=== PATIENT | male | born 1950 | race Caucasian/White ===

== ENCOUNTER 2019-11-18 12:00 | Inpatient (IN) | payer OTHER, SELFPAY ==
[2019-11-18] VITALS (7 sets, daily range): BP systolic 136–163; BP diastolic 62–83; PULSE 101–109; RESP 16–21; TEMP 36.4–36.6; O2SAT 92–95; BMI 25.7
--- NOTE | ~2019-11-18 | XR_ITS ---
XR chest 1V portable DATE: 11/18/2019 14:02 INDICATION: Chest pain radiating to left arm. Cough. TECHNIQUE: Portable upright AP chest on 11/18/2019 at 1401 hours COMPARISON: 09/11/2021 view chest FINDINGS: Normal heart size. No hilar or mediastinal enlargement. Azygos lobe, normal variant. No pulmonary infiltrate or consolidation, pleural effusion or pulmonary vascular congestion or pneumo thorax is evident. Diffuse osteopenia. There is degenerative spurring of the thoracic spine. IMPRESSION: No active cardiopulmonary disease or significant change since 09/11/2019 Reviewed, dictated and finalized at location B. IMPRESSION: No active cardiopulmonary disease or significant change since 2019
--- NOTE | 2019-11-18 12:22 | ED.CHESTPAIN ---
HPI - Chest Pain General Chief Complaint: Chest Pain Stated Complaint: CHEST PAIN Time Seen by Provider: 11/18/19 12:19 Source: patient and RN notes reviewed Mode of arrival: ambulatory Limitations: no limitations History of Present Illness HPI narrative: Pt is a 69 y/o male with a Hx of COPD, DM, HTN, and HLD, who presents to the ED with c/o lt upper chest pain starting this morning. He notes that he recently quit smoking on 10/13/19. Pt states that he has had an intermittent cough for roughly the past month. He notes that he developed a sharp pain in his lt upper chest while at rest around 11:15 AM this morning. Pt states that his pain has been intermittent ever since, noting that his pain is only aggravated with coughing and deep breathing. He states that his pain radiates into his lt arm. Pt currently denies any fever or chills. He notes that he isn't currently taking any blood thinners. Patient was tested for coronavirus 3 days ago, awaiting for the results MD complaint: chest pain Pertinent past history: other (COPD) Onset (ago): hour(s) (1) Timing of current episode: episodic Onset: during rest Pain location: left chest (lt upper chest) Pain radiation: left arm Quality: sharp Exacerbating factors: other (cough; deep breathing) Associated symptoms: cough Risk Factors Coronary artery disease risk factors: diabetes, hyperlipidemia and hypertension Related Data Home Medications Medication Instructions Recorded Confirmed atorvastatin 20 mg PO DAILY 11/18/19 azithromycin See Rx Instructions .ROUTE .COMPLEX 11/18/19 fluticasone propion-salmeterol INHALATION 11/18/19 losartan 25 mg PO DAILY 11/18/19 metformin 500 mg PO BID 11/18/19 [id number] cap PO 11/18/19 [[facility]] pantoprazole 40 mg PO BID 11/18/19 prednisone See Rx Instructions .ROUTE .COMPLEX 11/18/19 Allergies Allergy/AdvReac Type Severity Reaction Status Date / Time No Known Allergies Allergy Unverified 04/19/19 07:59 Review of Systems Review of Systems: All systems reviewed & are unremarkable except as noted in HPI and below Constitutional: Constitutional: Denies chills and Denies fever(s) Cardiovascular: Cardiovascular: Reports chest pain (lt upper chest pain radiating into lt arm) Respiratory: Respiratory: Reports cough PMFSH Past Medical History Medical History Arthritis Back pain Bilateral inguinal hernia COPD (chronic obstructive pulmonary disease) Diabetes Gastric ulcer GERD (gastroesophageal reflux disease) HLD (hyperlipidemia) HTN (hypertension) Surgical History Surgical History Hx of appendectomy Hx of bilateral inguinal hernia repair Hx of tonsillectomy Family History Family History (Updated 03/18/16 @ 23:19 by DOCTOR UNKNOWN) Mother Family history of diabetes mellitus in first degree relative Sibling Family history of diabetes mellitus in first degree relative Family history of lung cancer Family history of heart disease in male family member before age 55 Other Diabetes mellitus Family history of malignant neoplasm Social History Social History Smoking status: Former smoker Smoking end date: 10/13/19 Alcohol intake: never Exam Narrative: Exam Narrative: General appearance: Well-developed, well-nourished Skin: Normal color Head: Normocephalic, nontraumatic Eyes: Clear conjunctiva ENT: Oropharynx normal, ears normal, nose normal Neck: Supple, nontender Chest and respiratory: Airway patent, no respiratory distress, no accessory muscle use Heart: Regular rate/rhythm Abdomen: Soft, nontender, no organomegaly, quiet bowel sounds Vascular: Normal peripheral pulses, normal capillary refill. 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
--- NOTE | 2019-11-18 13:04 | PCRCNOTE ---
pt refused ABG RN is aware
[2019-11-18] MEDS: IPRATROPIUM BR 0.02% INH SOLN 0.5 MG/2.5 ML VIAL INHALATION (13:05)
[2019-11-18] MEDS: ALBUTEROL SULFATE NEB 2.5 MG/0.5 ML INH 5 MG INHALATION (13:06)
[2019-11-18 13:15] LABS: Basophils Absolute Auto 0.1 K/mm3 (0.0-0.1); Basophils Percent Auto 0.6 % (0.2-1.2); Eosinophils Percent Auto 0.4 % (0-4.4); Hematocrit 38.8 % (42.0-52.0); Hemoglobin 12.7 g/dL (14.0-18.0); Immature Granulocyte Absolute 0.04 K/mm3 (0.00-0.031); Immature Granulocyte Percent A 0.4 % (0-0.5); Lymphocytes Percent Auto 7.3 % (18.3-44.2); Mean Corpuscular HGB Conc 32.7 g/dl (32-36); Mean Corpuscular Hemoglobin 31.5 pg (26-34); Mean Corpuscular Volume 96.3 fl (80-100); Mean Platelet Volume 10.8 fl (7.4-10.4); Monocytes Absolute Auto 0.3 K/mm3 (0.1-0.6); Monocytes Percent Auto 2.6 % (2.6-8.5); Neutrophils Absolute Auto 9.8 K/mm3 (1.3-6.7); Neutrophils Percent Auto 88.7 % (45.5-73.1); Platelet Count Result 228 k/mm3 (150-375); Red Blood Count 4.03 M/mm3 (4.6-6.20); Red Cell Distribution Width 12.6 % (11.5-14.5)
[2019-11-18] MEDS: methylPREDNISolone SOD SUCC 125 MG VIAL IV PUSH (13:16)
[2019-11-18 13:24] LABS: INR 0.8; Prothrombin Time 11.1 Seconds (11.1-14.7)
--- NOTE | 2019-11-18 13:24 | ECG_ITS ---
Measurements Intervals [place] Rate: 107 P: 69 [place]: 131 QRS: 11 QRSD: 88 T: 68 QT: 301 QTc: 402 Interpretive Statements SINUS TACHYCARDIA ABNORMAL ECG Electronically Signed On 11-18-2019 13:57:41 CDT by Ganesh Diaz D.O.
[2019-11-18 13:26] LABS: Partial Thromboplastin Time 23.3 SECONDS (22.3-36.8)
[2019-11-18 13:33] LABS: D Dimer 0.27 ug/mL (<0.48)
[2019-11-18 13:35] LABS: Albumin Level 4.3 g/dL (3.5-5.1); Alkaline Phosphatase 142 U/L (38-126); Aspartate Amino Transferase 28 U/L (17-59); Bilirubin,Total < 0.1 mg/dL (0.2-1.3); Blood Urea Nitrogen 29 mg/dL (9-20); Calcium 9.4 mg/dL (8.4-10.2); Carbon Dioxide 20 mmol/L (22-30); Chloride 94 mmol/L (98-107); Estimated CRCL calculation 53 ml/min; Estimated Glomerular Filt Rate > 60; Glucose 619 mg/dL (75-110); Potassium 5.3 mmol/L (3.4-5.0); Sodium 131 mmol/L (137-145)
[2019-11-18 13:38] LABS: Alanine Aminotransferase 44 U/L (4-50)
[2019-11-18 13:43] LABS: NT Pro B Type Natriuretic Pept 56 PG/ML (5-100); Troponin I < 0.012 ng/mL (0.000-0.034)
[2019-11-18] MEDS: SODIUM CHLORIDE 0.9% IV 1,000 ML 999 ML IV CONT (15:49)
[2019-11-18] MEDS: INSULIN HUMAN REGULAR (*BKC) 100 UNITS/ML 8 UNITS IV PUSH (15:50)
[2019-11-18 16:20] LABS: Troponin I < 0.012 ng/mL (0.000-0.034)
[2019-11-18 16:31] LABS: Magnesium 1.4 mg/dL (1.6-2.3); Phosphorus 2.7 mg/dL (2.5-4.5)
[2019-11-18 16:34] LABS: Beta-Hydroxybutyrate/Acetoacetate 0.24 mmol/L (0.02-0.27)
[2019-11-18 16:56] LABS: Glucose Point of Care 457 (65-105)
[2019-11-18 17:56] LABS: Glucose Point of Care 442 (65-105)
[2019-11-18 18:46] LABS: Glucose Point of Care 384 (65-105)
[2019-11-18 19:10] LABS: Blood Urea Nitrogen 31 mg/dL (9-20); Calcium 9.6 mg/dL (8.4-10.2); Carbon Dioxide 22 mmol/L (22-30); Chloride 95 mmol/L (98-107); Estimated CRCL calculation 64 ml/min; Estimated Glomerular Filt Rate > 60; Glucose 416 mg/dL (75-110); Potassium 4.8 mmol/L (3.4-5.0); Sodium 134 mmol/L (137-145)
--- NOTE | 2019-11-18 19:27 | ADMGEN ---
This patient, Dno Brice, was admitted to Intensive Care Unit-5. Patient/family oriented to hospital policies and general routines including ID bracelet, bed and alarms, visiting hours, pain management, procedures, bathroom and other care routines, personal items, smoking policy, room service/diet, and visiting hours. Valuables list has been completed. Information on how to activate the Rapid Response Team has been discussed. Patient/Family are encouraged to report perceived risks to care and to ask questions if they do not understand what they are told or what they should do.
[2019-11-18 19:30] LABS: Phosphorus 3.3 mg/dL (2.5-4.5)
[2019-11-18 20:09] LABS: Hemoglobin A1C 9.4 % (<5.7)
[2019-11-18] MEDS: predniSONE 20 MG TABLET 60 MG PO (20:32)
[2019-11-18] MEDS: AZITHROMYCIN 250 MG TABLET PO (20:33)
[2019-11-18] MEDS: PANTOPRAZOLE 40 MG TABLET PO (20:35)
[2019-11-18] MEDS: OPTI-GEN TAB 1 TABLET PO (20:35)
[2019-11-18] MEDS: INSULIN HUMAN REGULAR (*BKC) 100 UNITS in SODIUM CHLORIDE 0.9% IV 99 ML 6 UNITS IV CONT (20:36)
[2019-11-18] MEDS: SODIUM CHLORIDE 0.9% IV 1,000 ML 150 ML IV CONT (20:37)
[2019-11-18] MEDS: MAGNESIUM SULF 2 GM/WATER 50ML 2 GM/50 ML BAG IVPB (20:55)
--- NOTE | 2019-11-18 21:05 | PM.IMHP ---
H&P: HPI History of Present Illness Chief complaint: Diabetic hyperglycemia/COPD exacerbation/chest fred Narrative: Don Brice is a 69 year old male who has a history of type 2 diabetes. The patient quit smoking on 10/13/2019. He has had an intermittent cough for the last month. He stated that his called their primary care doctor and then called a testing site for covid 19 which was approximately this past Monday and he still has not had the results yet. The patient has a history of COPD, diabetes, hypertension and hyperlipidemia. The patient was complaining of some left upper chest pain that started this morning. Was sharp and is aggravated with coughing and deep breathing. He does not have any sputum production. He has no fever chills. No body aches. No active cardiopulmonary disease or significant change since 09/11/2019. Patient's anion gap was noted to be 17. Was 619. He was given a dose of IV insulin and his blood sugar came down to 416. Patient is being admitted to the intensive care unit with DKA. And pending results for covid 19. Patient was placed in isolation in the intensive care unit. He was started on DKA protocol. Patient is upset at this time because he is not able to eat. EKG was read as sinus tachycardia. Was noted to be 0.012. Magnesium 1.4. Troponins are to be trended. He was given a nebulizer treatment in the emergency room. Date of service 11/18/2019 Review of Systems Review of Systems: All systems reviewed & are unremarkable except as noted in HPI and below Constitutional: Constitutional: Reports as per HPI and Reports no additional constitutional complaints Eyes: Eyes: Reports as per HPI and Reports no additional eye complaints ENT: Reports system reviewed and no additional complaints, except as documented and Reports Normal hearing present Cardiovascular: Cardiovascular: Reports no additional cardiovascular complaints Respiratory: Respiratory: Reports no additional respiratory complaints and Reports no additional respiratory complaints Gastrointestinal: Gastrointestinal: Reports as per HPI and Reports no additional gastrointestinal complaints Musculoskeletal: Musculoskeletal: Reports no additional musculoskeletal complaints Integumentary/Breasts: Skin/Breast: Reports system reviewed and no additional complaints, except as docu and Reports as per HPI Neurologic: Reports system reviewed and no additional complaints, except as documented, Reports as per HPI and Reports Normal hearing present Psychiatric: Psychiatric: Reports no additional psychiatric complaints and Reports as per HPI Endocrine: Endocrine: Reports no additional endocrine complaints Hematologic/Lymphatic: Hematologic/Lymphatic: Reports no additional hematologic/lymphatic complaints Allergic/Immunologic: Allergic/Immunologic: Reports no additional allergic/immunologic complaints [facility] Past Medical History Medical History Arthritis Back pain Bilateral inguinal hernia COPD (chronic obstructive pulmonary disease) Diabetes Gastric ulcer GERD (gastroesophageal reflux disease) HLD (hyperlipidemia) HTN (hypertension) Surgical History Surgical History Hx of appendectomy Hx of bilateral inguinal hernia repair Hx of tonsillectomy Family History Family History Mother Family history of diabetes mellitus in first degree relative Sibling Family history of diabetes mellitus in first degree relative Family history of lung cancer Family history of heart disease in male family member before age 55 Other Diabetes mellitus Family history of malignant neoplasm Social History Social History (Updated 11/18/19 @ 21:13 by Marguerite Carter NP) Social History: The patient stated that he was Rai 4 years old when he started smoking. He said he used to drink heavily
[2019-11-18 22:13] LABS: Add Urine Microscopic? YES; Appearance Urine Clear (Clear); Bilirubin Urine Negative (Negative); Blood Urine Negative (Negative); Color Urine Colorless (Yellow); Glucose Urine UA 3+ mg/dL (Negative); Ketones Urine Negative (Negative); Leukocyte Esterase Ur Negative LEU/UL (NEGATIVE); Nitrate Urine Negative (Negative); Protein Urine 1+ mg/dL (Negative); Specific Grav Ur 1.016 (1.001-1.035); Squamous Epithelial Cell Urine Rare /hpf (Few); Urobilinogen Urine Negative mg/dL (<2.0)
[2019-11-18] MEDS: KCL 20 MEQ/D5/0.45% SOD CHL 1,000 ML 150 ML IV CONT (23:37)
[2019-11-18 23:58] LABS: Blood Urea Nitrogen 27 mg/dL (9-20); Calcium 9.6 mg/dL (8.4-10.2); Carbon Dioxide 26 mmol/L (22-30); Chloride 99 mmol/L (98-107); Estimated CRCL calculation 71 ml/min; Estimated Glomerular Filt Rate > 60; Glucose 243 mg/dL (75-110); Potassium 3.9 mmol/L (3.4-5.0); Sodium 134 mmol/L (137-145)
[2019-11-19] VITALS (7 sets, daily range): BP systolic 141–151; BP diastolic 61–74; PULSE 81–95; RESP 16–20; TEMP 36.6–36.9; O2SAT 93–96
[2019-11-19 00:10] LABS: Troponin I < 0.012 ng/mL (0.000-0.034)
[2019-11-19 01:31] LABS: Glucose Point of Care 362 (65-105)
[2019-11-19 01:31] LABS: Glucose Point of Care 292 (65-105)
[2019-11-19 01:31] LABS: Glucose Point of Care 225 (65-105)
[2019-11-19 01:31] LABS: Glucose Point of Care 201 (65-105)
[2019-11-19 01:31] LABS: Glucose Point of Care 323 (65-105)
[2019-11-19 04:38] LABS: Basophils Percent Auto 0.2 % (0.2-1.2); Eosinophils Percent Auto 0.1 % (0-4.4); Hematocrit 37.6 % (42.0-52.0); Hemoglobin 12.9 g/dL (14.0-18.0); Immature Granulocyte Absolute 0.15 K/mm3 (0.00-0.031); Immature Granulocyte Percent A 0.8 % (0-0.5); Lymphocytes Absolute Auto 1.59 K/mm3 (0.9-3.2); Mean Corpuscular HGB Conc 34.3 g/dl (32-36); Mean Corpuscular Hemoglobin 31.7 pg (26-34); Mean Corpuscular Volume 92.4 fl (80-100); Mean Platelet Volume 10.3 fl (7.4-10.4); Monocytes Absolute Auto 1.3 K/mm3 (0.1-0.6); Monocytes Percent Auto 6.7 % (2.6-8.5); Neutrophils Absolute Auto 16.8 K/mm3 (1.3-6.7); Neutrophils Percent Auto 84.2 % (45.5-73.1); Platelet Count Result 242 k/mm3 (150-375); Red Blood Count 4.07 M/mm3 (4.6-6.20); Red Cell Distribution Width 12.6 % (11.5-14.5); White Blood Count 19.9 K/mm3 (4.5-10.0)
[2019-11-19 04:56] LABS: Blood Urea Nitrogen 24 mg/dL (9-20); Calcium 9.5 mg/dL (8.4-10.2); Carbon Dioxide 26 mmol/L (22-30); Chloride 103 mmol/L (98-107); Estimated CRCL calculation 81 ml/min; Estimated Glomerular Filt Rate > 60; Glucose 148 mg/dL (75-110); Sodium 137 mmol/L (137-145)
[2019-11-19] MEDS: INSULIN GLARGINE (*BKC) 100 UNITS/ML 10 UNITS SUB-Q (05:47)
[2019-11-19 05:49] LABS: Thyroid Stimulating Hormone Reflex 0.445 uIU/mL (0.465-4.68)
[2019-11-19 06:54] LABS: Glucose Point of Care 161 (65-105)
[2019-11-19 06:55] LABS: Glucose Point of Care 114 (65-105)
[2019-11-19 06:55] LABS: Glucose Point of Care 183 (65-105)
[2019-11-19 06:55] LABS: Glucose Point of Care 114 (65-105)
[2019-11-19 06:55] LABS: Glucose Point of Care 149 (65-105)
[2019-11-19] MEDS: INSULIN GLARGINE (*BKC) 100 UNITS/ML SUB-Q (08:21)
[2019-11-19] MEDS: LOSARTAN POTASSIUM 25 MG TABLET PO (08:25)
[2019-11-19] MEDS: ATORVASTATIN 20 MG TABLET PO (08:25)
[2019-11-19] MEDS: AZITHROMYCIN 250 MG TABLET PO (08:25)
[2019-11-19] MEDS: OPTI-GEN TAB 1 TABLET PO (08:25)
[2019-11-19] MEDS: PANTOPRAZOLE 40 MG TABLET PO (08:25)
[2019-11-19] MEDS: predniSONE 20 MG TABLET 60 MG PO (08:26)
[2019-11-19 08:41] LABS: Glucose Point of Care 164 (65-105)
[2019-11-19 08:44] LABS: Blood Urea Nitrogen 24 mg/dL (9-20); Calcium 9.3 mg/dL (8.4-10.2); Carbon Dioxide 26 mmol/L (22-30); Chloride 100 mmol/L (98-107); Estimated CRCL calculation 81 ml/min; Estimated Glomerular Filt Rate > 60; Glucose 181 mg/dL (75-110); Potassium 4.4 mmol/L (3.4-5.0); Sodium 136 mmol/L (137-145)
--- NOTE | 2019-11-19 08:58 | WPDCNINT ---
Assessment and Plan Assessment and plan (1) DKA (diabetic ketoacidoses): Qualifiers: Diabetes mellitus type: type 2 Diabetes mellitus complication detail: without coma Qualified Code(s): E11.10 - Type 2 diabetes mellitus with ketoacidosis without coma Code(s): E11.10 - Type 2 diabetes mellitus with ketoacidosis without coma Status: Acute Assessment and Plan: patient initially presented atypical chest pain, was found to have elevated blood sugars with anion gap metabolic acidosis. Patient was diagnosed with DKA, given IV fluid bolus x2 L, started on insulin infusion and transferred to the ICU for further management. - Patient was transition to long-acting insulin and sliding scale insulin with Accu-Cheks - hemoglobin A1c this admission is 9.4. - Patient on diabetic diet (2) Chest pain: Qualifiers: Chest pain type: unspecified Qualified Code(s): R07.9 - Chest pain, unspecified Code(s): R07.9 - Chest pain, unspecified Status: Acute Assessment and Plan: patient presented with atypical chest pain likely secondary to coughing. Denies any fevers or shortness of breath. Patient had a outpatient covid-19 test and has at outpatient with [facility] in [facility] Approximately 10 days ago and still awaiting results - troponins x3 negative, currently asymptomatic - cardiology evaluated the patient for chest pain, recommended outpatient echocardiogram and possible stress test at some point given history of diabetes, COPD, hypertension, patient may be at risk for cardiac disease (3) COPD (chronic obstructive pulmonary disease): Qualifiers: COPD type: COPD with acute exacerbation Qualified Code(s): J44.1 - Chronic obstructive pulmonary disease with (acute) exacerbation Code(s): J44.9 - Chronic obstructive pulmonary disease, unspecified Status: Acute Assessment and Plan: continue MDIs - on prednisone (4) HTN (hypertension): Qualifiers: Hypertension type: essential hypertension Qualified Code(s): I10 - Essential (primary) hypertension Code(s): I10 - Essential (primary) hypertension Status: Chronic Assessment and Plan: continue Cozaar (5) HLD (hyperlipidemia): Qualifiers: Hyperlipidemia type: unspecified Qualified Code(s): E78.5 - Hyperlipidemia, unspecified Code(s): E78.5 - Hyperlipidemia, unspecified Status: Chronic Assessment and Plan: continue atorvastatin Additional Plan discussed with patient updated with his condition and plan of care. I answered all questions. Discussed with cardiology, recommended outpatient echocardiogram and possible stress test at some point down the line Code status: Full code. Critical care time spent: 38 minutes Due to a high probability of clinically significant, life threatening deterioration, the patient required my highest level of preparedness to intervene emergently and I personally spent this critical care time directly and personally managing the patient. This critical care time included obtaining a history; examining the patient; pulse oximetry; ordering and review of studies; arranging urgent treatment with development of a management plan; evaluation of patient's response to treatment; frequent reassessment; and discussions with other providers. It was exclusive of separately billable procedures and treating other patients and teaching time. 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
--- NOTE | 2019-11-19 09:09 | PM.CNCAR ---
Assessment and Plan Assessment and plan (1) Chest pain: Qualifiers: Chest pain type: unspecified Qualified Code(s): R07.9 - Chest pain, unspecified Code(s): R07.9 - Chest pain, unspecified Status: Acute Assessment and Plan: Atypical for angina and appears musculoskeletal likely from strenuous coughing His EKG shows no ischemic changes and has 3 negative trop so far He has multiple cardiovascular risk factors including heavy tobacco abuse and DM. He would benefit from stress testing for risk stratification. That could be arranged in outpatient settings once DM better controlled and once his resp status improved. Would start ASA 81 mg daily if not already on it for primary cardiac prevention Consider 2D echo. pt currently on isolation pending COVID testing. If not feasible that can also be done as outpatient (2) COPD (chronic obstructive pulmonary disease): Code(s): J44.9 - Chronic obstructive pulmonary disease, unspecified Status: Chronic Assessment and Plan: Management per primary team (3) HTN (hypertension): Code(s): I10 - Essential (primary) hypertension Status: Chronic Assessment and Plan: Somewhat elevated. Patient resume on home dose Losartan. Consider increase the dose for better BP control (4) DKA (diabetic ketoacidoses): Code(s): E11.10 - Type 2 diabetes mellitus with ketoacidosis without coma Status: Acute Assessment and Plan: Management per primary team. History of Present Illness History of Present Illness Consult date/time: 11/19/19 09:09 69 y/o male with h/o COPD, tobacco abuse (1-2 packs a day, quit last month), HTN, DM who presented with chest pain. He has been having cough for few days and did out patient testing for COVID on Monday. His cough got worse and with that he started to develop chest pain when he coughs so he decided to seek medical attention. In ER he was found have markedly elevated blood sugar with anion gap consistent with DKA. He was admitted to ICU for further management of DKA. His chest pain has resolved. His COVID testing still pending. Troponin has been negative X3. EKG showed sinus tachycardia at heart rate of 107. No ischemic changes. Reason For Visit: Diabetic hyperglycemia/COPD exacerbation/chest fred Review of Systems Review of Systems: All systems reviewed & are unremarkable except as noted in HPI and below Constitutional: Constitutional: Denies fatigue and Denies headache(s) Eyes: Eyes: Denies blurry vision ENT: Reports Normal hearing present and Denies headache(s) Cardiovascular: Cardiovascular: Reports chest pain, Denies diaphoresis, Denies pedal edema, Denies leg edema, Denies lightheadedness, Denies palpitations and Denies dyspnea Respiratory: Respiratory: Reports cough and Denies dyspnea Gastrointestinal: Gastrointestinal: Denies abdominal pain Musculoskeletal: Musculoskeletal: Denies back pain Neurologic: Reports Normal hearing present and Denies headache(s) Psychiatric: Psychiatric: Denies anxiety Endocrine: Endocrine: Denies fatigue and Denies palpitations PMFSH Past Medical History Medical History (Updated 11/18/19 @ 21:16 by Marguerite Carter NP) Arthritis Back pain Bilateral inguinal hernia COPD (chronic obstructive pulmonary disease) Diabetes Gastric ulcer GERD (gastroesophageal reflux disease) HLD (hyperlipidemia) HTN (hypertension) Surgical History Surgical History Hx of appendectomy Hx of bilateral inguinal hernia repair Hx of tonsillectomy Family History Family History (Updated 11/18/19 @ 21:36 by Helga Brice, RN) Mother Family history of diabetes mellitus in first degree relative Sibling Family history of heart disease in male family member before age 55 Family history of lung cancer Family history of diabetes mellitus in first degree relative Breast cancer Father Alcohol a
--- NOTE | 2019-11-19 10:15 | PM.DS ---
DS: Diagnosis Admitting Diagnosis Admitting Diagnosis: Chest pain, unspecified; cough with dyspnea; hyperglycemia Discharge Diagnosis (1) Chest pain: Qualifiers: Chest pain type: unspecified Qualified Code(s): R07.9 - Chest pain, unspecified Code(s): R07.9 - Chest pain, unspecified Status: Acute Assessment and Plan: Atypical. Likely musculoskeletal due to coughing. (2) DKA (diabetic ketoacidoses): Code(s): E11.10 - Type 2 diabetes mellitus with ketoacidosis without coma Status: Acute Assessment and Plan: resolved (3) COPD (chronic obstructive pulmonary disease): Code(s): J44.9 - Chronic obstructive pulmonary disease, unspecified Status: Chronic Assessment and Plan: Patient has a long history of tobacco abuse. Continue with his inhalers as he uses at home. Taper steroids (4) HLD (hyperlipidemia): Code(s): E78.5 - Hyperlipidemia, unspecified Status: Chronic Assessment and Plan: Continue with Lipitor (5) HTN (hypertension): Code(s): I10 - Essential (primary) hypertension Status: Chronic Assessment and Plan: Continue with Cozaar DS: Summary Hospital Course Reason for hospitalization: Chest pain. Cough and dyspnea. Hyperglycemia. Hospital Course: Patient was evaluated November 14 due to dry cough and mild dyspnea. He was started on prednisone 60 mg daily. He is a type 2 diabetic and was previously on Levemir FlexPen. He will was currently on oral hypoglycemics only. He did obtain a a cespedes virus swab on November 14 and was told it would take 7 days to obtain the results. He developed some chest pain with his coughing and came to the emergency department. In the emergency department he was found to be hyperglycemic with a blood sugar 619. A1c was 9.4%. He was treated with IV and subcutaneous insulin as well as IV fluids. His blood sugar rapidly improved with a fasting of 164 on the day of discharge. He was tolerating his diet. He was agreeable to resuming his Levemir and rapidly tapering his prednisone. He was to return to the emergency department she did develop increased shortness of breath or fever. He was evaluated by cardiology who felt that his chest pain was atypical and was associated with coughing and most likely musculoskeletal. Chest x-ray revealed infiltrates. Electrocardiogram and troponins were negative. He was to contact cardiology for outpatient stress test once his respiratory illness resolved. Status at Discharge Functional status at discharge: independent ambulation Overall status at discharge: patient is progressing back to baseline Time Spent with Patient Time attestation: Total time spent providing and/or coordinating discharge services: 37 min Exam Narrative: Exam Narrative: HEENT: EOMI, PERRL, pharyngeal mucosa pink and intact NECK: No JVD CHEST: Increased AP diameter. Normal effort. Mild rhonchi posteriorly. Mild expiratory wheeze anteriorly. Prolonged expiratory phase. No coughing during interview or exam. HEART: NL S1/S2, regular, no murmur ABDOMEN: BS+, soft, nontender, no mass, no bruits EXTREMITIES: No cyanosis, edema, or clubbing NEUROLOGIC: CN intact and symmetric to inspection. MUSCULOSKELETAL: Tone and strength symmetric. PSYCH: Alert. Oriented to person, place, and time. DS: Data Data Completed and Pending Labs on day of discharge: Labs from last 24 hours 11/19/19 11/19/19 11/19/19 08:21 08:17 06:50 WBC RBC Hgb Hct MCV MCH MCHC RDW Plt Count MPV Immature Gran % (Auto) Neut % (Auto) Lymph % (Auto) [place] % (Auto) Eos % (Auto) Baso % (Auto) Lymph # (Auto) [place] # (Auto) Eos # (Auto) Baso # (Auto) Abs Immat Gran (auto) Absolute Neuts (auto) Absolute Nucleated RBC Nucleated RBC % PT INR APTT D-Dimer Sodium 136 L Potassium 4.4 Chloride 100 Carbon Dioxide 26
[2019-11-20 09:34] LABS: Free T4 Free Thyroxine Reflex 0.86 ng/dL (0.78-2.19)
[2019-11-20 10:39] LABS: Total Triiodothyronine (T3) 1.09 NG/ML (0.97-1.69)
--- NOTE | 2019-11-20 14:05 | PCCDE ---
Consult received 11/17 however pt was discharged 11/18 before consult was completed. Called pt today and left message with educator contact info. Will be available per request.
== END 2019-11-19 11:38 | disposition home or self-care (01) | DRG 639 ==
LOC: ANHED 16:00 → ANHIMU 16:43 → ANHICU 17:18
PROVIDERS: Internal Medicine; Nurse Practitioner; Admitting Provider Family Medicine; Emergency Provider Emergency Medicine; PCP Physician Assistant; Visit Provider Internal Medicine
DX: E11.10 Type 2 diabetes mellitus with ketoacidosis without coma (principal); E78.5 Hyperlipidemia, unspecified; I10 Essential (primary) hypertension; R07.89 Other chest pain; J44.9 Chronic obstructive pulmonary disease, unspecified
CPT/HCPCS: 36415; 71045; 80048; 80053; 81001; 82010; 83036; 83735; 83880; 84100; 84439; 84443; 84480; 84484; 85025; 85380; 85610; 85730; 93005; 94640; 96361; 96374; 96375; 99285; A9270; J1815; J2930; J3475; J3480; J7030; J7512

== ENCOUNTER 2020-01-20 12:23 | Outpatient (CLI) | payer OTHER, SELFPAY ==
--- NOTE | ~2020-01-20 | XR_ITS ---
XR chest 2V DATE: 01/20/2020 12:39 INDICATION: Upper right chest pain and back pain for 3 days. Cough and shortness of breath. TECHNIQUE: PA and lateral views COMPARISON: 11/18/2019 portable AP chest 03/21/2017 two-view chest FINDINGS: Azygos lobe, normal variant. There is chronic bilateral upper lobe scarring. There is evide nce of emphysema. No pulmonary infiltrate or consolidation, pleural effusion or pulmonary vascular co ngestion or pneumothorax is detected. Normal heart size. No hilar or mediastinal enlargement. Degenerative spurring of the thoracic spine. IMPRESSION: Emphysema and chronic bilateral upper lobe scarring No active disease or significant change compared to 03/21/2017 Reviewed, dictated and finalized at location A.
== END 2020-01-20 12:24 | disposition home or self-care (01) ==
PROVIDERS: PCP Physician Assistant; Visit Provider Physician Assistant
DX: R07.9 Chest pain, unspecified (principal); R05 Cough; R06.02 Shortness of breath; J43.9 Emphysema, unspecified; R91.8 Other nonspecific abnormal finding of lung field
CPT/HCPCS: 71046

== ENCOUNTER 2020-01-24 07:36 | Outpatient (CLI) | payer OTHER, SELFPAY ==
[2020-01-24 08:36] LABS: Hemoglobin A1C 9.5 % (<5.7)
[2020-01-24 08:41] LABS: Alanine Aminotransferase 28 U/L (4-50); Albumin Level 4.4 g/dL (3.5-5.1); Alkaline Phosphatase 93 U/L (38-126); Aspartate Amino Transferase 25 U/L (17-59); Bilirubin,Total 0.2 mg/dL (0.2-1.3); Blood Urea Nitrogen 28 mg/dL (9-20); Carbon Dioxide 29 mmol/L (22-30); Chloride 98 mmol/L (98-107); Cholesterol 149 mg/dL (0-200); Estimated Glomerular Filt Rate > 60; Glucose 285 mg/dL (75-110); HDL Direct 32 mg/dL; Potassium 4.6 mmol/L (3.4-5.0); Sodium 135 mmol/L (137-145); Triglycerides 150 mg/dL (<150)
[2020-01-24 08:52] LABS: LDL Cholesterol Direct 85 mg/dL
[2020-01-24 09:11] LABS: Creatinine Urine 73.3 mg/dL
[2020-01-24 09:15] LABS: MALB Creatinine Ratio 140.1 mg/g (0-30); Microalbumin Urine Random 102.7 mg/L (0-16.7)
== END 2020-01-24 07:37 | disposition home or self-care (01) ==
LOC: ANHLAB 07:40
PROVIDERS: PCP Physician Assistant; Visit Provider Physician Assistant
DX: E11.9 Type 2 diabetes mellitus without complications (principal); I10 Essential (primary) hypertension; R53.83 Other fatigue; E11.69 Type 2 diabetes mellitus with other specified complication; E78.5 Hyperlipidemia, unspecified
CPT/HCPCS: 36415; 80053; 80061; 82043; 83036; 84443

== ENCOUNTER 2020-04-20 10:01 | Outpatient (CLI) | payer OTHER, SELFPAY ==
--- NOTE | ~2020-04-20 | XR_ITS ---
EXAMINATION: XR thoracic spine 2V DATE: 04/20/2020 10:39 INDICATION: Chronic bilateral mid back pain TECHNIQUE: AP and lateral views of the thoracic spine were obtained. COMPARISON: 10/02/2018 FINDINGS: There is no fracture, dislocation, or subluxation. The vertebral body heights and alignment are normal. Again seen is mild loss of intervertebral disc space height at multiple levels in the th oracic spine. Small degenerative osteophytes project from the anterior endplates of multiple vertebra l bodies. The visualized portions of the lungs are clear. IMPRESSION: 1. Mild thoracic spondylosis without acute findings or significant interval change. Reviewed, dictated and finalized at location A. IMPRESSION: 1. Mild thoracic spondylosis without acute findings or significant interval maribel amrileee.
[2020-04-20 10:44] LABS: Hemoglobin A1C 8.1 % (<5.7)
[2020-04-20 10:50] LABS: Alanine Aminotransferase 46 U/L (4-50); Albumin Level 4.5 g/dL (3.5-5.1); Alkaline Phosphatase 77 U/L (38-126); Anion Gap 8 mmol/L (8-16); Aspartate Amino Transferase 30 U/L (17-59); Bilirubin,Total 0.2 mg/dL (0.2-1.3); Blood Urea Nitrogen 18 mg/dL (9-20); Calcium 9.5 mg/dL (8.4-10.2); Carbon Dioxide 29 mmol/L (22-30); Chloride 96 mmol/L (98-107); Estimated Glomerular Filt Rate > 60; Glucose 281 mg/dL (75-110); Sodium 133 mmol/L (137-145)
== END 2020-04-20 10:02 | disposition home or self-care (01) ==
PROVIDERS: PCP Physician Assistant; Visit Provider Physician Assistant
DX: E11.9 Type 2 diabetes mellitus without complications (principal); I10 Essential (primary) hypertension; M47.894 Other spondylosis, thoracic region
CPT/HCPCS: 36415; 72070; 80053; 83036

== ENCOUNTER 2020-08-24 00:19 | Outpatient (CLI) | payer OTHER, SELFPAY ==
[2020-08-24 18:50] LABS: SARS-CoV-2 RNA PCR Negative
== END 2020-08-24 00:20 | disposition home or self-care (01) ==
LOC: ANHCOVIDDT 00:19
PROVIDERS: PCP Physician Assistant; Visit Provider Internal Medicine Gastroenterology
DX: Z01.812 Encounter for preprocedural laboratory examination (principal); Z20.822 Contact with and (suspected) exposure to COVID-19
CPT/HCPCS: C9803; U0003

== ENCOUNTER 2020-08-27 00:25 | Day surgery (SDC) | payer OTHER, SELFPAY ==
--- NOTE | 2020-06-22 13:28 | SUR.PREOP ---
CALLED PT FOR PAT PHONE INTERVIEW. PT STATED HE IS NOT FEELING WELL AND HE NEEDS TO CANCEL HIS PROCEDURE...HE IS TRAVELING OUT OF TOWN ON FOR A FAMILY REUNION. SCHEDULERS MADE AWARE.
--- NOTE | 2020-06-22 14:17 | SUR.PREOP ---
'S BAY CALLED BACK. I GAVE HER DR HERRERA'S OFFICE NUMBER FOR HER TO CALL AND CANCEL THE PROCEDURE SCHEDULED ON 06/26 AND TO RESCHEDULE IT. SHE VERBALIZED UNDERSTANDING.
[2020-08-11 11:03] VITALS: BMI 25.1
[2020-08-27 10:40] VITALS: BP 135/72; PULSE 100; RESP 16; TEMP 36.3; O2SAT 97; BMI 26.7
[2020-08-27 11:01] LABS: Glucose Point of Care 374 (65-105)
[2020-08-27] MEDS: LACTATED RINGERS 1,000 ML 150 ML IV CONT (11:03)
--- NOTE | 2020-08-27 11:07 | SUR.PREOP ---
Pt blood sugar 347. Dr. Cedeno made aware. No new orders. Pt drank coffee and prep at 0900. Dr. Cedeno aware.
--- NOTE | 2020-08-27 11:32 | WPDANESEPPF ---
Anes - Initial Pre Proc Eval Procedure: Operation Date: 08/27/20 14:15 Proposed Procedures p Screening Colonoscopy - Pavel Aaron MD Date/Time: 08/27/20 11:32 Surgeon: Pavel Aaron MD Pre Op Diagnosis: Neoplasm Screening Patient Data Age: 69 Gender: M Height: 5 ft 8 in Weight: 79.9 kg Last Vital Signs Temp 97.4 F L 08/27/20 10:40 Pulse 100 08/27/20 10:40 Resp 16 08/27/20 10:40 BP 135/72 08/27/20 10:40 Pulse Ox 97 08/27/20 10:40 Allergies Allergy/AdvReac Type Severity Reaction Status Date / Time No Known Allergies Allergy Verified 08/27/20 10:39 Home Medications Medication Instructions Recorded Confirmed Type [facility] 1 cap PO BID 11/18/19 08/11/20 History albuterol sulfate 1 inh INHALATION Q6H PRN 11/18/19 08/11/20 History atorvastatin 20 mg PO DAILY 11/18/19 08/11/20 History fluticasone propion-salmeterol 1 inh INHALATION BID 11/18/19 08/11/20 History [Advair Diskus] losartan 25 mg PO DAILY 11/18/19 08/11/20 History metformin 500 mg PO BID 11/18/19 08/11/20 History pantoprazole 40 mg PO BID 11/18/19 08/11/20 History insulin glargine [Basaglar KwikPen 20 unit SUB-Q DAILY #15 ml 11/19/19 08/11/20 Rx U-100 Insulin] pen needle, diabetic [AboutTime #90 each 11/19/19 Rx Pen Needle] peg 3350 240 gram-electrolytes 240 ml PO Q10M #4000 ml 04/21/20 Rx 22.72 gram-6.72 g-5.84 g powdr for soln Laboratory Tests 08/27/20 10:58 POC Capillary Glucose 374 mg/dl H mg/dl (65-105) Patient hx anesthesia problems: none Family hx anesthesia problems: none PMFSH Past Medical History Medical History (Updated 11/19/19 @ 10:32 by Devon Schwartz MD) Arthritis Back pain Bilateral inguinal hernia COPD (chronic obstructive pulmonary disease) Diabetes Gastric ulcer GERD (gastroesophageal reflux disease) HLD (hyperlipidemia) HTN (hypertension) Surgical History Surgical History Hx of appendectomy Hx of bilateral inguinal hernia repair Hx of tonsillectomy Family History Family History (Updated 11/18/19 @ 21:36 by Helga Brice RN) Mother Family history of diabetes mellitus in first degree relative Sibling Family history of heart disease in male family member before age 55 Family history of lung cancer Family history of diabetes mellitus in first degree relative Breast cancer Father Alcohol abuse Other Diabetes mellitus Family history of malignant neoplasm Social History Social History (Updated 11/18/19 @ 21:13 by Marguerite Carter NP) Social History: The patient stated that he was Rai 4 years old when he started smoking. He said he used to drink heavily but no longer drinks heavily. He lives with his any does not have any biological children. 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 Smoking packs per day: 1.5 Smoking cigarettes per day: 30.0 Years smoked: 65 Smoking pack-years: 97.50 Smoking status: Current some day smoker Tobacco type: cigarettes Second hand tobacco smoke exposure: Yes Smoking end date: 10/15/19 Additional smoking assessment comments: CURRENTLY QUITTING NOW SMOKING 2 CIG./DAY Alcohol intake: current Substance use: former Substance use type: marijuana Other substance usage details: WHEN IN [facility] Living arrangements: with family Gender identity (if verbalized by the patient): Male Spiritual care concerns: No Agree to blood products: Yes Anes - Eval Final PreProcedure Day of Procedure 08/27/20 11:32 Patient weight: normal Heart: regular rate and rhythm Lungs: clear to auscultation Airway: Mallampati scale class II Neurological: alert and oriented Last oral intake: >/= 8 hours ASA classification: III Emergent: no Anesthetic plan: proceed Anesthesia type and monitoring: general GIVS and standard monitoring Informed Consent: The patient's anesthetic plan and its attenda
--- NOTE | 2020-08-27 12:10 | PM.HPGS ---
History of Present Illness History of Present Illness Consent: Risks, benefits, and alternatives have been discussed and questions answered. Patient agrees to proceed with procedure. Chief complaint: Neoplasm Screening Narrative: Don Brice is a 69 year old male here for screening colonoscopy, last one about 5 years ago. Review of Systems Constitutional: Constitutional: Denies headache(s) and Denies weakness Eyes: Eyes: Denies blurry vision ENT: Reports Normal hearing present, Denies headache(s) and Denies neck pain Cardiovascular: Cardiovascular: Denies chest pain and Denies dyspnea Respiratory: Respiratory: Denies dyspnea Gastrointestinal: Gastrointestinal: Reports no additional gastrointestinal complaints Genitourinary: Genitourinary: Denies dysuria Musculoskeletal: Musculoskeletal: Denies neck pain Integumentary/Breasts: Skin/Breast: Denies dry skin Neurologic: Reports Normal hearing present, Denies headache(s) and Denies weakness Psychiatric: Psychiatric: Denies anxiety Endocrine: Endocrine: Denies change in body appearance Hematologic/Lymphatic: Hematologic/Lymphatic: Denies easy bleeding Allergic/Immunologic: Allergic/Immunologic: Denies urticaria PMFSH Past Medical History Medical History (Updated 08/27/20 @ 12:11 by Pavel Aaron MD) Arthritis Back pain Bilateral inguinal hernia Colon cancer screening COPD (chronic obstructive pulmonary disease) Diabetes Gastric ulcer GERD (gastroesophageal reflux disease) HLD (hyperlipidemia) HTN (hypertension) Surgical History Surgical History Hx of appendectomy Hx of bilateral inguinal hernia repair Hx of tonsillectomy Family History Family History (Updated 11/18/19 @ 21:36 by Helga Brice RN) Mother Family history of diabetes mellitus in first degree relative Sibling Family history of heart disease in male family member before age 55 Family history of lung cancer Family history of diabetes mellitus in first degree relative Breast cancer Father Alcohol abuse Other Diabetes mellitus Family history of malignant neoplasm Social History Social History (Updated 11/18/19 @ 21:13 by Marguerite Carter NP) Social History: The patient stated that he was Rai 4 years old when he started smoking. He said he used to drink heavily but no longer drinks heavily. He lives with his any does not have any biological children. 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 Smoking packs per day: 1.5 Smoking cigarettes per day: 30.0 Years smoked: 65 Smoking pack-years: 97.50 Smoking status: Current some day smoker Tobacco type: cigarettes Second hand tobacco smoke exposure: Yes Smoking end date: 10/15/19 Additional smoking assessment comments: CURRENTLY QUITTING NOW SMOKING 2 CIG./DAY Alcohol intake: current Substance use: former Substance use type: marijuana Other substance usage details: WHEN IN [place] Living arrangements: with family Gender identity (if verbalized by the patient): Male Spiritual care concerns: No Agree to blood products: Yes Meds Home Medications and Allergies Home Medications Medication Instructions Recorded Confirmed Type [facility] 1 cap PO BID 11/18/19 08/11/20 History albuterol sulfate 1 inh INHALATION Q6H PRN 11/18/19 08/11/20 History atorvastatin 20 mg PO DAILY 11/18/19 08/11/20 History fluticasone propion-salmeterol 1 inh INHALATION BID 11/18/19 08/11/20 History [Advair Diskus] losartan 25 mg PO DAILY 11/18/19 08/11/20 History metformin 500 mg PO BID 11/18/19 08/11/20 History pantoprazole 40 mg PO BID 11/18/19 08/11/20 History insulin glargine [Basaglar KwikPen 20 unit SUB-Q DAILY #15 ml 11/19/19 08/11/20 Rx U-100 Insulin] pen needle, diabetic [AboutTime #90 each 11/19/19 Rx Pen Needle] peg 3350 240 gram-electrolytes 240 ml PO Q10M #4000 ml 04/21/20 Rx 22.72 gram-6.72 g-5.84 g po
[2020-08-27 12:33] VITALS: BP 109/55; PULSE 77; RESP 17; O2SAT 95
[2020-08-27 12:43] VITALS: BP 118/66; PULSE 75; RESP 16; O2SAT 95
[2020-08-27 12:52] LABS: Glucose Point of Care 299 (65-105)
[2020-08-27 12:53] VITALS: BP 134/74; PULSE 75; RESP 18; O2SAT 99
== END 2020-08-27 13:16 | disposition home or self-care (01) ==
PROVIDERS: PCP Physician Assistant; Visit Provider Internal Medicine Gastroenterology
PROC: 0DJD8ZZ Inspection of Lower Intestinal Tract, Via Natural or Artificial Opening Endoscopic (ICD-10-PCS; CPT 45378; principal; 2020-08-27 14:15)
DX: Z12.11 Encounter for screening for malignant neoplasm of colon (principal); D12.2 Benign neoplasm of ascending colon; D12.0 Benign neoplasm of cecum; D12.5 Benign neoplasm of sigmoid colon; D12.3 Benign neoplasm of transverse colon; K57.30 Diverticulosis of large intestine without perforation or abscess without bleeding; K64.8 Other hemorrhoids; K63.5 Polyp of colon; Z79.84 Long term (current) use of oral hypoglycemic drugs; Z79.4 Long term (current) use of insulin; Z79.51 Long term (current) use of inhaled steroids; M19.91 Primary osteoarthritis, unspecified site; K40.20 Bilateral inguinal hernia, without obstruction or gangrene, not specified as recurrent; J44.9 Chronic obstructive pulmonary disease, unspecified; E11.9 Type 2 diabetes mellitus without complications; K25.9 Gastric ulcer, unspecified as acute or chronic, without hemorrhage or perforation; K21.9 Gastro-esophageal reflux disease without esophagitis; I10 Essential (primary) hypertension; E78.5 Hyperlipidemia, unspecified; F17.210 Nicotine dependence, cigarettes, uncomplicated
CPT/HCPCS: 45385; 88305; C9803; J2001; J2704; J7120; U0003

== ENCOUNTER 2020-11-02 10:45 | Outpatient (CLI) | payer OTHER, SELFPAY ==
--- NOTE | ~2020-11-02 | CT_ITS ---
EXAMINATION:CT lung screening DATE: 11/02/2020 11:18 INDICATION: Personal history of tobacco dependence. Smoker who quit 1 year ago with 45 pack year hist ory. TECHNIQUE: Computed tomography (CT) of the chest was performed without intravenous contrast. Automate d exposure control and iterative reconstruction technique were employed. The dose-length product (DLP ) was 102.31 mGy-cm. COMPARISON: Chest CT 08/01/2019 FINDINGS: There is moderate emphysema. There is mild scarring at the lung apices. Again seen is a 5 m m nodule in left upper lobe. Calcified left lung nodules and calcified left hilar lymph nodes are con sistent with old granulomatous disease. No pleural effusion or pneumothorax. The heart size is normal . There are coronary artery calcifications. No pericardial effusion. There is severe cervical spondyl osis and mild thoracic spondylosis. IMPRESSION: 1. Lung-RADS category 2: Benign appearance or behavior. Continue annual screening with noncontrast lo w-dose chest CT in 12 months. Reviewed, dictated and finalized at location A. IMPRESSION: 1. Lung-RADS category 2: Benign appearance or behavior. Continue annual screeni ng with noncontrast low-dose chest CT in 12 months.
== END 2020-11-02 10:46 | disposition home or self-care (01) ==
PROVIDERS: PCP Physician Assistant; Visit Provider Physician Assistant
DX: Z12.2 Encounter for screening for malignant neoplasm of respiratory organs (principal); Z87.891 Personal history of nicotine dependence
CPT/HCPCS: 71271

== ENCOUNTER 2021-02-03 07:15 | Outpatient (CLI) | payer OTHER, SELFPAY ==
[2021-02-03 07:43] LABS: Basophils Absolute Auto 0.1 K/mm3 (0.0-0.1); Basophils Percent Auto 1.4 % (0.2-1.2); Eosinophils Absolute Auto 0.7 K/mm3 (0-0.3); Eosinophils Percent Auto 7.9 % (0-4.4); Hematocrit 47.1 % (42.0-52.0); Hemoglobin 15.3 g/dL (14.0-18.0); Immature Granulocyte Absolute 0.03 K/mm3 (0.00-0.031); Immature Granulocyte Percent A 0.3 % (0-0.5); Lymphocytes Absolute Auto 2.13 K/mm3 (0.9-3.2); Lymphocytes Percent Auto 22.6 % (18.3-44.2); Mean Corpuscular HGB Conc 32.5 g/dl (32-36); Mean Corpuscular Volume 98.5 fl (80-100); Monocytes Absolute Auto 1.1 K/mm3 (0.1-0.6); Monocytes Percent Auto 11.2 % (2.6-8.5); Neutrophils Absolute Auto 5.3 K/mm3 (1.3-6.7); Neutrophils Percent Auto 56.6 % (45.5-73.1); Platelet Count Result 247 k/mm3 (150-375); Red Blood Count 4.78 M/mm3 (4.6-6.20); Red Cell Distribution Width 12.2 % (11.5-14.5); White Blood Count 9.4 K/mm3 (4.5-10.0)
[2021-02-03 07:57] LABS: Alanine Aminotransferase 23 U/L (4-50); Albumin Level 4.2 g/dL (3.5-5.1); Alkaline Phosphatase 78 U/L (38-126); Anion Gap 8 mmol/L (8-16); Aspartate Amino Transferase 30 U/L (17-59); Bilirubin,Total 0.2 mg/dL (0.2-1.3); Blood Urea Nitrogen 14 mg/dL (9-20); Calcium 9.7 mg/dL (8.4-10.2); Carbon Dioxide 27 mmol/L (22-30); Chloride 107 mmol/L (98-107); Cholesterol 141 mg/dL (0-200); Estimated Glomerular Filt Rate > 60; Glucose 157 mg/dL (75-110); HDL Direct 41 mg/dL; Potassium 4.5 mmol/L (3.4-5.0); Sodium 142 mmol/L (137-145); Triglycerides 149 mg/dL (<150)
[2021-02-03 08:08] LABS: LDL Cholesterol Direct 72 mg/dL
[2021-02-03 08:59] LABS: Creatinine Urine 33.9 mg/dL
[2021-02-03 09:03] LABS: MALB Creatinine Ratio 98.8 mg/g (0-30); Microalbumin Urine Random 33.5 mg/L (0-16.7)
== END 2021-02-03 07:16 | disposition home or self-care (01) ==
PROVIDERS: PCP Physician Assistant; Visit Provider Physician Assistant
DX: E11.69 Type 2 diabetes mellitus with other specified complication (principal); E78.5 Hyperlipidemia, unspecified
CPT/HCPCS: 36415; 80053; 80061; 82043; 84443; 85025

== ENCOUNTER 2021-09-29 12:12 | Outpatient (CLI) | payer OTHER, SELFPAY ==
--- NOTE | ~2021-09-29 | XR_ITS ---
XR cervical spine 4-5V DATE: 09/29/2021 12:44 INDICATION: Fall 4 days ago. Right neck pain. TECHNIQUE: AP, open-mouth, lateral and swimmer views COMPARISON: None FINDINGS: C1 and C2 are normally aligned and the odontoid process is intact. No fracture or dislocati on or locked facet or prevertebral soft tissue swelling. There is severe degenerative disc disease at C5-6 and moderately severe degenerative disc disease at C6-7. The remaining cervical interspaces are well preserved. IMPRESSION: Severe degenerative disease at C5-6 Moderately severe degenerative disc disease at C6-7 Reviewed, dictated and finalized at location A. SPACE PROJECT MANAGER
--- NOTE | ~2021-09-29 | XR_ITS ---
XR shoulder RT min 2V DATE: 09/29/2021 12:44 INDICATION: Right shoulder pain following fall TECHNIQUE: 4 views COMPARISON: None FINDINGS: A 5 mm irregular soft tissue opacity is noted overlying the lateral right mid lung; small p ulmonary mass lesion is not excluded. CT thorax examination should be considered. Azygos lobe is noted. There is osteopenia. There is degenerative change and mild calcification at the right acromion clavicular joint. No fracture, dislocation, periosteal reaction or bone destruction or abnormal soft tissue calcificati on of the right shoulder is noted otherwise. IMPRESSION: Suggestion of 5 mm right upper lobe nodule; consider CT thorax Degenerative change of the right acromioclavicular joint Osteopenia Dr. Dumont telephoned the report including 5 mm right upper lobe nodule and recommendation for CT thora x examination on 09/29/2021 at 1344 hours to ELISA Pool, who indicated she would notify Nurse Practitayden Boo as soon as she was available from a patient room. Reviewed, dictated and finalized at location A. ALLY RESPONSIBLE INVESTMENT ADVISER IMPRESSION: Suggestion of 5 mm right upper lobe nodule; consider CT thorax Degenerative change of the right acromioclavicular joint Osteopenia Dr. Dumont telephoned the report including 5 mm right upper lobe nodule and recom mendation for CT thorax examination on 09/29/2021 at 1344 hours to ELISA Pool, w ho indicated she would notify Nurse Practitioner Ema as soon as she was av ailable from a patient room.
== END 2021-09-29 12:13 | disposition home or self-care (01) ==
PROVIDERS: PCP Physician Assistant; Visit Provider Physician Assistant
DX: M54.2 Cervicalgia (principal); M25.511 Pain in right shoulder; W19.XXXA Unspecified fall, initial encounter; R91.8 Other nonspecific abnormal finding of lung field; M85.89 Other specified disorders of bone density and structure, multiple sites; M50.322 Other cervical disc degeneration at C5-C6 level
CPT/HCPCS: 72050; 73030

== ENCOUNTER 2021-09-30 09:29 | Outpatient (CLI) | payer OTHER, SELFPAY ==
[2021-09-30 11:01] LABS: Basophils Absolute Auto 0.1 K/mm3 (0.0-0.1); Basophils Percent Auto 1.8 % (0.2-1.2); Eosinophils Absolute Auto 0.5 K/mm3 (0-0.3); Eosinophils Percent Auto 5.8 % (0-4.4); Hematocrit 45.1 % (42.0-52.0); Hemoglobin 15.2 g/dL (14.0-18.0); Immature Granulocyte Absolute 0.02 K/mm3 (0.00-0.031); Immature Granulocyte Percent A 0.3 % (0-0.5); Lymphocytes Absolute Auto 2.27 K/mm3 (0.9-3.2); Lymphocytes Percent Auto 29.1 % (18.3-44.2); Mean Corpuscular HGB Conc 33.7 g/dl (32-36); Mean Corpuscular Hemoglobin 32.7 pg (26-34); Mean Platelet Volume 9.9 fl (7.4-10.4); Monocytes Absolute Auto 1.1 K/mm3 (0.1-0.6); Monocytes Percent Auto 13.5 % (2.6-8.5); Neutrophils Absolute Auto 3.9 K/mm3 (1.3-6.7); Neutrophils Percent Auto 49.5 % (45.5-73.1); Platelet Count Result 331 k/mm3 (150-375); Red Blood Count 4.65 M/mm3 (4.6-6.20); Red Cell Distribution Width 11.9 % (11.5-14.5); White Blood Count 7.8 K/mm3 (4.5-10.0)
[2021-09-30 11:14] LABS: Alanine Aminotransferase 17 U/L (4-50); Albumin Level 4.5 g/dL (3.5-5.1); Alkaline Phosphatase 66 U/L (38-126); Anion Gap 8 mmol/L (8-16); Aspartate Amino Transferase 24 U/L (17-59); Bilirubin,Total 0.3 mg/dL (0.2-1.3); Blood Urea Nitrogen 20 mg/dL (9-20); Calcium 9.7 mg/dL (8.4-10.2); Carbon Dioxide 25 mmol/L (22-30); Chloride 100 mmol/L (98-107); Cholesterol 205 mg/dL (0-200); Estimated Glomerular Filt Rate > 60; Glucose 154 mg/dL (65-110); HDL Direct 34 mg/dL; Potassium 4.6 mmol/L (3.4-5.0); Sodium 133 mmol/L (137-145); Triglycerides 132 mg/dL (<150)
[2021-09-30 11:15] LABS: Hemoglobin A1C 7.2 % (<5.7)
[2021-09-30 11:28] LABS: LDL Cholesterol Direct 130 mg/dL
[2021-09-30 11:29] LABS: Creatinine Urine 24.3 mg/dL
[2021-09-30 11:34] LABS: MALB Creatinine Ratio 176.1 mg/g (0-30); Microalbumin Urine Random 42.8 mg/L (0-16.7)
== END 2021-09-30 09:30 | disposition home or self-care (01) ==
LOC: ANHLAB 09:35
PROVIDERS: PCP Physician Assistant; Visit Provider Physician Assistant
DX: R53.83 Other fatigue (principal); E11.9 Type 2 diabetes mellitus without complications; I10 Essential (primary) hypertension; E11.69 Type 2 diabetes mellitus with other specified complication; E78.5 Hyperlipidemia, unspecified
CPT/HCPCS: 36415; 80053; 80061; 82043; 83036; 84443; 85025

== ENCOUNTER 2021-10-06 08:49 | Outpatient (CLI) | payer OTHER, SELFPAY ==
--- NOTE | ~2021-10-06 | CT_ITS ---
EXAMINATION: CT diagnostic chest w con DATE: 10/06/2021 09:20 INDICATION: Lung nodule seen on recent shoulder radiograph. Smoker. TECHNIQUE: Computed tomography (CT) of the chest was performed without intravenous contrast. Automate d exposure control and iterative reconstruction technique were employed. Exam dose: 243.67 mGy-cm to heidi exam DLP. COMPARISON: September 29, 2021 right shoulder 11/02/2020 CT lung screening FINDINGS: Azygos lobe, normal variant. There are moderate emphysematous changes of the lungs. There is focal patchy infiltrate in the posterolateral right upper lobe abutting the greater fissure and lateral chest wall, measuring up to approximately 2.7 cm anteroposterior 1.5 cm transverse dimens ion. This new infiltrate since 11/02/2020 is interspersed among some chronic focal cystic areas. This is likely inflammatory or infectious. Follow-up chest radiographs are recommended to ensure clearing. There is mild bilateral apical scarring. Heart size is normal. No thoracic aortic aneurysm or dissection. There is thoracic aortic and coronar y artery calcification. No pericardial or pleural effusion. No hilar or mediastinal mass lesion or lymphadenopathy. Normal morphology of the adrenal glands. Very small sliding hiatal hernia. Diffuse idiopathic skeletal hyperostosis of the thoracic spine. Prominent degenerative disc disease in the lower cervical spine. No suspicious osteolytic or osteoblastic lesions are noted. IMPRESSION: Focal infiltrate and a cystic area in the posterolateral right upper lobe in the lateral right midlung field, likely infectious or inflammatory, a new finding since 11/02/2020 Continued short-term chest radiographic follow-up is recommended to ensure clearing Emphysema Reviewed, dictated and finalized at Location A. Reviewed, dictated and finalized at location B. CONTROL SUPERVISOR IMPRESSION: Focal infiltrate and a cystic area in the posterolateral right upp er lobe in the lateral right midlung field, likely infectious or inflammatory, a new finding since 11/02/2020 Continued short-term chest radiographic follow-up is recommended to ensure jose ring Emphysema
[2021-10-06 09:08] LABS: Estimated Glomerular Filt Rate > 60
== END 2021-10-06 08:50 ==
LOC: MICIMG 08:49
PROVIDERS: PCP Physician Assistant; Visit Provider Physician Assistant
DX: R91.1 Solitary pulmonary nodule (principal); R91.8 Other nonspecific abnormal finding of lung field; J43.9 Emphysema, unspecified
CPT/HCPCS: 71260; Q9967

== ENCOUNTER 2022-02-11 09:19 | Outpatient (CLI) | payer OTHER, SELFPAY ==
[2022-02-11 09:46] LABS: Basophils Absolute Auto 0.1 K/mm3 (0.0-0.1); Basophils Percent Auto 1.2 % (0.2-1.2); Eosinophils Absolute Auto 0.8 K/mm3 (0-0.3); Eosinophils Percent Auto 6.5 % (0-4.4); Hematocrit 44.9 % (42.0-52.0); Hemoglobin 15.5 g/dL (14.0-18.0); Immature Granulocyte Absolute 0.04 K/mm3 (0.00-0.031); Immature Granulocyte Percent A 0.3 % (0-0.5); Lymphocytes Absolute Auto 2.64 K/mm3 (0.9-3.2); Lymphocytes Percent Auto 22.5 % (18.3-44.2); Mean Corpuscular HGB Conc 34.5 g/dl (32-36); Mean Corpuscular Volume 92.8 fl (80-100); Mean Platelet Volume 9.4 fl (7.4-10.4); Monocytes Absolute Auto 1.2 K/mm3 (0.1-0.6); Monocytes Percent Auto 9.8 % (2.6-8.5); Neutrophils Percent Auto 59.7 % (45.5-73.1); Platelet Count Result 259 k/mm3 (150-375); Red Blood Count 4.84 M/mm3 (4.6-6.20); Red Cell Distribution Width 12.4 % (11.5-14.5); White Blood Count 11.7 K/mm3 (4.5-10.0)
[2022-02-11 09:57] LABS: Alanine Aminotransferase 22 U/L (6-50); Albumin Level 4.7 g/dL (3.5-5.1); Alkaline Phosphatase 71 U/L (38-126); Anion Gap 2 mmol/L (8-16); Aspartate Amino Transferase 25 U/L (17-59); Bilirubin,Total 0.2 mg/dL (0.2-1.3); Blood Urea Nitrogen 17 mg/dL (9-20); Calcium 9.7 mg/dL (8.4-10.2); Carbon Dioxide 34 mmol/L (22-30); Chloride 97 mmol/L (98-107); Cholesterol 246 mg/dL (0-200); Estimated Glomerular Filt Rate > 60; Glucose 190 mg/dL (65-110); HDL Direct 38 mg/dL; Potassium 4.6 mmol/L (3.4-5.0); Sodium 133 mmol/L (137-145); Triglycerides 182 mg/dL (<150)
[2022-02-11 10:08] LABS: LDL Cholesterol Direct 157 mg/dL
[2022-02-11 10:18] LABS: Hemoglobin A1C 7.6 % (<5.7)
[2022-02-11 10:32] LABS: Creatinine Urine 54.9 mg/dL
[2022-02-11 10:37] LABS: MALB Creatinine Ratio 276.3 mg/g (0-30); Microalbumin Urine Random 151.7 mg/L (0-16.7)
== END 2022-02-11 09:20 | disposition home or self-care (01) ==
LOC: ANHLAB 09:22
PROVIDERS: PCP Physician Assistant; Visit Provider Physician Assistant
DX: R53.83 Other fatigue (principal); E11.69 Type 2 diabetes mellitus with other specified complication; E78.5 Hyperlipidemia, unspecified
CPT/HCPCS: 36415; 80053; 80061; 82043; 83036; 84443; 85025

== ENCOUNTER 2022-05-03 10:16 | Outpatient (CLI) | payer OTHER, SELFPAY ==
--- NOTE | ~2022-05-03 | XR_ITS ---
EXAMINATION: XR chest 2V Exam Date/Time: 05/03/2022 10:40 CDT HISTORY: COUGH, UNSPEC, PREOP TESTING, HX FORMER SMOKER Comparison: 01/20/2020. RESULT: Lines, tubes, and devices: None. Lungs and pleura: Senescent change. Azygos lobe. Bibasilar scar/atelectasis. Apical pleural thickeni ng. Increased AP diameter. Cardiomediastinal silhouette: Stable. Other: No acute osseous or upper abdominal finding. IMPRESSION: No acute cardiopulmonary process. Emphysematous and/or senescent changes. Reviewed, dictated and finalized at location K.
== END 2022-05-03 10:17 | disposition home or self-care (01) ==
LOC: ANHIMG 10:17
PROVIDERS: PCP Physician Assistant; Visit Provider Physician Assistant
DX: R05.9 Cough, unspecified (principal); R91.8 Other nonspecific abnormal finding of lung field
CPT/HCPCS: 71046

== ENCOUNTER 2022-06-25 09:57 | Outpatient (CLI) | payer OTHER, SELFPAY ==
[2022-06-25 10:27] LABS: Basophils Absolute Auto 0.1 K/mm3 (0.0-0.1); Eosinophils Absolute Auto 0.5 K/mm3 (0-0.3); Eosinophils Percent Auto 4.9 % (0-4.4); Hematocrit 45.9 % (42.0-52.0); Hemoglobin 15.4 g/dL (14.0-18.0); Immature Granulocyte Absolute 0.04 K/mm3 (0.00-0.031); Immature Granulocyte Percent A 0.4 % (0-0.5); Lymphocytes Absolute Auto 2.83 K/mm3 (0.9-3.2); Lymphocytes Percent Auto 29.4 % (18.3-44.2); Mean Corpuscular HGB Conc 33.6 g/dl (32-36); Mean Corpuscular Hemoglobin 31.5 pg (26-34); Mean Corpuscular Volume 93.9 fl (80-100); Mean Platelet Volume 9.1 fl (7.4-10.4); Monocytes Absolute Auto 0.8 K/mm3 (0.1-0.6); Monocytes Percent Auto 7.8 % (2.6-8.5); Neutrophils Absolute Auto 5.4 K/mm3 (1.3-6.7); Neutrophils Percent Auto 56.5 % (45.5-73.1); Platelet Count Result 316 k/mm3 (150-375); Red Blood Count 4.89 M/mm3 (4.6-6.20); Red Cell Distribution Width 12.1 % (11.5-14.5); White Blood Count 9.6 K/mm3 (4.5-10.0)
[2022-06-25 10:38] LABS: Alanine Aminotransferase 20 U/L (6-50); Albumin Level 4.4 g/dL (3.5-5.1); Alkaline Phosphatase 82 U/L (38-126); Anion Gap 13 mmol/L (8-16); Aspartate Amino Transferase 25 U/L (17-59); Bilirubin,Total 0.3 mg/dL (0.2-1.3); Blood Urea Nitrogen 25 mg/dL (9-20); Calcium 9.5 mg/dL (8.4-10.2); Carbon Dioxide 20 mmol/L (22-30); Chloride 98 mmol/L (98-107); Cholesterol 237 mg/dL (0-200); Estimated Glomerular Filt Rate > 60; Glucose 170 mg/dL (65-110); HDL Direct 39 mg/dL; Potassium 4.5 mmol/L (3.4-5.0); Sodium 131 mmol/L (137-145); Triglycerides 160 mg/dL (<150)
[2022-06-25 10:49] LABS: LDL Cholesterol Direct 151 mg/dL
[2022-06-25 12:43] LABS: Hemoglobin A1C 7.8 % (<5.7)
== END 2022-06-25 09:58 | disposition home or self-care (01) ==
PROVIDERS: PCP Physician Assistant; Visit Provider Physician Assistant
DX: R53.83 Other fatigue (principal); E11.69 Type 2 diabetes mellitus with other specified complication; E78.5 Hyperlipidemia, unspecified; E11.51 Type 2 diabetes mellitus with diabetic peripheral angiopathy without gangrene; I15.2 Hypertension secondary to endocrine disorders
CPT/HCPCS: 36415; 80053; 80061; 83036; 84443; 85025

== ENCOUNTER 2022-07-08 11:47 | Outpatient (CLI) | payer OTHER, SELFPAY ==
[2022-07-08 12:26] LABS: Alanine Aminotransferase 19 U/L (6-50); Albumin Level 4.2 g/dL (3.5-5.1); Alkaline Phosphatase 79 U/L (38-126); Anion Gap 8 mmol/L (8-16); Aspartate Amino Transferase 19 U/L (17-59); Bilirubin,Total 0.4 mg/dL (0.2-1.3); Blood Urea Nitrogen 20 mg/dL (9-20); Calcium 9.9 mg/dL (8.4-10.2); Carbon Dioxide 28 mmol/L (22-30); Chloride 97 mmol/L (98-107); Estimated Glomerular Filt Rate > 60; Glucose 189 mg/dL (65-110); Potassium 4.6 mmol/L (3.4-5.0); Sodium 133 mmol/L (137-145)
== END 2022-07-08 11:48 | disposition home or self-care (01) ==
LOC: ANHLAB 11:50
PROVIDERS: PCP Physician Assistant; Visit Provider Physician Assistant
DX: E11.59 Type 2 diabetes mellitus with other circulatory complications (principal); I15.2 Hypertension secondary to endocrine disorders
CPT/HCPCS: 36415; 80053

== ENCOUNTER 2022-12-31 07:44 | Outpatient (CLI) | payer OTHER, SELFPAY ==
[2022-12-31 09:11] LABS: Alanine Aminotransferase 22 U/L (6-50); Albumin Level 4.4 g/dL (3.5-5.1); Alkaline Phosphatase 75 U/L (38-126); Anion Gap 9 mmol/L (8-16); Aspartate Amino Transferase 27 U/L (17-59); Bilirubin,Total 0.3 mg/dL (0.2-1.3); Blood Urea Nitrogen 15 mg/dL (9-20); Calcium 9.4 mg/dL (8.4-10.2); Carbon Dioxide 25 mmol/L (22-30); Chloride 97 mmol/L (98-107); Cholesterol 217 mg/dL (0-200); Estimated Glomerular Filt Rate > 60; Glucose 154 mg/dL (65-110); HDL Direct 43 mg/dL; Potassium 4.4 mmol/L (3.4-5.0); Sodium 131 mmol/L (137-145); Triglycerides 90 mg/dL (<150)
[2022-12-31 09:14] LABS: Hemoglobin A1C 6.7 % (<5.7)
[2022-12-31 09:22] LABS: LDL Cholesterol Direct 147 mg/dL
[2022-12-31 13:14] LABS: MALB Creatinine Ratio 393.8 mg/g (0-30)
== END 2022-12-31 07:45 | disposition home or self-care (01) ==
PROVIDERS: PCP Physician Assistant; Visit Provider Physician Assistant
DX: E11.69 Type 2 diabetes mellitus with other specified complication (principal); E78.5 Hyperlipidemia, unspecified
CPT/HCPCS: 36415; 80053; 80061; 82043; 83036; 84443

== ENCOUNTER 2023-02-16 09:20 | Outpatient (CLI) | payer OTHER, SELFPAY ==
[2023-02-16 10:39] LABS: Alanine Aminotransferase 19 U/L (6-50); Albumin Level 4.5 g/dL (3.5-5.1); Alkaline Phosphatase 80 U/L (38-126); Anion Gap 6 mmol/L (8-16); Aspartate Amino Transferase 26 U/L (17-59); Bilirubin,Total 0.5 mg/dL (0.2-1.3); Blood Urea Nitrogen 17 mg/dL (9-20); Calcium 9.4 mg/dL (8.4-10.2); Carbon Dioxide 28 mmol/L (22-30); Chloride 96 mmol/L (98-107); Estimated Glomerular Filt Rate > 60; Glucose 136 mg/dL (65-110); Magnesium 1.9 mg/dL (1.6-2.3); Potassium 4.5 mmol/L (3.4-5.0); Sodium 130 mmol/L (137-145)
== END 2023-02-16 09:21 | disposition home or self-care (01) ==
PROVIDERS: PCP Physician Assistant; Visit Provider Physician Assistant
DX: E87.1 Hypo-osmolality and hyponatremia (principal)
CPT/HCPCS: 36415; 80053; 83735

== ENCOUNTER 2023-02-20 09:45 | Outpatient (RCR) | payer OTHER, SELFPAY ==
--- NOTE | 2023-02-02 10:17 | OPREHPOC ---
Outpatient Therapy Plan of Care This is a Multidisciplinary Plan of Care that may contain components documented by all disciplines (PT, OT, and ST.) PT Problem 1 PT Problem #1 Knowledge Deficit PT Goal 1 Goal 1. Patient will demonstrate independence with home exercise program 2. Patient will verbalize/demonstrate proper wear schedule using LLE prosthetic 3. Patient will demonstrate independence with phantom limb pain relief strategies PT Problem 2 PT Problem #2 Impaired Gait PT Goal 1 Goal 1. Patient will ambulate for 2 minutes in therapy gym with LLE prosthetic and least restrictive device with independence. 2. Patient will ascend/descend 3 stairs with 1 railing and supervision with use of LLE prosthetic . PT Problem 3 PT Problem #3 Impaired Strength PT Goal 1 Goal 1. Patient will perform 20 reps prone LLE hip extension PT Problem 4 PT Problem #4 Impaired Endurance PT Goal 1 Goal 1. Patient will report improved ability to perform daily tasks at home with use of prosthetic
--- NOTE | 2023-02-02 10:18 | PTOPEVAL1 ---
Assessment and note entered by Naya Bravo, PT Evaluation Information Assessment Status Evaluation Diagnosis L AKA Subjective Information Referred to physical therapy following L AKA for prosthetic training. Patient received his prosthetic in November of this year, has not received any prosthetic training since receiving his device. At this time patient using crutches independently to enter/exit wellness clinic. At home patient is currently using his walker. Patient reports he is not currently using his prosthetic at home due to stairs in home environment. Patient has had 5 falls since surgery in August due to losses of balance. Patient goal is to being walking with his prosthetic and find a job due to improvements in mobility. Reported Pain Level Pain Score 5: Self Report Additional Pain Score Comments educated regarding strategies to reduce phantom limb pain Assessment PT Clinical Summary Patient is 72 year old male referred to physical therapy following L AKA for prosthetic training. Patient reports 5 falls since initial amputation and states he has been using crutches and a walker for mobility at home. Patient reports difficulty with stairs to enter/exit home at this time. Patient also reports phantom limb pain rated 5/10. Patient currently demonstrates the following impairments; decreased L hip range of motion with L hip in flexion in standing/supine, L hip weakness, impaired endurance, and L phantom limb pain. Patient received prosthetic a few months ago but has not been able to use in home due to lack of training, patient goal is to begin using prosthetic for all mobility. Recommending skilled PT 2x/wk for 4 weeks to improve safety/ independence with mobility and properly use LLE prosthetic Plan of Care Interventions Gait Training,Hot Pack/Cold Pack,Manual Lymph Drainage,Manual Therapy,Neuro Re-education,Patient /Caregiver Education,Prosthetic Training,Therapeutic Activities,Therapeutic Exercise PT Services Indicated Yes Treatment Frequency and 2x/wk for 4 weeks Duration These treatments will address the objective and functional deficits as defined above. The patient will be advanced safely and appropriately in order for the patient to progress towards his/her prior level of function. Additional exercises will be introduced and as well as a comprehensive home exercise program upon disch
--- NOTE | 2023-02-14 08:27 | PCPTNOTE ---
Pt. canceled today's (02/14/23) appointment as he thought it was at a later time and was also having back issues.
--- NOTE | 2023-02-23 07:55 | PCPTNOTE ---
Pt. canceled today's (02/23/23) appointment noting that he was sick.
--- NOTE | 2023-02-27 08:53 | PCPTNOTE ---
Pt. canceled 02/27 and 03/02 as is not doing well and he needs to be with her and will be discharging.
--- NOTE | 2023-02-28 15:07 | PTOPDC ---
Assessment and note entered by Naya Bravo, PT Evaluation Information Assessment Status Discharge - Pt Not Presen Diagnosis L QUAN Subjective Information Referred to physical therapy following L QUAN for prosthetic training. Patient recieved his prosthetic in November of this year, has not recieved any prosthetic training since recieving his device. At this itme patient using crutches independently to enter/exit wellness clinic. At home patient is currently using his walker. Patient reports he is not currently using his prosthetic at home due to stairs in home environment. Patient has had 5 falls since surgery in August due to losses of balance. Patient goal is to being walking with his prosthetic and find a job due to improvements in mobility. Assessment PT Clinical Summary Patient has been participating in skilled PT services to improve safety with use of prosthetic. Patient has demonstrated progress with prosthetic , decreased responsivness to safety education reported by CATHEAD WORKER. Patient requesting no visit DC from outpatient PT services due to his not doing well. Will DC at this time. Plan of Care PT Services Indicated No
== END 2023-03-03 11:44 | disposition home or self-care (01) ==
LOC: ANHPT 09:45
PROVIDERS: PCP Physician Assistant
DX: Z47.81 Encounter for orthopedic aftercare following surgical amputation (principal); Z89.612 Acquired absence of left leg above knee
CPT/HCPCS: 97110; 97116; 97162; 97530; 99199

== ENCOUNTER 2023-11-14 14:39 | Outpatient (CLI) | payer OTHER, SELFPAY ==
--- NOTE | ~2023-11-14 | CT_ITS ---
EXAMINATION: CT brain wo con INDICATION: Head injury COMPARISON: None TECHNIQUE: Standard unenhanced head CT. The dose-length product (DLP) was 605.33 mGy-cm. The mA was a djusted according to patient size. Iterative reconstruction technique was employed. FINDINGS: No acute intraparenchymal hemorrhage. No evidence of mass lesion. No evidence of acute infa rction. There is mild periventricular and subcortical hypodensity probably related to small vessel is chemic disease. There is mild prominence of the sulci and ventricles related to cerebral atrophy. Int racranial calcified cerebral atherosclerosis is noted. No extra-axial collections. No mass effect or midline shift. The orbits and soft tissues are unremarkable. There is mild mucosal thickening of the paranasal sinuses. IMPRESSION: 1. No acute intracranial abnormality. 2. Age related findings. Reviewed, dictated and finalized at location F.
--- NOTE | ~2023-11-14 | XR_ITS ---
EXAMINATION: XR wrist LT min 3V DATE: 11/14/2023 15:02 INDICATION: Left wrist pain post fall TECHNIQUE: Posteroanterior, ulnar deviation, oblique, and lateral views of the left wrist were obtain ed. COMPARISON: none FINDINGS: Bone alignment is normal. No fracture. Chondrocalcinosis at the left wrist at the triangular fiber ca rtilage complex as well as the dorsal and volar aspects of the joint space. Mild polyarticular osteoa rthritis at the triscaphe, first carpometacarpal, distal radioulnar and a few of the visualized metac arpophalangeal and interphalangeal joints. There is suggestion of an erosion with thin sclerotic laureen ins at the distal pole of the scaphoid. Soft tissue swelling at the dorsal and ulnar side of the left wrist. IMPRESSION: 1. No acute osseous abnormalities. 2. 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 3. Suggestion of a chronic erosion with thin sclerotic margins at the distal pole of the scaphoid. Reviewed, dictated and finalized at location A. IMPRESSION: 1. No acute osseous abnormalities. 2. 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 3. Suggestion of a chronic erosion with thin sclerotic margins at the distal po le of the scaphoid.
== END 2023-11-14 14:40 | disposition home or self-care (01) ==
PROVIDERS: PCP Physician Assistant; Visit Provider Physician Assistant
DX: S09.90XA Unspecified injury of head, initial encounter (principal); M25.532 Pain in left wrist; M11.232 Other chondrocalcinosis, left wrist
CPT/HCPCS: 70450; 73110

== ENCOUNTER 2024-01-18 07:16 | Outpatient (CLI) | payer OTHER, SELFPAY ==
[2024-01-18 08:01] LABS: Basophils Absolute Auto 0.1 K/mm3 (0.0-0.1); Eosinophils Absolute Auto 0.5 K/mm3 (0-0.3); Eosinophils Percent Auto 4.1 % (0-4.4); Hematocrit 49.2 % (42.0-52.0); Hemoglobin 16.7 g/dL (14.0-18.0); Immature Granulocyte Absolute 0.04 K/mm3 (0.00-0.031); Immature Granulocyte Percent A 0.4 % (0-0.5); Lymphocytes Absolute Auto 2.56 K/mm3 (0.9-3.2); Lymphocytes Percent Auto 22.7 % (18.3-44.2); Mean Corpuscular HGB Conc 33.9 g/dl (32-36); Mean Corpuscular Hemoglobin 32.3 pg (26-34); Mean Corpuscular Volume 95.2 fl (80-100); Mean Platelet Volume 9.6 fl (7.4-10.4); Monocytes Percent Auto 8.9 % (2.6-8.5); Neutrophils Absolute Auto 7.1 K/mm3 (1.3-6.7); Neutrophils Percent Auto 62.9 % (45.5-73.1); Platelet Count Result 283 k/mm3 (150-375); Red Blood Count 5.17 M/mm3 (4.6-6.20); Red Cell Distribution Width 12.6 % (11.5-14.5); White Blood Count 11.3 K/mm3 (4.5-10.0)
[2024-01-18 08:37] LABS: Hemoglobin A1C 8.8 % (<5.7)
[2024-01-18 08:39] LABS: Alanine Aminotransferase 18 U/L (6-50); Albumin Level 4.6 g/dL (3.5-5.1); Alkaline Phosphatase 72 U/L (38-126); Anion Gap 6 mmol/L (4-12); Aspartate Amino Transferase 29 U/L (17-59); Bilirubin,Total 0.4 mg/dL (0.2-1.3); Blood Urea Nitrogen 18 mg/dL (9-20); Calcium 9.6 mg/dL (8.4-10.2); Carbon Dioxide 28 mmol/L (22-30); Chloride 99 mmol/L (98-107); Cholesterol 214 mg/dL (0-200); Estimated Glomerular Filt Rate > 60; Glucose 186 mg/dL (65-110); HDL Direct 34 mg/dL; Potassium 4.3 mmol/L (3.4-5.0); Sodium 133 mmol/L (137-145); Triglycerides 184 mg/dL (<150)
[2024-01-18 08:51] LABS: LDL Cholesterol Direct 143 mg/dL
[2024-01-18 12:23] LABS: MALB Creatinine Ratio 397.9 mg/g (0-30); Microalbumin Urine Random 95.5 mg/L (0-16.7)
== END 2024-01-18 07:17 | disposition home or self-care (01) ==
PROVIDERS: PCP Physician Assistant; Visit Provider Physician Assistant
DX: E78.5 Hyperlipidemia, unspecified (principal); E11.69 Type 2 diabetes mellitus with other specified complication
CPT/HCPCS: 36415; 80053; 80061; 82043; 82607; 83036; 84443; 85025

== ENCOUNTER 2024-05-13 09:39 | Outpatient (CLI) | payer OTHER, SELFPAY ==
--- NOTE | ~2024-05-13 | CT_ITS ---
CT Scan of the Chest without Contrast: Clinical Indication: Lung nodule Technique: Contiguous sections were acquired throughout the chest without intravenous contrast. Dose reduction technique was used on this scan by utilizing automated exposure control and iterative recon struction technique. The dose-length product (DLP) was 96.52 mGy-cm. COMPARISON: 10/06/2021 Findings: There is no evidence of any significant mediastinal, hilar or axillary lymphadenopathy. Coronary patti ry calcifications are present. There is no evidence of pleural or pericardial effusion. Moderate to severe emphysema present. Area of consolidation seen peripherally in the right upper lobe on prior exam is improved, with residual probable postinflammatory scarring versus nodule. Images through the upper abdomen reveal no abnormalities. Impression: Irregular consolidation seen peripherally in the right upper lobe on prior exam is improved, with pro bable residual postinflammatory scarring versus possibly small residual nodule. Additional follow-up exam advised in 6 months to assure stability. Moderate to severe emphysema. Reviewed, dictated and finalized at [facility]. Impression: Irregular consolidation seen peripherally in the right upper lobe on prior exam is improved, with probable residual postinflammatory scarring versus possibly small residual nodule. Additional follow-up exam advised in 6 months to assure stability. Moderate to severe emphysema.
== END 2024-05-13 09:40 | disposition home or self-care (01) ==
PROVIDERS: PCP Physician Assistant; Visit Provider Physician Assistant
DX: J43.9 Emphysema, unspecified (principal); R91.1 Solitary pulmonary nodule
CPT/HCPCS: 71250

== ENCOUNTER 2024-05-20 10:12 | Outpatient (CLI) | payer OTHER, SELFPAY ==
[2024-05-20 10:50] LABS: Basophils Absolute Auto 0.1 K/mm3 (0.0-0.1); Eosinophils Absolute Auto 0.3 K/mm3 (0-0.3); Hematocrit 48.1 % (42.0-52.0); Hemoglobin 16.2 g/dL (14.0-18.0); Immature Granulocyte Absolute 0.03 K/mm3 (0.00-0.031); Immature Granulocyte Percent A 0.3 % (0-0.5); Lymphocytes Absolute Auto 2.52 K/mm3 (0.9-3.2); Mean Corpuscular HGB Conc 33.7 g/dl (32-36); Mean Corpuscular Hemoglobin 31.8 pg (26-34); Mean Corpuscular Volume 94.5 fl (80-100); Mean Platelet Volume 9.5 fl (7.4-10.4); Monocytes Absolute Auto 0.8 K/mm3 (0.1-0.6); Neutrophils Absolute Auto 5.7 K/mm3 (1.3-6.7); Neutrophils Percent Auto 60.7 % (45.5-73.1); Platelet Count Result 293 k/mm3 (150-375); Red Blood Count 5.09 M/mm3 (4.6-6.20); Red Cell Distribution Width 13.1 % (11.5-14.5); White Blood Count 9.3 K/mm3 (4.5-10.0)
[2024-05-20 11:02] LABS: Cholesterol 178 mg/dL (0-200); HDL Direct 38 mg/dL; Triglycerides 129 mg/dL (<150)
[2024-05-20 11:15] LABS: LDL Cholesterol Direct 124 mg/dL
[2024-05-21 15:31] LABS: Alanine Aminotransferase 16 U/L (6-50); Albumin Level 4.5 g/dL (3.5-5.1); Alkaline Phosphatase 64 U/L (38-126); Anion Gap 10 mmol/L (4-12); Aspartate Amino Transferase 25 U/L (17-59); Bilirubin,Total 0.3 mg/dL (0.2-1.3); Blood Urea Nitrogen 18 mg/dL (9-20); Calcium 9.5 mg/dL (8.4-10.2); Carbon Dioxide 26 mmol/L (22-30); Chloride 99 mmol/L (98-107); Estimated Glomerular Filt Rate > 60; Glucose 180 mg/dL (65-110); Potassium 4.6 mmol/L (3.4-5.0); Sodium 135 mmol/L (137-145)
== END 2024-05-20 10:13 | disposition home or self-care (01) ==
PROVIDERS: PCP Physician Assistant; Visit Provider Physician Assistant
DX: E11.59 Type 2 diabetes mellitus with other circulatory complications (principal); I15.2 Hypertension secondary to endocrine disorders
CPT/HCPCS: 36415; 80053; 80061; 82607; 83036; 84443; 85025

== ENCOUNTER 2024-09-30 09:43 | Outpatient (CLI) | payer OTHER, SELFPAY ==
--- OUTSIDE RECORDS SUMMARY | 2024-09-30 10:26 | XMS_ITS | CONTINUITY OF CARE DOCUMENT ---
Author Name [email or web address] Address Unknown Organization [facility] Address [address] [place] [address] Phone [phone] Care Team Providers Care Dementia Program Director Name Role Phone Ye BRONSON, Lonnie Unavailable [phone] VIRA FLORES MD Unavailable [phone] VIRA FLORES MD Unavailable [phone] INSURANCE PROVIDERS Payer name Policy type / Coverage type [place] red democrat [employer] [id number] Other [id number]
--- OUTSIDE RECORDS SUMMARY | 2024-09-30 10:26 | XMS_ITS | Referral Summary ---
Author Organization [facility] [address] [facility] Address [address] [place] [id number] Care Team Providers Care Radar Engineering Teacher Name Role Phone Isis Boo Primary Care Provider + [phone] Isis Boo Unavailable [phone] Angel Hernandez MD Unavailable [phone] Gabino Paez MD Unavailable [phone] Boo Alaniz MD Unavailable Encounters Date Type Department Care Team Description 09/27/2024 9:30 AM RN BUILDING Office Visit [facility] Otolaryngology [address] [place] [phone] Maria Luz Soliman NP Hoarseness (Primary Dx); Sarita's edema of vocal folds; Laryngopharyngeal reflux (LPR); Lesion of vocal cord 09/17/2024 Orders Only [address] [place] [phone] Isis Boo PA Hoarseness (Primary Dx) 09/13/[address] [place] [phone] Isis Boo PA Medical Question/Miscellaneou s 08/07/2024 11:30 AM RN BUILDING Office Visit [address] [place] [phone] Isis Boo PA Sore throat (Primary Dx); Hoarse voice quality; Cigarette smoker; BMI 23.0-23.9, adult 08/06/2024 Telephone [facility] [address] [facility] [address] [place] [address] Isis Boo PA needs labs done prior to August Appointment 08/05/2024 Telephone [place] [address] [facility] [address] [place] [phone] Isis Boo PA Symptom Based Call 07/16/2024 Telephone [facility] [address] [facility] [address] [place] [phone] Isis Boo PA 07/16/2024 Telephone [place] [address] [facility] [address] [place] [phone] Isis Boo PA Medication Request from Last 3 Months Allergies No known active allergies Medications aspirin 81 mg enteric coated tabletIndicatio ns:prevention of thrombosis Take 1 tablet (81 mg total) by mouth daily 07/18/20 23 Active blood-glucose meter misc Use once daily to check blood sugar. [employer]. 1 each 02/27/20 24 Active lancets miscIndications :Diabetes mellitus type 2 with peripheral artery disease (HCC) Use lancets to check blood sugar once daily. [employer]. 100 each 02/28/20 24 Active blood glucose diagnostic (glucose blood) stripIndication s:Diabetes mellitus type 2 with peripheral artery disease (HCC) Use test strips to check blood sugar once daily. [employer]. 100 each 02/28/20 24 025 Active losartan (COZAAR) 25 mg tablet TAKE 1 TABLET (25 MG TOTAL) BY MOUTH DAILY. 90 tablet 1 04/08/20 24 Active albuterol HFA (PROVENTIL HFA,VENTOLIN HFA,PROAIR HFA) 90 mcg/actuation inhalerIndicati ons:Chronic obstructive pulmonary disease, unspecified COPD type (HCC) Inhale 2 puffs every 4 (four) hours as needed for shortness of breath 6.7 g 3 04/23/20 24 Active umeclidinium-vi lanteroL (ANORO ELLIPTA) 62.5-25 mcg/actuation blister with deviceIndicatio ns:Pulmonary emphysema, unspecified emphysema type (HCC) Inhale 1 puff daily 90 each 1 04/23/20 24 Active dapagliflozin propanediol (FARXIGA) 10 mg tablet Take 1 tablet (10 mg total) by mouth daily 90 tablet 1 06/25/20 24 Active buPROPion XL (WELLBUTRIN XL) 300 mg 24 hr tabletIndicatio ns:Cigarette smoker Take 1 tablet (300 mg total) by mouth every morning 90 tablet 1 07/16/[address] (PROTONIX) 40 mg EC tabletIndicatio ns:Gastroesopha geal reflux disease without esophagitis TAKE 1 TABLET BY MOUTH TWICE A DAY 180 tablet 1 09/11/19 25 Active atorvastatin (LIPITOR) 80 mg tablet TAKE 1 TABLET BY MOUTH EVERY DAY 90 tablet 1 09/30/19 25 Active clopidogreL (PLAVIX) 75 mg tablet TAKE 1 TABLET BY MOUTH EVERY DAY 100 tablet 1 09/29/19 25 Active metFORMIN (GLUCOPHAGE) 500 mg tablet TAKE 1 TABLET BY MOUTH TWICE A DAY WITH MEALS 180 tablet 1 09/30/[address] (PROTONIX) 40 mg EC tabletIndicatio ns:Gastroesopha geal reflux disease without esophagitis Take 1 tablet (40 mg total) by mouth 2 (two) times a day 180 tablet 1 03/13/20 24 025 Discontinued clopidogreL (PLAVIX) 75 mg tablet Take 1 tablet (75 mg total) by mouth daily 90 tablet 1 03/13/20 24 025 Discontinued atorvastatin (LIPITOR) 80 mg tablet TAKE 1 TABLET BY MOUTH EVERY DAY 90 tablet 1 04/08/20 24 025 Discontinued metFORMIN (GLUCOPHAGE) 500 mg tablet Take 1 tablet (500 mg total) by mouth 2 (two) times a day with meals 180 tablet 1 06/25/20 24 025 Discontinued Active Problems Problem Noted Date Diagnosed Date Sarita's edema of vocal folds 09/27/2024 Lesion of vocal cord 09/27/2024 Hoarseness 08/07/2024 Assessment & Plan (08/17/2024 1:42 AM RN BUILDING): Patient has noticed a hoarseness to his voice quality and a sore throat over the last couple of weeks. Will go ahead and treat with amoxicillin 875 b.i.d. times 10 days. He is to follow up in 2 weeks to reassess and if he continues to have change in his quality of his voice. Will consider referral to ENT due to his longstanding smoking history. Sore throat 08/07/2024 Assessment & Plan (08/17/2024 1:43 AM RN BUILDING): Patient has noticed a hoarseness to his voice quality and a sore throat over the last couple of weeks. Will go ahead and treat with amoxicillin 875 b.i.d. times 10 days. He is to follow up in 2 weeks to reassess and if he continues to have change in his quality of his voice. Will consider referral to ENT due to his longstanding smoking history. BMI 23.0-23.9, adult 06/25/2024 Assessment & Plan (08/17/2024 1:40 AM RN BUILDING): Weight/BMI is in healthy range. Continue healthy lifestyle to maintain. Assessment & Plan (06/25/2024 8:13 AM RN BUILDING): Weight/BMI is in healthy range. Continue healthy lifestyle to maintain. Fatigue 06/25/2024 Assessment & Plan (06/25/2024 6:41 PM RN BUILDING): Probably multifactorial. Check labs and followup to re-evaluate Medicare annual wellness visit, subsequent 07/29 Assessment & Plan (06/25/2024 6:38 PM RN BUILDING): Encouraged healthy lifestyle, good nutrition and exercise. Encouraged Calcium and Vitamin D and weight bearing exercise for bone health. Reviewed immunizations. Reviewed age appropirate screenings. Medicare Wellness Documentation is completed within the chart Assessment & Plan (03/24/2024 10:36 PM CDT): Encouraged healthy lifestyle, good nutrition and exercise. Encouraged Calcium and Vitamin D and weight bearing exercise for bone health. Reviewed immunizations. Reviewed age appropirate screenings. Medicare Wellness Documentation is completed within the chart Assessment & Plan (07/29/2023 9:21 PM RN BUILDING): Encouraged healthy lifestyle, good nutrition and exercise. Encouraged Calcium and Vitamin D and weight bearing exercise for bone health. Reviewed immunizations Reviewed age appropirate screenings. History of left above knee amputation ([facility] 10/17/2022 Overview (10/17/2022): 08/2022 Dr. Alaniz Assessment & Plan (06/25/2024 6:38 PM RN BUILDING): Status post [id number] amputation on the left by Dr. Alaniz. Continue Plavix and aspirin and statin. States he is not happy with prosthesis in his more happy utilizing his crutches to get around Assessment & Plan (03/24/2024 10:38 PM CDT): Status post [id number] amputation due to peripheral vascular disease. Continue with statin, Plavix and aspirin. Assessment & Plan (07/29/2023 9:21 PM RN BUILDING): Status post above-knee amputation. Continue per vascular, Advised he needs to remain on the Plavix and aspirin. Assessment & Plan (01/03/2023 9:23 PM CDT): Status post amputation in August 2022. Patient states healing well. Has not started therapy. States he was not sure how to get it started. Printed off Dr. Alaniz's PT order and provided a copy of it with his essence referral for him to contact [facility] PT to get started. If he has problems he is to contact Dr. Alaniz's office. Seems to verbalize understanding of the plan Assessment & Plan (10/17/2022 8:43 AM RN BUILDING): Status post left above-knee amputation by Dr. Alaniz in August of 2022. Per patient stop his healing well. He is starting the process of working towards a prosthetic device. Is in good mood and is able to ambulate with a walker and hopping at this point. Even drove his car to the office today. He states he is experiencing phantom pain. Has gabapentin onboard. Inquires about narcotics. Advised I would be glad to send him to pain management. Upon this he states the Tylenol seems to be doing pretty good with control. Will continue to monitor Phantom pain after amputation of lower extremity ([facility]) 10/17/2022 Assessment & Plan (06/25/2024 6:38 PM RN BUILDING): Phantom pain has subsided without any additional treatment. Will continue to monitor Assessment & Plan (03/24/2024 10:38 PM CDT): Patient continues to have lower extremity pain after his amputation. He states he is not interested in trying to get yeast to the prosthetic. He is happier just utilizing the crutches. Stump is well healed. Tried the gabapentin but did not have good results so wants to continue to monitor Assessment & Plan (10/17/2022 8:43 AM RN BUILDING): Status post left above-knee amputation by Dr. Alaniz in August of 2022. Per patient stop his healing well. He is starting the process of working towards a prosthetic device. Is in good mood and is able to ambulate with a walker and hopping at this point. Even drove his car to the office today. He states he is experiencing phantom pain. Has gabapentin onboard. Inquires about narcotics. Advised I would be glad to send him to pain management. Upon this he states the Tylenol seems to be doing pretty good with control. 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 Assessment & Plan (09/06/2022 8:48 AM RN BUILDING): Impression: Patient is status post left femoral artery exploration and left posterior tibial artery exploration due to life-limiting claudication and rest pain. Patient was found to have severely calcified and very small in caliber arteries and not suitable for open surgical revascularization. Patient continues to complain of pain to his left leg. Atul are intact to left groin and medial calf with no concern for infection. Plan: Patient has non-reconstructible vascular disease therefore a left dbphk-psk-ydeg amputation was recommended. Risks of the procedure communicate with the patient to include bleeding, infection, injury, further surgery, and . Patient understands these risks and wishes to proceed. Atul were removed from left groin and left medial calf. Assessment & Plan (07/18/2022 1:58 PM RN BUILDING): Impression: Acute onset worsening claudication following recent left fem-pop bypass. Baseline postprocedural surveillance imaging revealed a thrombosed left fem-pop bypass. Patient denies any rest pain or nonhealing ulcers currently. Plan: Will proceed with left lower extremity angiogram possible pharmacomechanical thrombectomy, possible lytic catheter placement. The procedure, risk, benefits and alternatives were discussed with the patient in detail including but not limited to bleeding, infection, nerve injury, need for emergent surgery and limb loss. The patient acknowledged the risks and agreed to proceed. PVD (peripheral vascular disease) 05/05/2022 Assessment & Plan (06/25/2024 6:37 PM RN BUILDING): Patient with PVD. Continue with the Plavix and aspirin. Continue with the Lipitor 80 Assessment & Plan (03/24/2024 10:36 PM CDT): Patient has peripheral vascular disease. Continue to follow with vascular. He has already had lower leg amputation due to the peripheral vascular disease Assessment & Plan (10/17/2022 8:42 AM RN BUILDING): Continue per vascular surgery. He is on Plavix. Still strongly encouraged smoking cessation Assessment & Plan (10/06/2022 11:43 AM RN BUILDING): Status post left above knee amputation. Healed. We will remove atul today. The patient has an adequate residual limb that would be appropriate for a level K3 prosthesis. They're currently undergoing prosthesis evaluation and fitting for a left above knee prosthetic. Patient has no complaints or concerns at this time. I have examined the patient and recommend a prosthesis. The patient was a level K3 ambulator prior to their amputation. 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 Patient is very motivated to return to normal function once prosthesis is obtained. The patient is capable walking on uneven surfaces and able to traverse multiple level barriers including stairs, curbs and hills. The patient currently has adequate upper extremity limb strength and ability to transfer from there chair to a bed, couch or toilet. The patient does not have any other comorbidities that would hinder their ability to return to full function within a reasonable amount of time. Assessment & Plan (08/16/2022 4:20 PM RN BUILDING): Impression: Known thrombosed left fem-pop bypass diagnosis on recent noninvasive imaging and confirmed with recent left lower extremity angiogram. Plan: Recommend further surgical intervention consisting of left lower extremity thrombectomy possible revision of his left fem-pop bypass which was discussed with the patient by Dr. Boo Alaniz and myself. The procedure and associated risks were discussed with the patient detail which he acknowledged and agreed to proceed. Hyperlipidemia associated with type 2 diabetes diomedes alcantara 04/29/2022 Assessment & Plan (06/25/2024 6:38 PM RN BUILDING): Encouraged patient to follow low fat/low chol diet like the Mediterranean diet. Increase good fats in the diet. Increase exercise. Monitor labs as needed. Continue Lipitor 80 Assessment & Plan (03/24/2024 10:36 PM CDT): Stressed importance of continued A1c control to minimize the intermediate effects of diabetes. Bring accuchecks to office when instructed to do so. Check A1c about every 3-6 months. Take medication as prescribed. Get annual eye exam. Encouraged DIANELYS/Statin if able to tolerate. Encouraged weight control and encouraged diabetic diet and exercise. Encouraged patient to follow low fat/low chol diet like the Mediterranean diet. Increase good fats in the diet. Increase exercise. Monitor labs as needed. Continue Lipitor 80 Patient is past due for labs to determine control. Currently taking metformin 500 b.i.d. and Jardiance 10 Assessment & Plan (07/29/2023 9:21 PM RN BUILDING): Encouraged patient to follow low fat/low chol diet like the Mediterranean diet. Increase good fats in the diet. Increase exercise. Monitor labs as needed. Restart Lipitor 80 Assessment & Plan (01/03/2023 9:21 PM CDT): Encouraged patient to follow low fat/low chol diet like the Mediterranean diet. Increase good fats in the diet. Increase exercise. Monitor labs as needed. Continue Lipitor 80 Assessment & Plan (10/17/2022 8:41 AM RN BUILDING): Encouraged patient to follow low fat/low chol diet like the Mediterranean diet. Increase good fats in the diet. Increase exercise. Monitor labs as needed. Continue atorvastatin Assessment & Plan (06/14/2022 5:07 PM CDT): Encouraged patient to follow low fat/low chol diet like the Mediterranean diet. Increase good fats in the diet. Increase exercise. Monitor labs as needed. Continue statin Hypertension associated with diabetes 04/29/2022 Assessment & Plan (06/25/2024 6:42 PM RN BUILDING): This is a significant, separately identifiable problem that was evaluated and managed on the same day as the wellness exam Bp is stable/in acceptable range for any co-morbidities. Encouraged to limit sodium intake and exercise for weight control. Continue losartan 25 Stressed importance of continued A1c control to minimize the intermediate effects of diabetes. Bring accuchecks to office when instructed to do so. Check A1c about every 3-6 months. Take medication as prescribed. Get annual eye exam. Encouraged DIANELYS/Statin if able to tolerate. Encouraged weight control and encouraged diabetic diet and exercise. Patient states he can not afford the Farxiga so has not been taking any diabetes medicine. His A1c is up to 9 so it is not controlled. Discussed starting the metformin 500 b.i.d.. Discuss ways that we can help him get his Farxiga including from the [facility] versus [place] and me assistance versus him pain for it as he states he did get a little bit of extra money. Advised I will go ahead and prescribe it and if he needs assistance we would be glad to help him with a.c. and knee he would just need to bring in the correct paperwork. Encouraged him to talk with his [facility] civil rights representative to see if he could get the medication through the [facility] also. Stressed the importance of getting on medication on a regular basis to help decrease long-term sequela from uncontrolled and undertreated diabetes Assessment & Plan (03/24/2024 10:36 PM CDT): Bp is stable/in acceptable range for any co-morbidities. Encouraged to limit sodium intake and exercise for weight control. Continue losartan 25 Assessment & Plan (07/29/2023 9:20 PM RN BUILDING): Bp is stable/in acceptable range for any co-morbidities. Encouraged to limit sodium intake and exercise for weight control. Stressed importance of continued A1c control to minimize the terminal clerk effects of diabetes. Bring accuchecks to office when instructed to do so. Check A1c about every 3-6 months. Take medication as prescribed. Get annual eye exam. Encouraged DIANELYS/Statin if able to tolerate. Encouraged weight control and encouraged diabetic diet and exercise. Patient stopped all of his meds. A1c in the office was 8.0. Instructed him he needs to restart the Jardiance 10 mg. Will hold off restarting the metformin until 3 months to see control and Jardiance alone Assessment & Plan (01/03/2023 9:22 PM CDT): Bp is stable/in acceptable range for any co-morbidities. Encouraged to limit sodium intake and exercise for weight control. Continue losartan 25 Assessment & Plan (10/17/2022 8:41 AM RN BUILDING): Bp is stable/in acceptable range for any co-morbidities. Encouraged to limit sodium intake and exercise for weight control. Continue losartan 25 Assessment & Plan (08/16/2022 4:22 PM RN BUILDING): Impression: Stable chronic hypertension. Plan: Medications reviewed and recommend continuing daily antihypertensive regimen as directed by patient's primary care physician. Assessment & Plan (06/14/2022 5:07 PM CDT): Bp is stable/in acceptable range for any co-morbidities. Encouraged to limit sodium intake and exercise for weight control. Continue losartan 25 Diabetes mellitus type 2 with peripheral artery disease 04/29/2022 Assessment & Plan (06/25/2024 6:41 PM RN BUILDING): Continue to improve diabetes control to help prevent further progression of the peripheral artery disease Assessment & Plan (03/24/2024 10:39 PM CDT): Stressed importance of continued A1c control to minimize the terminal clerk effects of diabetes. Bring accuchecks to office when instructed to do so. Check A1c about every 3-6 months. Take medication as prescribed. Get annual eye exam. Encouraged DIANELYS/Statin if able to tolerate. Encouraged weight control and encouraged diabetic diet and exercise. Patient has peripheral artery disease as well as peripheral arterial disease. Assessment & Plan (07/29/2023 9:21 PM RN BUILDING): Peripheral artery disease in the setting of diabetes that has resulted in [id number] amputation of the left leg. Strongly encouraged medical management as instructed. Assessment & Plan (01/03/2023 9:22 PM CDT): Stressed importance of continued A1c control to minimize the intermediate effects of diabetes. Bring accuchecks to office when instructed to do so. Check A1c about every 3-6 months. Take medication as prescribed. Get annual eye exam. Encouraged DIANELYS/Statin if able to tolerate. Encouraged weight control and encouraged diabetic diet and exercise. A1c is tightly controlled at 6.7. Continue metformin 500 b.i.d. and Jardiance 10 mg daily. Continue per vascular regarding peripheral artery disease as status post amputation. Assessment & Plan (10/17/2022 8:42 AM RN BUILDING): Stressed importance of continued A1c control to minimize the intermediate effects of diabetes. Bring accuchecks to office when instructed to do so. Check A1c about every 3-6 months. Take medication as prescribed. Get annual eye exam. Encouraged DIANELYS/Statin if able to tolerate. Encouraged weight control and encouraged diabetic diet and exercise. Continue tight control with metformin 500 daily and Jardiance 10 mg. A1c has been at goal at 7.6. Encouraged smoking cessation to also help with the PAD Assessment & Plan (06/14/2022 5:08 PM CDT): Stressed importance of continued A1c control to minimize the terminal clerk effects of diabetes. Bring accuchecks to office when instructed to do so. Check A1c about every 3-6 months. Take medication as prescribed. Get annual eye exam. Encouraged DIANELYS/Statin if able to tolerate. Encouraged weight control and encouraged diabetic diet and exercise. Has been well controlled. Continue metformin Jardiance. Patient with history of claudication status post fem-pop bypass for his peripheral artery disease. States he can feel an improvement. Continue per vascular. Claudication 02/27/2022 Assessment & Plan (04/20/2022 10:56 AM CDT): Life-limiting claudication of the left lower extremity. Continue risk factor modification with ASA and statin therapy. He has quit smoking which is great. Risks benefits and alternatives to left common femoral artery to popliteal versus tibial artery bypass were discussed, risks including bleeding, infection, nerve injury, and need for further surgery. He wished to proceed. We will get cardiac risk assessment with Dr. Hernandez as well as vein mapping prior to surgery. Assessment & Plan (04/05/2022 8:30 AM CDT): Life-limiting claudication the left lower extremity. Risks benefits alternatives to left lower extremity angiogram with possible intervention were discussed, risks including bleeding, infection, perforation I/dissection, thrombosis, distal embolization, contrast induced nephropathy, and need for further surgery. He wished to proceed. Continue risk factor modification with ASA and statin therapy. Assessment & Plan (03/15/2022 3:31 PM CDT): Reviewed results of arterial study with patient. His symptoms are definitely in the left leg and he is ready to have something done so he is more comfortable. Will refer him to vascular surgery for further evaluation and await their recommendations. Assessment & Plan (02/27/2022 9:34 PM CDT): Patient has symptoms consistent with claudication. Will check ABIs to determine if there is some type of blockage. Stressed importance of tight diabetes control in smoking cessation. 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 Bring accuchecks to office when instructed to do so. Check A1c about every 3-6 months. Take medication as prescribed. Get annual eye exam. Encouraged DIANELYS/Statin if able to tolerate. Encouraged weight control and encouraged diabetic diet and exercise. Stressed tight control to avoid residual problems. Continue with metformin q.d. and Jardiance 10 mg. Check A1c in a few more months as has been at goal at 7.6. Patient denies assistance at this point with theED Assessment & Plan (12/21/2020 9:42 AM CDT): Refer to urology for further evaluation Exudative age-related macula r degeneration of both eyes with active choroidal neovascularization 10/21/2020 Assessment & Plan (10/17/2022 8:40 AM RN BUILDING): Strongly encouraged follow-up with Ophthalmology. He has put this on the back burner due to his other chronic medical concerns. 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 He has been hesitant to think about treatment as they may include injections in the eye and he has been adamant about not doing that. Reviewed again the risk of not doing treatment progression to visual changes and possible blindness. He verbalizes understanding will consider Assessment & Plan (09/26/2021 2:27 PM RN BUILDING): Encouraged to continue per Ophthalmology. He voices understanding that by foregoing treatment this could lead to progressive loss of sight. Assessment & Plan (03/18/2021 1:00 PM CDT): Stressed the importance of continued follow-up with the car storer. Reviewed that macular degeneration will continue to progress to the point of blindness and that treatment/intervention is needed to change this course or at least try to slow it down. Patient voiced understanding and states at this point he is not interested in treatment Assessment & Plan (10/23/2020 6:47 PM RN BUILDING): Encouraged to Continue per [facility] Ophthamology as not treating can lead to loss/decrease in sight. Chronic bilateral low back pain 04/10/2020 Assessment & Plan (04/10/2020 11:49 AM CDT): Reviewed with patient that this sounds like more musculoskeletal pain. However since he has had chronic back pain for decades would recommend lumbar spine and thoracic spine x-rays to rule out any bony abnormalities. Advised narcotics are not indicated in this type of pain. Encouraged anti-inflammatories both topical and oral, topical pain preparations like lidocaine patches Biofreeze. Encouraged stretching. Offered physical therapy which he declines as stated never works. Acute pain of right shoulder 02/02/2020 Assessment & Plan (09/29/2021 12:34 PM RN BUILDING): Xray R shoulder today - he is taking to [facility]. Will notify him of results as available. Advised him to continue to use the sling for now. Will give short prescription of norco - advised to monitor for constipation as a potential side effect and not to drive for 6h after taking as it may make him drowsy. Assessment & Plan (02/02/2020 4:36 PM CDT): This is a significant, separately identifiable problem that was evaluated and managed on the same day as the wellness exam No known injury. Related to ROM. Will encourage topical medications and start PT. Order provided. Pain of toe of right foot 07/25/2019 Assessment & Plan (07/25/2019 3:08 PM RN BUILDING): Infection vs pain from thick large nail growing into the skin. Start keflex. Has followup scheduled with Dr. Fraga next week. Await her recommendations. Laryngopharyngeal reflux (LPR) 06/07/2019 Assessment & Plan (06/25/2024 6:31 PM RN BUILDING): Continue PPI p.r.n. Assessment & Plan (03/24/2024 10:38 PM CDT): Continue pantoprazole p.r.n. Assessment & Plan (07/29/2023 9:19 PM RN BUILDING): Reviewed with patient if his reflux symptoms are controlled he can just use the pantoprazole p.r.n.. Assessment & Plan (10/17/2022 8:39 AM RN BUILDING): Continue PPI p.r.n. Assessment & Plan (06/14/2022 5:06 PM CDT): Continue PPI p.r.n. Assessment & Plan (09/26/2021 2:26 PM RN BUILDING): Continue PPI Assessment & Plan (03/18/2021 1:01 PM CDT): Continue ppi Assessment & Plan (10/21/2020 9:20 PM RN BUILDING): Continue PPI Assessment & Plan (03/14/2020 7:27 PM CDT): Continue Protonix Assessment & Plan (02/02/2020 4:30 PM CDT): Continue PPI Assessment & Plan (06/07/2019 2:12 PM CDT): On Protonix bid. No active bleeding Stop smoking. Avoid alcohol. Avoid NSAIDs. Onychomycosis 06/07/2019 Assessment & Plan (02/02/2020 4:31 PM CDT): Continue per owner spa director Assessment & Plan (06/07/2019 2:16 PM CDT): This is a significant, separately identifiable problem that was evaluated and managed on the same day as the wellness exam Has been on Lamisil in the past without success. Refer to Digital Computer Operator for further treatment and assistance with cutting nails due to his DM. Cigarette smoker 06/07/2019 Assessment & Plan (08/17/2024 1:40 AM RN BUILDING): Encouraged smoking cessation. Discussed 3 minutes. Reviewed options for assistance with cessation. Reviewed terminal clerk sequela associated with smoking. Pt declines assistance at this time but may contact the office at anytime for further help as they desire. Assessment & Plan (06/25/2024 6:32 PM RN BUILDING): This is a significant, separately identifiable problem that was evaluated and managed on the same day as the wellness exam Pt desires assistance with cessation. Discussed options at length. Will start Wellbutrin. No seizure history. Reviewed risks, benefits, alternatives, side effects and proper use. Take first thing in the am to avoid sleep disturbances. Encouraged to decreased cigs as tolerated. Plan to stay on the Wellbutrin for 4-6 months, even if successful in cessation quickly. F.u if any increased emotional sxs or suicidal thoughts Assessment & Plan (01/03/2023 9:21 PM CDT): Encouraged smoking cessation. Discussed 3 minutes. Reviewed options for assistance with cessation. Reviewed terminal clerk sequela associated with smoking. Pt declines assistance at this time but may contact the office at anytime for further help as they desire. Assessment & Plan (10/17/2022 8:40 AM RN BUILDING): Encouraged smoking cessation. Discussed 3 minutes. Reviewed options for assistance with cessation. Reviewed intermediate sequela associated with smoking. Pt declines assistance at this time but may contact the office at anytime for further help as they desire. Assessment & Plan (06/14/2022 5:06 PM CDT): Patient states he stop smoking. Assessment & Plan (10/21/2020 9:23 PM RN BUILDING): Quit 09/2019 Due for LDCT after 08/01/2020 Assessment & Plan (02/02/2020 4:34 PM CDT): Quit 09/2019 Assessment & Plan (11/24/2019 10:44 PM CDT): Smoke free for a few weeks. Continue with effort Assessment & Plan (09/26/2019 8:46 AM RN BUILDING): Quit smoking 09/12 on his own. 2 week cig free Encouraged to continue Assessment & Plan (09/22/2019 9:13 PM RN BUILDING): .Encouraged smoking cessation. Discussed 3 minutes. Reviewed options for assistance with cessation. Reviewed terminal clerk sequela associated with smoking. Pt declines assistance at this time but may contact the office at anytime for further help as they desire. Assessment & Plan (09/15/2019 4:15 PM RN BUILDING): Encouraged smoking cessation. Discussed 3 minutes. Reviewed options for assistance with cessation. Reviewed terminal clerk sequela associated with smoking. Pt declines assistance at this time but may contact the office at anytime for further help as they desire. Assessment & Plan (07/25/2019 9:30 PM RN BUILDING): Encouraged smoking cessation. Discussed 3 minutes. Reviewed options for assistance with cessation. Reviewed intermediate sequela associated with smoking. Pt declines assistance at this time but may contact the office at anytime for further help as they desire. Assessment & Plan (06/07/2019 2:26 PM CDT): Encouraged smoking cessation. Discussed 3 minutes. Reviewed options for assistance with cessation. Reviewed terminal clerk sequela associated with smoking. Pt declines assistance at this time but may contact the office at anytime for further help as they desire. Discussed with patient Lung Cancer screening options with the patient. Encouraged LowDose CT Patient is between 68 yo. Is a current smoker. Has a 60+years smoking history at 1-2 ppd. Is currently without any signs or symptoms of lung cancer. Is willing to consider curative lung surgery if needed. [id number] Smokers' cough 06/07/2019 Assessment & Plan (10/17/2022 8:40 AM RN BUILDING): Persistent smoker's cough. Encouraged cessation has albuterol p.r.n. Assessment & Plan (10/23/2020 6:47 PM RN BUILDING): Treat COPD Continue with smoking cessation Assessment & Plan (03/14/2020 7:26 PM CDT): Quit smoking 08/2019 Assessment & Plan (02/02/2020 4:28 PM CDT): See COPD Assessment & Plan (11/24/2019 10:42 PM CDT): Pt has stopped smoking. Continue to monitor Assessment & Plan (09/26/2019 8:54 AM RN BUILDING): Improving. Continue tob cessation. Assessment & Plan (09/15/2019 4:14 PM RN BUILDING): Stop smoking Assessment & Plan (06/07/2019 2:10 PM CDT): Encouraged smoking cessation. Duodenal ulcer 06/05/2019 Assessment & Plan (06/05/2019 7:35 PM CDT): 04/2019 EGD - Dr. Hawley Acute gastric ulcer without hemorrhage or perfor ation 03/01/2019 Assessment & Plan (10/23/2020 6:47 PM RN BUILDING): Continue PPI. Avoid NSAIDs Assessment & Plan (06/07/2019 2:11 PM CDT): On Protonix bid. No active bleeding Stop smoking. Avoid alcohol. Avoid NSAIDs. Alcohol dependence in remission ([facility]) 2017 Assessment & Plan (06/25/2024 6:30 PM RN BUILDING): Patient states he has decreased alcohol immensely. Still encourage complete cessation Assessment & Plan (03/24/2024 10:38 PM CDT): Patient with history of alcohol dependence. He states he still drinks few times a week. Assessment & Plan (10/17/2022 8:37 AM RN BUILDING): Patient continues to remain alcohol free. Encouraged to continue Assessment & Plan (06/14/2022 5:06 PM CDT): Patient states he no longer drinks alcohol. Assessment & Plan (09/26/2021 2:25 PM RN BUILDING): Patient states he is still not drinking. Continue with cessation. Assessment & Plan (03/18/2021 1:01 PM CDT): Continue alcohol cessation Assessment & Plan (10/21/2020 9:19 PM RN BUILDING): Remains off alcohol Assessment & Plan (03/14/2020 7:21 PM CDT): Continues to remain off alcohol Assessment & Plan (02/02/2020 4:21 PM CDT): Still no alcohol use. Assessment & Plan (06/07/2019 2:09 PM CDT): Encouraged to continue to avoid all alcohol use. Chronic obstructive pulmonary disease 02/07/2018 Assessment & Plan (06/25/2024 6:31 PM RN BUILDING): Encouraged complete smoking cessation. Continue management with Dr. Choi continue Anoro and albuterol. Imaging with CT is managed by Dr. Choi Assessment & Plan (03/24/2024 10:38 PM CDT): Patient with long-term smoking history. Has known COPD. On Anoro and albuterol. 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 Choi Assessment & Plan (07/29/2023 9:21 PM RN BUILDING): Continue in RO. Continue to follow with Dr. Riggs. Encouraged follow-up appointment Assessment & Plan (10/17/2022 8:39 AM RN BUILDING): Encouraged smoking cessation. 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 Riggs ice guard tester. Using daily Anaro and albuterol p.r.n. Assessment & Plan (06/14/2022 5:06 PM CDT): Patient with known COPD. Continue per pulmonology. Continue Spiriva Symbicort and albuterol p.r.n. patient says he stop smoking. Assessment & Plan (05/03/2022 8:57 PM CDT): Patient with severe COPD planning a fem to pop bypass with Dr. Lennon on May 05. I was called by preop stating he had a productive yellow to green cough. Suspect this was COPD exacerbation Veress is respiratory infection. He was started on Zithromax. Has 1 pill left. He states clinically he sees improvement and his production has changed to a white to very light yellow. Still has a cough consistent with his severe COPD. He continues with his inhalers as prescribed by Dr. Riggs. Patient has been working with Dr. Riggs regarding lung mass/nodule. Had a recent PET that is suspicious for primary pulmonary malignancy. Patient has chosen to monitor and reimage in 3 months. I reached out to Dr. Riggs to inquire about his recommendations regarding this patient's fitness for this procedure. He responded with the following I think that is very good plan. He always has cough related to his underlying COPD so if clinically seems at baseline he probably is. He will always be slightly increased risk for perioperative complications related to COPD but nothing that would prohibit him from undergoing vascular intervention. I think as long as no pneumonia oncxr, he should be okay to proceed with surgery. His lung nodule evaluation should not interfere with ability to get surgery. Chest xray was done at [facility] and it was negative for pneumonia. From the perspective of his COPD/respiratory fitness, patient is able to proceed with the Fem to Pop bypass procedure with Dr. Alaniz. Assessment & Plan (09/26/2021 2:25 PM RN BUILDING): Continue with Advair and albuterol p.r.n. Assessment & Plan (03/18/2021 1:03 PM CDT): Continue the Advair and prn albuterol Assessment & Plan (12/21/2020 9:38 AM CDT): Continue Advair and albuterol prn Assessment & Plan (10/23/2020 6:47 PM RN BUILDING): Dr. Miranda Advair and prn Albuterol Continue smoking cessation Assessment & Plan (03/14/2020 7:25 PM CDT): Continue Advair and prn albuterol. Await recommendations from Dr. Simpson Assessment & Plan (02/02/2020 4:37 PM CDT): This is a significant, separately identifiable problem that was evaluated and managed on the same day as the wellness exam Continue Advair and albuterol. Refer to Pulmonary at [place] due to persistent COPD sxs/cough. Has never had official PFTs/etc Assessment & Plan (11/24/2019 10:43 PM CDT): Continue with current regimen. Await covid results. Continue quarantine until results are available. Assessment & Plan (09/26/2019 8:53 AM RN BUILDING): Stable with the Advair and abuterol prn. Call if required more rescue. May use Mucinex prn for increased mucous production but call if beocomes consistently yellow or green Assessment & Plan (09/22/2019 9:08 PM RN BUILDING): COPD vs bronchitis. See Bronchitis for plan Stop smoking Assessment & Plan (09/15/2019 4:14 PM RN BUILDING): COPD exacerbation vs pneumonia--- Recommend CXR. Check labs. Had recent negative LDCT. Complete Amoxil Has completed a round of steroid. Continue Advair and prn albuterol. Start Muicnex. If has increased sxs, difficulty breathing, fever, chills or sweats he is to go to the ER. Assessment & Plan (06/07/2019 2:16 PM CDT): This is a significant, separately identifiable problem that was evaluated and managed on the same day as the wellness exam Encouraged smoking cessation. He has been on inhalers in the past but stopped them due to cost. Discussed restarting. He prefers to monitor. Resolved Problems Problem Noted Date Diagnosed Date Resolved Date Annual physical exam 03/27/2024 024 Assessment & Plan (03/27/2024 10:45 AM CDT): Encouraged healthy lifestyle, good nutrition and exercise. Encouraged Calcium and Vitamin D and weight bearing exercise for bone health. Reviewed immunizations. Reviewed age appropirate screenings. Medicare Wellness Documentation is completed within the chart Left wrist pain 11/14/2023 03/24/2024 Assessment & Plan (11/14/2023 2:10 PM CDT): Patient fell yesterday. 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 The crutch got caught in 1 of the drainage areas on his carport and he went down. Happened so fast that he has not completely sure how he landed though but his head hit a trash can and it appears he may have had his risks open to catch his fall as he is now has tenderness on the over the left ulnar process with some swelling. He did not lose consciousness. He denies headaches or any visual changes. There is bruising and tenderness at the impact on his right forehead. The area was cleansed well and is not actively bleeding today. Patient is on Plavix and aspirin so he is a bleed risk Reviewed crutch safety and he was very aware and does not plan on doing this again. Will get a stat CT of the head to rule out bleed. Needs stat x-ray of the left wrist to rule out ulnar styloid fracture/Colles fracture. He has a splint on the wrist at this point for comfort. Recent head trauma 11/14/2023 Assessment & Plan (11/14/2023 2:11 PM CDT): Patient fell yesterday. 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 The crutch got caught in 1 of the drainage areas on his carport and he went down. Happened so fast that he has not completely sure how he landed though but his head hit a trash can and it appears he may have had his risks open to catch his fall as he is now has tenderness on the over the left ulnar process with some swelling. He did not lose consciousness. He denies headaches or any visual changes. There is bruising and tenderness at the impact on his right forehead. The area was cleansed well and is not actively bleeding today. Patient is on Plavix and aspirin so he is a bleed risk Reviewed crutch safety and he was very aware and does not plan on doing this again. Will get a stat CT of the head to rule out bleed. Needs stat x-ray of the left wrist to rule out ulnar styloid fracture/Colles fracture. He has a splint on the wrist at this point for comfort. Frequency of urination 07/29/202303/24 Assessment & Plan (07/29/2023 9:22 PM RN BUILDING): Check urine culture to rule out infection. If negative may consider adding tamsulosin as he also notes a little hesitancy Prostate cancer screening 07/29/2023 Assessment & Plan (07/29/2023 9:22 PM RN BUILDING): Check PSA BMI 20.0-20.9, adult 01/03/2023 024 Assessment & Plan (11/14/2023 2:08 PM CDT): Weight/BMI is in healthy range. Continue healthy lifestyle to maintain. Assessment & Plan (07/18/2023 9:54 AM RN BUILDING): Weight/BMI is in healthy range. Continue healthy lifestyle to maintain. Assessment & Plan (01/03/2023 11:29 AM CDT): Weight/BMI is in healthy range. Continue healthy lifestyle to maintain. Hyponatremia 01/03/2023 06/25/2024 Assessment & Plan (01/03/2023 9:24 PM CDT): Patient denies any symptoms. States he is drinking good amount of water. Recheck CMP in the week and see where this levels out. BMI 21.0-21.9, adult 10/17/2022 024 Assessment & Plan (03/24/2024 10:39 PM CDT): Weight/BMI is in healthy range. Continue healthy lifestyle to maintain. Assessment & Plan (10/17/2022 7:32 AM RN BUILDING): Weight/BMI is in healthy range. Continue healthy lifestyle to maintain. Annual physical exam 10/17/2022 024 Assessment & Plan (10/17/2022 8:42 AM RN BUILDING): Encouraged healthy lifestyle, good nutrition and exercise. Encouraged Calcium and Vitamin D and weight bearing exercise for bone health. Reviewed immunizations Reviewed age appropirate screenings. Rest pain of lower extremity due to atherosclerosis 09/05/2022 10/17/2022 Overview (09/05/2022): Added automatically from request for surgery [id number] Medicare annual wellness visit, subsequent 06/14/2022 10/17/2022 Assessment & Plan (06/14/2022 5:08 PM CDT): Insert Medicare wellness exam Need for vaccination 06/14/2022 023 Assessment & Plan (06/14/2022 5:08 PM CDT): Flu vaccine updated in the office today BMI 24.0-24.9, adult 05/03/2022 023 Assessment & Plan (06/14/2022 7:17 AM CDT): Weight/BMI is in healthy range. Continue healthy lifestyle to maintain. Assessment & Plan (05/03/2022 8:57 PM CDT): Weight/BMI is in healthy range. Continue healthy lifestyle to maintain. Pre-operative cardiovascular examination 04/29/2022 06/14/2022 Mixed hyperlipidemia 04/05/2022 022 Assessment & Plan (04/20/2022 10:56 AM CDT): Lipitor Assessment & Plan (04/05/2022 8:30 AM CDT): Lipitor Type 2 diabetes mellitus wit h chronic kidney disease 04/05/2022 06/14/2022 Fall 09/29/2021 03/24/2024 Neck pain 09/26/2021 06/14/2022 Assessment & Plan (09/26/2021 2:29 PM RN BUILDING): See torticollis Need for immunization against influenza 09/26/2021 06/14/2022 Assessment & Plan (09/26/2021 2:29 PM RN BUILDING): FLU updated in office today Foot callus 09/26/2021 03/24/2024 Assessment & Plan (09/26/2021 2:31 PM RN BUILDING): This is a significant, separately identifiable problem that was evaluated and managed on the same day as the wellness exam This callous doesn't appear infected today but stressed he must monitor very closely to avoid infection. Will have him apply triamcinolone and encouraged daily hydration of both feet with a thick cream. Offered referral to podiatry but pt declines. BMI 25.0-25.9,adult 09/02/2021 06/14/20 Assessment & Plan (09/02/2021 4:22 PM RN BUILDING): Weight/BMI is in healthy range. Continue healthy lifestyle to maintain. BMI 26.0-26.9,adult 09/02/2021 09/02/19 22 BMI 25.0-25.9,adult 04/12/2021 09/02/19 22 Assessment & Plan (04/12/2021 1:51 PM CDT): Weight/BMI is in healthy range. Continue healthy lifestyle to maintain. Torticollis 04/12/2021 06/14/2022 Assessment & Plan (09/26/2021 2:28 PM RN BUILDING): This is a significant, separately identifiable problem that was evaluated and managed on the same day as the wellness exam This appears to be and get a C-spine to rule out any bony abnormalities. toticollis but will go ahead. Recommend Tylenol or ibuprofen as needed. May apply heat to the area. Strongly encourage physical therapy. He is unsure if he will do that but will provide the order for him to decide. Assessment & Plan (04/12/2021 2:16 PM CDT): Encouraged NSAIDS (if able to safely tolerate) or Tylenol. Topical preparations like Lidocaine patches, Biofreeze, ICYHOT etc as needed. Heat, stretching Encouraged PT. Order was given, he will consider ([facility]). He is to followup if sxs worsen or don't resolve. Medicare annual wellness visit, subsequent 03/18/2021 09/26/2021 Assessment & Plan (03/18/2021 1:04 PM CDT): Encouraged healthy lifestyle, good nutrition and exercise. Encouraged Calcium and Vitamin D and weight bearing exercise for bone health. Reviewed immunizations. Reviewed age appropirate screenings. Medicare Wellness Documentation is completed within the chart BMI 23.0-23.9, adult 03/18/2021 021 Assessment & Plan (03/18/2021 12:08 PM CDT): Weight/BMI is in healthy range. Continue healthy lifestyle to maintain. Need for 23-polyvalent pneum ococcal polysaccharide vaccine 03/18/2021 09/26/2021 Assessment & Plan (03/18/2021 1:04 PM CDT): Updated in office today BMI 26.0-26.9,adult 12/21/2020 03/18/20 21 Assessment & Plan (12/21/2020 8:45 AM CDT): Weight/BMI is in healthy range. Continue healthy lifestyle to maintain. Controlled type 2 diabetes diomedes alcantara without complication, without long-term current use of insulin ([facility]) 10/23/2020 10/17/2022 Assessment & Plan (02/27/2022 9:34 PM CDT): Stressed importance of continued A1c control to minimize the intermediate effects of diabetes. Bring accuchecks to office when instructed to do so. Check A1c about every 3-6 months. Take medication as prescribed. Get annual eye exam. Encouraged DIANELYS/Statin if able to tolerate. Encouraged weight control and encouraged diabetic diet and exercise. Due for labs to check control. Follow-up pending those results to determine if change in plan is noted. Assessment & Plan (09/26/2021 2:27 PM RN BUILDING): Stressed importance of continued A1c control to minimize the terminal clerk effects of diabetes. Bring accuchecks to office when instructed to do so. Check A1c about every 3-6 months. Take medication as prescribed. Get annual eye exam. Encouraged DIANELYS/Statin if able to tolerate. Encouraged weight control and encouraged diabetic diet and exercise. Await labs to determine control Assessment & Plan (03/18/2021 1:00 PM CDT): Stressed importance of continued A1c control to minimize the terminal clerk effects of diabetes. Bring accuchecks to office when instructed to do so. Check A1c about every 3-6 months. Take medication as prescribed. Get annual eye exam. Encouraged DIANELYS/Statin if able to tolerate. Encouraged weight control and encouraged diabetic diet and exercise. Continue jardiance and metformin Fatigue 10/23/2020 03/24/2024 Assessment & Plan (07/29/2023 9:21 PM RN BUILDING): Probably multifactorial. Check labs and followup to re-evaluate Assessment & Plan (10/17/2022 8:40 AM RN BUILDING): Probably multifactorial. Check labs and followup to re-evaluate Assessment & Plan (06/14/2022 5:07 PM CDT): Probably multifactorial. Check labs and followup to re-evaluate Assessment & Plan (02/27/2022 9:34 PM CDT): Probably multifactorial. Check labs and followup to re-evaluate Assessment & Plan (09/26/2021 2:27 PM RN BUILDING): Probably multifactorial. Check labs and followup to re-evaluate Decreased hearing 10/23/2020 03/24/2024 Assessment & Plan (10/23/2020 6:52 PM RN BUILDING): This is a significant, separately identifiable problem that was evaluated and managed on the same day as the wellness exam Will send to ENT/Audiology for hearing tests to determine cause and treatment plan. 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 Thinks changes started then. BMI 27.0-27.9,adult 10/22/2020 12/22/19 Assessment & Plan (10/22/2020 8:20 AM RN BUILDING): Weight/BMI is in healthy range. Continue healthy lifestyle to maintain. Annual physical exam 10/21/2020 Assessment & Plan (09/26/2021 2:26 PM RN BUILDING): Encouraged healthy lifestyle, good nutrition and exercise. Encouraged Calcium and Vitamin D and weight bearing exercise for bone health. Reviewed immunizations Reviewed age appropirate screenings. Assessment & Plan (10/21/2020 9:20 PM RN BUILDING): Encouraged healthy lifestyle, good nutrition and exercise. Encouraged Calcium and Vitamin D and weight bearing exercise for bone health. Reviewed immunizations Reviewed age appropirate screenings. Colon cancer screening 04/10/202010/21 Assessment & Plan (04/10/2020 11:47 AM CDT): Refer for colonoscopy Medicare annual wellness visit, subsequent 03/14/2020 04/10/2020 Assessment & Plan (03/14/2020 7:57 PM CDT): Encouraged healthy lifestyle, good nutrition and exercise. Encouraged Calcium and Vitamin D and weight bearing exercise for bone health. Reviewed immunizations. Reviewed age appropirate screenings. Medicare Wellness Documentation is completed within the chart BMI 27.0-27.9,adult 01/21/2020 10/23/19 Assessment & Plan (03/14/2020 7:48 PM CDT): Obesity is unchanged. Discussed the patient's BMI. The BMI is above average. BMI management plan is completed. BMI Follow-up includes: nutrition counseling, exercise counseling and education provided. Assessment & Plan (02/02/2020 4:34 PM CDT): Weight/BMI is in healthy range. Continue healthy lifestyle to maintain. Other fatigue 01/21/2020 03/14/2020 Assessment & Plan (02/02/2020 4:34 PM CDT): Probably multifactorial. Check labs and followup to re-evaluate Annual physical exam 01/21/2020 020 Assessment & Plan (02/02/2020 4:34 PM CDT): Encouraged healthy lifestyle, good nutrition and exercise. Encouraged Calcium and Vitamin D and weight bearing exercise for bone health. Reviewed immunizations Reviewed age appropirate screenings. Other chest pain 11/21/2019 10/17/2022 Assessment & Plan (02/02/2020 4:22 PM CDT): Negative CXR. No pain with exertion. Known COPD and is coughing. May be muscular. Try topical NSAIDs. Monitor. If notes with exertion or persists, will refer to Cardio for workup as has multiple risk factor for CV disease Assessment & Plan (11/24/2019 10:42 PM CDT): Will need to followup with Cardio to have outpatient stress test. Will make referral. Will need to await results from COVID and recommend recovery from acute respiratory illness. Type 2 diabetes mellitus wit h ketoacidosis without coma 11/21/2019 01/21/2020 Advice given about COVID-19 virus infection 11/21/2019 01/21/2020 Assessment & Plan (11/24/2019 10:44 PM CDT): Await covid results. Bronchitis 09/22/2019 09/26/2019 Assessment & Plan (09/22/2019 9:08 PM RN BUILDING): Bronchitis vs COPD. Flu is negative. Amoxil and Prednisone 60mg x 5 days. Tessalon for cough Start Advair. Albuterol prn Flu-like symptoms 09/22/2019 09/26/2019 Assessment & Plan (09/22/2019 9:15 PM RN BUILDING): Negative flu. See bronchitis Other fatigue 09/15/2019 09/26/2019 Assessment & Plan (09/15/2019 4:15 PM RN BUILDING): Probably multifactorial. Check labs and followup to re-evaluate Cough 09/15/2019 10/17/2022 Assessment & Plan (05/03/2022 8:57 PM CDT): See COPD Assessment & Plan (09/26/2019 8:53 AM RN BUILDING): Improving. Assessment & Plan (09/22/2019 9:08 PM RN BUILDING): See bronchitis Assessment & Plan (09/15/2019 4:14 PM RN BUILDING): See copd BMI 26.0-26.9,adult 09/10/2019 01/21/20 20 Assessment & Plan (11/24/2019 10:44 PM CDT): Weight/BMI is in healthy range. Continue healthy lifestyle to maintain. Assessment & Plan (09/26/2019 8:52 AM RN BUILDING): Weight/BMI is in healthy range. Continue healthy lifestyle to maintain. Assessment & Plan (09/10/2019 2:15 PM RN BUILDING): Weight/BMI is in healthy range. Continue healthy lifestyle to maintain. Boil of buttock 06/07/2019 01/21/2020 Assessment & Plan (06/07/2019 2:16 PM CDT): This is a significant, separately identifiable problem that was evaluated and managed on the same day as the wellness exam Continue with PRID. Start Keflex. If increases in size or redness/cellulitis he is to followup immediately Other fatigue 06/07/2019 07/25/2019 Assessment & Plan (06/07/2019 2:19 PM CDT): Probably multifactorial. Check labs and followup to re-evaluate Controlled type 2 diabetes diomedes alcantara, without long-term current use of insulin 06/07/2019 022 Assessment & Plan (12/21/2020 9:37 AM CDT): Stressed importance of continued A1c control to minimize the terminal clerk effects of diabetes. Bring accuchecks to office when instructed to do so. Check A1c about every 3-6 months. Take medication as prescribed. Get annual eye exam. Encouraged DIANELYS/Statin if able to tolerate. Encouraged weight control and encouraged diabetic diet and exercise. Diabetes is now well controlled with an A1c of 7.3. Still encourage patient to get labs done to check for his other values. Continue the Jardiance and metformin and follow up in 3-4 months to reassess. Assessment & Plan (10/23/2020 6:50 PM RN BUILDING): This is a significant, separately identifiable problem that was evaluated and managed on the same day as the wellness exam Stressed importance of continued A1c control to minimize the intermediate effects of diabetes. Bring accuchecks to office when instructed to do so. Check A1c about every 3-6 months. Take medication as prescribed. Get annual eye exam. Encouraged DIANELYS/Statin if able to tolerate. Encouraged weight control and encouraged diabetic diet and exercise. A2c in the office shows poor control Continue the metformin. He is not taking the insulin so will not restart at this point. Start Jardiance 10mg Reviewed risks, benefit, alternatives, side effects and proper use. Recheck CMP in 4 weeks and then will titrate up to try to achieve improved control. Stressed importance of taking as directed. Assessment & Plan (03/14/2020 7:47 PM CDT): This is a significant, separately identifiable problem that was evaluated and managed on the same day as the wellness exam Stressed importance of continued A1c control to minimize the terminal clerk effects of diabetes. Bring accuchecks to office when instructed to do so. Check A1c about every 3-6 months. Take medication as prescribed. Get annual eye exam. Encouraged DIANELYS/Statin if able to tolerate. Encouraged weight control and encouraged diabetic diet and exercise. Pt needs to restart his insulin to regain control of his DM. He voices understanding. Will have him restart at 20 units hs. Monitor AM readings and if less than 120 he will need to decrease to 15units. Continue metformin. Recheck labs in 3 months. Assessment & Plan (02/02/2020 4:32 PM CDT): Stressed importance of continued A1c control to minimize the terminal clerk effects of diabetes. Bring accuchecks to office when instructed to do so. Check A1c about every 3-6 months. Take medication as prescribed. Get annual eye exam. Encouraged DIANELYS/Statin if able to tolerate. Encouraged weight control and encouraged diabetic diet and exercise. Assessment & Plan (09/26/2019 8:52 AM RN BUILDING): Stressed importance of continued A1c control to minimize the terminal clerk effects of diabetes. Bring accuchecks to office when instructed to do so. Check A1c about every 3-6 months. Take medication as prescribed. Get annual eye exam. Encouraged DIANELYS/Statin if able to tolerate. Encouraged weight control and encouraged diabetic diet and exercise. Continue Metformin Assessment & Plan (06/07/2019 2:17 PM CDT): Stressed importance of continued A1c control to minimize the intermediate effects of diabetes. Bring accuchecks to office when instructed to do so. Check A1c about every 3-6 months. Take medication as prescribed. Get annual eye exam. Encouraged DIANELYS/Statin if able to tolerate. Encouraged weight control and encouraged diabetic diet and exercise. Refer for eye exam. Start Lisinopril. Continue Metformin 500mg bid. Prostate cancer screening 06/07/2019 Assessment & Plan (06/07/2019 2:19 PM CDT): Check labs Annual physical exam 06/07/2019 019 Assessment & Plan (06/07/2019 2:17 PM CDT): Encouraged healthy lifestyle, good nutrition and exercise. Encouraged Calcium and Vitamin D and weight bearing exercise for bone health. Reviewed immunizations Reviewed age appropirate screenings. Need for vaccination with 13 -polyvalent pneumococcal conjugate vaccine 06/07/2019 9 Assessment & Plan (06/07/2019 2:19 PM CDT): Provided in the office today Need for immunization against influenza 06/07/2019 07/25/2019 Assessment & Plan (06/07/2019 2:19 PM CDT): Provided in office today Type 2 diabetes mellitus with hyperlipidemia 9 06/14/2022 Assessment & Plan (02/27/2022 9:33 PM CDT): Encouraged patient to follow low fat/low chol diet like the Mediterranean diet. Increase good fats in the diet. Increase exercise. Monitor labs as needed. Continue statin Assessment & Plan (09/26/2021 2:26 PM RN BUILDING): Stressed importance of continued A1c control to minimize the terminal clerk effects of diabetes. Bring accuchecks to office when instructed to do so. Check A1c about every 3-6 months. Take medication as prescribed. Get annual eye exam. Encouraged DIANELYS/Statin if able to tolerate. Encouraged weight control and encouraged diabetic diet and exercise. Past due for labs. Will get these to determine control. Continue metformin and Jardiance at this point. Continue with statin for lipid control and protection. Assessment & Plan (03/18/2021 12:59 PM CDT): Encouraged patient to follow fat/low chol diet like the Mediterranean diet. Increase good fats in the diet. Increase exercise. Monitor labs as needed. Continue atorvastatin Assessment & Plan (10/21/2020 9:20 PM RN BUILDING): Encouraged patient to follow fat/low chol diet like the Mediterranean diet. Increase good fats in the diet. Increase exercise. Monitor labs as needed. Continue atorvastatin Assessment & Plan (03/14/2020 7:48 PM CDT): Encouraged patient to continue low fat/low chol diet. Continue exercise. Increase good fats in the diet. Monitor labs as needed. Continue statin Assessment & Plan (02/02/2020 4:32 PM CDT): Encouraged patient to continue low fat/low chol diet. Continue exercise. Increase good fats in the diet. Monitor labs as needed. Continue statin Assessment & Plan (11/24/2019 10:44 PM CDT): Encouraged patient to continue low fat/low chol diet. Continue exercise. Increase good fats in the diet. Monitor labs as needed. Assessment & Plan (06/07/2019 2:17 PM CDT): Encouraged patient to continue low fat/low chol diet. Continue exercise. Increase good fats in the diet. Monitor labs as needed. Continue statin BMI 25.0-25.9,adult 06/06/2019 09/10/19 Assessment & Plan (07/25/2019 9:30 PM RN BUILDING): Weight/BMI is in healthy range. Continue healthy lifestyle to maintain. Assessment & Plan (06/07/2019 2:17 PM CDT): Weight/BMI is in healthy range. Continue healthy lifestyle to maintain. Chronic kidney disease, stage 1 02/07/2018 03/01/2019 Diabetes mellitus with coinc ident hypertension 02/07/2018 06/14/2022 Assessment & Plan (04/20/2022 10:56 AM CDT): Losartan Assessment & Plan (04/05/2022 8:30 AM CDT): Metformin and losartan Assessment & Plan (09/26/2021 2:26 PM RN BUILDING): Bp is stable/in acceptable range for any co-morbidities. Encouraged to limit sodium intake and exercise for weight control. Continue losartan 25 Assessment & Plan (03/18/2021 12:59 PM CDT): Bp is stable/in acceptable range for any co-morbidities. Encouraged to limit sodium intake and exercise for weight control. Continue losartan Assessment & Plan (10/23/2020 6:53 PM RN BUILDING): Systolic is elevated by diastolic is low. Will continue with current plan at this time as with large pulse pressure pushing systolic may create systemic s/e/hypoperfusion. Encouraged to limit sodium intake and exercise for weight control. Continue losartan Assessment & Plan (03/14/2020 7:27 PM CDT): Bp is stable/in acceptable range for any co-morbidities. Encouraged to limit sodium intake and exercise for weight control. Stressed importance of continued A1c control to minimize the intermediate effects of diabetes. Bring accuchecks to office when instructed to do so. Check A1c about every 3-6 months. Take medication as prescribed. Get annual eye exam. Encouraged DIANELYS/Statin if able to tolerate. Encouraged weight control and encouraged diabetic diet and exercise. Restart insulin to get better control. Assessment & Plan (02/02/2020 4:28 PM CDT): Stressed importance of continued A1c control to minimize the intermediate effects of diabetes. Bring accuchecks to office when instructed to do so. Check A1c about every 3-6 months. Take medication as prescribed. Get annual eye exam. Encouraged DIANELYS/Statin if able to tolerate. Encouraged weight control and encouraged diabetic diet and exercise. Needs labs to determine control/change in management Continue Metformin and insulin Assessment & Plan (11/24/2019 10:44 PM CDT): Bp is stable/in acceptable range for any co-morbidities. Encouraged to limit sodium intake and exercise for weight control. Stressed importance of continued A1c control to minimize the terminal clerk effects of diabetes. Bring accuchecks to office when instructed to do so. Check A1c about every 3-6 months. Take medication as prescribed. Get annual eye exam. Encouraged DIANELYS/Statin if able to tolerate. Encouraged weight control and encouraged diabetic diet and exercise. He restarted insulin. Will send for new glucometer. Continue to monitor closely as when steroid completes, may not need as much insulin as was controlled without insulin prior. Assessment & Plan (09/26/2019 8:52 AM RN BUILDING): Bp is stable/in acceptable range for any co-morbidities. Encouraged to limit sodium intake and exercise for weight control. Assessment & Plan (06/07/2019 2:16 PM CDT): This is a significant, separately identifiable problem that was evaluated and managed on the same day as the wellness exam Bp is slightly elevated and he is not on an DIANELYS of which he would benefit with DM. Start lisinopril. Reviewed risks, benefit, alternatives, side effects and proper use. Encouraged to limit sodium intake and exercise for weight control. Followup 3-4 weeks to recheck Immunizations Name Administration Dates Next Due Influenza, Quadrivalent, Hig h Dose, Preservative Free, Intrr 06/14/2022,09/02/2021 Influenza, Trivalent, High D ose, Split, Preservative Free, Intramuscular 06/06/2019 Influenza, Unspecified 06/25/2024(Deferr ed: Patient Refused),10/20/2023(Deferred: Patient Refused),08/21/2023(Deferred: Patient Refused),08/21/2020(Deferred: Patient Refused) Moderna SARS-CoV-2 Monovalen t Vaccination (12+ YRS) 01/19/2021,12/22/2020 PPD TEST 03/23/2021 Pneumococcal Conjugate PCV 13 06/06/2019 Pneumococcal Polysaccharide PPV23 03/18/2021 Social History Tobacco Use Types Packs/Day Years Used Date Smoking Tobacco: Every Day Cigarettes 0.5 50 Started: [birth year]/19/1972; Last attempted to quit: 04/19/2022 Passive Smoke Exposure: Past Smokeless Tobacco: Former Tobacco Cessation:Ready to Q uit: Not Asked; Counseling Given: Not Answered Alcohol Use Standard Drinks/Week Comments Yes 0 (1 standard drink = 0.6 oz pur e alcohol) OASIS D0700: Social Isolation Answer Da te Recorded Frequency of experiencing loneliness or isolatio n Never 10/18/2022 OASIS A1250: Transportation Answer Date Recorded Lack of Transportation (Medical) No 10/18/2022 Lack of Transportation (Non-Medical) No 10/18/2022 Patient Unable or Declines to Respond No 10/18/2022 OASIS B1300: Health Literacy Answer Niranjan e Recorded Frequency of needing help to read materials from doctor or pharmacy Never 10/18/2022 [facility] Utilities Answer Date Recorded In the past 12 months has e [employer], [employer], oil, or water [employer] threatened to shut off services in your home? No 07/27/2023 Social Connection and Isolat ion Panel [NHANES] Answer Date Recorded In a typical week, how many times do you talk on the phone with family, friends, or neighbors? More than three times a week 05/18/2023 How often do you get togethe r with friends or relatives? Three times a week 05/18/2023 How often do you attend chur ch or gnosticism services? Never 05/18/2023 Do you belong to any clubs o r organizations such as pentecostal groups, unions, fraternal or athletic groups, or school groups? No 05/18/2023 How often do you attend meet ings of the clubs or organizations you belong to? Never 05/18/2023 Are you , , di vorced, , never , or living with a partner? 05/18/2023 AUDIT-C Answer Date Recorded Q1: How often do you have a drink containing alc ohol? Monthly or less 11/14/2023 Q2: How many drinks containi ng alcohol do you have on a typical day when you are drinking? 1 or 2 11/14/2023 Q3: How often do you have si x or more drinks on one occasion? Never 11/14/2023 Overall Financial Resource Strain (CARDIA) Answe r Date Recorded How hard is it for you to pa y for the very basics like food, housing, medical care, and heating? Not very hard 05/18/2023 PHQ-2 Answer Date Recorded PHQ-2 Total Score (If total score is 3 or more points, staff should administer the PHQ-9) 0 08/07/2024 Hunger Vital Sign Answer Date Recorded Within the past 12 months, y ou worried that your food would run out before you got the money to buy more. Sometimes true Within the past 12 months, t he food you bought just didn't last and you didn't have money to get more. Sometimes true PRAPARE - Transportation Answer Date Re corded In the past 12 months, has l ack of transportation kept you from medical appointments or from getting medications? No 04/22 In the past 12 months, has l ack of transportation kept you from meetings, work, or from getting things needed for daily living? No 05/18/2023 Housing Stability Vital Sign Answer Niranjan e Recorded In the last 12 months, was t here a time when you were not able to pay the mortgage or rent on time? No 05/18/2023 In the last 12 months, how many places have you lived? 1 05/18/2023 In the last 12 months, was t here a time when you did not have a steady place to sleep or slept in a longterm (including now)? No 05/18/2023 Personal Safety Answer Date Recorded Getting School Help Needed Denies 08/01 Sex and Gender Information Value Date Recorded Sex Assigned at Not on file Legal Sex Male 5:57 PM RN BUILDING Gender Identity Not on file Sexual Orientation Not on file Last Filed Vital Signs Vital Sign Reading Time Taken Comments Blood Pressure 130/62 08/07/2024 11:32 AM RN BUILDING Pulse 81 08/07/2024 11:32 AM RN BUILDING Temperature 36.3 C (97.3 F) 08/07/2024 11:32 AM RN BUILDING Respiratory Rate 18 09/27/2024 9:46 AM RN BUILDING Oxygen Saturation 97% 08/07/2024 11:32 AM RN BUILDING Inhaled Oxygen Concentration - - Weight 66.7 kg (147 lb) 09/27/2024 9:46 AM RN BUILDING Height 165.1 cm (5' 5 ) 09/27/2024 9:46 AM RN BUILDING Body Mass Index 24.46 09/27/2024 9:46 AM RN BUILDING Plan of Treatment Not on file Medical Devices Implanted Type Area Tool Salvage Worker Device Identifier Shelf Expiration Date Model / Serial / Lot [employer] [place] 6mm 80cm 60cm Removable Ring Stretch Thin Wall Graft [id number] - [id number] - [id number] Implanted:Qty: 1 on 05/05/2022 by Boo Alaniz MD at [facility] Left: Femur [employer] 09/19/2025 [id number] / [id number] / [employer] Hemashield 6x2in 2 Velour Knitted Impregnated Nonsealed Tapered [id number] - [id number] Implanted:Qty: 1 on 05/05/2022 by Boo Alaniz MD at [facility] Left: Femur [employer] 06/20/2026 [id number] / [id number] Procedures Procedure Name Priority Date/Time Associated Diagnosis Comments POCT RAPID STREP Routine 08/07/2024 11:5 0 AM RN BUILDING Sore throat COMPREHENSIVE METABOLIC PANEL Routine 05/20/2024 Hypertension associated with diabetes (HCC) HEMOGLOBIN A1C Routine 05/20/2024 Hypertension associated with diabetes (HCC) LIPID PANEL Routine 05/20/2024 Hypertension associated with diabetes (HCC) HM DIABETES EYE EXAM Routine 02/15/2024 11:49 AM CDT ALBUMIN CREATININE RATIO, URINE Routine 01/18/2024 Hyperlipidemia associated with type 2 diabetes mellitus (HCC) CT LUNG CANCER SCREENING Schedule Routine, Read Routine (OP Routine) 11/02/2020 History of tobacco abuse COLONOSCOPY Routine 08/27/2020 from Last 3 Months or Most Recently Relevant to Health Maintenance Results * POCT rapid strep A (08/07/2024 11:50 AM RN BUILDING) Rapid Strep A, POC Negative Negative Swab 08/07/2024 11:5 0 AM RN BUILDING Isis HOFFMANN POINT OF CARE TEST ORDERAB LES Final Result * (ABNORMAL) Hemoglobin A1c (05/20/2024) SCRIBED Hemoglobin A1c 9.0(A) 0 - 5.7 % EXTERNAL LAB Blood 05/20/2024 us Isis HOFFMANN LAB BLOOD ORDERABLES Final Result EXTERNAL LAB * Lipid panel (05/20/2024) SCRIBED Cholesterol, Total 178 0 - 200 EXTERNAL LAB SCRIBED HDL 38 35 - 100 EXTERNAL LAB SCRIBED LDL 124 0 - 130 EXTERNAL LAB SCRIBED Triglycerides 129 0 - 150 EXTERNAL LAB Blood 05/20/2024 Isis HOFFMANN LAB BLOOD ORDERABLES Final Result EXTERNAL LAB * (ABNORMAL) Comprehensive metabolic panel (05/20/2024) SCRIBED Sodium 135(A) 137 - 145 mmol/L EXTERNAL LAB SCRIBED Potassium 4.6 3.4 - 5.0 mmol/L EXTERNAL LAB SCRIBED Chloride 99 98 - 107 mmol/L EXTERNAL LAB SCRIBED Carbon Dioxide 26 22 - 30 mmol/L EXTERNAL LAB SCRIBED Anion Gap 10 4 - 12 mmol/L EXTERNAL LAB SCRIBED Urea Nitrogen (BUN) 18 9 - 20 mg/dl EXTERNAL LAB SCRIBED Creatinine 0.80(A) 9 - 20 mg/dl EXTERNAL LAB SCRIBED Glucose 9.5 8.4 - 10.2 mg/dl EXTERNAL LAB SCRIBED Calcium 9.5 8.4 - 10.2 mg/dl EXTERNAL LAB SCRIBED Bilirubin 0.3 0.2 - 1.3 mg/dl EXTERNAL LAB SCRIBED Plasma Protein 8.0 6.3 - 8.2 g/dl EXTERNAL LAB SCRIBED Albumin 4.5 3.5 - 5.1 g/dl EXTERNAL LAB SCRIBED Alkaline Phosphatase 64 38 - 126 Units/L EXTERNAL LAB SCRIBED Alanine Transaminase (ALT) 16 6 - 50 Units/L EXTERNAL LAB SCRIBED Aspartate Transaminase (AST) 25 17 - 59 Units/L EXTERNAL LAB SCRIBED eGFR in 0 0 - 0 EXTERNAL LAB SCRIBED eGFR in NonAfrican Romanian 61 60 - 100 EXTERNAL LAB Blood 05/20/2024 Isis [facility]OFFMANN LAB BLOOD ORDERABLES Final Result EXTERNAL LAB * HM DIABETES EYE EXAM (02/15/2024 11:49 AM CDT) SCRIBED DIABETIC DILATED EYE EXAM Normal Historical Provider HEALTH MAINTENANCE Edited Result - Final * (ABNORMAL) Albumin Creatinine Ratio, Urine (01/18/2024) SCRIBED Creatinine, Urine 24.0(A) 0 - 0 EXTERNAL LAB SCRIBED Microalbumin 0 0 - 0 EXTERNAL LAB SCRIBED Micro ACR, Urine 95.5(A) 0 - 16.7 EXTERNAL LAB SCRIBED Microalb/Creat Ratio 397(A) 0 - 30 EXTERNAL LAB Urine 01/18/2024 Isis [facility]OFFMANN LAB URINE ORDERABLES Final Result EXTERNAL LAB * CT Lung Cancer Screening (11/02/2020) Anatomical Region Laterality Modality Chest N/A Computed Tomogra phy Isis HOFFMANN IMG CT PROCEDURES Final Re sult * Colonoscopy (08/27/2020) Anatomical Region Laterality Modality Other Pavel Barron MD ENDOSCOPY PROCEDUR ES Final Result from Last 3 Months or Most Recently Relevant to Health Maintenance Insurance [facility] Advance Directives For more information, please contact: [phone] * Full Code (Latest Code Status on File) Date Activated Date Inactivated Comments 09/12/2022 1:11 PM 09/16/2022 4:24 AM * Full Code Date Activated Date Inactivated Comments 07/29/2022 3:17 PM 07/31/2022 9:04 PM * Full Code Date Activated Date Inactivated Comments 07/20/2022 9:50 AM 07/20/2022 7:22 PM * Full Code Date Activated Date Inactivated Comments 05/05/2022 2:42 PM 05/09/2022 5:25 PM * Full Code Date Activated Date Inactivated Comments 04/13/2022 12:44 PM 04/13/2022 5:50 PM Care Teams Radar Engineering Teacher Relationship Specialty Start Date End Date Isis Boo PA [address] [place] [address] PCP - General Internal Medicine 06/06/19 Isis Boo PA [address] [place] [address] PCP - Essence Attributed PCP 10/19/17 Angel Hernandez MD [address] [place] [address] [id number] Consulting Physician Cardiology 04/29/22 Gabino Paez MD [address] [place] [address] Consulting Physician Pulmonary Disease 05/03/22 Boo Alaniz MD [address] [place] [address] Consulting Physician Vascular Surgery 09/15/22
--- OUTSIDE RECORDS SUMMARY | 2024-09-30 10:26 | XMS_ITS | Clinical Summary ---
Author Organization [facility] Address [address] [place] [address] Care Team Providers Care French Professor Name Role Phone Unavailable Primary Care Provider Unavailabl e Encounters Date Type Department Care Team Description 09/12/2024 External Device Data [facility] Provider, Abstract 09/11/2024 External Device Data [facility] Provider, Abstract 09/10/2024 External Device Data [facility] Provider, Abstract 09/03/2024 External Device Data [facility] Provider, Abstract from Last 3 Months Social History Tobacco Use Types Packs/Day Years Used Date Smoking Tobacco: Never Assessed Sex and Gender Information Value Date Recorded Sex Assigned at Not on file Legal Sex Male 10:17 AM CDT Gender Identity Not on file Sexual Orientation Not on file Plan of Treatment Health Maintenance Due Date Last Done Comments DIABETES MICROALBUMIN ANNUAL SCREEN 1966 LDL CHOLESTEROL ANNUAL 1966 DTAP/TDAP/TD VACCINES (1 - Tdap) 1967 FIT-DNA Q 3 years 1993 FIT/FOBT Q 1 year 1993 Flex Sig/CT Colonography Q 5 years 1993 ZOSTER VACCINE (1 of 2) 1998 DIABETES ANNUAL FOOT EXAM 06/06/2020 06/06/2019 RSV VACCINE (60+ or ) (1 - 1-dose 75+ series) 2023 INFLUENZA VACCINE (#1) 2024 , 09/02/2021, 06/06/2019 COVID-19 Vaccine ( - 2023- season) 04/21/202408/2020, 12/22/2020 DIABETES HBA1C Q 6 MONTHS 11/17/2024 05/20/2024 DIABETES ANNUAL RETINAL EXAM 02/25/2025 02/26/2024 COLORECTAL SCREENING 08/27/2030 08/27/2020 Colorectal Cancer Screening 08/27/2030 PNEUMOCOCCAL VACCINE 65+ YEARS Completed 03/18/2021 , 06/06/2019 Insurance [facility]
--- OUTSIDE RECORDS SUMMARY | 2024-09-30 10:26 | XMS_ITS | Clinical Summary ---
Author Organization [facility] [address] [facility] Address [address] [place] [address] Care Team Providers Care Aesthetician Name Role Phone Isis Boo Primary Care Provider Isis Boo Unavailable [phone] Angel Hernandez MD Unavailable Gabino Paez MD Unavailable [phone] Boo Alaniz MD Unavailable Allergies No known active allergies Medications aspirin [...] [employer]. 100 each 1 02/28/20 24 Active blood glucose diagnostic (glucose [...] 08/07/2024 Assessment & Plan (08/17/2024 1:42 AM PHYSICAL THERAPIST AIDE): Patient has noticed a hoarseness to his [...] 08/07/2024 Assessment & Plan (08/17/2024 1:43 AM PHYSICAL THERAPIST AIDE): Patient has noticed a hoarseness to his [...] 06/25/2024 Assessment & Plan (08/17/2024 1:40 AM PHYSICAL THERAPIST AIDE): Weight/BMI is in healthy range. Continue healthy lifestyle to maintain. Assessment & Plan (06/25/2024 8:13 AM PHYSICAL THERAPIST AIDE): Weight/BMI is in healthy range. Continue healthy lifestyle to maintain. Fatigue 06/25/2024 Assessment & Plan (06/25/2024 6:41 PM PHYSICAL THERAPIST AIDE): Probably multifactorial. Check labs and followup to re-evaluate Medicare annual wellness visit, subsequent 07/29 Assessment & Plan (06/25/2024 6:38 PM PHYSICAL THERAPIST AIDE): Encouraged healthy lifestyle, good nutrition and exercise. [...] chart Assessment & Plan (07/29/2023 9:21 PM PHYSICAL THERAPIST AIDE): Encouraged healthy lifestyle, good nutrition and exercise. Encouraged Calcium and Vitamin D and weight bearing exercise for bone health. Reviewed immunizations Reviewed age appropirate screenings. History of left above knee amputation (CMS/HCC) 10/17/2022 Overview (10/17/2022): 08/2022 Dr. Alaniz Assessment & Plan (06/25/2024 6:38 PM PHYSICAL THERAPIST AIDE): Status post xnigl-lbr-jpud amputation on the left by Dr. Alaniz. Continue Plavix and aspirin and statin. States he is not happy with prosthesis in his more happy utilizing his crutches to get around Assessment & Plan (03/24/2024 10:38 PM CDT): Status post jbncc-kqp-[id number] amputation due to peripheral vascular disease. Continue with statin, Plavix and aspirin. Assessment & Plan (07/29/2023 9:21 PM PHYSICAL THERAPIST AIDE): Status post above-knee amputation. Continue per vascular, [...] his essence referral for him to contact [facility] to get started. If he has problems he is to contact Dr. Alaniz's office. Seems to verbalize understanding of the plan Assessment & Plan (10/17/2022 8:43 AM PHYSICAL THERAPIST AIDE): Status post left above-knee amputation by Dr. [...] Phantom pain after amputation of lower extremity ([facility]) 10/17/2022 Assessment & Plan (06/25/2024 6:38 PM PHYSICAL THERAPIST AIDE): Phantom pain has subsided without any additional [...] monitor Assessment & Plan (10/17/2022 8:43 AM PHYSICAL THERAPIST AIDE): Status post left above-knee amputation by Dr. [...] control. Will continue to monitor Atherosclerosis of [place] of left lower extremity with rest pain 07/18/2022 Assessment & Plan (06/25/2024 6:37 PM PHYSICAL THERAPIST AIDE): Patient is on statin aspirin Plavix. Assessment & Plan (09/06/2022 8:48 AM PHYSICAL THERAPIST AIDE): Impression: Patient is status post left femoral artery exploration and left posterior tibial artery exploration due to life-limiting claudication and rest pain. Patient was found to have severely calcified and very small in caliber arteries and not suitable for open surgical revascularization. Patient continues to complain of pain to his left leg. [place] are intact to left groin and medial calf with no concern for infection. Plan: Patient has non-reconstructible vascular disease therefore a left rtbfy-idh-xsus amputation was recommended. Risks of the procedure communicate with the patient to include bleeding, infection, injury, further surgery, and . Patient understands these risks and wishes to proceed. Atul were removed from left groin and left medial calf. Assessment & Plan (07/18/2022 1:58 PM PHYSICAL THERAPIST AIDE): Impression: Acute onset worsening claudication following recent [...] 05/05/2022 Assessment & Plan (06/25/2024 6:37 PM PHYSICAL THERAPIST AIDE): Patient with PVD. Continue with the Plavix and aspirin. Continue with the Lipitor 80 Assessment & Plan (03/24/2024 10:36 PM CDT): Patient has peripheral vascular disease. Continue to follow with vascular. He has already had lower leg amputation due to the peripheral vascular disease Assessment & Plan (10/17/2022 8:42 AM PHYSICAL THERAPIST AIDE): Continue per vascular surgery. He is on Plavix. Still strongly encouraged smoking cessation Assessment & Plan (10/06/2022 11:43 AM PHYSICAL THERAPIST AIDE): Status post left above knee amputation. Healed. 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 Patient is [...] time. Assessment & Plan (08/16/2022 4:20 PM PHYSICAL THERAPIST AIDE): Impression: Known thrombosed left fem-pop bypass diagnosis [...] 04/29/2022 Assessment & Plan (06/25/2024 6:38 PM PHYSICAL THERAPIST AIDE): Encouraged patient to follow low fat/low chol diet like the Mediterranean diet. Increase good fats in the diet. Increase exercise. Monitor labs as needed. Continue Lipitor 80 Assessment & Plan (03/24/2024 10:36 PM CDT): Stressed importance of continued A1c control to minimize the joint terminal attack controller effects of diabetes. Bring accuchecks to office [...] 10 Assessment & Plan (07/29/2023 9:21 PM PHYSICAL THERAPIST AIDE): Encouraged patient to follow low fat/low chol [...] 80 Assessment & Plan (10/17/2022 8:41 AM PHYSICAL THERAPIST AIDE): Encouraged patient to follow low fat/low chol [...] 04/29/2022 Assessment & Plan (06/25/2024 6:42 PM PHYSICAL THERAPIST AIDE): This is a significant, separately identifiable problem that was evaluated and managed on the same day as the wellness exam Bp is stable/in acceptable range for any co-morbidities. Encouraged to limit sodium intake and exercise for weight control. Continue losartan 25 Stressed importance of continued A1c control to minimize the joint terminal attack controller effects of diabetes. Bring accuchecks to office [...] his [place] including [facility] the [facility] [place] and [place] assistance versus him pain for it as he states he did get a little bit of extra money. Advised I will go ahead and prescribe it and if he needs assistance we would be glad to help him with a.c. and knee he would just need to bring in the correct paperwork. Encouraged him to talk with his [facility] hostess party sales representative to see if he could get [...] 25 Assessment & Plan (07/29/2023 9:20 PM PHYSICAL THERAPIST AIDE): Bp is stable/in acceptable range for any co-morbidities. Encouraged to limit sodium intake and exercise for weight control. Stressed importance of continued A1c control to minimize the joint terminal attack controller effects of diabetes. Bring accuchecks to office [...] 25 Assessment & Plan (10/17/2022 8:41 AM PHYSICAL THERAPIST AIDE): Bp is stable/in acceptable range for any co-morbidities. Encouraged to limit sodium intake and exercise for weight control. Continue losartan 25 Assessment & Plan (08/16/2022 4:22 PM PHYSICAL THERAPIST AIDE): Impression: Stable chronic hypertension. Plan: Medications reviewed and recommend continuing daily antihypertensive regimen as directed by patient's primary care physician. Assessment & Plan (06/14/2022 5:07 PM CDT): Bp is stable/in acceptable range for any co-morbidities. Encouraged to limit sodium intake and exercise for weight control. 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 Bring accuchecks to office when instructed to do so. Check A1c about every 3-6 months. Take medication as prescribed. Get annual eye exam. Encouraged DIANELYS/Statin if able to tolerate. Encouraged weight control and encouraged diabetic diet and exercise. Patient has peripheral artery disease as well as peripheral arterial disease. Assessment & Plan (07/29/2023 9:21 PM PHYSICAL THERAPIST AIDE): Peripheral artery disease in the setting of diabetes that has resulted in [id number]-[id number] amputation of the left leg. Strongly encouraged medical management as instructed. Assessment & Plan (01/03/2023 9:22 PM CDT): Stressed importance of continued A1c control to minimize the joint terminal attack controller effects of diabetes. Bring accuchecks to office [...] amputation. Assessment & Plan (10/17/2022 8:42 AM PHYSICAL THERAPIST AIDE): Stressed importance of continued A1c control to minimize the joint terminal attack controller effects of diabetes. Bring accuchecks to office [...] of continued A1c control to minimize the joint terminal attack controller effects of diabetes. Bring accuchecks to office [...] 12/21/2020 Assessment & Plan (10/17/2022 8:41 AM PHYSICAL THERAPIST AIDE): Stressed importance of continued A1c control to minimize the joint terminal attack controller effects of diabetes. Bring accuchecks to office [...] 10/21/2020 Assessment & Plan (10/17/2022 8:40 AM PHYSICAL THERAPIST AIDE): Strongly encouraged follow-up with Ophthalmology. He has put this on the back burner due to his other chronic medical concerns. Assessment & Plan (06/14/2022 5:07 PM CDT): Encourage patient follow-up with his strategic planning specialist. He has been hesitant to think about treatment as they may include injections in the eye and he has been adamant about not doing that. Reviewed again the risk of not doing treatment progression to visual changes and possible blindness. He verbalizes understanding will consider Assessment & Plan (09/26/2021 2:27 PM PHYSICAL THERAPIST AIDE): Encouraged to continue per Ophthalmology. He voices understanding that by foregoing treatment this could lead to progressive loss of sight. Assessment & Plan (03/18/2021 1:00 PM CDT): Stressed the importance of continued follow-up with the strategic planning specialist. Reviewed that macular degeneration will continue to progress to the point of blindness and that treatment/intervention is needed to change this course or at least try to slow it down. Patient voiced understanding and states at this point he is not interested in treatment Assessment & Plan (10/23/2020 6:47 PM PHYSICAL THERAPIST AIDE): Encouraged to Continue per [facility] Ophthamology as not treating can lead to [...] 02/02/2020 Assessment & Plan (09/29/2021 12:34 PM PHYSICAL THERAPIST AIDE): Xray R shoulder today - he is taking to [facility]. Will notify him of results as available. [...] 07/25/2019 Assessment & Plan (07/25/2019 3:08 PM PHYSICAL THERAPIST AIDE): Infection vs pain from thick large nail growing into the skin. Start keflex. Has followup scheduled with Dr. Fraga next week. Await her recommendations. Laryngopharyngeal reflux (LPR) 06/07/2019 Assessment & Plan (06/25/2024 6:31 PM PHYSICAL THERAPIST AIDE): Continue PPI p.r.n. Assessment & Plan (03/24/2024 10:38 PM CDT): Continue pantoprazole p.r.n. Assessment & Plan (07/29/2023 9:19 PM PHYSICAL THERAPIST AIDE): Reviewed with patient if his reflux symptoms are controlled he can just use the pantoprazole p.r.n.. Assessment & Plan (10/17/2022 8:39 AM PHYSICAL THERAPIST AIDE): Continue PPI p.r.n. Assessment & Plan (06/14/2022 5:06 PM CDT): Continue PPI p.r.n. Assessment & Plan (09/26/2021 2:26 PM PHYSICAL THERAPIST AIDE): Continue PPI Assessment & Plan (03/18/2021 1:01 PM CDT): Continue ppi Assessment & Plan (10/21/2020 9:20 PM PHYSICAL THERAPIST AIDE): Continue PPI Assessment & Plan (03/14/2020 7:27 PM CDT): Continue Protonix Assessment & Plan (02/02/2020 4:30 PM CDT): Continue PPI Assessment & Plan (06/07/2019 2:12 PM CDT): On Protonix bid. No active bleeding Stop smoking. Avoid alcohol. Avoid NSAIDs. Onychomycosis 06/07/2019 Assessment & Plan (02/02/2020 4:31 PM CDT): Continue per berry grower Assessment & Plan (06/07/2019 2:16 PM CDT): This is a significant, separately identifiable problem that was evaluated and managed on the same day as the wellness exam Has been on Lamisil in the past without success. Refer to [employer] Duty Manager for further treatment and assistance with cutting nails due to his DM. Cigarette smoker 06/07/2019 Assessment & Plan (08/17/2024 1:40 AM PHYSICAL THERAPIST AIDE): Encouraged smoking cessation. Discussed 3 minutes. Reviewed options for assistance with cessation. Reviewed retirement sequela associated with smoking. Pt declines assistance at this time but may contact the office at anytime for further help as they desire. Assessment & Plan (06/25/2024 6:32 PM PHYSICAL THERAPIST AIDE): This is a significant, separately identifiable problem [...] Reviewed options for assistance with cessation. Reviewed retirement sequela associated with smoking. Pt declines assistance at this time but may contact the office at anytime for further help as they desire. Assessment & Plan (10/17/2022 8:40 AM PHYSICAL THERAPIST AIDE): Encouraged smoking cessation. Discussed 3 minutes. Reviewed options for assistance with cessation. Reviewed joint terminal attack controller sequela associated with smoking. Pt declines assistance at this time but may contact the office at anytime for further help as they desire. Assessment & Plan (06/14/2022 5:06 PM CDT): Patient states he stop smoking. Assessment & Plan (10/21/2020 9:23 PM PHYSICAL THERAPIST AIDE): Quit 09/2019 Due for LDCT after 08/01/2020 Assessment & Plan (02/02/2020 4:34 PM CDT): Quit 09/2019 Assessment & Plan (11/24/2019 10:44 PM CDT): Smoke free for a few weeks. Continue with effort Assessment & Plan (09/26/2019 8:46 AM PHYSICAL THERAPIST AIDE): Quit smoking 09/12 on his own. 2 week cig free Encouraged to continue Assessment & Plan (09/22/2019 9:13 PM PHYSICAL THERAPIST AIDE): .Encouraged smoking cessation. Discussed 3 minutes. Reviewed options for assistance with cessation. Reviewed joint terminal attack controller sequela associated with smoking. Pt declines assistance at this time but may contact the office at anytime for further help as they desire. Assessment & Plan (09/15/2019 4:15 PM PHYSICAL THERAPIST AIDE): Encouraged smoking cessation. Discussed 3 minutes. Reviewed options for assistance with cessation. Reviewed joint terminal attack controller sequela associated with smoking. Pt declines assistance at this time but may contact the office at anytime for further help as they desire. Assessment & Plan (07/25/2019 9:30 PM PHYSICAL THERAPIST AIDE): Encouraged smoking cessation. Discussed 3 minutes. Reviewed options for assistance with cessation. Reviewed retirement sequela associated with smoking. Pt declines assistance at this time but may contact the office at anytime for further help as they desire. Assessment & Plan (06/07/2019 2:26 PM CDT): Encouraged smoking cessation. Discussed 3 minutes. Reviewed options for assistance with cessation. Reviewed joint terminal attack controller sequela associated with smoking. Pt declines assistance [...] 06/07/2019 Assessment & Plan (10/17/2022 8:40 AM PHYSICAL THERAPIST AIDE): Persistent smoker's cough. Encouraged cessation has albuterol p.r.n. Assessment & Plan (10/23/2020 6:47 PM PHYSICAL THERAPIST AIDE): Treat COPD Continue with smoking cessation Assessment & Plan (03/14/2020 7:26 PM CDT): Quit smoking 08/2019 Assessment & Plan (02/02/2020 4:28 PM CDT): See COPD Assessment & Plan (11/24/2019 10:42 PM CDT): Pt has stopped smoking. Continue to monitor Assessment & Plan (09/26/2019 8:54 AM PHYSICAL THERAPIST AIDE): Improving. Continue tob cessation. Assessment & Plan (09/15/2019 4:14 PM PHYSICAL THERAPIST AIDE): Stop smoking Assessment & Plan (06/07/2019 2:10 PM CDT): Encouraged smoking cessation. Duodenal ulcer 06/05/2019 Assessment & Plan (06/05/2019 7:35 PM CDT): 04/2019 EGD - Dr. Hawley Acute gastric ulcer without hemorrhage or perfor ation 03/01/2019 Assessment & Plan (10/23/2020 6:47 PM PHYSICAL THERAPIST AIDE): Continue PPI. Avoid NSAIDs Assessment & Plan (06/07/2019 2:11 PM CDT): On Protonix bid. No active bleeding Stop smoking. Avoid alcohol. Avoid NSAIDs. Alcohol dependence in remission ([facility]/HCC) 2017 Assessment & Plan (06/25/2024 6:30 PM PHYSICAL THERAPIST AIDE): Patient states he has decreased alcohol immensely. Still encourage complete cessation Assessment & Plan (03/24/2024 10:38 PM CDT): Patient with history of alcohol dependence. He states he still drinks few times a week. Assessment & Plan (10/17/2022 8:37 AM PHYSICAL THERAPIST AIDE): Patient continues to remain alcohol free. Encouraged to continue Assessment & Plan (06/14/2022 5:06 PM CDT): Patient states he no longer drinks alcohol. Assessment & Plan (09/26/2021 2:25 PM PHYSICAL THERAPIST AIDE): Patient states he is still not drinking. Continue with cessation. Assessment & Plan (03/18/2021 1:01 PM CDT): Continue alcohol cessation Assessment & Plan (10/21/2020 9:19 PM PHYSICAL THERAPIST AIDE): Remains off alcohol Assessment & Plan (03/14/2020 7:21 PM CDT): Continues to remain off alcohol Assessment & Plan (02/02/2020 4:21 PM CDT): Still no alcohol use. Assessment & Plan (06/07/2019 2:09 PM CDT): Encouraged to continue to avoid all alcohol use. Chronic obstructive pulmonary disease 02/07/2018 Assessment & Plan (06/25/2024 6:31 PM PHYSICAL THERAPIST AIDE): Encouraged complete smoking cessation. Continue management with Dr. Choi continue Anoro and albuterol. Imaging with CT is managed by Dr. Choi Assessment & Plan (03/24/2024 10:38 PM CDT): Patient with long-term smoking history. Has known COPD. On Anoro and albuterol. 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 Choi Assessment & Plan (07/29/2023 9:21 PM PHYSICAL THERAPIST AIDE): Continue in RO. Continue to follow with Dr. Riggs. Encouraged follow-up appointment Assessment & Plan (10/17/2022 8:39 AM PHYSICAL THERAPIST AIDE): Encouraged smoking cessation. 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 Riggs pan greaser. Using daily Anaro and albuterol p.r.n. Assessment [...] get surgery. Chest xray was done at [facility] and it was negative for pneumonia. From the perspective of his COPD/respiratory fitness, patient is able to proceed with the Fem to Pop bypass procedure with Dr. Alaniz. Assessment & Plan (09/26/2021 2:25 PM PHYSICAL THERAPIST AIDE): Continue with Advair and albuterol p.r.n. Assessment & Plan (03/18/2021 1:03 PM CDT): Continue the Advair and prn albuterol Assessment & Plan (12/21/2020 9:38 AM CDT): Continue Advair and albuterol prn Assessment & Plan (10/23/2020 6:47 PM PHYSICAL THERAPIST AIDE): Dr. Miranda Advair and prn Albuterol Continue smoking cessation Assessment & Plan (03/14/2020 7:25 PM CDT): Continue Advair and prn albuterol. Await recommendations from Dr. Simpson Assessment & Plan (02/02/2020 4:37 PM CDT): This is a significant, separately identifiable problem that was evaluated and managed on the same day as the wellness exam Continue Advair and albuterol. Refer to Pulmonary at [place] due to persistent COPD sxs/cough. Has never had official PFTs/etc Assessment & Plan (11/24/2019 10:43 PM CDT): Continue with current regimen. Await covid results. Continue quarantine until results are available. Assessment & Plan (09/26/2019 8:53 AM PHYSICAL THERAPIST AIDE): Stable with the Advair and abuterol prn. Call if required more rescue. May use Mucinex prn for increased mucous production but call if beocomes consistently yellow or green Assessment & Plan (09/22/2019 9:08 PM PHYSICAL THERAPIST AIDE): COPD vs bronchitis. See Bronchitis for plan Stop smoking Assessment & Plan (09/15/2019 4:14 PM PHYSICAL THERAPIST AIDE): COPD exacerbation vs pneumonia--- Recommend CXR. Check [...] Date Resolved Date Annual physical exam 03/27/2024 Assessment & Plan (03/27/2024 10:45 AM CDT): [...] 07/29/202303/24 Assessment & Plan (07/29/2023 9:22 PM PHYSICAL THERAPIST AIDE): Check urine culture to rule out infection. If negative may consider adding tamsulosin as he also notes a little hesitancy Prostate cancer screening 07/29/2023 Assessment & Plan (07/29/2023 9:22 PM PHYSICAL THERAPIST AIDE): Check PSA BMI 20.0-20.9, adult 01/03/2023 Assessment & Plan (11/14/2023 2:08 PM CDT): Weight/BMI is in healthy range. Continue healthy lifestyle to maintain. Assessment & Plan (07/18/2023 9:54 AM PHYSICAL THERAPIST AIDE): Weight/BMI is in healthy range. Continue healthy [...] maintain. Assessment & Plan (10/17/2022 7:32 AM PHYSICAL THERAPIST AIDE): Weight/BMI is in healthy range. Continue healthy lifestyle to maintain. Annual physical exam 10/17/2022 024 Assessment & Plan (10/17/2022 8:42 AM PHYSICAL THERAPIST AIDE): Encouraged healthy lifestyle, good nutrition and exercise. Encouraged Calcium and Vitamin D and weight bearing exercise for bone health. Reviewed immunizations Reviewed age appropirate screenings. Rest pain of lower extremity due to atherosclerosis 09/05/2022 10/17/2022 Overview (09/05/2022): Added automatically from request for surgery [id number] Medicare annual wellness visit, subsequent 06/14/2022 10/17/2022 [...] 06/14/2022 Assessment & Plan (09/26/2021 2:29 PM PHYSICAL THERAPIST AIDE): See torticollis Need for immunization against influenza 09/26/2021 06/14/2022 Assessment & Plan (09/26/2021 2:29 PM PHYSICAL THERAPIST AIDE): FLU updated in office today Foot callus 09/26/2021 03/24/2024 Assessment & Plan (09/26/2021 2:31 PM PHYSICAL THERAPIST AIDE): This is a significant, separately identifiable problem that was evaluated and managed on the same day as the wellness exam This callous doesn't appear infected today but stressed he must monitor very closely to avoid infection. Will have him apply triamcinolone and encouraged daily hydration of both feet with a thick cream. Offered referral to podiatry but pt declines. BMI 25.0-25.9,adult 09/02/2021 06/14/20 22 Assessment & Plan (09/02/2021 4:22 PM PHYSICAL THERAPIST AIDE): Weight/BMI is in healthy range. Continue healthy lifestyle to maintain. BMI 26.0-26.9,adult 09/02/2021 09/02/19 22 BMI 25.0-25.9,adult 04/12/2021 09/02/19 22 Assessment & Plan (04/12/2021 1:51 PM CDT): Weight/BMI is in healthy range. Continue healthy lifestyle to maintain. Torticollis 04/12/2021 06/14/2022 Assessment & Plan (09/26/2021 2:28 PM PHYSICAL THERAPIST AIDE): This is a significant, separately identifiable problem [...] PT. Order was given, he will consider ([facility]). He is to followup if sxs [...] complication, without long-term current use of insulin ([facility]) 10/23/2020 10/17/2022 Assessment & Plan (02/27/2022 9:34 PM CDT): Stressed importance of continued A1c control to minimize the retirement effects of diabetes. Bring accuchecks to office [...] noted. Assessment & Plan (09/26/2021 2:27 PM PHYSICAL THERAPIST AIDE): Stressed importance of continued A1c control to minimize the joint terminal attack controller effects of diabetes. Bring accuchecks to office when instructed to do so. Check A1c about every 3-6 months. Take medication as prescribed. Get annual eye exam. Encouraged DIANELYS/Statin if able to tolerate. Encouraged weight control and encouraged diabetic diet and exercise. Await labs to determine control Assessment & Plan (03/18/2021 1:00 PM CDT): Stressed importance of continued A1c control to minimize the retirement effects of diabetes. Bring accuchecks to office when instructed to do so. Check A1c about every 3-6 months. Take medication as prescribed. Get annual eye exam. Encouraged DIANELYS/Statin if able to tolerate. Encouraged weight control and encouraged diabetic diet and exercise. Continue jardiance and metformin Fatigue 10/23/2020 03/24/2024 Assessment & Plan (07/29/2023 9:21 PM PHYSICAL THERAPIST AIDE): Probably multifactorial. Check labs and followup to re-evaluate Assessment & Plan (10/17/2022 8:40 AM PHYSICAL THERAPIST AIDE): Probably multifactorial. Check labs and followup to re-evaluate Assessment & Plan (06/14/2022 5:07 PM CDT): Probably multifactorial. Check labs and followup to re-evaluate Assessment & Plan (02/27/2022 9:34 PM CDT): Probably multifactorial. Check labs and followup to re-evaluate Assessment & Plan (09/26/2021 2:27 PM PHYSICAL THERAPIST AIDE): Probably multifactorial. Check labs and followup to re-evaluate Decreased hearing 10/23/2020 03/24/2024 Assessment & Plan (10/23/2020 6:52 PM PHYSICAL THERAPIST AIDE): This is a significant, separately identifiable problem that was evaluated and managed on the same day as the wellness exam Will send to ENT/Audiology for hearing tests to determine cause and treatment plan. 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 Thinks changes started then. BMI 27.0-27.9,adult 10/22/2020 12/22/19 Assessment & Plan (10/22/2020 8:20 AM PHYSICAL THERAPIST AIDE): Weight/BMI is in healthy range. Continue healthy lifestyle to maintain. Annual physical exam 10/21/2020 Assessment & Plan (09/26/2021 2:26 PM PHYSICAL THERAPIST AIDE): Encouraged healthy lifestyle, good nutrition and exercise. Encouraged Calcium and Vitamin D and weight bearing exercise for bone health. Reviewed immunizations Reviewed age appropirate screenings. Assessment & Plan (10/21/2020 9:20 PM PHYSICAL THERAPIST AIDE): Encouraged healthy lifestyle, good nutrition and exercise. [...] 09/26/2019 Assessment & Plan (09/22/2019 9:08 PM PHYSICAL THERAPIST AIDE): Bronchitis vs COPD. Flu is negative. Amoxil and Prednisone 60mg x 5 days. Tessalon for cough Start Advair. Albuterol prn Flu-like symptoms 09/22/2019 09/26/2019 Assessment & Plan (09/22/2019 9:15 PM PHYSICAL THERAPIST AIDE): Negative flu. See bronchitis Other fatigue 09/15/2019 09/26/2019 Assessment & Plan (09/15/2019 4:15 PM PHYSICAL THERAPIST AIDE): Probably multifactorial. Check labs and followup to re-evaluate Cough 09/15/2019 10/17/2022 Assessment & Plan (05/03/2022 8:57 PM CDT): See COPD Assessment & Plan (09/26/2019 8:53 AM PHYSICAL THERAPIST AIDE): Improving. Assessment & Plan (09/22/2019 9:08 PM PHYSICAL THERAPIST AIDE): See bronchitis Assessment & Plan (09/15/2019 4:14 PM PHYSICAL THERAPIST AIDE): See copd BMI 26.0-26.9,adult 09/10/2019 01/21/20 20 Assessment & Plan (11/24/2019 10:44 PM CDT): Weight/BMI is in healthy range. Continue healthy lifestyle to maintain. Assessment & Plan (09/26/2019 8:52 AM PHYSICAL THERAPIST AIDE): Weight/BMI is in healthy range. Continue healthy lifestyle to maintain. Assessment & Plan (09/10/2019 2:15 PM PHYSICAL THERAPIST AIDE): Weight/BMI is in healthy range. Continue healthy [...] of continued A1c control to minimize the joint terminal attack controller effects of diabetes. Bring accuchecks to office [...] reassess. Assessment & Plan (10/23/2020 6:50 PM PHYSICAL THERAPIST AIDE): This is a significant, separately identifiable problem that was evaluated and managed on the same day as the wellness exam Stressed importance of continued A1c control to minimize the joint terminal attack controller effects of diabetes. Bring accuchecks to office [...] of continued A1c control to minimize the retirement effects of diabetes. Bring accuchecks to office [...] of continued A1c control to minimize the joint terminal attack controller effects of diabetes. Bring accuchecks to office when instructed to do so. Check A1c about every 3-6 months. Take medication as prescribed. Get annual eye exam. Encouraged DIANELYS/Statin if able to tolerate. Encouraged weight control and encouraged diabetic diet and exercise. Assessment & Plan (09/26/2019 8:52 AM PHYSICAL THERAPIST AIDE): Stressed importance of continued A1c control to minimize the retirement effects of diabetes. Bring accuchecks to office when instructed to do so. Check A1c about every 3-6 months. Take medication as prescribed. Get annual eye exam. Encouraged DIANELYS/Statin if able to tolerate. Encouraged weight control and encouraged diabetic diet and exercise. Continue Metformin Assessment & Plan (06/07/2019 2:17 PM CDT): Stressed importance of continued A1c control to minimize the joint terminal attack controller effects of diabetes. Bring accuchecks to office [...] statin Assessment & Plan (09/26/2021 2:26 PM PHYSICAL THERAPIST AIDE): Stressed importance of continued A1c control to minimize the retirement effects of diabetes. Bring accuchecks to office [...] atorvastatin Assessment & Plan (10/21/2020 9:20 PM PHYSICAL THERAPIST AIDE): Encouraged patient to follow fat/low chol diet [...] 09/10/19 Assessment & Plan (07/25/2019 9:30 PM PHYSICAL THERAPIST AIDE): Weight/BMI is in healthy range. Continue healthy [...] losartan Assessment & Plan (09/26/2021 2:26 PM PHYSICAL THERAPIST AIDE): Bp is stable/in acceptable range for any co-morbidities. Encouraged to limit sodium intake and exercise for weight control. Continue losartan 25 Assessment & Plan (03/18/2021 12:59 PM CDT): Bp is stable/in acceptable range for any co-morbidities. Encouraged to limit sodium intake and exercise for weight control. Continue losartan Assessment & Plan (10/23/2020 6:53 PM PHYSICAL THERAPIST AIDE): Systolic is elevated by diastolic is low. [...] of continued A1c control to minimize the joint terminal attack controller effects of diabetes. Bring accuchecks to office when instructed to do so. Check A1c about every 3-6 months. Take medication as prescribed. Get annual eye exam. Encouraged DIANELYS/Statin if able to tolerate. Encouraged weight control and encouraged diabetic diet and exercise. Restart insulin to get better control. Assessment & Plan (02/02/2020 4:28 PM CDT): Stressed importance of continued A1c control to minimize the joint terminal attack controller effects of diabetes. Bring accuchecks to office [...] of continued A1c control to minimize the joint terminal attack controller effects of diabetes. Bring accuchecks to office [...] prior. Assessment & Plan (09/26/2019 8:52 AM PHYSICAL THERAPIST AIDE): Bp is stable/in acceptable range for any [...] weight control. Followup 3-4 weeks to recheck Encounters Date Type Department Care Team Description 09/27/2024 9:30 AM PHYSICAL THERAPIST AIDE Office Visit [facility] Otolaryngology [address] [place] [phone] Maria Luz Soliman NP Hoarseness (Primary Dx); Sarita's edema of vocal folds; Laryngopharyngeal reflux (LPR); Lesion of vocal cord 09/17/2024 Orders Only [address] [place] [phone] Isis Boo PA Hoarseness (Primary Dx) 09/13/[address] [place] [phone] Isis Boo PA Medical Question/Miscellaneou s 08/07/2024 11:30 AM PHYSICAL THERAPIST AIDE Office Visit [address] [place] [phone] Isis Boo PA Sore throat (Primary Dx); Hoarse voice quality; Cigarette smoker; BMI 23.0-23.9, adult 08/06/[address] [place] [phone] Isis Boo PA needs labs done prior to August Appointment 08/05/[address] [place] [phone] Isis Boo PA Symptom Based Call 07/16/[address] [place] [phone] Isis Boo PA 07/16/2024 Telephone [facility] Family Medicine [address] [place] [address] Isis Boo PA Medication Request from Last 3 Months Immunizations Name Administration Dates Next Due Influenza, Quadrivalent, Hig h Dose, Preservative Free, Intrr 06/14/2022,09/02/2021 Influenza, Trivalent, High D ose, Split, Preservative Free, Intramuscular 06/06/2019 Influenza, Unspecified 06/25/2024(Deferr ed: Patient Refused),10/20/2023(Deferred: Patient Refused),08/21/2023(Deferred: Patient Refused),08/21/2020(Deferred: Patient Refused) Moderna SARS-CoV-2 Monovalen t Vaccination (12+ YRS) 01/19/2021,12/22/2020 PPD TEST 03/23/2021 Pneumococcal Conjugate PCV 13 06/06/2019 Pneumococcal Polysaccharide PPV23 03/18/2021 Surgical History Surgery Date Site/Laterality Comments CATARACT EXTRACTION Bilateral INGUINAL HERNIA REPAIR x3 SINUS SURGERY ADENOIDECTOMY PROSTATE BIOPSY TONSILLECTOMY APPENDECTOMY as a child FEMORAL BYPASS 04/21/2022 - 05/20/2022 Left VASCULAR SURGERY 07/20/2022 Left left fem-pop bypass graft thrombosis COLONOSCOPY ABOVE KNEE LEG AMPUTATION 09/12/2022 Left Medical History Medical History Date Comments HTN (hypertension) COPD (chronic obstructive pulmonary disease) (HC C) CKD (chronic kidney disease) History of alcohol abuse Type 2 diabetes mellitus (HCC) 2005 N IIDM Full dentures Wears glasses Pain left leg History of blood transfusion whe n he was 13 yrs old History of stomach ulcers Pulmonary nodules Hyperlipidemia GERD (gastroesophageal reflux disease) controlled Ambulates with cane Wheezing DDD (degenerative disc disease), lumbar PAD (peripheral artery disease) (HCC) Diabetes (HCC) Hoarseness of voice Family History Medical History Relation Name Comments Cancer Brother Heart disease Brother Heart disease Maternal Grandfather Heart disease Maternal Grandmother Cancer Mother Diabetes Mother Heart disease Paternal Grandfather Heart disease Paternal Grandmother Cancer Sister Diabetes Son Relation Name Status Comments Brother Father Maternal Grandfather Maternal Grandmother Mother Paternal Grandfather Paternal Grandmother Sister Son Social History Tobacco Use Types Packs/Day Years [...] materials from doctor or pharmacy Never 10/18/2022 [facility] Utilities Answer Date Recorded In the past 12 months has [employer], [employer], or water Organizer threatened to shut off services in your [...] often do you attend chur ch or buddhism services? Never 05/18/2023 Do you belong to any clubs o r organizations such as latter day groups, unions, fraternal or athletic groups, or [...] place to sleep or slept in a group home (including now)? No 05/18/2023 Personal Safety Answer Date Recorded Getting School Help Needed Denies 08/01 Sex and Gender Information Value Date Recorded Sex Assigned at Not on file Legal Sex Male 5:57 PM PHYSICAL THERAPIST AIDE Gender Identity Not on file Sexual Orientation Not on file Obstetrics History Last Filed Vital Signs Vital Sign Reading Time Taken Comments Blood Pressure 130/62 08/07/2024 11:32 AM PHYSICAL THERAPIST AIDE Pulse 81 08/07/2024 11:32 AM PHYSICAL THERAPIST AIDE Temperature 36.3 C (97.3 F) 08/07/2024 11:32 AM PHYSICAL THERAPIST AIDE Respiratory Rate 18 09/27/2024 9:46 AM PHYSICAL THERAPIST AIDE Oxygen Saturation 97% 08/07/2024 11:32 AM PHYSICAL THERAPIST AIDE Inhaled Oxygen Concentration - - Weight 66.7 kg (147 lb) 09/27/2024 9:46 AM PHYSICAL THERAPIST AIDE Height 165.1 cm (5' 5 ) 09/27/2024 9:46 AM PHYSICAL THERAPIST AIDE Body Mass Index 24.46 09/27/2024 9:46 AM PHYSICAL THERAPIST AIDE Plan of Treatment Health Maintenance Due Date Last Done Comments Hepatitis C Screening 1950 DTaP/Tdap/Td Vaccine (1 - Tdap) 1959 Hepatitis B Screening 1966 Zoster Vaccine (1 of 2) 1998 Abdominal Aortic Aneurysm (A AA) Screen 2013 Foot Exam 06/06/2020 06/06/2019 Lung Cancer Screening 11/02/2021 11/02/2020 Colon Cancer Screening-Colonoscopy 08/27/2023 08/27/2020 Covid-19 Vaccine (3 - 2023-2 5 season) 2024 01/19/2021, 12/22/2020 Influenza Vaccine (#1) 2024 , 09/02/2021, 06/06/2019 Hemoglobin A1C 11/17/2024 05/20/2024, 12/21, 07/18/2023, Additional history exists Albumin Creatinine Ratio, Urine 01/17/2025 01/18/2024, 12/31/2022, 02/11/2022, Additional history exists Dilated Eye Exam 02/14/2025 02/15/2024, , 03/04/2020 Lipid Panel 05/20/2025 05/20/2024, 12/21, 12/31/2022, Additional history exists eGFR 05/20/2025 05/20/2024, 12/21, 02/16/2023, Additional history exists Fall Risk Assessment 06/25/2025 06/25/2024, 03/13/2024, 07/18/2023, Additional history exists Well Visit 65+ 06/25/2025 06/25/2024, 02/19, 07/18/2023, Additional history exists Depression Screening 08/07/2025 08/07/2024, 06/25/2024, 03/13/2024, Additional history exists Colon Cancer Screening-CT Colonography Discontinued 08/27/2020 Colon Cancer Screening-DNA Stool Discontinued 08/27/19 Colon Cancer Screening-FIT Discontinued 08/27/2020 Colon Cancer Screening-Sigmoidoscopy Discontinued 08/27/2020 Pneumococcal vaccine 65+ Completed 03/18/2021, 05/21 Medical Devices Implanted Type Area Sack Maker Device Identifier Shelf Expiration Date Model / Serial / Lot [employer] Mystic 6mm 80cm 60cm Removable Ring Stretch Thin Wall Graft [id number] - [id number] - [id number] Implanted:Qty: 1 on 05/05/2022 by Boo Alaniz MD at [facility] Left: Femur [employer] 09/19/2025 [id number] / [id number] / [employer] Hemashield 6x2in 2 Velour Knitted Impregnated Nonsealed Tapered [id number] - [id number] Implanted:Qty: 1 on 05/05/2022 by Boo Alaniz MD at [facility] Left: Femur [employer] 06/20/2026 [id number] / [id number] Procedures Procedure Name Priority Date/Time Associated Diagnosis Comments POCT RAPID STREP Routine 08/07/2024 11:5 0 AM PHYSICAL THERAPIST AIDE Sore throat COMPREHENSIVE METABOLIC PANEL Routine 05/20/2024 [...] POCT rapid strep A (08/07/2024 11:50 AM PHYSICAL THERAPIST AIDE) [facility] Rapid Strep A, POC Negative Negative Swab 08/07/2024 11:5 0 AM PHYSICAL THERAPIST AIDE Isis HOFFMANN POINT OF CARE TEST ORDERAB LES Final Result * (ABNORMAL) Hemoglobin A1c (05/20/2024) [facility] SCRIBED Hemoglobin A1c 9.0(A) 0 - 5.7 % EXTERNAL LAB Blood 05/20/2024 Isis HOFFMANN LAB BLOOD ORDERABLES Final Result Performing Organization Address [facility] Co de Phone Number EXTERNAL LAB * Lipid panel (05/20/2024) [facility] SCRIBED Cholesterol, Total 178 0 - 200 EXTERNAL LAB SCRIBED HDL 38 35 - 100 EXTERNAL LAB SCRIBED LDL 124 0 - 130 EXTERNAL LAB SCRIBED Triglycerides 129 0 - 150 EXTERNAL LAB Blood 05/20/2024 Isis HOFFMANN LAB BLOOD ORDERABLES Final Result Performing Organization Address [facility] Co de Phone Number EXTERNAL LAB * (ABNORMAL) Comprehensive metabolic panel (05/20/2024) [facility] SCRIBED Sodium 135(A) 137 - 145 mmol/L [...] 0 EXTERNAL LAB SCRIBED eGFR in NonAfrican Rwandan 61 60 - 100 EXTERNAL LAB Blood 05/20/2024 Isis HOFFMANN LAB BLOOD ORDERABLES Final Result EXTERNAL LAB * DIABETES EYE EXAM (02/15/2024 11:49 AM CDT) SCRIBED DIABETIC DILATED EYE EXAM Normal Result [facility] Historical Provider HEALTH MAINTENANCE Edited Result - [...] Most Recently Relevant to Health Maintenance Insurance [facility] AD[employer] CHO[employer] PPO [facility] [employer] [facility] [employer] PPO Advance Directives For more information, please contact: [phone] * Full Code (Latest Code Status on [...] 12:44 PM 04/13/2022 5:50 PM Care Teams Aesthetician Relationship Specialty Start Date End Date Isis Boo PA [address] [place] [address] PCP - General Internal Medicine 06/06/19 Isis Boo PA [address] [place] [address] PCP - Essence Attributed PCP 10/19/17 Angel Hernandez MD [address] [facility] [address] [place] [address] Consulting Physician Cardiology 04/29/22 Gabino Paez MD [address] [address] [place] [address] Consulting Physician Pulmonary Disease 05/03/22 Boo Alaniz MD [address] [address] [address] [place] [address] Consulting Physician Vascular Surgery 09/15/22
--- OUTSIDE RECORDS SUMMARY | 2024-09-30 10:26 | XMS_ITS | Clinical Summary ---
Author Organization [facility] Address [address] [place] [id number] Care Team Providers Care Prefabricated Houses Trimmer Name Role Phone Unavailable Primary Care Provider Unavailabl e Social History Tobacco Use Types Packs/Day Years Used Date Smoking Tobacco: Never Assessed Sex and Gender Information Value Date Recorded Sex Assigned at Not on file Legal Sex Male 9:17 PM CDT Gender Identity Not on file Sexual Orientation Not on file Last Filed Vital Signs Vital Sign Reading Time Taken Comments Blood Pressure 128/68 04/21/2017 1:50 PM CDT Pulse 90 04/21/2017 1:50 PM CDT Temperature - - Respiratory Rate - - Oxygen Saturation - - Inhaled Oxygen Concentration - - Weight 71.7 kg (158 lb) 04/21/2017 1:50 PM CDT Height 172.7 cm (5' 8 ) 04/21/2017 1:50 PM CDT Body Mass Index 24.02 04/21/2017 1:50 PM CDT Plan of Treatment Health Maintenance Due Date Last Done Comments Colorectal Cancer Screening Colonoscopy (10 Years) 1948 Hepatitis C 1966 DTaP, Tdap and Td Vaccines ( 1 - Tdap) 1967 Zoster Vaccines (1 of 2) 1998 Pneumococcal Vaccine: 65+ Ye ars (1 of 1 - PCV) 2013 RSV Immunization or 60+ Years (1 - 1-dose 75+ series) 2023 COVID-19 Vaccine ( - 2023-2 5 season) 2024 Influenza Adult (#1) 2024 Meningococcal B Vaccine Aged Out No l onger eligible based on patient's age to complete this topic Meningococcal Vaccine Aged Out No marco nilson eligible based on patient's age to complete this topic RSV Immunizations Under 20 Months Aged Out No longer eligible based on patient's age to complete this topic
--- OUTSIDE RECORDS SUMMARY | 2024-09-30 10:26 | XMS_ITS | Encounter Summary ---
Author Organization [facility] Healthcare Address [address] [place] [address] Care Team Providers Care Collar Closer Lockstitch Name Role Phone Isis Boo Primary Care Provider + [phone] Isis Boo Unavailable [phone] Angel Hernandez MD Unavailable [phone] Gabino Paez MD Unavailable [phone] Boo Alaniz MD Unavailable Reason for Visit * Reason Onset Date Comments Medical Question/Miscellaneous 09/13/2024 Encounter Details Date Type Department Care Team (Late st Contact Info) Description 09/13/2024 Telephone [facility] Family Medicine [address] [place] [address] Isis Boo PA [address] [place] [phone] Medical Question/Miscellaneous Social History Tobacco Use Types Packs/Day Years Used Date Smoking Tobacco: Every Day Cigarettes 0.5 50 Started: 04/19/1972; Last attempted to quit: 04/19/2022 Passive Smoke Exposure: Past Smokeless Tobacco: Former Alcohol Use Standard Drinks/Week Comments Yes 0 [...] materials from doctor or pharmacy Never 10/18/2022 [facility] Utilities Answer Date Recorded In the past 12 months has th e electric, gas, oil, or water company threatened to shut off services in your [...] often do you attend chur ch or church services? Never 05/18/2023 Do you belong to any clubs o r organizations such as denominational groups, unions, fraternal or athletic groups, or [...] place to sleep or slept in a alf (including now)? No 05/18/2023 Personal Safety Answer Date Recorded Getting School Help Needed Denies 08/01 Sex and Gender Information Value Date Recorded Sex Assigned at Not on file Legal Sex Male 5:57 PM WIRE DRAWING MACHINE TENDER Gender Identity Not on file Sexual Orientation Not on file documented as of this encounter Miscellaneous Notes * Telephone Encounter - Halie Dietrich LPN - 09/17/2024 11:45 AM WIRE DRAWING MACHINE TENDER Pt returned call and he continues with a hoarse voice. No c/o sore throat or sores. Referral placedand pt made aware. DRAWING MACHINE TENDER * Telephone Encounter - Halie Dietrich LPN - 09/17/2024 9:11 AM WIRE DRAWING MACHINE TENDER Called and LVM for pt to return call. DRAWING MACHINE TENDER * Telephone Encounter - Romelia Sylvester - 09/13/2024 3:29 PM CST Medical Question/Miscellaneous Caller???s Concern: Patients , Cherri, on HIPAA calling, states patient finished the medicine that Dr. Boo gave him for his throat. He still has the issue, and would like to know what throat doctor you would like him to go to? Please Advise. Does message need to be routed? Yes-Action Needed DRAWING MACHINE TENDER documented in this encounter Plan of Treatment Not on file documented as of this encounter Visit Diagnoses Not on filedocumented in this encounter Care Teams Collar Closer Lockstitch Relationship Specialty Start Date End Date Isis Boo PA [address] [place] [address] PCP - General Internal Medicine 06/06/19 Isis Boo PA [address] [place] [address] PCP - Essence Attributed PCP 10/19/17 Angel Hernandez MD [address] [facility] [address] [place] [address] Consulting Physician Cardiology 04/29/22 Gabino Paez MD [address] [place] [address] Consulting Physician Pulmonary Disease 05/03/22 Boo Alaniz MD [address] [place] [address] Consulting Physician Vascular Surgery 09/15/22 documented as of this encounter
[2024-09-30 10:41] LABS: Basophils Absolute Auto 0.1 K/mm3 (0.0-0.1); Basophils Percent Auto 1.8 % (0.2-1.2); Eosinophils Absolute Auto 0.8 K/mm3 (0-0.3); Eosinophils Percent Auto 10.8 % (0-4.4); Hemoglobin 15.7 g/dL (14.0-18.0); Immature Granulocyte Absolute 0.01 K/mm3 (0.00-0.031); Immature Granulocyte Percent A 0.1 % (0-0.5); Lymphocytes Absolute Auto 1.88 K/mm3 (0.9-3.2); Lymphocytes Percent Auto 26.5 % (18.3-44.2); Mean Corpuscular HGB Conc 33.4 g/dl (32-36); Mean Corpuscular Hemoglobin 31.6 pg (26-34); Mean Corpuscular Volume 94.6 fl (80-100); Monocytes Absolute Auto 1.1 K/mm3 (0.1-0.6); Monocytes Percent Auto 15.6 % (2.6-8.5); Neutrophils Absolute Auto 3.2 K/mm3 (1.3-6.7); Neutrophils Percent Auto 45.2 % (45.5-73.1); Platelet Count Result 311 k/mm3 (150-375); Red Blood Count 4.97 M/mm3 (4.6-6.20); Red Cell Distribution Width 12.7 % (11.5-14.5); White Blood Count 7.1 K/mm3 (4.5-10.0)
[2024-09-30 10:53] LABS: Alanine Aminotransferase 20 U/L (6-50); Albumin Level 4.2 g/dL (3.5-5.1); Alkaline Phosphatase 83 U/L (38-126); Anion Gap 8 mmol/L (4-12); Aspartate Amino Transferase 24 U/L (17-59); Bilirubin,Total 0.3 mg/dL (0.2-1.3); Blood Urea Nitrogen 17 mg/dL (9-20); Calcium 9.7 mg/dL (8.4-10.2); Carbon Dioxide 27 mmol/L (22-30); Chloride 99 mmol/L (98-107); Cholesterol 196 mg/dL (0-200); Estimated Glomerular Filt Rate > 60; Glucose 141 mg/dL (65-110); HDL Direct 38 mg/dL; Potassium 4.7 mmol/L (3.4-5.0); Sodium 134 mmol/L (137-145); Triglycerides 104 mg/dL (<150)
[2024-09-30 11:05] LABS: LDL Cholesterol Direct 136 mg/dL
[2024-09-30 11:06] LABS: Hemoglobin A1C 7.2 % (<5.7)
[2024-09-30 11:10] LABS: Creatinine Urine 32.9 mg/dL
[2024-09-30 11:15] LABS: MALB Creatinine Ratio 201.2 mg/g (0-30); Microalbumin Urine Random 66.2 mg/L (0-16.7)
== END 2024-09-30 09:44 | disposition home or self-care (01) ==
PROVIDERS: PCP Physician Assistant; Visit Provider Physician Assistant
DX: E11.69 Type 2 diabetes mellitus with other specified complication (principal); E78.5 Hyperlipidemia, unspecified
CPT/HCPCS: 36415; 80053; 80061; 82043; 82607; 83036; 84443; 85025

== ENCOUNTER 2025-05-12 00:21 | Day surgery (SDC) | payer OTHER, SELFPAY ==
--- OUTSIDE RECORDS SUMMARY | 2024-05-07 08:00 | XMS_ITS ---
Author Organization [facility] Address [address] [place] [address] Care Team Providers Care Office 365 Consultant Name Role Phone SELF, SELF Unavailable Unavailable Shamsham, Parish Unavailable [phone] REASON FOR VISIT beverley Encounters Encounter Location Date Provider Diagnosis [facility], [address] [place] [address] 05/07/2024 Parish Shamsham Plan Of Treatment No Information Progress Notes * Mariusz BRICEpawanDOB:1950 ( 74 yo M)Acc No.[id number]:05/07/2024 Patient: Don MUÑOZ Provider: Hortencia PHILLIPS MD :1950 A ge:73 Y S ex:Male Date:05/07/2024 Address:[address] [place] [address] [id number] * Images: * Electronic signature of Parish Phillips MD on 05/12/2025 at 12:24 AM CDT Sign off status: Pending * Provider: Hortencia PHILLIPS MD Date: 0 05/07/2024 Generated for Windy hunt/Shaan/eTransmitting on: 05/12/2025 12:24 AM CDT
[2025-02-24 14:45] VITALS: BMI 23.0
--- NOTE | 2025-02-27 13:24 | SUR.PREOP ---
1320 Received call from pt's PCP requesting pt's colonoscopy be delayed due to the pt's recently completing upper airway radiation. Pt moved to May 12 at 1130. Pt was good with new date and time.
[2025-05-07 13:31] VITALS: BMI 20.2
--- NOTE | 2025-05-08 16:58 | PC.NURSE ---
Spoke with _patient 05/07/25___ regarding medication _plavix__. _Patient_verbalizes understanding that the last dose is to be taken on 05/07/2025__ and the Endoscopist will instruct them when to restart after the procedure.
--- NOTE | 2025-05-09 11:36 | PC.NURSE ---
Attempted to reach patient to clarify if he had his prep instructions and if he had took his last dose of plavix on 05/07 due to having issues with his phone connection when talking to another PAT nurse during his interview on 05/07. Patient has not returned our calls since the 05/07 to confirm.
--- OUTSIDE RECORDS SUMMARY | 2025-05-12 00:24 | XMS_ITS ---
[place] [facility] [place] [address] Address [address] [place] [address] Care Team Providers Care Earrings Fabricator Name Role Phone Isis Boo Primary Care Provider [phone] Angel Hernandez MD Unavailable Gabino Paez MD Unavailable [phone] Boo Alaniz MD Unavailable Gorge JUAREZ MD, Jim Deangelo Unavailable [phone] Brooks Pennington MD Unavailable [phone] Active Problems Problem Noted Date Diagnosed Date Stage 2 chronic kidney disease 04/14/2025 BMI 20.0-20.9, adult 04/01/2025 Assessment & Plan (04/01/2025 8:00 AM CDT): Weight/BMI is in healthy range. Continue healthy lifestyle to maintain. 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 Keith mcfadden as as due to follow up on colon cancer screening Annual physical exam 11/10/2024 Assessment & Plan (11/10/2024 11:39 PM CDT): Encouraged healthy lifestyle, good nutrition and exercise. Encouraged Calcium and Vitamin D and weight bearing exercise for bone health. Reviewed immunizations Reviewed age appropirate screenings. Other diseases of vocal cords 11/04/2024 Personal history of nicotine dependence 10/26/19 25 Sarita's edema of vocal folds 09/27/2024 Lesion of vocal cord 09/27/2024 Hoarseness 08/07/2024 Assessment & Plan (08/17/2024 1:42 AM PBX INSTALLER): Patient has noticed a hoarseness to his [...] 08/07/2024 Assessment & Plan (08/17/2024 1:43 AM PBX INSTALLER): Patient has noticed a hoarseness to his [...] due to his longstanding smoking history. BMI 20.0-20.9, adult 06/25/2024 Assessment & Plan (10/28/2024 11:36 AM CDT): Weight/BMI is in healthy range. Continue healthy lifestyle to maintain. Assessment & Plan (08/17/2024 1:40 AM PBX INSTALLER): Weight/BMI is in healthy range. Continue healthy lifestyle to maintain. Assessment & Plan (06/25/2024 8:13 AM PBX INSTALLER): Weight/BMI is in healthy range. Continue healthy lifestyle to maintain. Fatigue 06/25/2024 Assessment & Plan (06/25/2024 6:41 PM PBX INSTALLER): Probably multifactorial. Check labs and followup to re-evaluate Medicare annual wellness visit, subsequent 07/29 Assessment & Plan (06/25/2024 6:38 PM PBX INSTALLER): Encouraged healthy lifestyle, good nutrition and exercise. [...] chart Assessment & Plan (07/29/2023 9:21 PM PBX INSTALLER): Encouraged healthy lifestyle, good nutrition and exercise. Encouraged Calcium and Vitamin D and weight bearing exercise for bone health. Reviewed immunizations Reviewed age appropirate screenings. History of left above knee amputation 10/17/2022 Overview (10/17/2022): 08/2022 Dr. Alaniz Assessment & Plan (11/10/2024 11:36 PM CDT): Status post crhcx-wtp-pdgg amputation on the left by Dr. Alaniz. Continue Plavix and aspirin and statin. States he is [facility] with [facility] to help get his [facility] to fit more comfortably. Assessment & Plan (06/25/2024 6:38 PM PBX INSTALLER): Status post wacps-dwr-igyy amputation on the left by Dr. Alaniz. Continue Plavix and aspirin and statin. States he is not happy with prosthesis in his more happy utilizing his crutches to get around Assessment & Plan (03/24/2024 10:38 PM CDT): Status post oaypa-fiu-cgbr amputation due to peripheral vascular disease. Continue with statin, Plavix and aspirin. Assessment & Plan (07/29/2023 9:21 PM PBX INSTALLER): Status post above-knee amputation. Continue per vascular, [...] his essence referral for him to contact [facility] to get started. If he has problems he is to contact Dr. Alaniz's office. Seems to verbalize understanding of the plan Assessment & Plan (10/17/2022 8:43 AM PBX INSTALLER): Status post left above-knee amputation by Dr. [...] Phantom pain after amputation of lower extremity 10/17/2022 Assessment & Plan (06/25/2024 6:38 PM PBX INSTALLER): Phantom pain has subsided without any additional [...] monitor Assessment & Plan (10/17/2022 8:43 AM PBX INSTALLER): Status post left above-knee amputation by Dr. [...] control. Will continue to monitor Atherosclerosis of [place] of left lower extremity with rest pain 07/18/2022 Assessment & Plan (06/25/2024 6:37 PM PBX INSTALLER): Patient is on statin aspirin Plavix. Assessment & Plan (09/06/2022 8:48 AM PBX INSTALLER): Impression: Patient is status post left femoral artery exploration and left posterior tibial artery exploration due to life-limiting claudication and rest pain. Patient was found to have severely calcified and very small in caliber arteries and not suitable for open surgical revascularization. Patient continues to complain of pain to his left leg. [place] are intact to left groin and medial calf with no concern for infection. Plan: Patient has non-reconstructible vascular disease therefore a left jmnhd-nkz-udyf amputation was recommended. Risks of the procedure communicate with the patient to include bleeding, infection, injury, further surgery, and . Patient understands these risks and wishes to proceed. [place] were removed from left groin and left medial calf. Assessment & Plan (07/18/2022 1:58 PM PBX INSTALLER): Impression: Acute onset worsening claudication following recent [...] 05/05/2022 Assessment & Plan (06/25/2024 6:37 PM PBX INSTALLER): Patient with PVD. Continue with the Plavix and aspirin. Continue with the Lipitor 80 Assessment & Plan (03/24/2024 10:36 PM CDT): Patient has peripheral vascular disease. Continue to follow with vascular. He has already had lower leg amputation due to the peripheral vascular disease Assessment & Plan (10/17/2022 8:42 AM PBX INSTALLER): Continue per vascular surgery. He is on Plavix. Still strongly encouraged smoking cessation Assessment & Plan (10/06/2022 11:43 AM PBX INSTALLER): Status post left above knee amputation. Healed. We will remove arfi today. 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 Patient is [...] time. Assessment & Plan (08/16/2022 4:20 PM PBX INSTALLER): Impression: Known thrombosed left fem-pop bypass diagnosis [...] diabetes diomedes alcantara 04/29/2022 Assessment & Plan (11/10/2024 11:27 PM CDT): Encouraged patient to follow low fat/low chol diet like the Mediterranean diet. Increase good fats in the diet. Increase exercise. Monitor labs as needed. Continue Lipitor 80 Assessment & Plan (06/25/2024 6:38 PM PBX INSTALLER): Encouraged patient to follow low fat/low chol diet like the Mediterranean diet. Increase good fats in the diet. Increase exercise. Monitor labs as needed. Continue Lipitor 80 Assessment & Plan (03/24/2024 10:36 PM CDT): Stressed importance of continued A1c control to minimize the residential effects of diabetes. Bring accuchecks to office [...] 10 Assessment & Plan (07/29/2023 9:21 PM PBX INSTALLER): Encouraged patient to follow low fat/low chol [...] 80 Assessment & Plan (10/17/2022 8:41 AM PBX INSTALLER): Encouraged patient to follow low fat/low chol [...] associated with diabetes 04/29/2022 Assessment & Plan (11/10/2024 11:28 PM CDT): Bp is stable/in acceptable range for any co-morbidities. Encouraged to limit sodium intake and exercise for weight control. Continue losartan 25 Assessment & Plan (06/25/2024 6:42 PM PBX INSTALLER): This is a significant, separately identifiable problem that was evaluated and managed on the same day as the wellness exam Bp is stable/in acceptable range for any co-morbidities. Encouraged to limit sodium intake and exercise for weight control. Continue losartan 25 Stressed importance of continued A1c control to minimize the termite exterminator effects of diabetes. Bring accuchecks to office [...] his Farxiga including from the [facility] versus [place] and me assistance versus him pain for it as he states he did get a little bit of extra money. Advised I will go ahead and prescribe it and if he needs assistance we would be glad to help him with a.c. and knee he would just need to bring in the correct paperwork. Encouraged him to talk with his [facility] insurance representative to see if he could get [...] 25 Assessment & Plan (07/29/2023 9:20 PM PBX INSTALLER): Bp is stable/in acceptable range for any co-morbidities. Encouraged to limit sodium intake and exercise for weight control. Stressed importance of continued A1c control to minimize the residential effects of diabetes. Bring accuchecks to office [...] 25 Assessment & Plan (10/17/2022 8:41 AM PBX INSTALLER): Bp is stable/in acceptable range for any co-morbidities. Encouraged to limit sodium intake and exercise for weight control. Continue losartan 25 Assessment & Plan (08/16/2022 4:22 PM PBX INSTALLER): Impression: Stable chronic hypertension. Plan: Medications reviewed and recommend continuing daily antihypertensive regimen as directed by patient's primary care physician. Assessment & Plan (06/14/2022 5:07 PM CDT): Bp is stable/in acceptable range for any co-morbidities. Encouraged to limit sodium intake and exercise for weight control. 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 Bring accuchecks to office when instructed to do so. Check A1c about every 3-6 months. Take medication as prescribed. Get annual eye exam. Encouraged DIANELYS/Statin if able to tolerate. Encouraged weight control and encouraged diabetic diet and exercise. Patient has peripheral artery disease as well as peripheral arterial disease. Assessment & Plan (07/29/2023 9:21 PM PBX INSTALLER): Peripheral artery disease in the setting of diabetes that has resulted in lrgrk-iox-lsbm amputation of the left leg. Strongly encouraged medical management as instructed. Assessment & Plan (01/03/2023 9:22 PM CDT): Stressed importance of continued A1c control to minimize the residential effects of diabetes. Bring accuchecks to office [...] amputation. Assessment & Plan (10/17/2022 8:42 AM PBX INSTALLER): Stressed importance of continued A1c control to minimize the residential effects of diabetes. Bring accuchecks to office [...] of continued A1c control to minimize the residential effects of diabetes. Bring accuchecks to office [...] 12/21/2020 Assessment & Plan (10/17/2022 8:41 AM PBX INSTALLER): Stressed importance of continued A1c control to minimize the termite exterminator effects of diabetes. Bring accuchecks to office [...] CDT): Refer to urology for further evaluation Chronic bilateral low back pain 04/10/2020 Assessment [...] 02/02/2020 Assessment & Plan (09/29/2021 12:34 PM PBX INSTALLER): Xray R shoulder today - he is taking to [facility]. Will notify him of results as available. [...] 07/25/2019 Assessment & Plan (07/25/2019 3:08 PM PBX INSTALLER): Infection vs pain from thick large nail growing into the skin. Start keflex. Has followup scheduled with Dr. Fraga next week. Await her recommendations. Laryngopharyngeal reflux (LPR) 06/07/2019 Assessment & Plan (06/25/2024 6:31 PM PBX INSTALLER): Continue PPI p.r.n. Assessment & Plan (03/24/2024 10:38 PM CDT): Continue pantoprazole p.r.n. Assessment & Plan (07/29/2023 9:19 PM PBX INSTALLER): Reviewed with patient if his reflux symptoms are controlled he can just use the pantoprazole p.r.n.. Assessment & Plan (10/17/2022 8:39 AM PBX INSTALLER): Continue PPI p.r.n. Assessment & Plan (06/14/2022 5:06 PM CDT): Continue PPI p.r.n. Assessment & Plan (09/26/2021 2:26 PM PBX INSTALLER): Continue PPI Assessment & Plan (03/18/2021 1:01 PM CDT): Continue ppi Assessment & Plan (10/21/2020 9:20 PM PBX INSTALLER): Continue PPI Assessment & Plan (03/14/2020 7:27 PM CDT): Continue Protonix Assessment & Plan (02/02/2020 4:30 PM CDT): Continue PPI Assessment & Plan (06/07/2019 2:12 PM CDT): On Protonix bid. No active bleeding Stop smoking. Avoid alcohol. Avoid NSAIDs. Onychomycosis 06/07/2019 Assessment & Plan (02/02/2020 4:31 PM CDT): Continue per wood borer Assessment & Plan (06/07/2019 2:16 PM CDT): This is a significant, separately identifiable problem that was evaluated and managed on the same day as the wellness exam Has been on Lamisil in the past without success. Refer to [facility] for further treatment and assistance with cutting nails due to his DM. Cigarette smoker 06/07/2019 Assessment & Plan (11/10/2024 11:39 PM CDT): Pt desires assistance with cessation. Discussed options at length. Will start Chantix Starter Pack. Take as directed. Reviewed risks, benefits, alternatives, side effects and proper use. Encouraged to decreased cigs as tolerated. Plan to stay on the Chantix 4-6 months, even if successful in stopping quickly. F.u if any increased emotional sxs or suicidal thoughts Has tolerated well in the past. Assessment & Plan (08/17/2024 1:40 AM PBX INSTALLER): Encouraged smoking cessation. Discussed 3 minutes. Reviewed options for assistance with cessation. Reviewed residential sequela associated with smoking. Pt declines assistance at this time but may contact the office at anytime for further help as they desire. Assessment & Plan (06/25/2024 6:32 PM PBX INSTALLER): This is a significant, separately identifiable problem [...] Reviewed options for assistance with cessation. Reviewed residential sequela associated with smoking. Pt declines assistance at this time but may contact the office at anytime for further help as they desire. Assessment & Plan (10/17/2022 8:40 AM PBX INSTALLER): Encouraged smoking cessation. Discussed 3 minutes. Reviewed options for assistance with cessation. Reviewed termite exterminator sequela associated with smoking. Pt declines assistance at this time but may contact the office at anytime for further help as they desire. Assessment & Plan (06/14/2022 5:06 PM CDT): Patient states he stop smoking. Assessment & Plan (10/21/2020 9:23 PM PBX INSTALLER): Quit 09/2019 Due for LDCT after 08/01/2020 Assessment & Plan (02/02/2020 4:34 PM CDT): Quit 09/2019 Assessment & Plan (11/24/2019 10:44 PM CDT): Smoke free for a few weeks. Continue with effort Assessment & Plan (09/26/2019 8:46 AM PBX INSTALLER): Quit smoking 09/12 on his own. 2 week cig free Encouraged to continue Assessment & Plan (09/22/2019 9:13 PM PBX INSTALLER): .Encouraged smoking cessation. Discussed 3 minutes. Reviewed options for assistance with cessation. Reviewed residential sequela associated with smoking. Pt declines assistance at this time but may contact the office at anytime for further help as they desire. Assessment & Plan (09/15/2019 4:15 PM PBX INSTALLER): Encouraged smoking cessation. Discussed 3 minutes. Reviewed options for assistance with cessation. Reviewed termite exterminator sequela associated with smoking. Pt declines assistance at this time but may contact the office at anytime for further help as they desire. Assessment & Plan (07/25/2019 9:30 PM PBX INSTALLER): Encouraged smoking cessation. Discussed 3 minutes. Reviewed options for assistance with cessation. Reviewed residential sequela associated with smoking. Pt declines assistance at this time but may contact the office at anytime for further help as they desire. Assessment & Plan (06/07/2019 2:26 PM CDT): Encouraged smoking cessation. Discussed 3 minutes. Reviewed options for assistance with cessation. Reviewed residential sequela associated with smoking. Pt declines assistance [...] 06/07/2019 Assessment & Plan (10/17/2022 8:40 AM PBX INSTALLER): Persistent smoker's cough. Encouraged cessation has albuterol p.r.n. Assessment & Plan (10/23/2020 6:47 PM PBX INSTALLER): Treat COPD Continue with smoking cessation Assessment & Plan (03/14/2020 7:26 PM CDT): Quit smoking 08/2019 Assessment & Plan (02/02/2020 4:28 PM CDT): See COPD Assessment & Plan (11/24/2019 10:42 PM CDT): Pt has stopped smoking. Continue to monitor Assessment & Plan (09/26/2019 8:54 AM PBX INSTALLER): Improving. Continue tob cessation. Assessment & Plan (09/15/2019 4:14 PM PBX INSTALLER): Stop smoking Assessment & Plan (06/07/2019 2:10 PM CDT): Encouraged smoking cessation. Duodenal ulcer 06/05/2019 Assessment & Plan (06/05/2019 7:35 PM CDT): 04/2019 EGD - Dr. Hawley Acute gastric ulcer without hemorrhage or perfor ation 03/01/2019 Assessment & Plan (10/23/2020 6:47 PM PBX INSTALLER): Continue PPI. Avoid NSAIDs Assessment & Plan (06/07/2019 2:11 PM CDT): On Protonix bid. No active bleeding Stop smoking. Avoid alcohol. Avoid NSAIDs. Alcohol dependence in remission 02/07/2018 Assessment & Plan (06/25/2024 6:30 PM PBX INSTALLER): Patient states he has decreased alcohol immensely. Still encourage complete cessation Assessment & Plan (03/24/2024 10:38 PM CDT): Patient with history of alcohol dependence. He states he still drinks few times a week. Assessment & Plan (10/17/2022 8:37 AM PBX INSTALLER): Patient continues to remain alcohol free. Encouraged to continue Assessment & Plan (06/14/2022 5:06 PM CDT): Patient states he no longer drinks alcohol. Assessment & Plan (09/26/2021 2:25 PM PBX INSTALLER): Patient states he is still not drinking. Continue with cessation. Assessment & Plan (03/18/2021 1:01 PM CDT): Continue alcohol cessation Assessment & Plan (10/21/2020 9:19 PM PBX INSTALLER): Remains off alcohol Assessment & Plan (03/14/2020 7:21 PM CDT): Continues to remain off alcohol Assessment & Plan (02/02/2020 4:21 PM CDT): Still no alcohol use. Assessment & Plan (06/07/2019 2:09 PM CDT): Encouraged to continue to avoid all alcohol use. Chronic obstructive pulmonary disease 02/07/2018 Assessment & Plan (11/10/2024 11:26 PM CDT): Continue per pulmonology Pulmonary - Dr. Mena COPD - Anoro and albuterol Chest CT in the spring as last one 05/20/2024 Followup appt in 11/2024 Assessment & Plan (06/25/2024 6:31 PM PBX INSTALLER): Encouraged complete smoking cessation. Continue management with Dr. Choi continue Anoro and albuterol. Imaging with CT is managed by Dr. Choi Assessment & Plan (03/24/2024 10:38 PM CDT): Patient with long-term smoking history. Has known COPD. On Anoro and albuterol. 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 Choi Assessment & Plan (07/29/2023 9:21 PM PBX INSTALLER): Continue in RO. Continue to follow with Dr. Riggs. Encouraged follow-up appointment Assessment & Plan (10/17/2022 8:39 AM PBX INSTALLER): Encouraged smoking cessation. 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 Riggs multiple resaw operator. Using daily Anaro and albuterol p.r.n. Assessment [...] get surgery. Chest x[facility] was done at [facility] and it was negative for pneumonia. From the perspective of his COPD/respiratory fitness, patient is able to proceed with the Fem to Pop bypass procedure with Dr. Alaniz. Assessment & Plan (09/26/2021 2:25 PM PBX INSTALLER): Continue with Advair and albuterol p.r.n. Assessment & Plan (03/18/2021 1:03 PM CDT): Continue the Advair and prn albuterol Assessment & Plan (12/21/2020 9:38 AM CDT): Continue Advair and albuterol prn Assessment & Plan (10/23/2020 6:47 PM PBX INSTALLER): Dr. Miranda Advair and prn Albuterol Continue smoking cessation Assessment & Plan (03/14/2020 7:25 PM CDT): Continue Advair and prn albuterol. Await recommendations from Dr. Simpson Assessment & Plan (02/02/2020 4:37 PM CDT): This is a significant, separately identifiable problem that was evaluated and managed on the same day as the wellness exam Continue Advair and albuterol. Refer to Pulmonary at [facility] due to persistent COPD sxs/cough. Has never had official PFTs/etc Assessment & Plan (11/24/2019 10:43 PM CDT): Continue with current regimen. Await covid results. Continue quarantine until results are available. Assessment & Plan (09/26/2019 8:53 AM PBX INSTALLER): Stable with the Advair and abuterol prn. Call if required more rescue. May use Mucinex prn for increased mucous production but call if beocomes consistently yellow or green Assessment & Plan (09/22/2019 9:08 PM PBX INSTALLER): COPD vs bronchitis. See Bronchitis for plan Stop smoking Assessment & Plan (09/15/2019 4:14 PM PBX INSTALLER): COPD exacerbation vs pneumonia--- Recommend CXR. Check [...] cost. Discussed restarting. He prefers to monitor. Current Treatment and Therapy Plans No current plan information found. Past Treatment and Therapy Plans No past plan information found. Past Radiation Episodes * Radiation Oncology - Radiation Therapy - November 2024Overview* First Treatment Date Last Treatment Date Treatment Site Technique Goal Episod e Provider 01/06/2025 02/17/2025 Brooks Pennington MD Treatment Courses* Course C1_Larynx_202401/06/2025 - 02/17/2025 Treatment Period Fraction Dose Fractions Total Dose Plans Planned [id number] 01/06/2025 - 02/17/2025 225 28 / 6 ,300 Reference Points Delivered [id number] 01/06/2025 - 02/17/2025 6,300 Lifetime Dose Tracking * Chemical Lifetime Dose Automatic Entry Manual Entr y Fluoro Time 8.9 minutes 0 minutes 8.9 minutes Air kerma at the reference point (Ka,r) 275 mGy 0 mGy 275 mGy DLP 191 mGycm 191 mGycm 0 mGycm DAP 105.631 Gy-cm2 0 Gy-cm2 105.631 Gy-cm 2 Resolved Problems Problem Noted Date Diagnosed Date [...] 07/29/202303/24 Assessment & Plan (07/29/2023 9:22 PM PBX INSTALLER): Check urine culture to rule out infection. If negative may consider adding tamsulosin as he also notes a little hesitancy Prostate cancer screening 07/29/2023 Assessment & Plan (07/29/2023 9:22 PM PBX INSTALLER): Check PSA BMI 20.0-20.9, adult 01/03/2023 Assessment & Plan (11/14/2023 2:08 PM CDT): Weight/BMI is in healthy range. Continue healthy lifestyle to maintain. Assessment & Plan (07/18/2023 9:54 AM PBX INSTALLER): Weight/BMI is in healthy range. Continue healthy [...] this levels out. BMI 21.0-21.9, adult 10/17/2022 Assessment & Plan (03/24/2024 10:39 PM CDT): Weight/BMI is in healthy range. Continue healthy lifestyle to maintain. Assessment & Plan (10/17/2022 7:32 AM PBX INSTALLER): Weight/BMI is in healthy range. Continue healthy lifestyle to maintain. Annual physical exam 10/17/2022 Assessment & Plan (10/17/2022 8:42 AM PBX INSTALLER): Encouraged healthy lifestyle, good nutrition and exercise. Encouraged Calcium and Vitamin D and weight bearing exercise for bone health. Reviewed immunizations Reviewed age appropirate screenings. Rest pain of lower extremity due to atherosclerosis 09/05/2022 10/17/2022 Overview (09/05/2022): Added automatically from request for surgery [id number] Medicare annual wellness visit, subsequent 06/14/2022 10/17/2022 [...] 06/14/2022 Assessment & Plan (09/26/2021 2:29 PM PBX INSTALLER): See torticollis Need for immunization against influenza 09/26/2021 06/14/2022 Assessment & Plan (09/26/2021 2:29 PM PBX INSTALLER): FLU updated in office today Foot callus 09/26/2021 03/24/2024 Assessment & Plan (09/26/2021 2:31 PM PBX INSTALLER): This is a significant, separately identifiable problem [...] 06/14/20 Assessment & Plan (09/02/2021 4:22 PM PBX INSTALLER): Weight/BMI is in healthy range. Continue healthy lifestyle to maintain. BMI 26.0-26.9,adult 09/02/2021 09/02/19 BMI 25.0-25.9,adult 04/12/2021 09/02/19 Assessment & Plan (04/12/2021 1:51 PM CDT): Weight/BMI is in healthy range. Continue healthy lifestyle to maintain. Torticollis 04/12/2021 06/14/2022 Assessment & Plan (09/26/2021 2:28 PM PBX INSTALLER): This is a significant, separately identifiable problem [...] PT. Order was given, he will consider ([facility]). He is to followup if sxs [...] complication, without long-term current use of insulin ([facility]) 10/23/2020 10/17/2022 Assessment & Plan (02/27/2022 9:34 PM CDT): Stressed importance of continued A1c control to minimize the residential effects of diabetes. Bring accuchecks to office [...] noted. Assessment & Plan (09/26/2021 2:27 PM PBX INSTALLER): Stressed importance of continued A1c control to minimize the residential effects of diabetes. Bring accuchecks to office when instructed to do so. Check A1c about every 3-6 months. Take medication as prescribed. Get annual eye exam. Encouraged DIANELYS/Statin if able to tolerate. Encouraged weight control and encouraged diabetic diet and exercise. Await labs to determine control Assessment & Plan (03/18/2021 1:00 PM CDT): Stressed importance of continued A1c control to minimize the termite exterminator effects of diabetes. Bring accuchecks to office when instructed to do so. Check A1c about every 3-6 months. Take medication as prescribed. Get annual eye exam. Encouraged DIANELYS/Statin if able to tolerate. Encouraged weight control and encouraged diabetic diet and exercise. Continue jardiance and metformin Fatigue 10/23/2020 03/24/2024 Assessment & Plan (07/29/2023 9:21 PM PBX INSTALLER): Probably multifactorial. Check labs and followup to re-evaluate Assessment & Plan (10/17/2022 8:40 AM PBX INSTALLER): Probably multifactorial. Check labs and followup to re-evaluate Assessment & Plan (06/14/2022 5:07 PM CDT): Probably multifactorial. Check labs and followup to re-evaluate Assessment & Plan (02/27/2022 9:34 PM CDT): Probably multifactorial. Check labs and followup to re-evaluate Assessment & Plan (09/26/2021 2:27 PM PBX INSTALLER): Probably multifactorial. Check labs and followup to re-evaluate Decreased hearing 10/23/2020 03/24/2024 Assessment & Plan (10/23/2020 6:52 PM PBX INSTALLER): This is a significant, separately identifiable problem that was evaluated and managed on the same day as the wellness exam Will send to ENT/Audiology for hearing tests to determine cause and treatment plan. 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 Thinks changes started then. BMI 27.0-27.9,adult 10/22/2020 12/22/19 Assessment & Plan (10/22/2020 8:20 AM PBX INSTALLER): Weight/BMI is in healthy range. Continue healthy lifestyle to maintain. Annual physical exam 10/21/2020 Assessment & Plan (09/26/2021 2:26 PM PBX INSTALLER): Encouraged healthy lifestyle, good nutrition and exercise. Encouraged Calcium and Vitamin D and weight bearing exercise for bone health. Reviewed immunizations Reviewed age appropirate screenings. Assessment & Plan (10/21/2020 9:20 PM PBX INSTALLER): Encouraged healthy lifestyle, good nutrition and exercise. Encouraged Calcium and Vitamin D and weight bearing exercise for bone health. Reviewed immunizations Reviewed age appropirate screenings. Exudative age-related macula r degeneration of both eyes with active choroidal neovascularization 10/21/2020 04/14/2025 Assessment & Plan (10/17/2022 8:40 AM PBX INSTALLER): Strongly encouraged follow-up with Ophthalmology. He has put this on the back burner due to his other chronic medical concerns. Assessment & Plan (06/14/2022 5:07 PM CDT): Encourage patient follow-up with his loan analyst. He has been hesitant to think about treatment as they may include injections in the eye and he has been adamant about not doing that. Reviewed again the risk of not doing treatment progression to visual changes and possible blindness. He verbalizes understanding will consider Assessment & Plan (09/26/2021 2:27 PM PBX INSTALLER): Encouraged to continue per Ophthalmology. He voices understanding that by foregoing treatment this could lead to progressive loss of sight. Assessment & Plan (03/18/2021 1:00 PM CDT): Stressed the importance of continued follow-up with the loan analyst. Reviewed that macular degeneration will continue to progress to the point of blindness and that treatment/intervention is needed to change this course or at least try to slow it down. Patient voiced understanding and states at this point he is not interested in treatment Assessment & Plan (10/23/2020 6:47 PM PBX INSTALLER): Encouraged to Continue per [facility] as not treating can lead to loss/decrease in sight. Colon cancer screening 04/10/202010/21 Assessment & Plan [...] 09/26/2019 Assessment & Plan (09/22/2019 9:08 PM PBX INSTALLER): Bronchitis vs COPD. Flu is negative. Amoxil and Prednisone 60mg x 5 days. Tessalon for cough Start Advair. Albuterol prn Flu-like symptoms 09/22/2019 09/26/2019 Assessment & Plan (09/22/2019 9:15 PM PBX INSTALLER): Negative flu. See bronchitis Other fatigue 09/15/2019 09/26/2019 Assessment & Plan (09/15/2019 4:15 PM PBX INSTALLER): Probably multifactorial. Check labs and followup to re-evaluate Cough 09/15/2019 10/17/2022 Assessment & Plan (05/03/2022 8:57 PM CDT): See COPD Assessment & Plan (09/26/2019 8:53 AM PBX INSTALLER): Improving. Assessment & Plan (09/22/2019 9:08 PM PBX INSTALLER): See bronchitis Assessment & Plan (09/15/2019 4:14 PM PBX INSTALLER): See copd BMI 26.0-26.9,adult 09/10/2019 01/21/20 20 Assessment & Plan (11/24/2019 10:44 PM CDT): Weight/BMI is in healthy range. Continue healthy lifestyle to maintain. Assessment & Plan (09/26/2019 8:52 AM PBX INSTALLER): Weight/BMI is in healthy range. Continue healthy lifestyle to maintain. Assessment & Plan (09/10/2019 2:15 PM PBX INSTALLER): Weight/BMI is in healthy range. Continue healthy [...] of continued A1c control to minimize the residential effects of diabetes. Bring accuchecks to office [...] reassess. Assessment & Plan (10/23/2020 6:50 PM PBX INSTALLER): This is a significant, separately identifiable problem that was evaluated and managed on the same day as the wellness exam Stressed importance of continued A1c control to minimize the residential effects of diabetes. Bring accuchecks to office [...] of continued A1c control to minimize the termite exterminator effects of diabetes. Bring accuchecks to office [...] of continued A1c control to minimize the termite exterminator effects of diabetes. Bring accuchecks to office when instructed to do so. Check A1c about every 3-6 months. Take medication as prescribed. Get annual eye exam. Encouraged DIANELYS/Statin if able to tolerate. Encouraged weight control and encouraged diabetic diet and exercise. Assessment & Plan (09/26/2019 8:52 AM PBX INSTALLER): Stressed importance of continued A1c control to minimize the residential effects of diabetes. Bring accuchecks to office when instructed to do so. Check A1c about every 3-6 months. Take medication as prescribed. Get annual eye exam. Encouraged DIANELYS/Statin if able to tolerate. Encouraged weight control and encouraged diabetic diet and exercise. Continue Metformin Assessment & Plan (06/07/2019 2:17 PM CDT): Stressed importance of continued A1c control to minimize the residential effects of diabetes. Bring accuchecks to office [...] statin Assessment & Plan (09/26/2021 2:26 PM PBX INSTALLER): Stressed importance of continued A1c control to minimize the residential effects of diabetes. Bring accuchecks to office [...] atorvastatin Assessment & Plan (10/21/2020 9:20 PM PBX INSTALLER): Encouraged patient to follow fat/low chol diet [...] 09/10/19 Assessment & Plan (07/25/2019 9:30 PM PBX INSTALLER): Weight/BMI is in healthy range. Continue healthy [...] losartan Assessment & Plan (09/26/2021 2:26 PM PBX INSTALLER): Bp is stable/in acceptable range for any co-morbidities. Encouraged to limit sodium intake and exercise for weight control. Continue losartan 25 Assessment & Plan (03/18/2021 12:59 PM CDT): Bp is stable/in acceptable range for any co-morbidities. Encouraged to limit sodium intake and exercise for weight control. Continue losartan Assessment & Plan (10/23/2020 6:53 PM PBX INSTALLER): Systolic is elevated by diastolic is low. [...] of continued A1c control to minimize the residential effects of diabetes. Bring accuchecks to office when instructed to do so. Check A1c about every 3-6 months. Take medication as prescribed. Get annual eye exam. Encouraged DIANELYS/Statin if able to tolerate. Encouraged weight control and encouraged diabetic diet and exercise. Restart insulin to get better control. Assessment & Plan (02/02/2020 4:28 PM CDT): Stressed importance of continued A1c control to minimize the termite exterminator effects of diabetes. Bring accuchecks to office [...] of continued A1c control to minimize the termite exterminator effects of diabetes. Bring accuchecks to office [...] prior. Assessment & Plan (09/26/2019 8:52 AM PBX INSTALLER): Bp is stable/in acceptable range for any [...]
--- OUTSIDE RECORDS SUMMARY | 2025-05-12 00:24 | XMS_ITS | Clinical Summary ---
Author Organization [facility] Address [address] [place] [address] Care Team Providers Care Conversion Man Name Role Phone Unavailable Primary Care Provider [...] 1:50 PM CDT Height 172.7 cm (5' 8) 04/21/2017 1:50 PM CDT Body Mass Index 24.02 04/21/2017 1:50 PM CDT Plan of Treatment Health Maintenance Due Date Last Done Comments Hepatitis C 1968 DTaP, Tdap and Td Vaccines ( 1 - Tdap) 1967 Pneumococcal Vaccine: 50+ Ye ars (1 of 1 - PCV) 1998 Zoster Vaccines (1 of 2) 1998 RSV Immunization or 60+ Years (1 - 1-dose 75+ series) 2023 COVID-19 Vaccine ( - 2023-2 5 season) 2025 Meningococcal B Vaccine Aged Out No l onger eligible based on patient's age to complete this topic Meningococcal Vaccine Aged Out No marco nilson eligible based on patient's age to complete this topic RSV Immunizations Under 20 Months Aged Out No longer eligible based on patient's age to complete this topic
--- OUTSIDE RECORDS SUMMARY | 2025-05-12 00:24 | XMS_ITS | Patient Health Record ---
Author Organization [facility], Address [address] [place] [address] Care Team Providers Care Die Maker Name Role Phone SELF, SELF Unavailable Unavailable Reason For Referral No Information Plan Of Treatment No Information
--- OUTSIDE RECORDS SUMMARY | 2025-05-12 00:24 | XMS_ITS | Encounter Summary ---
Author Organization [facility] Address [address] [place] [address] Care Team Providers Care Tool Grinding Machine Operator Name Role Phone Isis Boo Primary Care Provider [phone] Angel Hernandez MD Unavailable [phone] Gabino Paez MD Unavailable [phone] Boo Alaniz MD Unavailable Gorge JUAREZ MD, Jim Bright Unavailable [phone] Brooks Pennington MD Unavailable [phone] Reason for Visit * Reason Onset Date Comments Medical Question/Miscellaneous 05/07/2025 Encounter Details Date Type Department Care Team (Late st Contact Info) Description 05/07/2025 Telephone [facility] Medical Group Family Medicine [address] [place] [address] Isis Boo PA [address] [place] [address] Medical Question/Miscellaneous Social History Tobacco Use Types Packs/Day Years Used Date Smoking Tobacco: Former Cigarettes 0.5 50.4 0 04/19/1972 - 04/19/2022 Passive Smoke Exposure: Past Smokeless Tobacco: Former Alcohol Use Standard Drinks/Week Comments Not Currently 0 (1 standard drink = 0.6 oz [...] materials from doctor or pharmacy Never 10/18/2022 [facility] Utilities Answer Date Recorded In the past 12 months has th e electric, gas, oil, or water company threatened to shut off services in your home? No 07/27/2023 Social Connection and Isolation Panel Answer Date Recorded In a typical week, how many times do you talk on the phone with family, friends, or neighbors? More than three times a week 05/18/2023 How often do you get togethe r with friends or relatives? Three times a week 05/18/2023 How often do you attend chur ch or scientology services? Never 05/18/2023 Do you belong to any clubs o r organizations such as yazidism groups, unions, fraternal or athletic groups, or school groups? No 05/18/2023 How often do you attend meet ings of the clubs or organizations you belong to? Never 05/18/2023 Are you , , di vorced, , never , or living with a partner? 05/18/2023 Overall Financial Resource Strain (CARDIA) Answe r Date Recorded How hard is it for you to pa y for the very basics like food, housing, medical care, and heating? Not very hard 05/18/2023 PHQ-2 Answer Date Recorded PHQ-2 Total Score (If total score is 3 or more points, staff should administer the PHQ-9) 0 04/30/2025 Hunger Vital Sign Answer Date Recorded Within [...] place to sleep or slept in a assisted (including now)? No 05/18/2023 AUDIT-C Answer Date Recorded Q1: How often do you have a drink containing alcohol? Never 04/30/2025 Q2: How many drinks containi ng alcohol do you have on a typical day when you are drinking? Patient does not drink Q3: How often do you have si x or more drinks on one occasion? Never 04/30/2025 Personal Safety Answer Date Recorded Have you ever been in or are you currently in a harmful physical or emotional relationship or is someone making you feel afraid or unsafe? 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 She hasn't heard back from TAHIRA Marinelli's office and patient needs to stop the Plavix after today's dose. Call warm transferred to the backline. Does message need to be routed? No documented in this encounter Plan of Treatment Not on file documented as of this encounter Visit Diagnoses Not on filedocumented in this encounter Care Teams Tool Grinding Machine Operator Relationship Specialty Start Date End Date Isis Boo PA [address] [place] [address] PCP - General Internal Medicine 06/06/19 Angel Hernandez MD [address] [place] [address] Consulting Physician Cardiology 04/29/22 Gabino Paez MD [address] [place] [id number] Consulting Physician Pulmonary Disease 05/03/22 Boo Alaniz MD [facility] [facility] [address] [place] [address] Consulting Physician Vascular Surgery 09/15/22 Jim Pennington II, MD [address] [place] [address] Surgeon Otolaryngology 11/27/24 Brooks Pennington MD [address] [place] [address] Radiation Oncologist Radiation Oncology 12/10/24 documented as of this encounter
--- OUTSIDE RECORDS SUMMARY | 2025-05-12 00:25 | XMS_ITS | Clinical Summary ---
Author Organization [facility] Address [address] [place] [address] Care Team Providers Care [employer] Cafeteria Name Role Phone Unavailable Primary Care Provider Unavailabl e Encounters Date Type Department Care Team Description 04/29/2025 External Device Data ST[facility] ABSTRACTION Provider, Abstract 04/22/2025 External Device Data ST[facility] ABSTRACTION Provider, Abstract 04/08/2025 External Device Data ST[facility] ABSTRACTION Provider, Abstract [...] 1966 DTAP/TDAP/TD VACCINES (1 - Tdap) 1967 ZOSTER VACCINE (1 of 2) 1998 DIABETES ANNUAL FOOT EXAM 06/06/2020 06/06/2019 RSV VACCINE (60+ or ) (1 - 1-dose 75+ series) 2023 DIABETES HBA1C Q 6 MONTHS 11/17/2024 05/20/2024 DIABETES ANNUAL RETINAL EXAM 02/25/2025 02/26/2024 INFLUENZA VACCINE (#1) 2025 2, 09/02/2021, 06/06/2019 COVID-19 Vaccine (3 - 2024-2 6 season) 2025 01/19/2021, 12/22/2020 COLORECTAL SCREENING Discontinued 08/27/2020 Colorectal Cancer Screening Discontinued PNEUMOCOCCAL VACCINE 50+ YEARS Completed 03/18/2021 , 06/06/2019 FIT-DNA Q 3 years Discontinued FIT/FOBT Q 1 year Discontinued Flex Sig/CT Colonography Q 5 years Discontinued Insurance [employer]
--- OUTSIDE RECORDS SUMMARY | 2025-05-12 00:25 | XMS_ITS | Clinical Summary ---
Author Organization [facility] [address] [facility] Address [address] [place] [address] Care Team Providers Care Process Control Engineer Name Role Phone Isis Boo Primary Care Provider [phone] Angel Hernandez MD Unavailable Gabino Paez MD Unavailable [phone] Boo Alaniz MD Unavailable Gorge JUAREZ MD, Jim Bright Unavailable [phone] Brooks Pennington MD Unavailable [phone] Allergies No known active allergies Medications aspirin 81 mg enteric coated tabletIndication s:prevention of thrombosis Take 1 tablet (81 mg total) by mouth daily 3 Active losartan (COZAAR) 25 mg tablet TAKE 1 TABLET (25 MG TOTAL) BY MOUTH DAILY. 90 tablet 1 4 Active albuterol HFA (PROVENTIL HFA,VENTOLIN HFA,PROAIR HFA) 90 mcg/actuation inhalerIndicatio ns:Chronic obstructive pulmonary disease, unspecified COPD type (HCC) Inhale 2 puffs every 4 (four) hours as needed for shortness of breath 6.7 g 3 4 Active umeclidinium-juan luis anteroL (ANORO ELLIPTA) 62.5-25 mcg/actuation blister with deviceIndication s:Pulmonary emphysema, unspecified emphysema type (HCC) Inhale 1 puff daily 90 each 1 4 Active dapagliflozin propanediol (FARXIGA) 10 mg tablet Take 1 tablet (10 mg total) by mouth daily 90 tablet 1 4 Active cyclobenzaprine (FLEXERIL) 5 mg tablet Take 1 tablet (5 mg total) by mouth as needed 4 Active folic acid (FOLVITE) 1 mg tablet Take 1 tablet (1 mg total) by mouth daily 4 Active gabapentin (NEURONTIN) 100 mg capsule Take 1 capsule (100 mg total) by mouth 3 (three) times a day 4 Active sertraline (ZOLOFT) 50 mg tablet Take 1 tablet (50 mg total) by mouth every morning 5 Active buPROPion XL (WELLBUTRIN XL) 300 mg 24 hr tabletIndication s:Cigarette smoker TAKE 1 TABLET (300 MG TOTAL) BY MOUTH EVERY MORNING. 100 tablet 1 5 026 Active lidocaine viscous (XYLOCAINE) 2 % solution Take 15 mL by mouth 3 (three) times a day before meals 300 mL 5 Active silver sulfadiazine (SILVADENE, SSD) 1 % cream Apply topically 3 (three) times a day [address] (PROTONIX) 40 mg EC tabletIndication s:Gastroesophage al reflux disease without esophagitis TAKE 1 TABLET BY MOUTH TWICE A DAY 180 tablet 1 5 Active blood-glucose meter miscIndications: Diabetes mellitus type 2 with peripheral artery disease (HCC) Use once daily to check blood sugar. [employer]. 1 each 5 Active lancets miscIndications: Diabetes mellitus type 2 with peripheral artery disease (HCC) Use lancets to check blood sugar once daily. [employer]. 100 each 1 5 Active blood glucose diagnostic (glucose blood) stripIndications :Diabetes mellitus type 2 with peripheral artery disease (HCC) Use test strips to check blood sugar once daily. [employer]. 100 each 1 5 026 Active metFORMIN (GLUCOPHAGE) 500 mg tablet TAKE 1 TABLET BY MOUTH TWICE A DAY WITH MEALS 180 tablet 1 5 Active clopidogreL (PLAVIX) 75 mg tablet TAKE 1 TABLET BY MOUTH EVERY DAY 90 tablet 2 5 Active atorvastatin (LIPITOR) 80 mg tablet Take 1 tablet (80 mg total) by mouth daily 5 Active varenicline tartrate (CHANTIX MAR) 0.5 mg (11)- 1 mg (42) tablet Use as directed on package instructions, try to quit smoking after 1 week. 53 tablet 5 025 Discontin ued(Thera py completed ) varenicline tartrate (CHANTIX) 1 mg tabletIndication s:Smoking Cessation Take 1 tablet (1 mg total) by mouth 2 (two) times a day Take with full glass of water. Fill this one after the starter pack. 180 tablet 5 025 Discontin ued(Thera py completed ) atorvastatin (LIPITOR) 80 mg tablet TAKE 1 TABLET BY MOUTH EVERY DAY 90 tablet 1 5 025 Discontin ued(Reord er) Active Problems Problem Noted Date Diagnosed Date [...] 08/07/2024 Assessment & Plan (08/17/2024 1:42 AM OUTBOUND SALES ADVISOR): Patient has noticed a hoarseness to his [...] 08/07/2024 Assessment & Plan (08/17/2024 1:43 AM OUTBOUND SALES ADVISOR): Patient has noticed a hoarseness to his [...] maintain. Assessment & Plan (08/17/2024 1:40 AM OUTBOUND SALES ADVISOR): Weight/BMI is in healthy range. Continue healthy lifestyle to maintain. Assessment & Plan (06/25/2024 8:13 AM OUTBOUND SALES ADVISOR): Weight/BMI is in healthy range. Continue healthy lifestyle to maintain. Fatigue 06/25/2024 Assessment & Plan (06/25/2024 6:41 PM OUTBOUND SALES ADVISOR): Probably multifactorial. Check labs and followup to re-evaluate Medicare annual wellness visit, subsequent 07/29 Assessment & Plan (06/25/2024 6:38 PM OUTBOUND SALES ADVISOR): Encouraged healthy lifestyle, good nutrition and exercise. [...] chart Assessment & Plan (07/29/2023 9:21 PM OUTBOUND SALES ADVISOR): Encouraged healthy lifestyle, good nutrition and exercise. Encouraged Calcium and Vitamin D and weight bearing exercise for bone health. Reviewed immunizations Reviewed age appropirate screenings. History of left above knee amputation 10/17/2022 Overview (10/17/2022): 08/2022 Dr. Alaniz Assessment & Plan (11/10/2024 11:36 PM CDT): Status post hirhn-ktz-[id number] amputation on the left by Dr. Alaniz. Continue Plavix and aspirin and statin. States he is [facility] to help [facility] his [facility] to fit more comfortably. Assessment & Plan (06/25/2024 6:38 PM OUTBOUND SALES ADVISOR): Status post irssi-usm-ccbp amputation on the left by Dr. Alaniz. Continue Plavix and aspirin and statin. States he is not happy with prosthesis in his more happy utilizing his crutches to get around Assessment & Plan (03/24/2024 10:38 PM CDT): Status post fdpxt-pzj-qqvj amputation due to peripheral vascular disease. Continue with statin, Plavix and aspirin. Assessment & Plan (07/29/2023 9:21 PM OUTBOUND SALES ADVISOR): Status post above-knee amputation. Continue per vascular, [...] his essence referral for him to contact [facility] to get started. If he has problems he is to contact Dr. Alaniz's office. Seems to verbalize understanding of the plan Assessment & Plan (10/17/2022 8:43 AM OUTBOUND SALES ADVISOR): Status post left above-knee amputation by Dr. [...] 10/17/2022 Assessment & Plan (06/25/2024 6:38 PM OUTBOUND SALES ADVISOR): Phantom pain has subsided without any additional [...] monitor Assessment & Plan (10/17/2022 8:43 AM OUTBOUND SALES ADVISOR): Status post left above-knee amputation by Dr. [...] control. 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 Assessment & Plan (09/06/2022 8:48 AM OUTBOUND SALES ADVISOR): Impression: Patient is status post left femoral [...] has non-reconstructible vascular disease therefore a left dsedw-eor-ovmf amputation was recommended. Risks of the procedure communicate with the patient to include bleeding, infection, injury, further surgery, and . Patient understands these risks and wishes to proceed. [place] were removed from left groin and left medial calf. Assessment & Plan (07/18/2022 1:58 PM OUTBOUND SALES ADVISOR): Impression: Acute onset worsening claudication following recent [...] 05/05/2022 Assessment & Plan (06/25/2024 6:37 PM OUTBOUND SALES ADVISOR): Patient with PVD. Continue with the Plavix and aspirin. Continue with the Lipitor 80 Assessment & Plan (03/24/2024 10:36 PM CDT): Patient has peripheral vascular disease. Continue to follow with vascular. He has already had lower leg amputation due to the peripheral vascular disease Assessment & Plan (10/17/2022 8:42 AM OUTBOUND SALES ADVISOR): Continue per vascular surgery. He is on Plavix. Still strongly encouraged smoking cessation Assessment & Plan (10/06/2022 11:43 AM OUTBOUND SALES ADVISOR): Status post left above knee amputation. Healed. 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 Patient is [...] time. Assessment & Plan (08/16/2022 4:20 PM OUTBOUND SALES ADVISOR): Impression: Known thrombosed left fem-pop bypass diagnosis [...] Hyperlipidemia associated with type 2 diabetes diomedes maricruz 04/29/2022 Assessment & Plan (11/10/2024 11:27 PM CDT): Encouraged patient to follow low fat/low chol diet like the Mediterranean diet. Increase good fats in the diet. Increase exercise. Monitor labs as needed. Continue Lipitor 80 Assessment & Plan (06/25/2024 6:38 PM OUTBOUND SALES ADVISOR): Encouraged patient to follow low fat/low chol diet like the Mediterranean diet. Increase good fats in the diet. Increase exercise. Monitor labs as needed. Continue Lipitor 80 Assessment & Plan (03/24/2024 10:36 PM CDT): Stressed importance of continued A1c control to minimize the fdc effects of diabetes. Bring accuchecks to office [...] 10 Assessment & Plan (07/29/2023 9:21 PM OUTBOUND SALES ADVISOR): Encouraged patient to follow low fat/low chol [...] 80 Assessment & Plan (10/17/2022 8:41 AM OUTBOUND SALES ADVISOR): Encouraged patient to follow low fat/low chol [...] 25 Assessment & Plan (06/25/2024 6:42 PM OUTBOUND SALES ADVISOR): This is a significant, separately identifiable problem that was evaluated and managed on the same day as the wellness exam Bp is stable/in acceptable range for any co-morbidities. Encouraged to limit sodium intake and exercise for weight control. Continue losartan 25 Stressed importance of continued A1c control to minimize the remote computer terminal operator effects of diabetes. Bring accuchecks to office [...] his Farxiga including [facility] the [facility] versus [place] and me assistance versus him pain for it as he states he did get a little bit of extra money. Advised I will go ahead and prescribe it and if he needs assistance we would be glad to help him with a.c. and knee he would just need to bring in the correct paperwork. Encouraged him to talk with his [facility] development representative to see if he could get [...] 25 Assessment & Plan (07/29/2023 9:20 PM OUTBOUND SALES ADVISOR): Bp is stable/in acceptable range for any co-morbidities. Encouraged to limit sodium intake and exercise for weight control. Stressed importance of continued A1c control to minimize the remote computer terminal operator effects of diabetes. Bring accuchecks to office when instructed to do so. Check A1c about every 3-6 months. Take medication as prescribed. Get annual eye exam. Encouraged IDANELYS/Statin if able to tolerate. Encouraged weight control [...] 25 Assessment & Plan (10/17/2022 8:41 AM OUTBOUND SALES ADVISOR): Bp is stable/in acceptable range for any co-morbidities. Encouraged to limit sodium intake and exercise for weight control. Continue losartan 25 Assessment & Plan (08/16/2022 4:22 PM OUTBOUND SALES ADVISOR): Impression: Stable chronic hypertension. Plan: Medications reviewed and recommend continuing daily antihypertensive regimen as directed by patient's primary care physician. Assessment & Plan (06/14/2022 5:07 PM CDT): Bp is stable/in acceptable range for any co-morbidities. Encouraged to limit sodium intake and exercise for weight control. 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 Bring accuchecks to office when instructed to do so. Check A1c about every 3-6 months. Take medication as prescribed. Get annual eye exam. Encouraged DIANELYS/Statin if able to tolerate. Encouraged weight control and encouraged diabetic diet and exercise. Patient has peripheral artery disease as well as peripheral arterial disease. Assessment & Plan (07/29/2023 9:21 PM OUTBOUND SALES ADVISOR): Peripheral artery disease in the setting of diabetes that has resulted in [id number]-[id number] amputation of the left leg. Strongly encouraged medical management as instructed. Assessment & Plan (01/03/2023 9:22 PM CDT): Stressed importance of continued A1c control to minimize the remote computer terminal operator effects of diabetes. Bring accuchecks to office [...] amputation. Assessment & Plan (10/17/2022 8:42 AM OUTBOUND SALES ADVISOR): Stressed importance of continued A1c control to minimize the fdc effects of diabetes. Bring accuchecks to office [...] of continued A1c control to minimize the fdc effects of diabetes. Bring accuchecks to office [...] 12/21/2020 Assessment & Plan (10/17/2022 8:41 AM OUTBOUND SALES ADVISOR): Stressed importance of continued A1c control to minimize the fdc effects of diabetes. Bring accuchecks to office [...] 02/02/2020 Assessment & Plan (09/29/2021 12:34 PM OUTBOUND SALES ADVISOR): Xray R shoulder today - he is [...] 07/25/2019 Assessment & Plan (07/25/2019 3:08 PM OUTBOUND SALES ADVISOR): Infection vs pain from thick large nail growing into the skin. Start keflex. Has followup scheduled with Dr. Fraga next week. Await her recommendations. Laryngopharyngeal reflux (LPR) 06/07/2019 Assessment & Plan (06/25/2024 6:31 PM OUTBOUND SALES ADVISOR): Continue PPI p.r.n. Assessment & Plan (03/24/2024 10:38 PM CDT): Continue pantoprazole p.r.n. Assessment & Plan (07/29/2023 9:19 PM OUTBOUND SALES ADVISOR): Reviewed with patient if his reflux symptoms are controlled he can just use the pantoprazole p.r.n.. Assessment & Plan (10/17/2022 8:39 AM OUTBOUND SALES ADVISOR): Continue PPI p.r.n. Assessment & Plan (06/14/2022 5:06 PM CDT): Continue PPI p.r.n. Assessment & Plan (09/26/2021 2:26 PM OUTBOUND SALES ADVISOR): Continue PPI Assessment & Plan (03/18/2021 1:01 PM CDT): Continue ppi Assessment & Plan (10/21/2020 9:20 PM OUTBOUND SALES ADVISOR): Continue PPI Assessment & Plan (03/14/2020 7:27 PM CDT): Continue Protonix Assessment & Plan (02/02/2020 4:30 PM CDT): Continue PPI Assessment & Plan (06/07/2019 2:12 PM CDT): On Protonix bid. No active bleeding Stop smoking. Avoid alcohol. Avoid NSAIDs. Onychomycosis 06/07/2019 Assessment & Plan (02/02/2020 4:31 PM CDT): Continue per outsole compressor Assessment & Plan (06/07/2019 2:16 PM CDT): This is a significant, separately identifiable problem that was evaluated and managed on the same day as the wellness exam Has been on Lamisil in the past without success. Refer to Flexible Machining System Machinist for further treatment and assistance with cutting [...] past. Assessment & Plan (08/17/2024 1:40 AM OUTBOUND SALES ADVISOR): Encouraged smoking cessation. Discussed 3 minutes. Reviewed options for assistance with cessation. Reviewed fdc sequela associated with smoking. Pt declines assistance at this time but may contact the office at anytime for further help as they desire. Assessment & Plan (06/25/2024 6:32 PM OUTBOUND SALES ADVISOR): This is a significant, separately identifiable problem [...] Reviewed options for assistance with cessation. Reviewed fdc sequela associated with smoking. Pt declines assistance at this time but may contact the office at anytime for further help as they desire. Assessment & Plan (10/17/2022 8:40 AM OUTBOUND SALES ADVISOR): Encouraged smoking cessation. Discussed 3 minutes. Reviewed options for assistance with cessation. Reviewed fdc sequela associated with smoking. Pt declines assistance at this time but may contact the office at anytime for further help as they desire. Assessment & Plan (06/14/2022 5:06 PM CDT): Patient states he stop smoking. Assessment & Plan (10/21/2020 9:23 PM OUTBOUND SALES ADVISOR): Quit 09/2019 Due for LDCT after 08/01/2020 Assessment & Plan (02/02/2020 4:34 PM CDT): Quit 09/2019 Assessment & Plan (11/24/2019 10:44 PM CDT): Smoke free for a few weeks. Continue with effort Assessment & Plan (09/26/2019 8:46 AM OUTBOUND SALES ADVISOR): Quit smoking 09/12 on his own. 2 week cig free Encouraged to continue Assessment & Plan (09/22/2019 9:13 PM OUTBOUND SALES ADVISOR): .Encouraged smoking cessation. Discussed 3 minutes. Reviewed options for assistance with cessation. Reviewed fdc sequela associated with smoking. Pt declines assistance at this time but may contact the office at anytime for further help as they desire. Assessment & Plan (09/15/2019 4:15 PM OUTBOUND SALES ADVISOR): Encouraged smoking cessation. Discussed 3 minutes. Reviewed options for assistance with cessation. Reviewed fdc sequela associated with smoking. Pt declines assistance at this time but may contact the office at anytime for further help as they desire. Assessment & Plan (07/25/2019 9:30 PM OUTBOUND SALES ADVISOR): Encouraged smoking cessation. Discussed 3 minutes. Reviewed options for assistance with cessation. Reviewed fdc sequela associated with smoking. Pt declines assistance at this time but may contact the office at anytime for further help as they desire. Assessment & Plan (06/07/2019 2:26 PM CDT): Encouraged smoking cessation. Discussed 3 minutes. Reviewed options for assistance with cessation. Reviewed remote computer terminal operator sequela associated with smoking. Pt declines assistance [...] 06/07/2019 Assessment & Plan (10/17/2022 8:40 AM OUTBOUND SALES ADVISOR): Persistent smoker's cough. Encouraged cessation has albuterol p.r.n. Assessment & Plan (10/23/2020 6:47 PM OUTBOUND SALES ADVISOR): Treat COPD Continue with smoking cessation Assessment & Plan (03/14/2020 7:26 PM CDT): Quit smoking 08/2019 Assessment & Plan (02/02/2020 4:28 PM CDT): See COPD Assessment & Plan (11/24/2019 10:42 PM CDT): Pt has stopped smoking. Continue to monitor Assessment & Plan (09/26/2019 8:54 AM OUTBOUND SALES ADVISOR): Improving. Continue tob cessation. Assessment & Plan (09/15/2019 4:14 PM OUTBOUND SALES ADVISOR): Stop smoking Assessment & Plan (06/07/2019 2:10 PM CDT): Encouraged smoking cessation. Duodenal ulcer 06/05/2019 Assessment & Plan (06/05/2019 7:35 PM CDT): 04/2019 EGD - Dr. Hawley Acute gastric ulcer without hemorrhage or perfor ation 03/01/2019 Assessment & Plan (10/23/2020 6:47 PM OUTBOUND SALES ADVISOR): Continue PPI. Avoid NSAIDs Assessment & Plan (06/07/2019 2:11 PM CDT): On Protonix bid. No active bleeding Stop smoking. Avoid alcohol. Avoid NSAIDs. Alcohol dependence in remission 02/07/2018 Assessment & Plan (06/25/2024 6:30 PM OUTBOUND SALES ADVISOR): Patient states he has decreased alcohol immensely. Still encourage complete cessation Assessment & Plan (03/24/2024 10:38 PM CDT): Patient with history of alcohol dependence. He states he still drinks few times a week. Assessment & Plan (10/17/2022 8:37 AM OUTBOUND SALES ADVISOR): Patient continues to remain alcohol free. Encouraged to continue Assessment & Plan (06/14/2022 5:06 PM CDT): Patient states he no longer drinks alcohol. Assessment & Plan (09/26/2021 2:25 PM OUTBOUND SALES ADVISOR): Patient states he is still not drinking. Continue with cessation. Assessment & Plan (03/18/2021 1:01 PM CDT): Continue alcohol cessation Assessment & Plan (10/21/2020 9:19 PM OUTBOUND SALES ADVISOR): Remains off alcohol Assessment & Plan (03/14/2020 [...] 11/2024 Assessment & Plan (06/25/2024 6:31 PM OUTBOUND SALES ADVISOR): Encouraged complete smoking cessation. Continue management with Dr. Choi continue Anoro and albuterol. Imaging with CT is managed by Dr. Choi Assessment & Plan (03/24/2024 10:38 PM CDT): Patient with long-term smoking history. Has known COPD. On Anoro and albuterol. 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 Choi Assessment & Plan (07/29/2023 9:21 PM OUTBOUND SALES ADVISOR): Continue in RO. Continue to follow with Dr. Riggs. Encouraged follow-up appointment Assessment & Plan (10/17/2022 8:39 AM OUTBOUND SALES ADVISOR): Encouraged smoking cessation. 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 Riggs junior account manager. Using daily Anaro and albuterol p.r.n. Assessment [...] get surgery. Chest xray was done at [facility] and it was negative for pneumonia. From the perspective of his COPD/respiratory fitness, patient is able to proceed with the Fem to Pop bypass procedure with Dr. Alaniz. Assessment & Plan (09/26/2021 2:25 PM OUTBOUND SALES ADVISOR): Continue with Advair and albuterol p.r.n. Assessment & Plan (03/18/2021 1:03 PM CDT): Continue the Advair and prn albuterol Assessment & Plan (12/21/2020 9:38 AM CDT): Continue Advair and albuterol prn Assessment & Plan (10/23/2020 6:47 PM OUTBOUND SALES ADVISOR): Dr. Miranda Advair and prn Albuterol Continue smoking cessation Assessment & Plan (03/14/2020 7:25 PM CDT): Continue Advair and prn albuterol. Await recommendations from Dr. Simpson Assessment & Plan (02/02/2020 4:37 PM CDT): This is a significant, separately identifiable problem that was evaluated and managed on the same day as the wellness exam Continue Advair and albuterol. Refer to Pulmonary at [facility] due to persistent COPD sxs/cough. Has never had official PFTs/etc Assessment & Plan (11/24/2019 10:43 PM CDT): Continue with current regimen. Await covid results. Continue quarantine until results are available. Assessment & Plan (09/26/2019 8:53 AM OUTBOUND SALES ADVISOR): Stable with the Advair and abuterol prn. Call if required more rescue. May use Mucinex prn for increased mucous production but call if beocomes consistently yellow or green Assessment & Plan (09/22/2019 9:08 PM OUTBOUND SALES ADVISOR): COPD vs bronchitis. See Bronchitis for plan Stop smoking Assessment & Plan (09/15/2019 4:14 PM OUTBOUND SALES ADVISOR): COPD exacerbation vs pneumonia--- Recommend CXR. Check [...] 07/29/202303/24 Assessment & Plan (07/29/2023 9:22 PM OUTBOUND SALES ADVISOR): Check urine culture to rule out infection. If negative may consider adding tamsulosin as he also notes a little hesitancy Prostate cancer screening 07/29/2023 Assessment & Plan (07/29/2023 9:22 PM OUTBOUND SALES ADVISOR): Check PSA BMI 20.0-20.9, adult 01/03/2023 024 Assessment & Plan (11/14/2023 2:08 PM CDT): Weight/BMI is in healthy range. Continue healthy lifestyle to maintain. Assessment & Plan (07/18/2023 9:54 AM OUTBOUND SALES ADVISOR): Weight/BMI is in healthy range. Continue healthy [...] maintain. Assessment & Plan (10/17/2022 7:32 AM OUTBOUND SALES ADVISOR): Weight/BMI is in healthy range. Continue healthy lifestyle to maintain. Annual physical exam 10/17/2022 024 Assessment & Plan (10/17/2022 8:42 AM OUTBOUND SALES ADVISOR): Encouraged healthy lifestyle, good nutrition and exercise. Encouraged Calcium and Vitamin D and weight bearing exercise for bone health. Reviewed immunizations Reviewed age appropirate screenings. Rest pain of lower extremity due to atherosclerosis 09/05/2022 10/17/2022 Overview (09/05/2022): Added automatically from request for surgery [id number] Medicare annual wellness visit, subsequent 06/14/2022 10/17/2022 [...] 06/14/2022 Assessment & Plan (09/26/2021 2:29 PM OUTBOUND SALES ADVISOR): See torticollis Need for immunization against influenza 09/26/2021 06/14/2022 Assessment & Plan (09/26/2021 2:29 PM OUTBOUND SALES ADVISOR): FLU updated in office today Foot callus 09/26/2021 03/24/2024 Assessment & Plan (09/26/2021 2:31 PM OUTBOUND SALES ADVISOR): This is a significant, separately identifiable problem [...] 06/14/20 Assessment & Plan (09/02/2021 4:22 PM OUTBOUND SALES ADVISOR): Weight/BMI is in healthy range. Continue healthy lifestyle to maintain. BMI 26.0-26.9,adult 09/02/2021 09/02/19 BMI 25.0-25.9,adult 04/12/2021 09/02/19 Assessment & Plan (04/12/2021 1:51 PM CDT): Weight/BMI is in healthy range. Continue healthy lifestyle to maintain. Torticollis 04/12/2021 06/14/2022 Assessment & Plan (09/26/2021 2:28 PM OUTBOUND SALES ADVISOR): This is a significant, separately identifiable problem [...] PT. Order was given, he will consider ([facility]). He is to followup if sxs worsen [...] complication, without long-term current use of insulin ([facility] 10/23/2020 10/17/2022 Assessment & Plan (02/27/2022 9:34 PM CDT): Stressed importance of continued A1c control to minimize the fdc effects of diabetes. Bring accuchecks to office [...] noted. Assessment & Plan (09/26/2021 2:27 PM OUTBOUND SALES ADVISOR): Stressed importance of continued A1c control to minimize the fdc effects of diabetes. Bring accuchecks to office when instructed to do so. Check A1c about every 3-6 months. Take medication as prescribed. Get annual eye exam. Encouraged DIANELYS/Statin if able to tolerate. Encouraged weight control and encouraged diabetic diet and exercise. Await labs to determine control Assessment & Plan (03/18/2021 1:00 PM CDT): Stressed importance of continued A1c control to minimize the fdc effects of diabetes. Bring accuchecks to office when instructed to do so. Check A1c about every 3-6 months. Take medication as prescribed. Get annual eye exam. Encouraged DIANELYS/Statin if able to tolerate. Encouraged weight control and encouraged diabetic diet and exercise. Continue jardiance and metformin Fatigue 10/23/2020 03/24/2024 Assessment & Plan (07/29/2023 9:21 PM OUTBOUND SALES ADVISOR): Probably multifactorial. Check labs and followup to re-evaluate Assessment & Plan (10/17/2022 8:40 AM OUTBOUND SALES ADVISOR): Probably multifactorial. Check labs and followup to re-evaluate Assessment & Plan (06/14/2022 5:07 PM CDT): Probably multifactorial. Check labs and followup to re-evaluate Assessment & Plan (02/27/2022 9:34 PM CDT): Probably multifactorial. Check labs and followup to re-evaluate Assessment & Plan (09/26/2021 2:27 PM OUTBOUND SALES ADVISOR): Probably multifactorial. Check labs and followup to re-evaluate Decreased hearing 10/23/2020 03/24/2024 Assessment & Plan (10/23/2020 6:52 PM OUTBOUND SALES ADVISOR): This is a significant, separately identifiable problem that was evaluated and managed on the same day as the wellness exam Will send to ENT/Audiology for hearing tests to determine cause and treatment plan. 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 Thinks changes started then. BMI 27.0-27.9,adult 10/22/2020 12/22/19 Assessment & Plan (10/22/2020 8:20 AM OUTBOUND SALES ADVISOR): Weight/BMI is in healthy range. Continue healthy lifestyle to maintain. Annual physical exam 10/21/2020 Assessment & Plan (09/26/2021 2:26 PM OUTBOUND SALES ADVISOR): Encouraged healthy lifestyle, good nutrition and exercise. Encouraged Calcium and Vitamin D and weight bearing exercise for bone health. Reviewed immunizations Reviewed age appropirate screenings. Assessment & Plan (10/21/2020 9:20 PM OUTBOUND SALES ADVISOR): Encouraged healthy lifestyle, good nutrition and exercise. Encouraged Calcium and Vitamin D and weight bearing exercise for bone health. Reviewed immunizations Reviewed age appropirate screenings. Exudative age-related macula r degeneration of both eyes with active choroidal neovascularization 10/21/2020 04/14/2025 Assessment & Plan (10/17/2022 8:40 AM OUTBOUND SALES ADVISOR): Strongly encouraged follow-up with Ophthalmology. He has put this on the back burner due to his other chronic medical concerns. Assessment & Plan (06/14/2022 5:07 PM CDT): Encourage patient follow-up with his control room technician. He has been hesitant to think about treatment as they may include injections in the eye and he has been adamant about not doing that. Reviewed again the risk of not doing treatment progression to visual changes and possible blindness. He verbalizes understanding will consider Assessment & Plan (09/26/2021 2:27 PM OUTBOUND SALES ADVISOR): Encouraged to continue per Ophthalmology. He voices understanding that by foregoing treatment this could lead to progressive loss of sight. Assessment & Plan (03/18/2021 1:00 PM CDT): Stressed the importance of continued follow-up with the control room technician. Reviewed that macular degeneration will continue to progress to the point of blindness and that treatment/intervention is needed to change this course or at least try to slow it down. Patient voiced understanding and states at this point he is not interested in treatment Assessment & Plan (10/23/2020 6:47 PM OUTBOUND SALES ADVISOR): Encouraged to Continue per [facility] as [...] 09/26/2019 Assessment & Plan (09/22/2019 9:08 PM OUTBOUND SALES ADVISOR): Bronchitis vs COPD. Flu is negative. Amoxil and Prednisone 60mg x 5 days. Tessalon for cough Start Advair. Albuterol prn Flu-like symptoms 09/22/2019 09/26/2019 Assessment & Plan (09/22/2019 9:15 PM OUTBOUND SALES ADVISOR): Negative flu. See bronchitis Other fatigue 09/15/2019 09/26/2019 Assessment & Plan (09/15/2019 4:15 PM OUTBOUND SALES ADVISOR): Probably multifactorial. Check labs and followup to re-evaluate Cough 09/15/2019 10/17/2022 Assessment & Plan (05/03/2022 8:57 PM CDT): See COPD Assessment & Plan (09/26/2019 8:53 AM OUTBOUND SALES ADVISOR): Improving. Assessment & Plan (09/22/2019 9:08 PM OUTBOUND SALES ADVISOR): See bronchitis Assessment & Plan (09/15/2019 4:14 PM OUTBOUND SALES ADVISOR): See copd BMI 26.0-26.9,adult 09/10/2019 01/21/20 20 Assessment & Plan (11/24/2019 10:44 PM CDT): Weight/BMI is in healthy range. Continue healthy lifestyle to maintain. Assessment & Plan (09/26/2019 8:52 AM OUTBOUND SALES ADVISOR): Weight/BMI is in healthy range. Continue healthy lifestyle to maintain. Assessment & Plan (09/10/2019 2:15 PM OUTBOUND SALES ADVISOR): Weight/BMI is in healthy range. Continue healthy [...] of continued A1c control to minimize the fdc effects of diabetes. Bring accuchecks to office [...] reassess. Assessment & Plan (10/23/2020 6:50 PM OUTBOUND SALES ADVISOR): This is a significant, separately identifiable problem that was evaluated and managed on the same day as the wellness exam Stressed importance of continued A1c control to minimize the fdc effects of diabetes. Bring accuchecks to office [...] of continued A1c control to minimize the fdc effects of diabetes. Bring accuchecks to office [...] of continued A1c control to minimize the remote computer terminal operator effects of diabetes. Bring accuchecks to office when instructed to do so. Check A1c about every 3-6 months. Take medication as prescribed. Get annual eye exam. Encouraged DIANELYS/Statin if able to tolerate. Encouraged weight control and encouraged diabetic diet and exercise. Assessment & Plan (09/26/2019 8:52 AM OUTBOUND SALES ADVISOR): Stressed importance of continued A1c control to minimize the fdc effects of diabetes. Bring accuchecks to office when instructed to do so. Check A1c about every 3-6 months. Take medication as prescribed. Get annual eye exam. Encouraged DIANELYS/Statin if able to tolerate. Encouraged weight control and encouraged diabetic diet and exercise. Continue Metformin Assessment & Plan (06/07/2019 2:17 PM CDT): Stressed importance of continued A1c control to minimize the remote computer terminal operator effects of diabetes. Bring accuchecks to office [...] statin Assessment & Plan (09/26/2021 2:26 PM OUTBOUND SALES ADVISOR): Stressed importance of continued A1c control to minimize the remote computer terminal operator effects of diabetes. Bring accuchecks to office [...] atorvastatin Assessment & Plan (10/21/2020 9:20 PM OUTBOUND SALES ADVISOR): Encouraged patient to follow fat/low chol diet [...] 09/10/19 Assessment & Plan (07/25/2019 9:30 PM OUTBOUND SALES ADVISOR): Weight/BMI is in healthy range. Continue healthy [...] losartan Assessment & Plan (09/26/2021 2:26 PM OUTBOUND SALES ADVISOR): Bp is stable/in acceptable range for any co-morbidities. Encouraged to limit sodium intake and exercise for weight control. Continue losartan 25 Assessment & Plan (03/18/2021 12:59 PM CDT): Bp is stable/in acceptable range for any co-morbidities. Encouraged to limit sodium intake and exercise for weight control. Continue losartan Assessment & Plan (10/23/2020 6:53 PM OUTBOUND SALES ADVISOR): Systolic is elevated by diastolic is low. [...] of continued A1c control to minimize the remote computer terminal operator effects of diabetes. Bring accuchecks to office when instructed to do so. Check A1c about every 3-6 months. Take medication as prescribed. Get annual eye exam. Encouraged DIANELYS/Statin if able to tolerate. Encouraged weight control and encouraged diabetic diet and exercise. Restart insulin to get better control. Assessment & Plan (02/02/2020 4:28 PM CDT): Stressed importance of continued A1c control to minimize the remote computer terminal operator effects of diabetes. Bring accuchecks to office [...] of continued A1c control to minimize the fdc effects of diabetes. Bring accuchecks to office [...] prior. Assessment & Plan (09/26/2019 8:52 AM OUTBOUND SALES ADVISOR): Bp is stable/in acceptable range for any [...] Encounters Date Type Department Care Team Description 05/07/2025 Telephone [facility] [address] [place] [address] Isis Boo PA Medical Question/Miscellane ous 04/30/2025 11:30 AM CDT Office Visit [place] [address] [place] [address] Isis Boo PA Weight loss (Primary Dx); Colon cancer screening; BMI 20.0-20.9, adult; Hyperlipidemia associated with type 2 diabetes mellitus (HCC) 04/17/2025 Orders Only [address] [place] [phone] ProviderCarla MD 04/09/2025 10:30 AM CDT Office Visit 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); Alcohol dependence in remission (HCC); Stage 2 chronic kidney disease 03/27/2025 Nurse Triage [address] [place] [phone] Isis Boo PA 03/17/2025 1:00 PM CDT Treatment [facility] [address] [place] [address] 03/12/2025 Telephone [facility] [address] [place] [address] Isis oBo PA 03/11/2025 Telephone [facility] [address] [place] [address] Isis Boo PA Med Refill 02/20/2025 Telephone [place] [address] [place] [address] Isis Boo PA Medical Question/Miscellane ous 02/17/2025 10:[address] [facility] 2 Radiation Oncology [address] [place] [phone] Brooks Pennington MD 02/17/[address] [facility] 2 Radiation Oncology [address] [place] [phone] Brooks Pennington MD 02/17/2025 Orders Only RAD ONC TREATMENTS Miscellaneous, Not In File 02/14/2025 10:[address] [facility] 2 Radiation Oncology [address] [place] [phone] 02/14/[address] 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 2 Radiation Oncology [address] [place] [phone] 02/13/2025 Orders Only RAD ONC TREATMENTS Miscellaneous, Not In File 02/12/2025 10:[address] [facility] 2 Radiation Oncology [address] [place] [phone] 02/12/2025 Orders Only RAD ONC TREATMENTS Miscellaneous, Not In File 02/10/2025 10:[address] [facility] 2 Radiation Oncology [address] [place] [phone] 02/10/2025 Orders Only RAD ONC TREATMENTS Miscellaneous, Not In File from Last 3 Months Immunizations Immunization Administration Dates Next Due Influenza, Quadrivalent, Hig [...] Bilateral INGUINAL HERNIA REPAIR x3 SINUS SURGERY patient denies ADENOIDECTOMY PROSTATE BIOPSY patient denied TONSILLECTOMY APPENDECTOMY as a child FEMORAL BYPASS 04/21/2022 - 05/20/2022 Left VASCULAR SURGERY 07/20/2022 Left left fem-pop bypass graft thrombosis COLONOSCOPY ABOVE KNEE LEG AMPUTATION 09/12/2022 Left OTHER SURGICAL HISTORY MDL with excision of right vocal cord tumor done 11/27/24 Medical History Medical History Date Comments HTN (hypertension) COPD (chronic obstructive pulmonary disease) CKD (chronic kidney disease) History of alcohol abuse Type 2 diabetes mellitus 2004 NIIDM Full dentures Wears glasses Pain left leg History of blood transfusion whe n he was 13 yrs old History of stomach ulcers Pulmonary nodules Hyperlipidemia GERD (gastroesophageal reflux disease) controlled Ambulates with cane Wheezing DDD (degenerative disc disease), lumbar PAD (peripheral artery disease) Diabetes (HCC) Hoarseness of voice Vocal cord mass Right side Cancer (HCC) Family History Medical History Relation Name Comments Cancer Brother Heart disease Brother Cancer Father's Brother Heart disease Maternal Grandfather Heart disease Maternal Grandmother Cancer Mother Diabetes Mother Cancer Mother's Brother Cancer Mother's Sister Heart disease Paternal Grandfather Heart disease Paternal Grandmother Cancer Sister Diabetes Son Relation Name Status Comments Brother Father Father's Brother Maternal Grandfather Maternal Grandmother Mother Mother's Brother Mother's Sister Paternal Grandfather Paternal Grandmother Sister Son Social History Tobacco Use Types Packs/Day Years Used Date Smoking Tobacco: Former Cigarettes 0.5 50.4 0 04/19/1972 - 04/19/2022 Passive Smoke Exposure: Past Smokeless Tobacco: Former Tobacco Cessation:Counseling Given: Not Answered Alcohol Use Standard Drinks/Week Comments Not Currently [...] materials from doctor or pharmacy Never 10/18/2022 [facility] Utilities Answer Date Recorded In the past 12 months has e [employer], gas, oil, or water [employer] threatened to shut off services in your [...] any clubs o r organizations such as gnosticist groups, unions, fraternal or athletic groups, or [...] place to sleep or slept in a usp (including now)? No 05/18/2023 AUDIT-C Answer Date [...] on file Legal Sex Male 5:57 PM OUTBOUND SALES ADVISOR Gender Identity Not on file Sexual Orientation Not on file Obstetrics History Last Filed Vital Signs Vital Sign Reading Time Taken Comments Blood Pressure 110/68 04/30/2025 11:22 AM CDT Pulse 82 04/30/2025 11:22 AM CDT Temperature 36.2 C (97.2 F) 11/27/2024 11:25 AM CDT Respiratory Rate 18 12/06/2024 9:06 AM CDT Oxygen Saturation 96% 04/30/2025 11:22 AM CDT Inhaled Oxygen Concentration - - Weight 58.5 kg (129 lb) 04/30/2025 11:22 AM CDT Height 170.2 cm (5' 7) 04/30/2025 11:22 AM CDT Body Mass Index 20.2 04/30/2025 11:22 AM CDT Plan of Treatment Health Maintenance Due Date Last Done Comments Hepatitis C Screening 1950 DTaP/Tdap/Td Vaccine (1 - Tdap) 1959 Hepatitis B Screening 1966 Zoster Vaccine (1 of 2) 09/18/2012 07/24/2012 Abdominal Aortic Aneurysm (A AA) Screen 2013 Foot Exam 06/06/2020 06/06/2019 Covid-19 Vaccine (3 - Modern a risk series) 02/16/2021 01/19/2021, 12/22/2020 Lung Cancer Screening 11/02/2021 11/02/2020 Hemoglobin A1C 03/30/2025 09/30/2024, 04/23, 01/18/2024, Additional history exists Influenza Vaccine (#1) 2025 , 09/02/2021, 08/24/2020, Additional history exists eGFR 05/20/2025 05/20/2024, 12/21, 02/16/2023, Additional history exists Albumin Creatinine Ratio, Urine 09/30/2025 09/30/2024, 01/18/2024, 12/31/2022, Additional history exists Lipid Panel 09/30/2025 09/30/2024, 04/23, 01/18/2024, Additional history exists Well Visit 65+ 04/01/2026 04/01/2025, 10/19, 06/25/2024, Additional history exists Dilated Eye Exam 04/17/2026 04/17/2025, , 03/04/2020, Additional history exists Depression Screening 04/30/2026 04/30/2025, 04/01/2025, 10/28/2024, Additional history exists Fall Risk Assessment 04/30/2026 04/30/2025, 04/01/2025, 12/19/2024, Additional history exists Colon Cancer Screening-CT Colonography Discontinued 08/27/2020 Colon Cancer Screening-Colonoscopy Discontinued 08/27/2020 Colon Cancer Screening-DNA Stool Discontinued 08/27/19 Colon Cancer Screening-FIT Discontinued 08/27/2020 Colon Cancer Screening-FOBT Discontinued 08/27/2020 Colon Cancer Screening-Sigmoidoscopy Discontinued 08/27/2020 Colorectal Cancer Screening Discontinued Pneumococcal vaccine 65+ Completed 03/18/2021, 05/21 Medical Devices Implanted Type Area Manager Personal Device Identifier Shelf Expiration Date Model / Serial / Lot [employer] Unadilla 6mm 80cm 60cm Removable Ring Stretch Thin Wall Graft [id number] - [id number] - [id number] Implanted:Qty: 1 on 05/05/2022 by Boo Alaniz MD at [facility] Left: Femur [employer] 09/19/2025 [id number] / [id number] / [employer] Hemashield 6x2in 2 Velour Knitted Impregnated Nonsealed Tapered [id number] - [id number] Implanted:Qty: 1 on 05/05/2022 by Boo Alaniz MD at [facility] Left: Femur [employer] 06/20/2026 [id number] / [id number] Procedures Procedure Name Priority Date/Time Associated Diagnosis Comments HM DIABETES EYE EXAM Routine 04/17/2025 3:30 PM CDT RAD ONC ARIA SESSION SUMMARY 02/17/2025 10:56 AM CDT RAD ONC ARIA SESSION SUMMARY 02/14/2025 10:58 AM CDT RAD ONC ARIA SESSION SUMMARY 02/13/2025 11:05 AM CDT RAD ONC ARIA SESSION SUMMARY 02/12/2025 10:54 AM CDT RAD ONC ARIA SESSION SUMMARY 02/10/2025 11:17 AM CDT HEMOGLOBIN A1C Routine 09/30/2024 Hyperlipidemia associated with type 2 diabetes mellitus (HCC) LIPID PANEL Routine 09/30/2024 Hyperlipidemia associated with type 2 diabetes mellitus (HCC) ALBUMIN CREATININE RATIO, URINE Routine 09/30/2024 Hyperlipidemia associated with type 2 diabetes mellitus (HCC) COMPREHENSIVE METABOLIC PANEL Routine 05/20/2024 Hypertension associated with diabetes (HCC) CT LUNG CANCER SCREENING Schedule Routine, Read Routine (OP Routine) 11/02/2020 History of tobacco abuse COLONOSCOPY Routine 08/27/2020 from Last 3 Months or Most Recently Relevant to Health Maintenance Results * DIABETES EYE EXAM (04/17/2025 3:30 PM CDT) SCRIBED DIABETIC DILATED EYE EXAM Normal Impressions Natty NewsomeRYNE - 04/17/2025 3:30 PM CDT No diabetic retinopathy detected us Historical Provider HEALTH MAINTENANCE Edited Result - Final * RAD ONC ARIA SESSION SUMMARY (02/17/2025 10:56 AM CDT) Course Name C1_Larynx_ 2024 ARIA Course Plan Date 12/19/2024 12:12 PM ARIA Elapsed Days 42 ARIA Treatment Start Date 01/06/2025 ARIA Treatment Site [id number] ARIA Dose Given To Date (cGy) 6,300 ARIA Session Dosage Given (cGy) 225 ARIA Plan ID [id number] ARIA Fractions Treated 28 ARIA Prescribed Dose Per Fraction (cGy) 225 ARIA Prescribed Total Dose (cGy) 6,300 ARIA 02/17/2025 10:5 6 AM CDT us Not In File Miscellaneous RADIATION ONCOLOGY ORD ERABLES Final Result CORRY * RAD ONC ARIA SESSION SUMMARY (02/14/2025 10:58 AM CDT) Course Name C1_Larynx_ 2024 ARIA Course Plan Date 12/19/2024 12:12 PM ARIA Elapsed Days 39 ARIA Treatment Start Date 01/06/2025 ARIA Treatment Site [id number] ARIA Dose Given To Date (cGy) 6,075 ARIA Session Dosage Given (cGy) 225 ARIA Plan ID [id number] ARIA Fractions Treated 27 ARIA Prescribed Dose Per Fraction (cGy) 225 ARIA Prescribed Total Dose (cGy) 6,300 ARIA 02/14/2025 10:5 8 AM CDT us Not In File Miscellaneous RADIATION ONCOLOGY ORD ERABLES Final Result ARIA * RAD ONC ARIA SESSION SUMMARY (02/13/2025 11:05 AM CDT) Course Name C1_Larynx_ 2024 ARIA Course Plan Date 12/19/2024 12:12 PM ARIA Elapsed Days 38 ARIA Treatment Start Date 01/06/2025 ARIA Treatment Site [id number] ARIA Dose Given To Date (cGy) 5,850 ARIA Session Dosage Given (cGy) 225 ARIA Plan ID [id number] ARIA Fractions Treated 26 ARIA Prescribed Dose Per Fraction (cGy) 225 ARIA Prescribed Total Dose (cGy) 6,300 ARIA 02/13/2025 11:0 5 AM CDT us Not In File Miscellaneous RADIATION ONCOLOGY ORD ERABLES Final Result ARIA * RAD ONC ARIA SESSION SUMMARY (02/12/2025 10:54 AM CDT) Course Name C1_Larynx_ 2024 ARIA Course Plan Date 12/19/2024 12:12 PM ARIA Elapsed Days 37 ARIA Treatment Start Date 01/06/2025 ARIA Treatment Site [id number] ARIA Dose Given To Date (cGy) 5,625 ARIA Session Dosage Given (cGy) 225 ARIA Plan ID [email or web address] ARIA Fractions Treated 25 ARIA Prescribed Dose Per Fraction (cGy) 225 ARIA Prescribed Total Dose (cGy) 6,300 ARIA 02/12/2025 10:5 4 AM CDT us Not In File Miscellaneous RADIATION ONCOLOGY ORD ERABLES Final Result CORRY * RAD ONC ARIA SESSION SUMMARY (02/10/2025 11:17 AM CDT) Course Name C1_Larynx_ 2024 ARIA Course Plan Date 12/19/2024 12:12 PM ARIA Elapsed Days 35 ARIA Treatment Start Date 01/06/2025 ARIA Treatment Site [id number] ARIA Dose Given To Date (cGy) 5,400 ARIA Session Dosage Given (cGy) 225 ARIA Plan ID [email or web address] ARIA Fractions Treated 24 ARIA Prescribed Dose Per Fraction (cGy) 225 ARIA Prescribed Total Dose (cGy) 6,300 ARIA 02/10/2025 11:1 7 AM CDT us Not In File Miscellaneous RADIATION ONCOLOGY ORD ERABLES Final Result ARIA * (ABNORMAL) Albumin Creatinine Ratio, Urine (09/30/2024) SCRIBED Creatinine, Urine 32.9(A) 0 - 0 EXTERNAL LAB SCRIBED Microalbumin 66.2(A) 0 - 16.7 EXTERNAL LAB SCRIBED Microalb/Creat Ratio 201.2(A) 0 - 30 EXTERNAL LAB Urine 09/30/2024 Isis HOFFMANN LAB URINE ORDERABLES Final Result Performing Organization Address [facility] Co de Phone Number EXTERNAL LAB * (ABNORMAL) Hemoglobin A1c (09/30/2024) SCRIBED Hemoglobin A1c 7.2(A) 5.7 - 6.5 % EXTERNAL LAB Blood 09/30/2024 Isis HOFFMANN LAB BLOOD ORDERABLES Final Result Performing Organization Address [facility] de Phone Number EXTERNAL LAB * (ABNORMAL) Lipid panel (09/30/2024) SCRIBED Cholesterol, Total 196 0 - 200 EXTERNAL LAB SCRIBED HDL 38(A) 40 - 60 EXTERNAL LAB SCRIBED LDL EXTERNAL LAB Comment:Pending SCRIBED Triglycerides 104 0 - 150 EXTERNAL LAB Blood 09/30/2024 Isis HOFFMANN LAB BLOOD ORDERABLES Edite d Result - Final Performing Organization Address [facility] de Phone Number EXTERNAL LAB * (ABNORMAL) [...] - 59 Units/L EXTERNAL LAB SCRIBED eGFR 0 0 - 0 EXTERNAL LAB SCRIBED eGFR 61 60 - 100 EXTERNAL LAB Blood 05/20/2024 Isis HOFFMANN LAB BLOOD ORDERABLES Final Result EXTERNAL LAB * CT Lung Cancer Screening (11/02/2020) Anatomical Region Laterality Modality Chest N/A Computed Tomogra phy Isis HOFFMANN IMG CT PROCEDURES Final Re sult * Colonoscopy (08/27/2020) Anatomical Region Laterality Modality Other Pavel Barron MD ENDOSCOPY PROCEDUR ES Final Result from Last 3 Months or Most Recently Relevant to Health Maintenance Insurance [facility] ADVANTAGE CHOICE PPO [facility] [employer]GM Advance Directives For more information, please contact: [phone] * Full Code (Latest Code Status on [...] 12:44 PM 04/13/2022 5:50 PM Care Teams Process Control Engineer Relationship Specialty Start Date End Date Isis Boo PA [address] [facility] [address] [place] [address] PCP - General Internal Medicine 06/06/19 Angel Hernandez MD [address] [facility] [address] [place] [address] Consulting Physician Cardiology 04/29/22 Gabino Paez MD [address] [facility] [address] [place] [address] Consulting Physician Pulmonary Disease 05/03/22 Boo Alaniz MD [address] [facility] [address] [place] [address] Consulting Physician Vascular Surgery 09/15/22 Jim Pennington II, MD [address] [place] [address] Surgeon Otolaryngology 11/27/24 [place] [address] [place] [id number] Radiation Oncologist Radiation Oncology 12/10/24
[2025-05-12 10:00] VITALS: BP 117/61; PULSE 90; RESP 18; TEMP 36.3; O2SAT 97
[2025-05-12] MEDS: LACTATED RINGERS 1,000 ML 150 ML IV CONT (10:31)
--- NOTE | 2025-05-12 10:35 | SUR.PREOP ---
Patient's blood sugar is 442. Dr. Negron notified at this time. He will speak to the patient about transfer to the ER due to increased blood sugar. No orders received at this time.
--- NOTE | 2025-05-12 10:48 | WPDANESEPPF ---
Anes - Initial Pre Proc Eval Procedure: Operation Date: 05/12/25 11:30 Proposed Procedures p Screening Colonoscopy - Pavel Aaron MD Date/Time: 05/12/25 10:48 Surgeon: Pavel Aaron MD Pre Op Diagnosis: Screening Patient Data Age: 74 Gender: M Height: 1.7 m Weight: 61.5 kg Last Vital Signs Temp 97.3 F L 05/12/25 10:00 Pulse 90 05/12/25 10:00 Resp 18 05/12/25 10:00 BP 117/61 05/12/25 10:00 Pulse Ox 97 05/12/25 10:00 O2 Del Method Room Air 05/12/25 10:00 Allergies Allergy/AdvReac Type Severity Reaction Status Date / Time No Known Allergies Allergy Verified 05/12/25 10:25 Home Medications ?Medication ?Instructions ?Recorded ?Confirmed ?Type albuterol sulfate 90 mcg/actuation 2 inh inhalation Q4H PRN Shortness 11/18/19 02/24/25 History aerosol inhaler Of Breath losartan 25 mg tablet 25 mg PO DAILY 11/18/19 05/12/25 History metformin 500 mg tablet 500 mg PO BID 11/18/19 05/12/25 History omega-3 250 bj-upr-bdr-lutein 2.5 1 cap PO BID 11/18/19 05/12/25 History mg-zeaxanthin 0.5 mg capsule ([facility]) pantoprazole 40 mg tablet,delayed 40 mg PO BID 11/18/19 05/12/25 History release Jardiance 10 mg PO QAM 09/16/22 05/12/25 History aspirin 81 mg tablet 81 mg PO DAILY 09/16/22 05/12/25 History clopidogrel 75 mg tablet 75 mg PO DAILY 09/16/22 05/12/25 History cyclobenzaprine 5 mg tablet 5 mg PO HS PRN Muscle Pain 09/16/22 02/24/25 History meloxicam 7.5 mg tablet 7.5 mg PO DAILY 09/16/22 05/12/25 History atorvastatin 80 mg tablet 80 mg PO DAILY #30 tabs 09/20/22 05/12/25 Rx docusate sodium 100 mg capsule 100 mg PO Q12H PRN Constipation 09/20/22 02/24/25 Rx #60 caps gabapentin 100 mg capsule 100 mg PO TID #90 caps 09/20/22 05/12/25 Rx hydrocodone 5 mg-acetaminophen 325 2 tablet PO Q6H PRN Pain Rated 4-6 09/20/22 02/24/25 Rx mg tablet #20 tabs polyethylene glycol 3350 17 gram 17 g PO QAM PRN Constipation #14 ea 09/20/22 02/24/25 Rx oral powder packet (Miralax) sodium chloride 0.65 % nasal spray 2 spray intranasal Q6HR PRN 09/20/22 02/24/25 Rx aerosol (Saline Mist) Congestion #44 mL umeclidinium 62.5 mcg-vilanterol 1 ea inhalation DAILYRT #60 ea 09/20/22 02/24/25 Rx 25 mcg/actuation powdr for inhalation (Anoro Ellipta) Laboratory Tests 05/12/25 10:22 POC Capillary Glucose 442 H mg/dl (65-105) Patient hx anesthesia problems: none Family hx anesthesia problems: none Results Review: All pre-operative results and documents have been reviewed as part of the pre-operative evaluation. [facility] Past Medical History Medical History Colon cancer screening Back pain Gastric ulcer Arthritis GERD (gastroesophageal reflux disease) Bilateral inguinal hernia COPD (chronic obstructive pulmonary disease) HLD (hyperlipidemia) HTN (hypertension) Diabetes Surgical History Surgical History Hx of appendectomy Hx of bilateral inguinal hernia repair Hx of tonsillectomy Family History Family History Mother Family history of diabetes mellitus in first degree relative Sibling Family history of heart disease in male family member before age 55 Family history of lung cancer Family history of diabetes mellitus in first degree relative Breast cancer Father Alcohol abuse Other Diabetes mellitus Family history of malignant neoplasm Social History Social History Social History: The patient stated that he was [place] 4 years old when he started smoking. He said he used to drink heavily but no longer drinks heavily. He lives with his any does not have any biological children. 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 Smoking packs per day: 1.5 Smoking cigarettes per day: 30.0 Years smoked: 65 Smoking pack-years: 97.50 Smoking status: Former smoker Tobacco type: cigarettes Second hand tobacco smoke exposure: Yes Smoking end date: 10/15/19 Additional smoking assessment comments: pt states he starting drinking and smoking at the age of 4 Alcohol intake: current Substance use: former Substance use type: does not use Other substance usage details: WHEN IN [place] Living arrangements: with family Occupation/Education: retired Gender identity (if verbalized by the patient): Male Spiritual care concerns: No Agree to blood products: Yes Anes - Eval Final PreProcedure Day of Procedure 05/12/25 10:48 Patient weight: normal Lungs: normal air movement Airway: Mallampati scale class II Neurological: alert and oriented Last oral intake: >/= 8 hours ASA classification: IV Emergent: no Anesthetic plan: delay Results Review: All pre-operative results and documents have been reviewed as part of the pre-operative evaluation. Pt w critical FSBS 442 in preop area after being off meds for several days for unclear reasons. Discussed w Dr England and GI staff. Pt needs management of critical value at this time and will be transferred to ER for mgt and further assessment. Informed Consent: The patient's anesthetic plan and its attendant risks and benefits were discussed with the patient/family/POA. Questions were solicited and answers provided to the satisfaction of the patient/family/POA.
--- NOTE | 2025-05-12 10:54 | SUR.PREOP ---
After discussion with the patient he was agreeable to transfer to the ER at this time. Patient was transferred to the ER via wheelchair with IV saline locked.
== END 2025-05-12 10:50 | disposition home or self-care (01) ==
PROVIDERS: PCP Physician Assistant; Referring Provider Physician Assistant; Visit Provider Internal Medicine Gastroenterology
PROC: 0DJD8ZZ Inspection of Lower Intestinal Tract, Via Natural or Artificial Opening Endoscopic (ICD-10-PCS; CPT 45378; principal; 2025-05-12 11:30)
DX: Z12.11 Encounter for screening for malignant neoplasm of colon (principal); Z53.09 Procedure and treatment not carried out because of other contraindication; E78.5 Hyperlipidemia, unspecified; I10 Essential (primary) hypertension; E11.65 Type 2 diabetes mellitus with hyperglycemia; J44.9 Chronic obstructive pulmonary disease, unspecified; K21.9 Gastro-esophageal reflux disease without esophagitis; M19.90 Unspecified osteoarthritis, unspecified site; Z87.11 Personal history of peptic ulcer disease; Z79.51 Long term (current) use of inhaled steroids; Z79.84 Long term (current) use of oral hypoglycemic drugs; Z79.82 Long term (current) use of aspirin; Z79.891 Long term (current) use of opiate analgesic; Z79.02 Long term (current) use of antithrombotics/antiplatelets; Z98.890 Other specified postprocedural states; Z87.891 Personal history of nicotine dependence; Z80.1 Family history of malignant neoplasm of trachea, bronchus and lung; Z80.3 Family history of malignant neoplasm of breast; Z82.49 Family history of ischemic heart disease and other diseases of the circulatory system
CPT/HCPCS: 82948; 99213; G0463; J7120

== ENCOUNTER 2025-05-12 10:50 | Emergency (ER) | payer OTHER, SELFPAY ==
[2025-05-12 10:59] VITALS: BP 108/59; PULSE 77; RESP 18; TEMP 36.1; O2SAT 95
--- OUTSIDE RECORDS SUMMARY | 2025-05-12 12:00 | XMS_ITS | Clinical Summary ---
Author Organization [facility] [address] [facility] Address [address] [place] [address] Care Team Providers Care Coding Educator Name Role Phone Isis Boo Primary Care Provider [phone] Angel Hernandez MD Unavailable Gabino Paez MD Unavailable [phone] Boo Alaniz MD Unavailable Gorge JUAREZ MD, Jim Bright Unavailable [phone] Brooks Pennington MD Unavailable [phone] Allergies No known active allergies Medications [...] 08/07/2024 Assessment & Plan (08/17/2024 1:42 AM GUIDANCE COUNSELOR): Patient has noticed a hoarseness to his [...] 08/07/2024 Assessment & Plan (08/17/2024 1:43 AM GUIDANCE COUNSELOR): Patient has noticed a hoarseness to his [...] maintain. Assessment & Plan (08/17/2024 1:40 AM GUIDANCE COUNSELOR): Weight/BMI is in healthy range. Continue healthy lifestyle to maintain. Assessment & Plan (06/25/2024 8:13 AM GUIDANCE COUNSELOR): Weight/BMI is in healthy range. Continue healthy lifestyle to maintain. Fatigue 06/25/2024 Assessment & Plan (06/25/2024 6:41 PM GUIDANCE COUNSELOR): Probably multifactorial. Check labs and followup to re-evaluate Medicare annual wellness visit, subsequent 07/29 Assessment & Plan (06/25/2024 6:38 PM GUIDANCE COUNSELOR): Encouraged healthy lifestyle, good nutrition and exercise. [...] chart Assessment & Plan (07/29/2023 9:21 PM GUIDANCE COUNSELOR): Encouraged healthy lifestyle, good nutrition and exercise. Encouraged Calcium and Vitamin D and weight bearing exercise for bone health. Reviewed immunizations Reviewed age appropirate screenings. History of left above knee amputation 10/17/2022 Overview (10/17/2022): 08/2022 Dr. Alaniz Assessment & Plan (11/10/2024 11:36 PM CDT): Status post ubpxe-cww-yfzh amputation on the left by Dr. Alaniz. Continue Plavix and aspirin and statin. States he is [facility] with the [facility] to help get his [facility] to fit more comfortably. Assessment & Plan (06/25/2024 6:38 PM GUIDANCE COUNSELOR): Status post denuf-hmj-bund amputation on the left by Dr. Alaniz. Continue Plavix and aspirin and statin. States he is not happy with prosthesis in his more happy utilizing his crutches to get around Assessment & Plan (03/24/2024 10:38 PM CDT): Status post tseed-beg-gbeu amputation due to peripheral vascular disease. Continue with statin, Plavix and aspirin. Assessment & Plan (07/29/2023 9:21 PM GUIDANCE COUNSELOR): Status post above-knee amputation. Continue per vascular, [...] his essence referral for him to contact [facility] to get started. If he has problems he is to contact Dr. Alaniz's office. Seems to verbalize understanding of the plan Assessment & Plan (10/17/2022 8:43 AM GUIDANCE COUNSELOR): Status post left above-knee amputation by Dr. [...] 10/17/2022 Assessment & Plan (06/25/2024 6:38 PM GUIDANCE COUNSELOR): Phantom pain has subsided without any additional [...] monitor Assessment & Plan (10/17/2022 8:43 AM GUIDANCE COUNSELOR): Status post left above-knee amputation by Dr. [...] control. 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 Assessment & Plan (09/06/2022 8:48 AM GUIDANCE COUNSELOR): Impression: Patient is status post left femoral [...] has non-reconstructible vascular disease therefore a left bndwk-ayq-hteo amputation was recommended. Risks of the procedure communicate with the patient to include bleeding, infection, injury, further surgery, and . Patient understands these risks and wishes to proceed. [place] were removed from left groin and left medial calf. Assessment & Plan (07/18/2022 1:58 PM GUIDANCE COUNSELOR): Impression: Acute onset worsening claudication following recent [...] 05/05/2022 Assessment & Plan (06/25/2024 6:37 PM GUIDANCE COUNSELOR): Patient with PVD. Continue with the Plavix and aspirin. Continue with the Lipitor 80 Assessment & Plan (03/24/2024 10:36 PM CDT): Patient has peripheral vascular disease. Continue to follow with vascular. He has already had lower leg amputation due to the peripheral vascular disease Assessment & Plan (10/17/2022 8:42 AM GUIDANCE COUNSELOR): Continue per vascular surgery. He is on Plavix. Still strongly encouraged smoking cessation Assessment & Plan (10/06/2022 11:43 AM GUIDANCE COUNSELOR): Status post left above knee amputation. Healed. 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 Patient is [...] time. Assessment & Plan (08/16/2022 4:20 PM GUIDANCE COUNSELOR): Impression: Known thrombosed left fem-pop bypass diagnosis [...] 80 Assessment & Plan (06/25/2024 6:38 PM GUIDANCE COUNSELOR): Encouraged patient to follow low fat/low chol diet like the Mediterranean diet. Increase good fats in the diet. Increase exercise. Monitor labs as needed. Continue Lipitor 80 Assessment & Plan (03/24/2024 10:36 PM CDT): Stressed importance of continued A1c control to minimize the jail effects of diabetes. Bring accuchecks to office [...] 10 Assessment & Plan (07/29/2023 9:21 PM GUIDANCE COUNSELOR): Encouraged patient to follow low fat/low chol [...] 80 Assessment & Plan (10/17/2022 8:41 AM GUIDANCE COUNSELOR): Encouraged patient to follow low fat/low chol [...] 25 Assessment & Plan (06/25/2024 6:42 PM GUIDANCE COUNSELOR): This is a significant, separately identifiable problem that was evaluated and managed on the same day as the wellness exam Bp is stable/in acceptable range for any co-morbidities. Encouraged to limit sodium intake and exercise for weight control. Continue losartan 25 Stressed importance of continued A1c control to minimize the roasterman effects of diabetes. Bring accuchecks to office [...] his Farxiga including from the [facility] versus [place] and me assistance versus him pain for it as he states he did get a little bit of extra money. Advised I will go ahead and prescribe it and if he needs assistance we would be glad to help him with a.c. and knee he would just need to bring in the correct paperwork. Encouraged him to talk with his VA authorization representative to see if he could get [...] 25 Assessment & Plan (07/29/2023 9:20 PM GUIDANCE COUNSELOR): Bp is stable/in acceptable range for any co-morbidities. Encouraged to limit sodium intake and exercise for weight control. Stressed importance of continued A1c control to minimize the roasterman effects of diabetes. Bring accuchecks to office [...] 25 Assessment & Plan (10/17/2022 8:41 AM GUIDANCE COUNSELOR): Bp is stable/in acceptable range for any co-morbidities. Encouraged to limit sodium intake and exercise for weight control. Continue losartan 25 Assessment & Plan (08/16/2022 4:22 PM GUIDANCE COUNSELOR): Impression: Stable chronic hypertension. Plan: Medications reviewed and recommend continuing daily antihypertensive regimen as directed by patient's primary care physician. Assessment & Plan (06/14/2022 5:07 PM CDT): Bp is stable/in acceptable range for any co-morbidities. Encouraged to limit sodium intake and exercise for weight control. 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 Bring accuchecks to office when instructed to do so. Check A1c about every 3-6 months. Take medication as prescribed. Get annual eye exam. Encouraged DIANELYS/Statin if able to tolerate. Encouraged weight control and encouraged diabetic diet and exercise. Patient has peripheral artery disease as well as peripheral arterial disease. Assessment & Plan (07/29/2023 9:21 PM GUIDANCE COUNSELOR): Peripheral artery disease in the setting of diabetes that has resulted in uzccs-uzk-mtpq amputation of the left leg. Strongly encouraged medical management as instructed. Assessment & Plan (01/03/2023 9:22 PM CDT): Stressed importance of continued A1c control to minimize the roasterman effects of diabetes. Bring accuchecks to office [...] amputation. Assessment & Plan (10/17/2022 8:42 AM GUIDANCE COUNSELOR): Stressed importance of continued A1c control to minimize the jail effects of diabetes. Bring accuchecks to office [...] of continued A1c control to minimize the jail effects of diabetes. Bring accuchecks to office [...] 12/21/2020 Assessment & Plan (10/17/2022 8:41 AM GUIDANCE COUNSELOR): Stressed importance of continued A1c control to minimize the jail effects of diabetes. Bring accuchecks to office [...] 02/02/2020 Assessment & Plan (09/29/2021 12:34 PM GUIDANCE COUNSELOR): Xray R shoulder today - he is taking to [facility]. Will notify him of results as available. [...] 07/25/2019 Assessment & Plan (07/25/2019 3:08 PM GUIDANCE COUNSELOR): Infection vs pain from thick large nail growing into the skin. Start keflex. Has followup scheduled with Dr. Fraga next week. Await her recommendations. Laryngopharyngeal reflux (LPR) 06/07/2019 Assessment & Plan (06/25/2024 6:31 PM GUIDANCE COUNSELOR): Continue PPI p.r.n. Assessment & Plan (03/24/2024 10:38 PM CDT): Continue pantoprazole p.r.n. Assessment & Plan (07/29/2023 9:19 PM GUIDANCE COUNSELOR): Reviewed with patient if his reflux symptoms are controlled he can just use the pantoprazole p.r.n.. Assessment & Plan (10/17/2022 8:39 AM GUIDANCE COUNSELOR): Continue PPI p.r.n. Assessment & Plan (06/14/2022 5:06 PM CDT): Continue PPI p.r.n. Assessment & Plan (09/26/2021 2:26 PM GUIDANCE COUNSELOR): Continue PPI Assessment & Plan (03/18/2021 1:01 PM CDT): Continue ppi Assessment & Plan (10/21/2020 9:20 PM GUIDANCE COUNSELOR): Continue PPI Assessment & Plan (03/14/2020 7:27 PM CDT): Continue Protonix Assessment & Plan (02/02/2020 4:30 PM CDT): Continue PPI Assessment & Plan (06/07/2019 2:12 PM CDT): On Protonix bid. No active bleeding Stop smoking. Avoid alcohol. Avoid NSAIDs. Onychomycosis 06/07/2019 Assessment & Plan (02/02/2020 4:31 PM CDT): Continue per program support specialist Assessment & Plan (06/07/2019 2:16 PM CDT): This is a significant, separately identifiable problem that was evaluated and managed on the same day as the wellness exam Has been on Lamisil in the past without success. Refer to [facility] for further treatment and assistance with cutting [...] past. Assessment & Plan (08/17/2024 1:40 AM GUIDANCE COUNSELOR): Encouraged smoking cessation. Discussed 3 minutes. Reviewed options for assistance with cessation. Reviewed jail sequela associated with smoking. Pt declines assistance at this time but may contact the office at anytime for further help as they desire. Assessment & Plan (06/25/2024 6:32 PM GUIDANCE COUNSELOR): This is a significant, separately identifiable problem [...] Reviewed options for assistance with cessation. Reviewed jail sequela associated with smoking. Pt declines assistance at this time but may contact the office at anytime for further help as they desire. Assessment & Plan (10/17/2022 8:40 AM GUIDANCE COUNSELOR): Encouraged smoking cessation. Discussed 3 minutes. Reviewed options for assistance with cessation. Reviewed jail sequela associated with smoking. Pt declines assistance at this time but may contact the office at anytime for further help as they desire. Assessment & Plan (06/14/2022 5:06 PM CDT): Patient states he stop smoking. Assessment & Plan (10/21/2020 9:23 PM GUIDANCE COUNSELOR): Quit 09/2019 Due for LDCT after 08/01/2020 Assessment & Plan (02/02/2020 4:34 PM CDT): Quit 09/2019 Assessment & Plan (11/24/2019 10:44 PM CDT): Smoke free for a few weeks. Continue with effort Assessment & Plan (09/26/2019 8:46 AM GUIDANCE COUNSELOR): Quit smoking 09/12 on his own. 2 week cig free Encouraged to continue Assessment & Plan (09/22/2019 9:13 PM GUIDANCE COUNSELOR): .Encouraged smoking cessation. Discussed 3 minutes. Reviewed options for assistance with cessation. Reviewed jail sequela associated with smoking. Pt declines assistance at this time but may contact the office at anytime for further help as they desire. Assessment & Plan (09/15/2019 4:15 PM GUIDANCE COUNSELOR): Encouraged smoking cessation. Discussed 3 minutes. Reviewed options for assistance with cessation. Reviewed jail sequela associated with smoking. Pt declines assistance at this time but may contact the office at anytime for further help as they desire. Assessment & Plan (07/25/2019 9:30 PM GUIDANCE COUNSELOR): Encouraged smoking cessation. Discussed 3 minutes. Reviewed options for assistance with cessation. Reviewed jail sequela associated with smoking. Pt declines assistance at this time but may contact the office at anytime for further help as they desire. Assessment & Plan (06/07/2019 2:26 PM CDT): Encouraged smoking cessation. Discussed 3 minutes. Reviewed options for assistance with cessation. Reviewed roasterman sequela associated with smoking. Pt declines assistance [...] 06/07/2019 Assessment & Plan (10/17/2022 8:40 AM GUIDANCE COUNSELOR): Persistent smoker's cough. Encouraged cessation has albuterol p.r.n. Assessment & Plan (10/23/2020 6:47 PM GUIDANCE COUNSELOR): Treat COPD Continue with smoking cessation Assessment & Plan (03/14/2020 7:26 PM CDT): Quit smoking 08/2019 Assessment & Plan (02/02/2020 4:28 PM CDT): See COPD Assessment & Plan (11/24/2019 10:42 PM CDT): Pt has stopped smoking. Continue to monitor Assessment & Plan (09/26/2019 8:54 AM GUIDANCE COUNSELOR): Improving. Continue tob cessation. Assessment & Plan (09/15/2019 4:14 PM GUIDANCE COUNSELOR): Stop smoking Assessment & Plan (06/07/2019 2:10 PM CDT): Encouraged smoking cessation. Duodenal ulcer 06/05/2019 Assessment & Plan (06/05/2019 7:35 PM CDT): 04/2019 EGD - Dr. Hawley Acute gastric ulcer without hemorrhage or perfor ation 03/01/2019 Assessment & Plan (10/23/2020 6:47 PM GUIDANCE COUNSELOR): Continue PPI. Avoid NSAIDs Assessment & Plan (06/07/2019 2:11 PM CDT): On Protonix bid. No active bleeding Stop smoking. Avoid alcohol. Avoid NSAIDs. Alcohol dependence in remission 02/07/2018 Assessment & Plan (06/25/2024 6:30 PM GUIDANCE COUNSELOR): Patient states he has decreased alcohol immensely. Still encourage complete cessation Assessment & Plan (03/24/2024 10:38 PM CDT): Patient with history of alcohol dependence. He states he still drinks few times a week. Assessment & Plan (10/17/2022 8:37 AM GUIDANCE COUNSELOR): Patient continues to remain alcohol free. Encouraged to continue Assessment & Plan (06/14/2022 5:06 PM CDT): Patient states he no longer drinks alcohol. Assessment & Plan (09/26/2021 2:25 PM GUIDANCE COUNSELOR): Patient states he is still not drinking. Continue with cessation. Assessment & Plan (03/18/2021 1:01 PM CDT): Continue alcohol cessation Assessment & Plan (10/21/2020 9:19 PM GUIDANCE COUNSELOR): Remains off alcohol Assessment & Plan (03/14/2020 [...] 11/2024 Assessment & Plan (06/25/2024 6:31 PM GUIDANCE COUNSELOR): Encouraged complete smoking cessation. Continue management with Dr. Choi continue Anoro and albuterol. Imaging with CT is managed by Dr. Choi Assessment & Plan (03/24/2024 10:38 PM CDT): Patient with long-term smoking history. Has known COPD. On Anoro and albuterol. 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 Choi Assessment & Plan (07/29/2023 9:21 PM GUIDANCE COUNSELOR): Continue in RO. Continue to follow with Dr. Riggs. Encouraged follow-up appointment Assessment & Plan (10/17/2022 8:39 AM GUIDANCE COUNSELOR): Encouraged smoking cessation. 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 Riggs trade facilitator. Using daily Anaro and albuterol p.r.n. Assessment [...] get surgery. Chest xray was done at [facility] and it was negative for pneumonia. From the perspective of his COPD/respiratory fitness, patient is able to proceed with the Fem to Pop bypass procedure with Dr. Alaniz. Assessment & Plan (09/26/2021 2:25 PM GUIDANCE COUNSELOR): Continue with Advair and albuterol p.r.n. Assessment & Plan (03/18/2021 1:03 PM CDT): Continue the Advair and prn albuterol Assessment & Plan (12/21/2020 9:38 AM CDT): Continue Advair and albuterol prn Assessment & Plan (10/23/2020 6:47 PM GUIDANCE COUNSELOR): Dr. Miranda Advair and prn Albuterol Continue smoking cessation Assessment & Plan (03/14/2020 7:25 PM CDT): Continue Advair and prn albuterol. Await recommendations from Dr. Simpson Assessment & Plan (02/02/2020 4:37 PM CDT): This is a significant, separately identifiable problem that was evaluated and managed on the same day as the wellness exam Continue Advair and albuterol. Refer to Pulmonary at [facility] due to persistent COPD sxs/cough. Has never had official PFTs/etc Assessment & Plan (11/24/2019 10:43 PM CDT): Continue with current regimen. Await covid results. Continue quarantine until results are available. Assessment & Plan (09/26/2019 8:53 AM GUIDANCE COUNSELOR): Stable with the Advair and abuterol prn. Call if required more rescue. May use Mucinex prn for increased mucous production but call if beocomes consistently yellow or green Assessment & Plan (09/22/2019 9:08 PM GUIDANCE COUNSELOR): COPD vs bronchitis. See Bronchitis for plan Stop smoking Assessment & Plan (09/15/2019 4:14 PM GUIDANCE COUNSELOR): COPD exacerbation vs pneumonia--- Recommend CXR. Check [...] 07/29/202303/24 Assessment & Plan (07/29/2023 9:22 PM GUIDANCE COUNSELOR): Check urine culture to rule out infection. If negative may consider adding tamsulosin as he also notes a little hesitancy Prostate cancer screening 07/29/2023 Assessment & Plan (07/29/2023 9:22 PM GUIDANCE COUNSELOR): Check PSA BMI 20.0-20.9, adult 01/03/2023 024 Assessment & Plan (11/14/2023 2:08 PM CDT): Weight/BMI is in healthy range. Continue healthy lifestyle to maintain. Assessment & Plan (07/18/2023 9:54 AM GUIDANCE COUNSELOR): Weight/BMI is in healthy range. Continue healthy [...] maintain. Assessment & Plan (10/17/2022 7:32 AM GUIDANCE COUNSELOR): Weight/BMI is in healthy range. Continue healthy lifestyle to maintain. Annual physical exam 10/17/2022 024 Assessment & Plan (10/17/2022 8:42 AM GUIDANCE COUNSELOR): Encouraged healthy lifestyle, good nutrition and exercise. Encouraged Calcium and Vitamin D and weight bearing exercise for bone health. Reviewed immunizations Reviewed age appropirate screenings. Rest pain of lower extremity due to atherosclerosis 09/05/2022 10/17/2022 Overview (09/05/2022): Added automatically from request for surgery [id number] Medicare annual wellness visit, subsequent 06/14/2022 10/17/2022 [...] 06/14/2022 Assessment & Plan (09/26/2021 2:29 PM GUIDANCE COUNSELOR): See torticollis Need for immunization against influenza 09/26/2021 06/14/2022 Assessment & Plan (09/26/2021 2:29 PM GUIDANCE COUNSELOR): FLU updated in office today Foot callus 09/26/2021 03/24/2024 Assessment & Plan (09/26/2021 2:31 PM GUIDANCE COUNSELOR): This is a significant, separately identifiable problem [...] 06/14/20 Assessment & Plan (09/02/2021 4:22 PM GUIDANCE COUNSELOR): Weight/BMI is in healthy range. Continue healthy lifestyle to maintain. BMI 26.0-26.9,adult 09/02/2021 09/02/19 BMI 25.0-25.9,adult 04/12/2021 09/02/19 Assessment & Plan (04/12/2021 1:51 PM CDT): Weight/BMI is in healthy range. Continue healthy lifestyle to maintain. Torticollis 04/12/2021 06/14/2022 Assessment & Plan (09/26/2021 2:28 PM GUIDANCE COUNSELOR): This is a significant, separately identifiable problem [...] PT. Order was given, he will consider ([facility]). He is to followup if sxs [...] complication, without long-term current use of insulin ([facility]) 10/23/2020 10/17/2022 Assessment & Plan (02/27/2022 9:34 PM CDT): Stressed importance of continued A1c control to minimize the jail effects of diabetes. Bring accuchecks to office [...] noted. Assessment & Plan (09/26/2021 2:27 PM GUIDANCE COUNSELOR): Stressed importance of continued A1c control to minimize the jail effects of diabetes. Bring accuchecks to office when instructed to do so. Check A1c about every 3-6 months. Take medication as prescribed. Get annual eye exam. Encouraged DIANELYS/Statin if able to tolerate. Encouraged weight control and encouraged diabetic diet and exercise. Await labs to determine control Assessment & Plan (03/18/2021 1:00 PM CDT): Stressed importance of continued A1c control to minimize the jail effects of diabetes. Bring accuchecks to office when instructed to do so. Check A1c about every 3-6 months. Take medication as prescribed. Get annual eye exam. Encouraged DIANELYS/Statin if able to tolerate. Encouraged weight control and encouraged diabetic diet and exercise. Continue jardiance and metformin Fatigue 10/23/2020 03/24/2024 Assessment & Plan (07/29/2023 9:21 PM GUIDANCE COUNSELOR): Probably multifactorial. Check labs and followup to re-evaluate Assessment & Plan (10/17/2022 8:40 AM GUIDANCE COUNSELOR): Probably multifactorial. Check labs and followup to re-evaluate Assessment & Plan (06/14/2022 5:07 PM CDT): Probably multifactorial. Check labs and followup to re-evaluate Assessment & Plan (02/27/2022 9:34 PM CDT): Probably multifactorial. Check labs and followup to re-evaluate Assessment & Plan (09/26/2021 2:27 PM GUIDANCE COUNSELOR): Probably multifactorial. Check labs and followup to re-evaluate Decreased hearing 10/23/2020 03/24/2024 Assessment & Plan (10/23/2020 6:52 PM GUIDANCE COUNSELOR): This is a significant, separately identifiable problem that was evaluated and managed on the same day as the wellness exam Will send to ENT/Audiology for hearing tests to determine cause and treatment plan. 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 Thinks changes started then. BMI 27.0-27.9,adult 10/22/2020 12/22/19 Assessment & Plan (10/22/2020 8:20 AM GUIDANCE COUNSELOR): Weight/BMI is in healthy range. Continue healthy lifestyle to maintain. Annual physical exam 10/21/2020 Assessment & Plan (09/26/2021 2:26 PM GUIDANCE COUNSELOR): Encouraged healthy lifestyle, good nutrition and exercise. Encouraged Calcium and Vitamin D and weight bearing exercise for bone health. Reviewed immunizations Reviewed age appropirate screenings. Assessment & Plan (10/21/2020 9:20 PM GUIDANCE COUNSELOR): Encouraged healthy lifestyle, good nutrition and exercise. Encouraged Calcium and Vitamin D and weight bearing exercise for bone health. Reviewed immunizations Reviewed age appropirate screenings. Exudative age-related macula r degeneration of both eyes with active choroidal neovascularization 10/21/2020 04/14/2025 Assessment & Plan (10/17/2022 8:40 AM GUIDANCE COUNSELOR): Strongly encouraged follow-up with Ophthalmology. He has put this on the back burner due to his other chronic medical concerns. Assessment & Plan (06/14/2022 5:07 PM CDT): Encourage patient follow-up with his energy specialist. He has been hesitant to think about treatment as they may include injections in the eye and he has been adamant about not doing that. Reviewed again the risk of not doing treatment progression to visual changes and possible blindness. He verbalizes understanding will consider Assessment & Plan (09/26/2021 2:27 PM GUIDANCE COUNSELOR): Encouraged to continue per Ophthalmology. He voices understanding that by foregoing treatment this could lead to progressive loss of sight. Assessment & Plan (03/18/2021 1:00 PM CDT): Stressed the importance of continued follow-up with the energy specialist. Reviewed that macular degeneration will continue to progress to the point of blindness and that treatment/intervention is needed to change this course or at least try to slow it down. Patient voiced understanding and states at this point he is not interested in treatment Assessment & Plan (10/23/2020 6:47 PM GUIDANCE COUNSELOR): Encouraged to Continue per [facility] as [...] 09/26/2019 Assessment & Plan (09/22/2019 9:08 PM GUIDANCE COUNSELOR): Bronchitis vs COPD. Flu is negative. Amoxil and Prednisone 60mg x 5 days. Tessalon for cough Start Advair. Albuterol prn Flu-like symptoms 09/22/2019 09/26/2019 Assessment & Plan (09/22/2019 9:15 PM GUIDANCE COUNSELOR): Negative flu. See bronchitis Other fatigue 09/15/2019 09/26/2019 Assessment & Plan (09/15/2019 4:15 PM GUIDANCE COUNSELOR): Probably multifactorial. Check labs and followup to re-evaluate Cough 09/15/2019 10/17/2022 Assessment & Plan (05/03/2022 8:57 PM CDT): See COPD Assessment & Plan (09/26/2019 8:53 AM GUIDANCE COUNSELOR): Improving. Assessment & Plan (09/22/2019 9:08 PM GUIDANCE COUNSELOR): See bronchitis Assessment & Plan (09/15/2019 4:14 PM GUIDANCE COUNSELOR): See copd BMI 26.0-26.9,adult 09/10/2019 01/21/20 20 Assessment & Plan (11/24/2019 10:44 PM CDT): Weight/BMI is in healthy range. Continue healthy lifestyle to maintain. Assessment & Plan (09/26/2019 8:52 AM GUIDANCE COUNSELOR): Weight/BMI is in healthy range. Continue healthy lifestyle to maintain. Assessment & Plan (09/10/2019 2:15 PM GUIDANCE COUNSELOR): Weight/BMI is in healthy range. Continue healthy [...] of continued A1c control to minimize the jail effects of diabetes. Bring accuchecks to office [...] reassess. Assessment & Plan (10/23/2020 6:50 PM GUIDANCE COUNSELOR): This is a significant, separately identifiable problem that was evaluated and managed on the same day as the wellness exam Stressed importance of continued A1c control to minimize the jail effects of diabetes. Bring accuchecks to office [...] of continued A1c control to minimize the jail effects of diabetes. Bring accuchecks to office [...] of continued A1c control to minimize the roasterman effects of diabetes. Bring accuchecks to office when instructed to do so. Check A1c about every 3-6 months. Take medication as prescribed. Get annual eye exam. Encouraged DIANELYS/Statin if able to tolerate. Encouraged weight control and encouraged diabetic diet and exercise. Assessment & Plan (09/26/2019 8:52 AM GUIDANCE COUNSELOR): Stressed importance of continued A1c control to minimize the jail effects of diabetes. Bring accuchecks to office when instructed to do so. Check A1c about every 3-6 months. Take medication as prescribed. Get annual eye exam. Encouraged DIANELYS/Statin if able to tolerate. Encouraged weight control and encouraged diabetic diet and exercise. Continue Metformin Assessment & Plan (06/07/2019 2:17 PM CDT): Stressed importance of continued A1c control to minimize the roasterman effects of diabetes. Bring accuchecks to office [...] statin Assessment & Plan (09/26/2021 2:26 PM GUIDANCE COUNSELOR): Stressed importance of continued A1c control to minimize the roasterman effects of diabetes. Bring accuchecks to office [...] atorvastatin Assessment & Plan (10/21/2020 9:20 PM GUIDANCE COUNSELOR): Encouraged patient to follow fat/low chol diet [...] 09/10/19 Assessment & Plan (07/25/2019 9:30 PM GUIDANCE COUNSELOR): Weight/BMI is in healthy range. Continue healthy [...] losartan Assessment & Plan (09/26/2021 2:26 PM GUIDANCE COUNSELOR): Bp is stable/in acceptable range for any co-morbidities. Encouraged to limit sodium intake and exercise for weight control. Continue losartan 25 Assessment & Plan (03/18/2021 12:59 PM CDT): Bp is stable/in acceptable range for any co-morbidities. Encouraged to limit sodium intake and exercise for weight control. Continue losartan Assessment & Plan (10/23/2020 6:53 PM GUIDANCE COUNSELOR): Systolic is elevated by diastolic is low. [...] of continued A1c control to minimize the roasterman effects of diabetes. Bring accuchecks to office when instructed to do so. Check A1c about every 3-6 months. Take medication as prescribed. Get annual eye exam. Encouraged DIANELYS/Statin if able to tolerate. Encouraged weight control and encouraged diabetic diet and exercise. Restart insulin to get better control. Assessment & Plan (02/02/2020 4:28 PM CDT): Stressed importance of continued A1c control to minimize the roasterman effects of diabetes. Bring accuchecks to office [...] of continued A1c control to minimize the jail effects of diabetes. Bring accuchecks to office [...] prior. Assessment & Plan (09/26/2019 8:52 AM GUIDANCE COUNSELOR): Bp is stable/in acceptable range for any [...] Type Department Care Team Description 05/07/2025 Telephone [place] [address] [place] [address] Isis Boo PA Medical Question/Miscellane ous 04/30/2025 11:30 AM CDT Office Visit [place] [address] [place] [address] Isis Boo PA Weight loss (Primary Dx); Colon cancer screening; BMI 20.0-20.9, adult; Hyperlipidemia associated with type 2 diabetes mellitus (HCC) 04/17/2025 Orders Only [address] [place] [phone] ProviderCarla MD 04/09/2025 10:30 AM CDT Office Visit [facility] Medical Office Building 2 Radiation Oncology [address] [place] [id number] Brooks Pennington MD Right vocal cord cancer (HCC) (Primary Dx) 04/01/2025 8:00 AM CDT Office Visit [address] [place] [phone] Isis Boo PA BMI 20.0-20.9, adult (Primary Dx); Prostate cancer screening; Diabetes mellitus type 2 with peripheral artery disease (HCC); Fatigue, unspecified type; Hyperlipidemia associated with type 2 diabetes mellitus (HCC); 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); 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); Alcohol dependence in remission (HCC); Stage 2 chronic kidney disease 03/27/2025 Nurse Triage [address] [place] [phone] Isis Boo PA 03/17/2025 1:00 PM CDT Treatment [facility] [address] [place] [address] 03/12/2025 Telephone [facility] [address] [place] [address] Isis Boo PA 03/11/2025 Telephone [facility] [address] [place] [address] Isis Boo PA Med Refill 02/20/2025 Telephone [place] [address] [place] [address] Isis Boo PA Medical Question/Miscellane ous 02/17/2025 10:45 AM CDT Treatment [facility] Medical Office Building 2 Radiation Oncology [address] [place] [phone] Brooks Pennington MD 02/17/2025 Completion of Therapy [facility] Office Building 2 Radiation Oncology [address] [place] [phone] Brooks Pennington MD 02/17/2025 Orders Only RAD ONC TREATMENTS Miscellaneous, Not In File 02/14/2025 10:45 AM CDT Treatment [facility] Office Building 2 Radiation Oncology [address] [place] [phone] 02/14/2025 OTV [facility] Office Building 2 Radiation Oncology [address] [place] [phone] Brooks Pennington MD 02/14/2025 Orders Only RAD ONC TREATMENTS Miscellaneous, Not In File 02/13/2025 11:00 AM CDT Clinical Support [facility] Office Building 2 Radiation Oncology [address] [place] [phone] 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); Diabetes mellitus type 2 with peripheral artery disease (HCC) 02/13/2025 10:45 AM CDT Treatment [facility] Office Building 2 Radiation Oncology [address] [place] [phone] 02/13/2025 Orders Only RAD ONC TREATMENTS Miscellaneous, Not In File 02/12/2025 10:45 AM CDT Treatment [facility] Office Building 2 Radiation Oncology [address] [place] [phone] 02/12/2025 Orders Only RAD ONC TREATMENTS Miscellaneous, Not In File 02/10/2025 10:45 AM CDT Treatment [facility] Office Building [address] Radiation Oncology [address] [place] [address] 02/10/2025 Orders Only RAD ONC TREATMENTS Miscellaneous, [...] In the past 12 months has e [employer], gas, oil, or water [employer] threatened to shut off services in your [...] often do you attend chur ch or episcopal services? Never 05/18/2023 Do you belong to any clubs o r organizations such as scientologist groups, unions, fraternal or athletic groups, or [...] place to sleep or slept in a care home (including now)? No 05/18/2023 AUDIT-C Answer Date [...] on file Legal Sex Male 5:57 PM GUIDANCE COUNSELOR Gender Identity Not on file Sexual Orientation [...] 03/18/2021, 05/21 Medical Devices Implanted Type Area Entertainer Or Variety Artist Device Identifier Shelf Expiration Date Model / Serial / Lot [employer] Caliente 6mm 80cm 60cm Removable Ring Stretch Thin Wall Graft [id number] - [id number] - [id number] Implanted:Qty: 1 on 05/05/2022 by Boo Alaniz MD at [facility] Left: Femur [employer] 09/19/2025 [id number] / [id number] / [employer] Hemashield 6x2in 2 Velour Knitted Impregnated Nonsealed Tapered [id number] - [id number] Implanted:Qty: 1 on 05/05/2022 by Boo Alaniz MD at [facility] Left: Femur [employer] 06/20/2026 [id number] / / [id number] Procedures Procedure Name Priority Date/Time Associated Diagnosis [...] URINE ORDERABLES Final Result Performing Organization Address [facility] Co de Phone Number EXTERNAL LAB * (ABNORMAL) Hemoglobin A1c (09/30/2024) SCRIBED Hemoglobin A1c 7.2(A) 5.7 - 6.5 % EXTERNAL LAB Blood 09/30/2024 Isis HOFFMANN LAB BLOOD ORDERABLES Final Result Performing Organization Address [facility] de Phone Number EXTERNAL LAB * (ABNORMAL) Lipid panel (09/30/2024) SCRIBED Cholesterol, Total 196 0 - 200 EXTERNAL LAB SCRIBED HDL 38(A) 40 - 60 EXTERNAL LAB SCRIBED LDL EXTERNAL LAB Comment:Pending SCRIBED Triglycerides 104 0 - 150 EXTERNAL LAB Blood 09/30/2024 Isis HOFFMANN LAB BLOOD ORDERABLES Edite d Result - Final Performing Organization Address [facility] de Phone Number EXTERNAL LAB * (ABNORMAL) [...] Most Recently Relevant to Health Maintenance Insurance [facility] ADVANTAGE CHOICE PPO [facility] [employer] Advance Directives For more information, please contact: [phone] * Full Code (Latest Code Status on [...] 12:44 PM 04/13/2022 5:50 PM Care Teams Coding Educator Relationship Specialty Start Date End Date Isis Boo PA [address] [facility] [address] [place] [address] PCP - General Internal Medicine 06/06/19 Angel Hernandez MD [address] [facility] [place] [address] [place] [address] Consulting Physician Cardiology 04/29/22 Gabino Paez MD [address] [facility] [address] [place] [address] Consulting Physician Pulmonary Disease 05/03/22 Boo Alaniz MD [address] [facility] [address] [place] [address] Consulting Physician Vascular Surgery 09/15/22 Jim Pennington II, MD [address] [place] [address] Surgeon Otolaryngology 11/27/24 [place] [address] [place] [address] Radiation Oncologist Radiation Oncology 12/10/24
--- OUTSIDE RECORDS SUMMARY | 2025-05-12 12:00 | XMS_ITS | Clinical Summary ---
Author Organization [facility] Address [address] [place] [address] Care Team Providers Care Customer Operations Manager Name Role Phone Unavailable Primary Care Provider [...]
--- OUTSIDE RECORDS SUMMARY | 2025-05-12 12:00 | XMS_ITS | Clinical Summary ---
Author Organization [facility] Address [address] [place] [id number] Care Team Providers Care Novelty Dipper Name Role Phone Unavailable Primary Care Provider [...]
--- OUTSIDE RECORDS SUMMARY | 2025-05-12 12:00 | XMS_ITS ---
Author Organization [facility] [address] Address [address] [place] [address] Care Team Providers Care Project Portfolio Analyst Name Role Phone Isis Boo Primary Care Provider [phone] Angel Hernandez MD Unavailable Gabino Paez MD Unavailable [phone] Boo Alaniz MD Unavailable Gorge JUAREZ MD, Jim Deangelo Unavailable [phone] Brooks Pennington MD Unavailable Active Problems Problem Noted Date Diagnosed Date [...] 08/07/2024 Assessment & Plan (08/17/2024 1:42 AM ACID FILLER): Patient has noticed a hoarseness to his [...] 08/07/2024 Assessment & Plan (08/17/2024 1:43 AM ACID FILLER): Patient has noticed a hoarseness to his [...] maintain. Assessment & Plan (08/17/2024 1:40 AM ACID FILLER): Weight/BMI is in healthy range. Continue healthy lifestyle to maintain. Assessment & Plan (06/25/2024 8:13 AM ACID FILLER): Weight/BMI is in healthy range. Continue healthy lifestyle to maintain. Fatigue 06/25/2024 Assessment & Plan (06/25/2024 6:41 PM ACID FILLER): Probably multifactorial. Check labs and followup to re-evaluate Medicare annual wellness visit, subsequent 07/29 Assessment & Plan (06/25/2024 6:38 PM ACID FILLER): Encouraged healthy lifestyle, good nutrition and exercise. [...] chart Assessment & Plan (07/29/2023 9:21 PM ACID FILLER): Encouraged healthy lifestyle, good nutrition and exercise. Encouraged Calcium and Vitamin D and weight bearing exercise for bone health. Reviewed immunizations Reviewed age appropirate screenings. History of left above knee amputation 10/17/2022 Overview (10/17/2022): 08/2022 Dr. Alaniz Assessment & Plan (11/10/2024 11:36 PM CDT): Status post dgfrb-qly-lcdd amputation on the left by Dr. Alaniz. Continue Plavix and aspirin and statin. States he is working with the [facility] to help get his [facility] to fit more comfortably. Assessment & Plan (06/25/2024 6:38 PM ACID FILLER): Status post cyrrc-mar-cgjd amputation on the left by Dr. Alaniz. Continue Plavix and aspirin and statin. States he is not happy with prosthesis in his more happy utilizing his crutches to get around Assessment & Plan (03/24/2024 10:38 PM CDT): Status post kwhay-lno-uhiq amputation due to peripheral vascular disease. Continue with statin, Plavix and aspirin. Assessment & Plan (07/29/2023 9:21 PM ACID FILLER): Status post above-knee amputation. Continue per vascular, [...] his essence referral for him to contact [facility] to get started. If he has problems he is to contact Dr. Alaniz's office. Seems to verbalize understanding of the plan Assessment & Plan (10/17/2022 8:43 AM ACID FILLER): Status post left above-knee amputation by Dr. [...] 10/17/2022 Assessment & Plan (06/25/2024 6:38 PM ACID FILLER): Phantom pain has subsided without any additional [...] monitor Assessment & Plan (10/17/2022 8:43 AM ACID FILLER): Status post left above-knee amputation by Dr. [...] control. Will continue to monitor Atherosclerosis of [place] of left lower extremity with rest pain 07/18/2022 Assessment & Plan (06/25/2024 6:37 PM ACID FILLER): Patient is on statin aspirin Plavix. Assessment & Plan (09/06/2022 8:48 AM ACID FILLER): Impression: Patient is status post left femoral artery exploration and left posterior tibial artery exploration due to life-limiting claudication and rest pain. Patient was found to have severely calcified and very small in caliber arteries and not suitable for open surgical revascularization. Patient continues to complain of pain to his left leg. Poth are intact to left groin and medial calf with no concern for infection. Plan: Patient has non-reconstructible vascular disease therefore a left idszq-njh-rlxo amputation was recommended. Risks of the procedure communicate with the patient to include bleeding, infection, injury, further surgery, and . Patient understands these risks and wishes to proceed. Poth were removed from left groin and left medial calf. Assessment & Plan (07/18/2022 1:58 PM ACID FILLER): Impression: Acute onset worsening claudication following recent [...] 05/05/2022 Assessment & Plan (06/25/2024 6:37 PM ACID FILLER): Patient with PVD. Continue with the Plavix and aspirin. Continue with the Lipitor 80 Assessment & Plan (03/24/2024 10:36 PM CDT): Patient has peripheral vascular disease. Continue to follow with vascular. He has already had lower leg amputation due to the peripheral vascular disease Assessment & Plan (10/17/2022 8:42 AM ACID FILLER): Continue per vascular surgery. He is on Plavix. Still strongly encouraged smoking cessation Assessment & Plan (10/06/2022 11:43 AM ACID FILLER): Status post left above knee amputation. Healed. We will remove rafi today. 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 Patient is [...] time. Assessment & Plan (08/16/2022 4:20 PM ACID FILLER): Impression: Known thrombosed left fem-pop bypass diagnosis [...] 80 Assessment & Plan (06/25/2024 6:38 PM ACID FILLER): Encouraged patient to follow low fat/low chol diet like the Mediterranean diet. Increase good fats in the diet. Increase exercise. Monitor labs as needed. Continue Lipitor 80 Assessment & Plan (03/24/2024 10:36 PM CDT): Stressed importance of continued A1c control to minimize the nursing home effects of diabetes. Bring accuchecks to office [...] 10 Assessment & Plan (07/29/2023 9:21 PM ACID FILLER): Encouraged patient to follow low fat/low chol [...] 80 Assessment & Plan (10/17/2022 8:41 AM ACID FILLER): Encouraged patient to follow low fat/low chol [...] 25 Assessment & Plan (06/25/2024 6:42 PM ACID FILLER): This is a significant, separately identifiable problem that was evaluated and managed on the same day as the wellness exam Bp is stable/in acceptable range for any co-morbidities. Encouraged to limit sodium intake and exercise for weight control. Continue losartan 25 Stressed importance of continued A1c control to minimize the intermediate accountant effects of diabetes. Bring accuchecks to office [...] his Farxiga including from the [facility] versus [place] and me assistance versus him pain for it as he states he did get a little bit of extra money. Advised I will go ahead and prescribe it and if he needs assistance we would be glad to help him with a.c. and knee he would just need to bring in the correct paperwork. Encouraged him to talk with his VA farm loan representative to see if he could get [...] 25 Assessment & Plan (07/29/2023 9:20 PM ACID FILLER): Bp is stable/in acceptable range for any co-morbidities. Encouraged to limit sodium intake and exercise for weight control. Stressed importance of continued A1c control to minimize the nursing home effects of diabetes. Bring accuchecks to office [...] 25 Assessment & Plan (10/17/2022 8:41 AM ACID FILLER): Bp is stable/in acceptable range for any co-morbidities. Encouraged to limit sodium intake and exercise for weight control. Continue losartan 25 Assessment & Plan (08/16/2022 4:22 PM ACID FILLER): Impression: Stable chronic hypertension. Plan: Medications reviewed and recommend continuing daily antihypertensive regimen as directed by patient's primary care physician. Assessment & Plan (06/14/2022 5:07 PM CDT): Bp is stable/in acceptable range for any co-morbidities. Encouraged to limit sodium intake and exercise for weight control. 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 Bring accuchecks to office when instructed to do so. Check A1c about every 3-6 months. Take medication as prescribed. Get annual eye exam. Encouraged DIANELYS/Statin if able to tolerate. Encouraged weight control and encouraged diabetic diet and exercise. Patient has peripheral artery disease as well as peripheral arterial disease. Assessment & Plan (07/29/2023 9:21 PM ACID FILLER): Peripheral artery disease in the setting of diabetes that has resulted in fonhl-rwd-gfpy amputation of the left leg. Strongly encouraged medical management as instructed. Assessment & Plan (01/03/2023 9:22 PM CDT): Stressed importance of continued A1c control to minimize the nursing home effects of diabetes. Bring accuchecks to office [...] amputation. Assessment & Plan (10/17/2022 8:42 AM ACID FILLER): Stressed importance of continued A1c control to minimize the nursing home effects of diabetes. Bring accuchecks to office [...] of continued A1c control to minimize the nursing home effects of diabetes. Bring accuchecks to office [...] 12/21/2020 Assessment & Plan (10/17/2022 8:41 AM ACID FILLER): Stressed importance of continued A1c control to minimize the intermediate accountant effects of diabetes. Bring accuchecks to office [...] 02/02/2020 Assessment & Plan (09/29/2021 12:34 PM ACID FILLER): Xray R shoulder today - he is taking to [facility]. Will notify him of results as available. [...] 07/25/2019 Assessment & Plan (07/25/2019 3:08 PM ACID FILLER): Infection vs pain from thick large nail growing into the skin. Start keflex. Has followup scheduled with Dr. Fraga next week. Await her recommendations. Laryngopharyngeal reflux (LPR) 06/07/2019 Assessment & Plan (06/25/2024 6:31 PM ACID FILLER): Continue PPI p.r.n. Assessment & Plan (03/24/2024 10:38 PM CDT): Continue pantoprazole p.r.n. Assessment & Plan (07/29/2023 9:19 PM ACID FILLER): Reviewed with patient if his reflux symptoms are controlled he can just use the pantoprazole p.r.n.. Assessment & Plan (10/17/2022 8:39 AM ACID FILLER): Continue PPI p.r.n. Assessment & Plan (06/14/2022 5:06 PM CDT): Continue PPI p.r.n. Assessment & Plan (09/26/2021 2:26 PM ACID FILLER): Continue PPI Assessment & Plan (03/18/2021 1:01 PM CDT): Continue ppi Assessment & Plan (10/21/2020 9:20 PM ACID FILLER): Continue PPI Assessment & Plan (03/14/2020 7:27 PM CDT): Continue Protonix Assessment & Plan (02/02/2020 4:30 PM CDT): Continue PPI Assessment & Plan (06/07/2019 2:12 PM CDT): On Protonix bid. No active bleeding Stop smoking. Avoid alcohol. Avoid NSAIDs. Onychomycosis 06/07/2019 Assessment & Plan (02/02/2020 4:31 PM CDT): Continue per wet process operator Assessment & Plan (06/07/2019 2:16 PM CDT): This is a significant, separately identifiable problem that was evaluated and managed on the same day as the wellness exam Has been on Lamisil in the past without success. Refer to Typo Machine Operator for further treatment and assistance with [...] past. Assessment & Plan (08/17/2024 1:40 AM ACID FILLER): Encouraged smoking cessation. Discussed 3 minutes. Reviewed options for assistance with cessation. Reviewed nursing home sequela associated with smoking. Pt declines assistance at this time but may contact the office at anytime for further help as they desire. Assessment & Plan (06/25/2024 6:32 PM ACID FILLER): This is a significant, separately identifiable problem [...] Reviewed options for assistance with cessation. Reviewed nursing home sequela associated with smoking. Pt declines assistance at this time but may contact the office at anytime for further help as they desire. Assessment & Plan (10/17/2022 8:40 AM ACID FILLER): Encouraged smoking cessation. Discussed 3 minutes. Reviewed options for assistance with cessation. Reviewed intermediate accountant sequela associated with smoking. Pt declines assistance at this time but may contact the office at anytime for further help as they desire. Assessment & Plan (06/14/2022 5:06 PM CDT): Patient states he stop smoking. Assessment & Plan (10/21/2020 9:23 PM ACID FILLER): Quit 09/2019 Due for LDCT after 08/01/2020 Assessment & Plan (02/02/2020 4:34 PM CDT): Quit 09/2019 Assessment & Plan (11/24/2019 10:44 PM CDT): Smoke free for a few weeks. Continue with effort Assessment & Plan (09/26/2019 8:46 AM ACID FILLER): Quit smoking 09/12 on his own. 2 week cig free Encouraged to continue Assessment & Plan (09/22/2019 9:13 PM ACID FILLER): .Encouraged smoking cessation. Discussed 3 minutes. Reviewed options for assistance with cessation. Reviewed nursing home sequela associated with smoking. Pt declines assistance at this time but may contact the office at anytime for further help as they desire. Assessment & Plan (09/15/2019 4:15 PM ACID FILLER): Encouraged smoking cessation. Discussed 3 minutes. Reviewed options for assistance with cessation. Reviewed intermediate accountant sequela associated with smoking. Pt declines assistance at this time but may contact the office at anytime for further help as they desire. Assessment & Plan (07/25/2019 9:30 PM ACID FILLER): Encouraged smoking cessation. Discussed 3 minutes. Reviewed options for assistance with cessation. Reviewed nursing home sequela associated with smoking. Pt declines assistance at this time but may contact the office at anytime for further help as they desire. Assessment & Plan (06/07/2019 2:26 PM CDT): Encouraged smoking cessation. Discussed 3 minutes. Reviewed options for assistance with cessation. Reviewed nursing home sequela associated with smoking. Pt declines assistance [...] 06/07/2019 Assessment & Plan (10/17/2022 8:40 AM ACID FILLER): Persistent smoker's cough. Encouraged cessation has albuterol p.r.n. Assessment & Plan (10/23/2020 6:47 PM ACID FILLER): Treat COPD Continue with smoking cessation Assessment & Plan (03/14/2020 7:26 PM CDT): Quit smoking 08/2019 Assessment & Plan (02/02/2020 4:28 PM CDT): See COPD Assessment & Plan (11/24/2019 10:42 PM CDT): Pt has stopped smoking. Continue to monitor Assessment & Plan (09/26/2019 8:54 AM ACID FILLER): Improving. Continue tob cessation. Assessment & Plan (09/15/2019 4:14 PM ACID FILLER): Stop smoking Assessment & Plan (06/07/2019 2:10 PM CDT): Encouraged smoking cessation. Duodenal ulcer 06/05/2019 Assessment & Plan (06/05/2019 7:35 PM CDT): 04/2019 EGD - Dr. Hawley Acute gastric ulcer without hemorrhage or perfor ation 03/01/2019 Assessment & Plan (10/23/2020 6:47 PM ACID FILLER): Continue PPI. Avoid NSAIDs Assessment & Plan (06/07/2019 2:11 PM CDT): On Protonix bid. No active bleeding Stop smoking. Avoid alcohol. Avoid NSAIDs. Alcohol dependence in remission 02/07/2018 Assessment & Plan (06/25/2024 6:30 PM ACID FILLER): Patient states he has decreased alcohol immensely. Still encourage complete cessation Assessment & Plan (03/24/2024 10:38 PM CDT): Patient with history of alcohol dependence. He states he still drinks few times a week. Assessment & Plan (10/17/2022 8:37 AM ACID FILLER): Patient continues to remain alcohol free. Encouraged to continue Assessment & Plan (06/14/2022 5:06 PM CDT): Patient states he no longer drinks alcohol. Assessment & Plan (09/26/2021 2:25 PM ACID FILLER): Patient states he is still not drinking. Continue with cessation. Assessment & Plan (03/18/2021 1:01 PM CDT): Continue alcohol cessation Assessment & Plan (10/21/2020 9:19 PM ACID FILLER): Remains off alcohol Assessment & Plan (03/14/2020 [...] 11/2024 Assessment & Plan (06/25/2024 6:31 PM ACID FILLER): Encouraged complete smoking cessation. Continue management with Dr. Choi continue Anoro and albuterol. Imaging with CT is managed by Dr. Choi Assessment & Plan (03/24/2024 10:38 PM CDT): Patient with long-term smoking history. Has known COPD. On Anoro and albuterol. 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 Choi Assessment & Plan (07/29/2023 9:21 PM ACID FILLER): Continue in RO. Continue to follow with Dr. Riggs. Encouraged follow-up appointment Assessment & Plan (10/17/2022 8:39 AM ACID FILLER): Encouraged smoking cessation. 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 Riggs nipple threader. Using daily Anaro and albuterol p.r.n. Assessment [...] get surgery. Chest xray was done at [facility] and it was negative for pneumonia. From the perspective of his COPD/respiratory fitness, patient is able to proceed with the Fem to Pop bypass procedure with Dr. Alaniz. Assessment & Plan (09/26/2021 2:25 PM ACID FILLER): Continue with Advair and albuterol p.r.n. Assessment & Plan (03/18/2021 1:03 PM CDT): Continue the Advair and prn albuterol Assessment & Plan (12/21/2020 9:38 AM CDT): Continue Advair and albuterol prn Assessment & Plan (10/23/2020 6:47 PM ACID FILLER): Dr. Miranda Advair and prn Albuterol Continue smoking cessation Assessment & Plan (03/14/2020 7:25 PM CDT): Continue Advair and prn albuterol. Await recommendations from Dr. Simpson Assessment & Plan (02/02/2020 4:37 PM CDT): This is a significant, separately identifiable problem that was evaluated and managed on the same day as the wellness exam Continue Advair and albuterol. Refer to Pulmonary at [place] due to persistent COPD sxs/cough. Has never had official PFTs/etc Assessment & Plan (11/24/2019 10:43 PM CDT): Continue with current regimen. Await covid results. Continue quarantine until results are available. Assessment & Plan (09/26/2019 8:53 AM ACID FILLER): Stable with the Advair and abuterol prn. Call if required more rescue. May use Mucinex prn for increased mucous production but call if beocomes consistently yellow or green Assessment & Plan (09/22/2019 9:08 PM ACID FILLER): COPD vs bronchitis. See Bronchitis for plan Stop smoking Assessment & Plan (09/15/2019 4:14 PM ACID FILLER): COPD exacerbation vs pneumonia--- Recommend CXR. Check [...] 07/29/202303/24 Assessment & Plan (07/29/2023 9:22 PM ACID FILLER): Check urine culture to rule out infection. If negative may consider adding tamsulosin as he also notes a little hesitancy Prostate cancer screening 07/29/2023 Assessment & Plan (07/29/2023 9:22 PM ACID FILLER): Check PSA BMI 20.0-20.9, adult 01/03/2023 Assessment & Plan (11/14/2023 2:08 PM CDT): Weight/BMI is in healthy range. Continue healthy lifestyle to maintain. Assessment & Plan (07/18/2023 9:54 AM ACID FILLER): Weight/BMI is in healthy range. Continue healthy [...] maintain. Assessment & Plan (10/17/2022 7:32 AM ACID FILLER): Weight/BMI is in healthy range. Continue healthy lifestyle to maintain. Annual physical exam 10/17/2022 Assessment & Plan (10/17/2022 8:42 AM ACID FILLER): Encouraged healthy lifestyle, good nutrition and exercise. Encouraged Calcium and Vitamin D and weight bearing exercise for bone health. Reviewed immunizations Reviewed age appropirate screenings. Rest pain of lower extremity due to atherosclerosis 09/05/2022 10/17/2022 Overview (09/05/2022): Added automatically from request for surgery [id number] Medicare annual wellness visit, subsequent 06/14/2022 10/17/2022 [...] 06/14/2022 Assessment & Plan (09/26/2021 2:29 PM ACID FILLER): See torticollis Need for immunization against influenza 09/26/2021 06/14/2022 Assessment & Plan (09/26/2021 2:29 PM ACID FILLER): FLU updated in office today Foot callus 09/26/2021 03/24/2024 Assessment & Plan (09/26/2021 2:31 PM ACID FILLER): This is a significant, separately identifiable problem [...] 06/14/20 Assessment & Plan (09/02/2021 4:22 PM ACID FILLER): Weight/BMI is in healthy range. Continue healthy lifestyle to maintain. BMI 26.0-26.9,adult 09/02/2021 09/02/19 BMI 25.0-25.9,adult 04/12/2021 09/02/19 Assessment & Plan (04/12/2021 1:51 PM CDT): Weight/BMI is in healthy range. Continue healthy lifestyle to maintain. Torticollis 04/12/2021 06/14/2022 Assessment & Plan (09/26/2021 2:28 PM ACID FILLER): This is a significant, separately identifiable problem [...] PT. Order was given, he will consider ([facility]). He is to followup if sxs [...] complication, without long-term current use of insulin ([facility]) 10/23/2020 10/17/2022 Assessment & Plan (02/27/2022 9:34 PM CDT): Stressed importance of continued A1c control to minimize the nursing home effects of diabetes. Bring accuchecks to office [...] noted. Assessment & Plan (09/26/2021 2:27 PM ACID FILLER): Stressed importance of continued A1c control to minimize the nursing home effects of diabetes. Bring accuchecks to office when instructed to do so. Check A1c about every 3-6 months. Take medication as prescribed. Get annual eye exam. Encouraged DIANELYS/Statin if able to tolerate. Encouraged weight control and encouraged diabetic diet and exercise. Await labs to determine control Assessment & Plan (03/18/2021 1:00 PM CDT): Stressed importance of continued A1c control to minimize the intermediate accountant effects of diabetes. Bring accuchecks to office when instructed to do so. Check A1c about every 3-6 months. Take medication as prescribed. Get annual eye exam. Encouraged DIANELYS/Statin if able to tolerate. Encouraged weight control and encouraged diabetic diet and exercise. Continue jardiance and metformin Fatigue 10/23/2020 03/24/2024 Assessment & Plan (07/29/2023 9:21 PM ACID FILLER): Probably multifactorial. Check labs and followup to re-evaluate Assessment & Plan (10/17/2022 8:40 AM ACID FILLER): Probably multifactorial. Check labs and followup to re-evaluate Assessment & Plan (06/14/2022 5:07 PM CDT): Probably multifactorial. Check labs and followup to re-evaluate Assessment & Plan (02/27/2022 9:34 PM CDT): Probably multifactorial. Check labs and followup to re-evaluate Assessment & Plan (09/26/2021 2:27 PM ACID FILLER): Probably multifactorial. Check labs and followup to re-evaluate Decreased hearing 10/23/2020 03/24/2024 Assessment & Plan (10/23/2020 6:52 PM ACID FILLER): This is a significant, separately identifiable problem that was evaluated and managed on the same day as the wellness exam Will send to ENT/Audiology for hearing tests to determine cause and treatment plan. 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 Thinks changes started then. BMI 27.0-27.9,adult 10/22/2020 12/22/19 Assessment & Plan (10/22/2020 8:20 AM ACID FILLER): Weight/BMI is in healthy range. Continue healthy lifestyle to maintain. Annual physical exam 10/21/2020 Assessment & Plan (09/26/2021 2:26 PM ACID FILLER): Encouraged healthy lifestyle, good nutrition and exercise. Encouraged Calcium and Vitamin D and weight bearing exercise for bone health. Reviewed immunizations Reviewed age appropirate screenings. Assessment & Plan (10/21/2020 9:20 PM ACID FILLER): Encouraged healthy lifestyle, good nutrition and exercise. Encouraged Calcium and Vitamin D and weight bearing exercise for bone health. Reviewed immunizations Reviewed age appropirate screenings. Exudative age-related macula r degeneration of both eyes with active choroidal neovascularization 10/21/2020 04/14/2025 Assessment & Plan (10/17/2022 8:40 AM ACID FILLER): Strongly encouraged follow-up with Ophthalmology. He has put this on the back burner due to his other chronic medical concerns. Assessment & Plan (06/14/2022 5:07 PM CDT): Encourage patient follow-up with his loading machine operator helper. He has been hesitant to think about treatment as they may include injections in the eye and he has been adamant about not doing that. Reviewed again the risk of not doing treatment progression to visual changes and possible blindness. He verbalizes understanding will consider Assessment & Plan (09/26/2021 2:27 PM ACID FILLER): Encouraged to continue per Ophthalmology. He voices understanding that by foregoing treatment this could lead to progressive loss of sight. Assessment & Plan (03/18/2021 1:00 PM CDT): Stressed the importance of continued follow-up with the loading machine operator helper. Reviewed that macular degeneration will continue to progress to the point of blindness and that treatment/intervention is needed to change this course or at least try to slow it down. Patient voiced understanding and states at this point he is not interested in treatment Assessment & Plan (10/23/2020 6:47 PM ACID FILLER): Encouraged to Continue per [facility] as [...] 09/26/2019 Assessment & Plan (09/22/2019 9:08 PM ACID FILLER): Bronchitis vs COPD. Flu is negative. Amoxil and Prednisone 60mg x 5 days. Tessalon for cough Start Advair. Albuterol prn Flu-like symptoms 09/22/2019 09/26/2019 Assessment & Plan (09/22/2019 9:15 PM ACID FILLER): Negative flu. See bronchitis Other fatigue 09/15/2019 09/26/2019 Assessment & Plan (09/15/2019 4:15 PM ACID FILLER): Probably multifactorial. Check labs and followup to re-evaluate Cough 09/15/2019 10/17/2022 Assessment & Plan (05/03/2022 8:57 PM CDT): See COPD Assessment & Plan (09/26/2019 8:53 AM ACID FILLER): Improving. Assessment & Plan (09/22/2019 9:08 PM ACID FILLER): See bronchitis Assessment & Plan (09/15/2019 4:14 PM ACID FILLER): See copd BMI 26.0-26.9,adult 09/10/2019 01/21/20 20 Assessment & Plan (11/24/2019 10:44 PM CDT): Weight/BMI is in healthy range. Continue healthy lifestyle to maintain. Assessment & Plan (09/26/2019 8:52 AM ACID FILLER): Weight/BMI is in healthy range. Continue healthy lifestyle to maintain. Assessment & Plan (09/10/2019 2:15 PM ACID FILLER): Weight/BMI is in healthy range. Continue healthy [...] of continued A1c control to minimize the nursing home effects of diabetes. Bring accuchecks to office [...] reassess. Assessment & Plan (10/23/2020 6:50 PM ACID FILLER): This is a significant, separately identifiable problem that was evaluated and managed on the same day as the wellness exam Stressed importance of continued A1c control to minimize the nursing home effects of diabetes. Bring accuchecks to office [...] continued A1c control to minimize the intermediate accountant effects of diabetes. Bring accuchecks to office [...] continued A1c control to minimize the intermediate accountant effects of diabetes. Bring accuchecks to office when instructed to do so. Check A1c about every 3-6 months. Take medication as prescribed. Get annual eye exam. Encouraged DIANELYS/Statin if able to tolerate. Encouraged weight control and encouraged diabetic diet and exercise. Assessment & Plan (09/26/2019 8:52 AM ACID FILLER): Stressed importance of continued A1c control to minimize the nursing home effects of diabetes. Bring accuchecks to office when instructed to do so. Check A1c about every 3-6 months. Take medication as prescribed. Get annual eye exam. Encouraged DIANELYS/Statin if able to tolerate. Encouraged weight control and encouraged diabetic diet and exercise. Continue Metformin Assessment & Plan (06/07/2019 2:17 PM CDT): Stressed importance of continued A1c control to minimize the nursing home effects of diabetes. Bring accuchecks to office [...] statin Assessment & Plan (09/26/2021 2:26 PM ACID FILLER): Stressed importance of continued A1c control to minimize the nursing home effects of diabetes. Bring accuchecks to office [...] atorvastatin Assessment & Plan (10/21/2020 9:20 PM ACID FILLER): Encouraged patient to follow fat/low chol diet [...] 09/10/19 Assessment & Plan (07/25/2019 9:30 PM ACID FILLER): Weight/BMI is in healthy range. Continue healthy [...] losartan Assessment & Plan (09/26/2021 2:26 PM ACID FILLER): Bp is stable/in acceptable range for any co-morbidities. Encouraged to limit sodium intake and exercise for weight control. Continue losartan 25 Assessment & Plan (03/18/2021 12:59 PM CDT): Bp is stable/in acceptable range for any co-morbidities. Encouraged to limit sodium intake and exercise for weight control. Continue losartan Assessment & Plan (10/23/2020 6:53 PM ACID FILLER): Systolic is elevated by diastolic is low. [...] of continued A1c control to minimize the nursing home effects of diabetes. Bring accuchecks to office [...] continued A1c control to minimize the intermediate accountant effects of diabetes. Bring accuchecks to office [...] continued A1c control to minimize the intermediate accountant effects of diabetes. Bring accuchecks to office [...] prior. Assessment & Plan (09/26/2019 8:52 AM ACID FILLER): Bp is stable/in acceptable range for any [...]
--- OUTSIDE RECORDS SUMMARY | 2025-05-12 12:00 | XMS_ITS | Encounter Summary ---
Author Organization [facility] Healthcare Address [address] [place] [address] Care Team Providers Care Field Sales Associate Name Role Phone Isis Boo Primary Care Provider [phone] Angel Hernandez MD Unavailable [phone] Gabino Paez MD Unavailable [phone] Boo Alaniz MD Unavailable Gorge JUAREZ MD, Jim Bright Unavailable [phone] Brooks Pennington MD Unavailable [phone] Reason for Visit * Reason Onset Date Comments Medical Question/Miscellaneous 05/07/2025 Encounter Details Date Type Department Care Team (Late st Contact Info) Description 05/07/2025 Telephone [facility] Medical Group Family Medicine [address] [place] [address] Isis Boo PA [address] [place] [address] Medical Question/Miscellaneous Social History Tobacco [...] materials from doctor or pharmacy Never 10/18/2022 [facility] Utilities Answer Date Recorded In the [...] often do you attend chur ch or christian services? Never 05/18/2023 Do you belong to any clubs o r organizations such as rastafarian groups, unions, fraternal or athletic groups, or [...] place to sleep or slept in a long-term (including now)? 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 Gender Identity Not on file Sexual Orientation Not on file documented as of this encounter Miscellaneous Notes * Telephone Encounter - Suellen Arriaga - 05/07/2025 1:26 PM CDT Medical Question/Miscellaneous Caller???s Concern: Layne [facility] states they faxed a request on 04/29 [...] on filedocumented in this encounter Care Teams Field Sales Associate Relationship Specialty Start Date End Date Isis Boo PA [address] [place] [address] PCP - General Internal Medicine 06/06/19 Angel Hernandez MD [address] [place] [address] Consulting Physician Cardiology 04/29/22 Gabino Paez MD [address] [place] [address] Consulting Physician Pulmonary Disease 05/03/22 Boo Alaniz MD [facility] [address] [place] [address] Consulting Physician Vascular Surgery 09/15/22 Jmi Pennington II, MD [address] [place] [address] Surgeon Otolaryngology 11/27/24 Brooks Pennington MD [address] [place] [address] Radiation Oncologist Radiation Oncology 12/10/24 documented as of this encounter
--- NOTE | 2025-05-12 12:45 | ED.RECABL ---
HPI - Recheck/Abnormal Lab/Rx General Chief Complaint: Recheck/Abnormal Lab/Rx <Cathy Cool PA-C - Last Filed: 05/12/25 12:51> Stated Complaint: elevated blood sugar 400 today <Cathy Cool PA-C - Last Filed: 05/12/25 12:51> Time Seen by Provider: 05/12/25 12:45 <Cathy Cool PA-C - Last Filed: 05/12/25 12:51> Focused HPI: Patient is a 74-year-old male who presents the ED with report of hyperglycemia. Patient reports he was scheduled to undergo colonoscopy this morning. He was told to hold his Plavix for the past 4 days, but stopped all of his normal medications. He states he has been forgetting to take them. He did not take his normal diabetic mediations this morning. Blood sugar was noted to be elevated into the 450 range prior to the procedure and he was sent to the ED for further evaluation. Patient does admit to mild polyuria, polydipsia. Denies fevers, recent illness, pain. GENERAL: Chronically ill-appearing, well-nourished, and in no acute distress. HEAD: Normocephalic, atraumatic. CHEST: Clear to auscultation. ?No respiratory distress. HEART: Regular rate and rhythm.? NEURO: ?Alert and oriented x3. Patient screened in triage and initial orders placed.? ?Additional care and disposition to be based upon?diagnostic testing and treatment. <Cathy Cool PA-C - Last Filed: 05/12/25 12:51> Source: patient <Cathy Cool PA-C - Last Filed: 05/12/25 12:51> Mode of arrival: wheelchair <Cathy Cool PA-C - Last Filed: 05/12/25 12:51> Limitations: no limitations <Cathy Cool PA-C - Last Filed: 05/12/25 12:51> History of Present Illness HPI narrative: Agree with HPI <Thompson Scott MD - Last Filed: 05/12/25 15:49> Related Data Home Medications: Home Medications ?Medication ?Instructions ?Recorded ?Confirmed ?Last Taken ?Type albuterol sulfate 90 mcg/actuation 2 inh inhalation Q4H PRN Shortness 11/18/19 02/24/25 Unknown History aerosol inhaler Of Breath losartan 25 mg tablet 25 mg PO DAILY 11/18/19 05/12/25 05/07/25 History metformin 500 mg tablet 500 mg PO BID 11/18/19 05/12/25 05/07/25 History omega-3 250 tm-exj-xfd-lutein 2.5 1 cap PO BID 11/18/19 05/12/25 05/07/25 History mg-zeaxanthin 0.5 mg capsule ([facility]) pantoprazole 40 mg tablet,delayed 40 mg PO BID 11/18/19 05/12/25 05/07/25 History release Jardiance 10 mg PO QAM 09/16/22 05/12/25 05/07/25 History aspirin 81 mg tablet 81 mg PO DAILY 09/16/22 05/12/25 05/07/25 History clopidogrel 75 mg tablet 75 mg PO DAILY 09/16/22 05/12/25 05/07/25 History cyclobenzaprine 5 mg tablet 5 mg PO HS PRN Muscle Pain 09/16/22 02/24/25 Unknown History meloxicam 7.5 mg tablet 7.5 mg PO DAILY 09/16/22 05/12/25 05/07/25 History <Cathy Cool PA-C - Last Filed: 05/12/25 12:51> Allergies/Adverse Reactions: Allergies Allergy/AdvReac Type Severity Reaction Status Date / Time No Known Allergies Allergy Verified 05/12/25 10:25 <Cathy Cool PA-C - Last Filed: 05/12/25 12:51> Review of Systems Review of Systems: All systems reviewed & are unremarkable except as noted in HPI and below <Thompson Scott MD - Last Filed: 05/12/25 15:49> Constitutional: Constitutional: Reports no additional constitutional complaints <Thompson Scott MD - Last Filed: 05/12/25 15:49> Cardiovascular: Cardiovascular: Reports no additional cardiovascular complaints <Thompson Scott MD - Last Filed: 05/12/25 15:49> Respiratory: Respiratory: Reports no additional respiratory complaints <Thompson Scott MD - Last Filed: 05/12/25 15:49> Gastrointestinal: Gastrointestinal: Reports no additional gastrointestinal complaints <Thompson Scott MD - Last Filed: 05/12/25 15:49> [facility] Past Medical History Medical History: Medical History Colon cancer screening Back pain Gastric ulcer Arthritis GERD (gastroesophageal reflux disease) Bilateral inguinal hernia COPD (chronic obstructive pulmonary disease) HLD (hyperlipidemia) HTN (hypertension) Diabetes <Cathy Cool PA-C - Last Filed: 05/12/25 12:51> Surgical History Surgical History: Surgical History Hx of appendectomy Hx of bilateral inguinal hernia repair Hx of tonsillectomy <Cathy Cool PA-C - Last Filed: 05/12/25 12:51> Family History Family History: Family History Mother Family history of diabetes mellitus in first degree relative Sibling Family history of heart disease in male family member before age 55 Family history of lung cancer Family history of diabetes mellitus in first degree relative Breast cancer Father Alcohol abuse Other Diabetes mellitus Family history of malignant neoplasm <Cathy Cool PA-C - Last Filed: 05/12/25 12:51> Social History Social History: Social History Social History: The patient stated that he was Rai 4 years old when he started smoking. He said he used to drink heavily but no longer drinks heavily. He lives with his any does not have any biological children. 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 Smoking packs per day: 1.5 Smoking cigarettes per day: 30.0 Years smoked: 65 Smoking pack-years: 97.50 Smoking status: Former smoker Tobacco type: cigarettes Second hand tobacco smoke exposure: Yes Smoking end date: 10/15/19 Additional smoking assessment comments: pt states he starting drinking and smoking at the age of 4 Alcohol intake: current Substance use: former Substance use type: does not use Other substance usage details: WHEN IN [place] Living arrangements: with family Occupation/Education: retired Gender identity (if verbalized by the patient): Male Spiritual care concerns: No Agree to blood products: Yes <Cathy Cool PA-C - Last Filed: 05/12/25 12:51> Exam Narrative: GENERAL: Well-appearing, well-nourished, and in no acute distress. HEAD: Normocephalic, atraumatic. ENT: Mucous membranes moist. CHEST: Clear to auscultation. No respiratory distress. HEART: Regular rate and rhythm. Normal peripheral pulses. ABDOMEN: Soft, nontender, nondistended. EXTREMITIES: Normal range of motion. No edema. SKIN: Warm, dry, no rash. NEURO: Alert and oriented x3. PSYCH: Normal mood and affect. <Thompson Scott MD - Last Filed: 05/12/25 15:49> Course Course Emergency Course: Patient is a poorly controlled diabetic his not taking his medication recently. Blood sugar 455 but no gap or concern for acidosis. Pseudo hyponatremia related to elevated glucose. Recommend restarting home medications. Discharge. <Thompson Scott MD - Last Filed: 05/12/25 15:49> Vital Signs Vital signs: Vital Signs Temperature 97.0 F L 05/12/25 10:59 Pulse Rate 77 05/12/25 10:59 Respiratory Rate 18 05/12/25 10:59 Blood Pressure 108/59 L 05/12/25 10:59 Pulse Oximetry 95 05/12/25 10:59 Oxygen Delivery Room Air 05/12/25 10:59 Temperature 97.0 F L 05/12/25 10:59 Pulse Rate 77 05/12/25 10:59 Respiratory Rate 19 05/12/25 14:07 Blood Pressure 108/59 L 05/12/25 10:59 Pulse Oximetry 95 05/12/25 10:59 Oxygen Delivery Room Air 05/12/25 10:59 <Cathy Cool PA-C - Last Filed: 05/12/25 12:51> Vital Signs Temperature 97.0 F L 05/12/25 10:59 Pulse Rate 77 05/12/25 10:59 Respiratory Rate 18 05/12/25 10:59 Blood Pressure 108/59 L 05/12/25 10:59 Pulse Oximetry 95 05/12/25 10:59 Oxygen Delivery Room Air 05/12/25 10:59 Temperature 97.0 F L 05/12/25 10:59 Pulse Rate 77 05/12/25 10:59 Respiratory Rate 19 05/12/25 14:07 Blood Pressure 108/59 L 05/12/25 10:59 Pulse Oximetry 95 05/12/25 10:59 Oxygen Delivery Room Air 05/12/25 10:59 <Thompson Scott MD - Last Filed: 05/12/25 15:49> MDM - Recheck/Abnormal Lab/Rx MDM Narrative Medical decision making narrative: MSE by VIDHYA in triage. <Cathy Cool PA-C - Last Filed: 05/12/25 12:51> Lab Data Result diagrams: 05/12/25 13:04 05/12/25 13:04 <Cathy Cool PA-C - Last Filed: 05/12/25 12:51> Labs: Lab Results 05/12/25 05/12/25 05/12/25 Range/Units 11:01 13:04 14:27 WBC 11.5 H (4.5-10.0) K/mm3 RBC 4.79 (4.6-6.20) M/mm3 Hgb 15.0 (14.0-18.0) g/dL Hct 44.5 (42.0-52.0) % MCV 92.9 (80-100) fl MCH 31.3 (26-34) pg MCHC 33.7 (32-36) g/dl RDW 12.5 (11.5-14.5) % Plt Count 320 (150-375) k/mm3 MPV 10.1 (7.4-10.4) fl Immature Gran % (Auto) 0.3 (0-0.5) % Neut % (Auto) 72.7 (45.5-73.1) % Lymph % (Auto) 16.2 L (18.3-44.2) % [place] % (Auto) 6.5 (2.6-8.5) % Eos % (Auto) 3.5 (0-4.4) % Baso % (Auto) 0.8 (0.2-1.2) % Lymph # (Auto) 1.86 (0.9-3.2) K/mm3 [place] # (Auto) 0.8 H (0.1-0.6) K/mm3 Eos # (Auto) 0.4 H (0-0.3) K/mm3 Baso # (Auto) 0.1 (0.0-0.1) K/mm3 Abs Immat Gran (auto) 0.04 H (0.00-0.031) K/mm3 Absolute Neuts (auto) 8.3 H (1.3-6.7) K/mm3 Absolute Nucleated RBC 0.000 (0.0-0.012) K/mm3 Nucleated RBC % 0.0 (0.0-0.2) % Sodium 130 L (137-145) mmol/L Potassium 4.8 (3.4-5.0) mmol/L Chloride 96 L (98-107) mmol/L Carbon Dioxide 24 (22-30) mmol/L Anion Gap 10 (4-12) mmol/L BUN 23 H (9-20) mg/dL Creatinine 0.96 (0.7-1.3) mg/dL Estim Creat Clear Calc 54 ml/min Estimated GFR > 60 (59 - ) Glucose 459 H (65-110) mg/dL POC Capillary Glucose 455 H (65-105) mg/dl Hemoglobin A1c 13.0 H (<5.7) % Calcium 10.1 (8.4-10.2) mg/dL Phosphorus 3.8 (2.5-4.5) mg/dL Magnesium 1.7 (1.6-2.3) mg/dL Total Bilirubin 0.5 (0.2-1.3) mg/dL AST 35 (17-59) U/L ALT 37 (6-50) U/L Alkaline Phosphatase 95 (38-126) U/L Total Protein 7.9 (6.3-8.2) g/dL Albumin 4.3 (3.5-5.1) g/dL Urine Color Dark yellow (Yellow) Urine Appearance Clear (Clear) Urine pH 5.5 (5.0-9.0) Ur Specific [place] 1.025 (1.001-1.035) Urine Protein 2+ H (Negative) mg/dL Urine Glucose (UA) 3+ H (Negative) mg/dL Urine Ketones Trace H (Negative) mg/dL Ur Blood (Man) Negative (Negative) Urine Nitrate Negative (Negative) Urine Bilirubin Negative (Negative) Urine Urobilinogen 0.2 (<2.0) mg/dL Add Ur Microanalysis Reviewed Leukocyte Esterase Rfl Negative (Negative) EDY/UL Urine RBC 0-2 (0-2) /hpf Urine WBC 0-5 (0-3) /hpf Ur Squamous Epith Cells Few (Few) /hpf Ur Transition Epith Cell None seen (None Seen) /hpf Urine Bacteria Rare /hpf Urine Casts >20 Hyaline Casts Present (None) /lpf <Cathy Cool PA-C - Last Filed: 05/12/25 12:51> Lab Results 05/12/25 05/12/25 05/12/25 Range/Units 11:01 13:04 14:27 WBC 11.5 H (4.5-10.0) K/mm3 RBC 4.79 (4.6-6.20) M/mm3 Hgb 15.0 (14.0-18.0) g/dL Hct 44.5 (42.0-52.0) % MCV 92.9 (80-100) fl MCH 31.3 (26-34) pg MCHC 33.7 (32-36) g/dl RDW 12.5 (11.5-14.5) % Plt Count 320 (150-375) k/mm3 MPV 10.1 (7.4-10.4) fl Immature Gran % (Auto) 0.3 (0-0.5) % Neut % (Auto) 72.7 (45.5-73.1) % Lymph % (Auto) 16.2 L (18.3-44.2) % [place] % (Auto) 6.5 (2.6-8.5) % Eos % (Auto) 3.5 (0-4.4) % Baso % (Auto) 0.8 (0.2-1.2) % Lymph # (Auto) 1.86 (0.9-3.2) K/mm3 [place] # (Auto) 0.8 H (0.1-0.6) K/mm3 Eos # (Auto) 0.4 H (0-0.3) K/mm3 Baso # (Auto) 0.1 (0.0-0.1) K/mm3 Abs Immat Gran (auto) 0.04 H (0.00-0.031) K/mm3 Absolute Neuts (auto) 8.3 H (1.3-6.7) K/mm3 Absolute Nucleated RBC 0.000 (0.0-0.012) K/mm3 Nucleated RBC % 0.0 (0.0-0.2) % Sodium 130 L (137-145) mmol/L Potassium 4.8 (3.4-5.0) mmol/L Chloride 96 L (98-107) mmol/L Carbon Dioxide 24 (22-30) mmol/L Anion Gap 10 (4-12) mmol/L BUN 23 H (9-20) mg/dL Creatinine 0.96 (0.7-1.3) mg/dL Estim Creat Clear Calc 54 ml/min Estimated GFR > 60 (59 - ) Glucose 459 H (65-110) mg/dL POC Capillary Glucose 455 H (65-105) mg/dl Hemoglobin A1c 13.0 H (<5.7) % Calcium 10.1 (8.4-10.2) mg/dL Phosphorus 3.8 (2.5-4.5) mg/dL Magnesium 1.7 (1.6-2.3) mg/dL Total Bilirubin 0.5 (0.2-1.3) mg/dL AST 35 (17-59) U/L ALT 37 (6-50) U/L Alkaline Phosphatase 95 (38-126) U/L Total Protein 7.9 (6.3-8.2) g/dL Albumin 4.3 (3.5-5.1) g/dL Urine Color Dark yellow (Yellow) Urine Appearance Clear (Clear) Urine pH 5.5 (5.0-9.0) Ur Specific [place] 1.025 (1.001-1.035) Urine Protein 2+ H (Negative) mg/dL Urine Glucose (UA) 3+ H (Negative) mg/dL Urine Ketones Trace H (Negative) mg/dL Ur Blood (Man) Negative (Negative) Urine Nitrate Negative (Negative) Urine Bilirubin Negative (Negative) Urine Urobilinogen 0.2 (<2.0) mg/dL Add Ur Microanalysis Reviewed Leukocyte Esterase Rfl Negative (Negative) EDY/UL Urine RBC 0-2 (0-2) /hpf Urine WBC 0-5 (0-3) /hpf Ur Squamous Epith Cells Few (Few) /hpf Ur Transition Epith Cell None seen (None Seen) /hpf Urine Bacteria Rare /hpf Urine Casts >20 Hyaline Casts Present (None) /lpf <Thompson Scott MD - Last Filed: 05/12/25 15:49> Discharge Plan Discharge Clinical Impression: Hyperglycemia <Cathy Cool PA-C - Last Filed: 05/12/25 12:51> Patient Disposition: Home <Cathy Cool PA-C - Last Filed: 05/12/25 12:51> Condition: Stable <Cathy Cool PA-C - Last Filed: 05/12/25 12:51> Instructions: Diabetic Hyperglycemia (ED) <Cathy Cool PA-C - Last Filed: 05/12/25 12:51> Additional Instructions: Return ER if you have fever 100.4? F, you cannot keep down food water, he developed chest pain shortness of breath, or you have additional concerns. Please restart your home medications. Follow-up with your PCP to discuss your elevated hemoglobin A1c of 13. <Cathy Cool PA-C - Last Filed: 05/12/25 12:51> Patient Language: Sami <Cathy Cool PA-C - Last Filed: 05/12/25 12:51> Prescriptions: No Action metformin 500 mg tablet 500 mg PO BID pantoprazole 40 mg tablet,delayed release (DR/EC) 40 mg PO BID losartan 25 mg tablet 25 mg PO DAILY [facility] 250-2.5-0.5 mg Capsule 1 cap PO BID albuterol sulfate 90 mcg/actuation HFA aerosol inhaler 2 inh INHALATION Q4H PRN (Reason: Shortness Of Breath) clopidogrel 75 mg Tablet 75 mg PO DAILY meloxicam 7.5 mg Tablet 7.5 mg PO DAILY aspirin 81 mg Tablet 81 mg PO DAILY cyclobenzaprine 5 mg Tablet 5 mg PO HS PRN (Reason: Muscle Pain) Jardiance 10 mg tablet 10 mg PO QAM atorvastatin 80 mg Tablet 80 mg PO DAILY Qty: 30 0RF docusate sodium 100 mg Capsule 100 mg PO Q12H PRN (Reason: Constipation) Qty: 60 0RF polyethylene glycol 3350 [Miralax] 17 gram Powder In Packet 17 g PO QAM PRN (Reason: Constipation) Qty: 14 0RF hydrocodone-acetaminophen 5-325 mg Tablet 2 tablet PO Q6H PRN (Reason: Pain Rated 4-6) Qty: 20 0RF gabapentin 100 mg Capsule 100 mg PO TID Qty: 90 0RF Saline Mist 0.65 % Aerosol,[place] 2 spray intranasal Q6HR PRN (Reason: Congestion) Qty: 44 0RF umeclidinium-vilanterol [Anoro Ellipta] 62.5-25 mcg/actuation Blister With Device 1 ea inhalation DAILYRT Qty: 60 0RF <Cathy Cool PA-C - Last Filed: 05/12/25 12:51> Follow-up/Referrals: Ema,TAHIRA Marinelli [Primary Care Provider, Unknown] - 1 Week <Cathy Cool PA-C - Last Filed: 05/12/25 12:51>
[2025-05-12 13:19] LABS: Hematocrit 44.5 % (42.0-52.0); Hemoglobin 15.0 g/dL (14.0-18.0); Immature Granulocyte Percent A 0.3 % (0-0.5); Lymphocytes Absolute Auto 1.86 K/mm3 (0.9-3.2); Mean Corpuscular HGB Conc 33.7 g/dl (32-36); Mean Corpuscular Hemoglobin 31.3 pg (26-34); Mean Corpuscular Volume 92.9 fl (80-100); Nucleated Red Blood Cells Absolute Auto 0.000 K/mm3 (0.0-0.012); Nucleated Red Blood Cells Perc 0.0 % (0.0-0.2); Platelet Count Result 320 k/mm3 (150-375); Red Blood Count 4.79 M/mm3 (4.6-6.20); White Blood Count 11.5 K/mm3 (4.5-10.0)
[2025-05-12 13:30] LABS: Alanine Aminotransferase 37 U/L (6-50); Albumin Level 4.3 g/dL (3.5-5.1); Alkaline Phosphatase 95 U/L (38-126); Anion Gap 10 mmol/L (4-12); Aspartate Amino Transferase 35 U/L (17-59); Bilirubin,Total 0.5 mg/dL (0.2-1.3); Blood Urea Nitrogen 23 mg/dL (9-20); Calcium 10.1 mg/dL (8.4-10.2); Carbon Dioxide 24 mmol/L (22-30); Chloride 96 mmol/L (98-107); Estimated CRCL calculation 54 ml/min; Estimated Glomerular Filt Rate > 60; Glucose 459 mg/dL (65-110); Magnesium 1.7 mg/dL (1.6-2.3); Potassium 4.8 mmol/L (3.4-5.0); Sodium 130 mmol/L (137-145); Total Protein 7.9 g/dL (6.3-8.2)
[2025-05-12 13:52] LABS: Hemoglobin A1C 13.0 % (<5.7)
[2025-05-12 14:07] VITALS: RESP 19
--- OUTSIDE RECORDS SUMMARY | 2025-05-12 14:26 | XMS_ITS | Clinical Summary ---
Author Organization [facility] Address [address] [place] [address] Care Team Providers Care Foot Doctor Name Role Phone Unavailable Primary Care Provider [...]
--- OUTSIDE RECORDS SUMMARY | 2025-05-12 14:26 | XMS_ITS | Encounter Summary ---
Author Organization [facility] Healthcare Address [address] [place] [address] Care Team Providers Care Enterprise Sales Executive Name Role Phone Isis Boo Primary Care Provider [phone] Angel Hernandez MD Unavailable [phone] Gabino Paez MD Unavailable [phone] Boo Alaniz MD Unavailable Gorge JUAREZ MD, Jim Bright Unavailable [phone] Brooks Pennington MD Unavailable [phone] Reason for Visit * Reason Onset Date Comments Medical Question/Miscellaneous 05/07/2025 Encounter Details Date Type Department Care Team (Late st Contact Info) Description 05/07/2025 Telephone [facility] Medical Group Family Medicine [address] [place] [address] Isis Boo PA [address] [place] [address] Medical Question/Miscellaneous Social History Tobacco [...] materials from doctor or pharmacy Never 10/18/2022 [facility] Utilities Answer Date Recorded In the [...] often do you attend chur ch or sikh services? 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 Identity Not on file Sexual Orientation Not on file documented as of this encounter Miscellaneous Notes * Telephone Encounter - Suellen Arriaga - 05/07/2025 1:26 PM CDT Medical Question/Miscellaneous Caller???s Concern: Layne [facility] states they faxed a request [...] on filedocumented in this encounter Care Teams Enterprise Sales Executive Relationship Specialty Start Date End Date Isis Boo PA [address] [place] [address] PCP - General Internal Medicine 06/06/19 Angel Hernandez MD [address] [place] [address] Consulting Physician Cardiology 04/29/22 Gabino Paez MD [address] [facility] [address] [address] [address] [place] [address] Consulting Physician Pulmonary Disease 05/03/22 Boo Alaniz MD [facility] [address] [place] [address] Consulting Physician Vascular Surgery 09/15/22 Jim Pennington II, MD [address] [place] [address] Surgeon Otolaryngology 11/27/24 Brooks Pennington MD [address] [place] [address] Radiation Oncologist Radiation Oncology 12/10/24 documented as of this encounter
--- OUTSIDE RECORDS SUMMARY | 2025-05-12 14:26 | XMS_ITS ---
Author Organization [facility] [address] Address [address] [place] [address] Care Team Providers Care [employer] Name Role Phone Isis Boo Primary Care Provider [phone] Angel Hernandez MD Unavailable Gabino Paez MD Unavailable [phone] Boo Alaniz MD Unavailable Gorge JUAREZ MD, Jim Deangelo Unavailable [phone] Brooks Pennington MD Unavailable [phone] Active Problems Problem Noted Date Diagnosed [...] 08/07/2024 Assessment & Plan (08/17/2024 1:42 AM LEAD NEURODIAGNOSTIC TECHNOLOGIST): Patient has noticed a hoarseness to his [...] 08/07/2024 Assessment & Plan (08/17/2024 1:43 AM LEAD NEURODIAGNOSTIC TECHNOLOGIST): Patient has noticed a hoarseness to his [...] maintain. Assessment & Plan (08/17/2024 1:40 AM LEAD NEURODIAGNOSTIC TECHNOLOGIST): Weight/BMI is in healthy range. Continue healthy lifestyle to maintain. Assessment & Plan (06/25/2024 8:13 AM LEAD NEURODIAGNOSTIC TECHNOLOGIST): Weight/BMI is in healthy range. Continue healthy lifestyle to maintain. Fatigue 06/25/2024 Assessment & Plan (06/25/2024 6:41 PM LEAD NEURODIAGNOSTIC TECHNOLOGIST): Probably multifactorial. Check labs and followup to re-evaluate Medicare annual wellness visit, subsequent 07/29 Assessment & Plan (06/25/2024 6:38 PM LEAD NEURODIAGNOSTIC TECHNOLOGIST): Encouraged healthy lifestyle, good nutrition and exercise. [...] chart Assessment & Plan (07/29/2023 9:21 PM LEAD NEURODIAGNOSTIC TECHNOLOGIST): Encouraged healthy lifestyle, good nutrition and exercise. Encouraged Calcium and Vitamin D and weight bearing exercise for bone health. Reviewed immunizations Reviewed age appropirate screenings. History of left above knee amputation 10/17/2022 Overview (10/17/2022): 08/2022 Dr. Alaniz Assessment & Plan (11/10/2024 11:36 PM CDT): Status post jlgqk-tud-vcyv amputation on the left by Dr. Alaniz. Continue Plavix and aspirin and statin. States he is [facility] the [facility] to help get his [facility] to fit more comfortably. Assessment & Plan (06/25/2024 6:38 PM LEAD NEURODIAGNOSTIC TECHNOLOGIST): Status post wkvfl-kbx-rhqe amputation on the left by Dr. Alaniz. Continue Plavix and aspirin and statin. States he is not happy with prosthesis in his more happy utilizing his crutches to get around Assessment & Plan (03/24/2024 10:38 PM CDT): Status post pwyau-xwi-cxsd amputation due to peripheral vascular disease. Continue with statin, Plavix and aspirin. Assessment & Plan (07/29/2023 9:21 PM LEAD NEURODIAGNOSTIC TECHNOLOGIST): Status post above-knee amputation. Continue per vascular, [...] his essence referral for him to contact [facility] to get started. If he has problems he is to contact Dr. Alaniz's office. Seems to verbalize understanding of the plan Assessment & Plan (10/17/2022 8:43 AM LEAD NEURODIAGNOSTIC TECHNOLOGIST): Status post left above-knee amputation by Dr. [...] 10/17/2022 Assessment & Plan (06/25/2024 6:38 PM LEAD NEURODIAGNOSTIC TECHNOLOGIST): Phantom pain has subsided without any additional [...] monitor Assessment & Plan (10/17/2022 8:43 AM LEAD NEURODIAGNOSTIC TECHNOLOGIST): Status post left above-knee amputation by Dr. [...] control. Will continue to monitor Atherosclerosis of paimiut ar jonas of left lower extremity with rest pain 07/18/2022 Assessment & Plan (06/25/2024 6:37 PM LEAD NEURODIAGNOSTIC TECHNOLOGIST): Patient is on statin aspirin Plavix. Assessment & Plan (09/06/2022 8:48 AM LEAD NEURODIAGNOSTIC TECHNOLOGIST): Impression: Patient is status post left femoral artery exploration and left posterior tibial artery exploration due to life-limiting claudication and rest pain. Patient was found to have severely calcified and very small in caliber arteries and not suitable for open surgical revascularization. Patient continues to complain of pain to his left leg. [place] are intact to left groin and medial calf with no concern for infection. Plan: Patient has non-reconstructible vascular disease therefore a left awmvh-vvy-svdv amputation was recommended. Risks of the procedure communicate with the patient to include bleeding, infection, injury, further surgery, and . Patient understands these risks and wishes to proceed. [place] were removed from left groin and left medial calf. Assessment & Plan (07/18/2022 1:58 PM LEAD NEURODIAGNOSTIC TECHNOLOGIST): Impression: Acute onset worsening claudication following recent [...] 05/05/2022 Assessment & Plan (06/25/2024 6:37 PM LEAD NEURODIAGNOSTIC TECHNOLOGIST): Patient with PVD. Continue with the Plavix and aspirin. Continue with the Lipitor 80 Assessment & Plan (03/24/2024 10:36 PM CDT): Patient has peripheral vascular disease. Continue to follow with vascular. He has already had lower leg amputation due to the peripheral vascular disease Assessment & Plan (10/17/2022 8:42 AM LEAD NEURODIAGNOSTIC TECHNOLOGIST): Continue per vascular surgery. He is on Plavix. Still strongly encouraged smoking cessation Assessment & Plan (10/06/2022 11:43 AM LEAD NEURODIAGNOSTIC TECHNOLOGIST): Status post left above knee amputation. Healed. [...] to regular hobbies, community activities, and resume roller printer and activities of daily living. Patient is [...] time. Assessment & Plan (08/16/2022 4:20 PM LEAD NEURODIAGNOSTIC TECHNOLOGIST): Impression: Known thrombosed left fem-pop bypass diagnosis [...] 80 Assessment & Plan (06/25/2024 6:38 PM LEAD NEURODIAGNOSTIC TECHNOLOGIST): Encouraged patient to follow low fat/low chol diet like the Mediterranean diet. Increase good fats in the diet. Increase exercise. Monitor labs as needed. Continue Lipitor 80 Assessment & Plan (03/24/2024 10:36 PM CDT): Stressed importance of continued A1c control to minimize the care home effects of diabetes. Bring accuchecks to [...] 10 Assessment & Plan (07/29/2023 9:21 PM LEAD NEURODIAGNOSTIC TECHNOLOGIST): Encouraged patient to follow low fat/low chol [...] 80 Assessment & Plan (10/17/2022 8:41 AM LEAD NEURODIAGNOSTIC TECHNOLOGIST): Encouraged patient to follow low fat/low chol [...] 25 Assessment & Plan (06/25/2024 6:42 PM LEAD NEURODIAGNOSTIC TECHNOLOGIST): This is a significant, separately identifiable problem that was evaluated and managed on the same day as the wellness exam Bp is stable/in acceptable range for any co-morbidities. Encouraged to limit sodium intake and exercise for weight control. 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 Bring accuchecks to office [...] his Farxiga including from the [facility] versus [place] and me assistance versus him pain for it as he states he did get a little bit of extra money. Advised I will go ahead and prescribe it and if he needs assistance we would be glad to help him with a.c. and knee he would just need to bring in the correct paperwork. Encouraged him to talk with his [facility] industrial relations representative to see if he could get [...] 25 Assessment & Plan (07/29/2023 9:20 PM LEAD NEURODIAGNOSTIC TECHNOLOGIST): Bp is stable/in acceptable range for any co-morbidities. Encouraged to limit sodium intake and exercise for weight control. Stressed importance of continued A1c control to minimize the care home effects of diabetes. Bring accuchecks to [...] 25 Assessment & Plan (10/17/2022 8:41 AM LEAD NEURODIAGNOSTIC TECHNOLOGIST): Bp is stable/in acceptable range for any co-morbidities. Encouraged to limit sodium intake and exercise for weight control. Continue losartan 25 Assessment & Plan (08/16/2022 4:22 PM LEAD NEURODIAGNOSTIC TECHNOLOGIST): Impression: Stable chronic hypertension. Plan: Medications reviewed and recommend continuing daily antihypertensive regimen as directed by patient's primary care physician. Assessment & Plan (06/14/2022 5:07 PM CDT): Bp is stable/in acceptable range for any co-morbidities. Encouraged to limit sodium intake and exercise for weight control. 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 Bring accuchecks to office when instructed to do so. Check A1c about every 3-6 months. Take medication as prescribed. Get annual eye exam. Encouraged DIANELYS/Statin if able to tolerate. Encouraged weight control and encouraged diabetic diet and exercise. Patient has peripheral artery disease as well as peripheral arterial disease. Assessment & Plan (07/29/2023 9:21 PM LEAD NEURODIAGNOSTIC TECHNOLOGIST): Peripheral artery disease in the setting of diabetes that has resulted in putgb-klj-dqqi amputation of the left leg. Strongly encouraged medical management as instructed. Assessment & Plan (01/03/2023 9:22 PM CDT): Stressed importance of continued A1c control to minimize the care home effects of diabetes. Bring accuchecks to [...] amputation. Assessment & Plan (10/17/2022 8:42 AM LEAD NEURODIAGNOSTIC TECHNOLOGIST): Stressed importance of continued A1c control to minimize the care home effects of diabetes. Bring accuchecks to [...] of continued A1c control to minimize the care home effects of diabetes. Bring accuchecks to [...] 12/21/2020 Assessment & Plan (10/17/2022 8:41 AM LEAD NEURODIAGNOSTIC TECHNOLOGIST): Stressed importance of continued A1c control to minimize the ferry terminal supervisor effects of diabetes. Bring accuchecks to office [...] 02/02/2020 Assessment & Plan (09/29/2021 12:34 PM LEAD NEURODIAGNOSTIC TECHNOLOGIST): Xray R shoulder today - he is taking to [facility]. Will notify him of results as [...] 07/25/2019 Assessment & Plan (07/25/2019 3:08 PM LEAD NEURODIAGNOSTIC TECHNOLOGIST): Infection vs pain from thick large nail growing into the skin. Start keflex. Has followup scheduled with Dr. Fraga next week. Await her recommendations. Laryngopharyngeal reflux (LPR) 06/07/2019 Assessment & Plan (06/25/2024 6:31 PM LEAD NEURODIAGNOSTIC TECHNOLOGIST): Continue PPI p.r.n. Assessment & Plan (03/24/2024 10:38 PM CDT): Continue pantoprazole p.r.n. Assessment & Plan (07/29/2023 9:19 PM LEAD NEURODIAGNOSTIC TECHNOLOGIST): Reviewed with patient if his reflux symptoms are controlled he can just use the pantoprazole p.r.n.. Assessment & Plan (10/17/2022 8:39 AM LEAD NEURODIAGNOSTIC TECHNOLOGIST): Continue PPI p.r.n. Assessment & Plan (06/14/2022 5:06 PM CDT): Continue PPI p.r.n. Assessment & Plan (09/26/2021 2:26 PM LEAD NEURODIAGNOSTIC TECHNOLOGIST): Continue PPI Assessment & Plan (03/18/2021 1:01 PM CDT): Continue ppi Assessment & Plan (10/21/2020 9:20 PM LEAD NEURODIAGNOSTIC TECHNOLOGIST): Continue PPI Assessment & Plan (03/14/2020 7:27 PM CDT): Continue Protonix Assessment & Plan (02/02/2020 4:30 PM CDT): Continue PPI Assessment & Plan (06/07/2019 2:12 PM CDT): On Protonix bid. No active bleeding Stop smoking. Avoid alcohol. Avoid NSAIDs. Onychomycosis 06/07/2019 Assessment & Plan (02/02/2020 4:31 PM CDT): Continue per adolescent medicine specialist Assessment & Plan (06/07/2019 2:16 PM CDT): This is a significant, separately identifiable problem that was evaluated and managed on the same day as the wellness exam Has been on Lamisil in the past without success. Refer to [facility] for further treatment and assistance with cutting [...] past. Assessment & Plan (08/17/2024 1:40 AM LEAD NEURODIAGNOSTIC TECHNOLOGIST): Encouraged smoking cessation. Discussed 3 minutes. Reviewed options for assistance with cessation. Reviewed care home sequela associated with smoking. Pt declines assistance at this time but may contact the office at anytime for further help as they desire. Assessment & Plan (06/25/2024 6:32 PM LEAD NEURODIAGNOSTIC TECHNOLOGIST): This is a significant, separately identifiable problem [...] Reviewed options for assistance with cessation. Reviewed care home sequela associated with smoking. Pt declines assistance at this time but may contact the office at anytime for further help as they desire. Assessment & Plan (10/17/2022 8:40 AM LEAD NEURODIAGNOSTIC TECHNOLOGIST): Encouraged smoking cessation. Discussed 3 minutes. Reviewed options for assistance with cessation. 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 Pt declines assistance at this time but may contact the office at anytime for further help as they desire. Assessment & Plan (06/14/2022 5:06 PM CDT): Patient states he stop smoking. Assessment & Plan (10/21/2020 9:23 PM LEAD NEURODIAGNOSTIC TECHNOLOGIST): Quit 09/2019 Due for LDCT after 08/01/2020 Assessment & Plan (02/02/2020 4:34 PM CDT): Quit 09/2019 Assessment & Plan (11/24/2019 10:44 PM CDT): Smoke free for a few weeks. Continue with effort Assessment & Plan (09/26/2019 8:46 AM LEAD NEURODIAGNOSTIC TECHNOLOGIST): Quit smoking 09/12 on his own. 2 week cig free Encouraged to continue Assessment & Plan (09/22/2019 9:13 PM LEAD NEURODIAGNOSTIC TECHNOLOGIST): .Encouraged smoking cessation. Discussed 3 minutes. Reviewed options for assistance with cessation. Reviewed care home sequela associated with smoking. Pt declines assistance at this time but may contact the office at anytime for further help as they desire. Assessment & Plan (09/15/2019 4:15 PM LEAD NEURODIAGNOSTIC TECHNOLOGIST): Encouraged smoking cessation. Discussed 3 minutes. Reviewed options for assistance with cessation. 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 Pt declines assistance at this time but may contact the office at anytime for further help as they desire. Assessment & Plan (07/25/2019 9:30 PM LEAD NEURODIAGNOSTIC TECHNOLOGIST): Encouraged smoking cessation. Discussed 3 minutes. Reviewed options for assistance with cessation. Reviewed care home sequela associated with smoking. Pt declines assistance at this time but may contact the office at anytime for further help as they desire. Assessment & Plan (06/07/2019 2:26 PM CDT): Encouraged smoking cessation. Discussed 3 minutes. Reviewed options for assistance with cessation. Reviewed care home sequela associated with smoking. Pt declines [...] 06/07/2019 Assessment & Plan (10/17/2022 8:40 AM LEAD NEURODIAGNOSTIC TECHNOLOGIST): Persistent smoker's cough. Encouraged cessation has albuterol p.r.n. Assessment & Plan (10/23/2020 6:47 PM LEAD NEURODIAGNOSTIC TECHNOLOGIST): Treat COPD Continue with smoking cessation Assessment & Plan (03/14/2020 7:26 PM CDT): Quit smoking 08/2019 Assessment & Plan (02/02/2020 4:28 PM CDT): See COPD Assessment & Plan (11/24/2019 10:42 PM CDT): Pt has stopped smoking. Continue to monitor Assessment & Plan (09/26/2019 8:54 AM LEAD NEURODIAGNOSTIC TECHNOLOGIST): Improving. Continue tob cessation. Assessment & Plan (09/15/2019 4:14 PM LEAD NEURODIAGNOSTIC TECHNOLOGIST): Stop smoking Assessment & Plan (06/07/2019 2:10 PM CDT): Encouraged smoking cessation. Duodenal ulcer 06/05/2019 Assessment & Plan (06/05/2019 7:35 PM CDT): 04/2019 EGD - Dr. Hawley Acute gastric ulcer without hemorrhage or perfor ation 03/01/2019 Assessment & Plan (10/23/2020 6:47 PM LEAD NEURODIAGNOSTIC TECHNOLOGIST): Continue PPI. Avoid NSAIDs Assessment & Plan (06/07/2019 2:11 PM CDT): On Protonix bid. No active bleeding Stop smoking. Avoid alcohol. Avoid NSAIDs. Alcohol dependence in remission 02/07/2018 Assessment & Plan (06/25/2024 6:30 PM LEAD NEURODIAGNOSTIC TECHNOLOGIST): Patient states he has decreased alcohol immensely. Still encourage complete cessation Assessment & Plan (03/24/2024 10:38 PM CDT): Patient with history of alcohol dependence. He states he still drinks few times a week. Assessment & Plan (10/17/2022 8:37 AM LEAD NEURODIAGNOSTIC TECHNOLOGIST): Patient continues to remain alcohol free. Encouraged to continue Assessment & Plan (06/14/2022 5:06 PM CDT): Patient states he no longer drinks alcohol. Assessment & Plan (09/26/2021 2:25 PM LEAD NEURODIAGNOSTIC TECHNOLOGIST): Patient states he is still not drinking. Continue with cessation. Assessment & Plan (03/18/2021 1:01 PM CDT): Continue alcohol cessation Assessment & Plan (10/21/2020 9:19 PM LEAD NEURODIAGNOSTIC TECHNOLOGIST): Remains off alcohol Assessment & Plan (03/14/2020 [...] 11/2024 Assessment & Plan (06/25/2024 6:31 PM LEAD NEURODIAGNOSTIC TECHNOLOGIST): Encouraged complete smoking cessation. Continue management with Dr. Choi continue Anoro and albuterol. Imaging with CT is managed by Dr. Choi Assessment & Plan (03/24/2024 10:38 PM CDT): Patient with long-term smoking history. Has known COPD. On Anoro and albuterol. 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 Choi Assessment & Plan (07/29/2023 9:21 PM LEAD NEURODIAGNOSTIC TECHNOLOGIST): Continue in RO. Continue to follow with Dr. Riggs. Encouraged follow-up appointment Assessment & Plan (10/17/2022 8:39 AM LEAD NEURODIAGNOSTIC TECHNOLOGIST): Encouraged smoking cessation. 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 Riggs it disaster recovery manager. Using daily Anaro and albuterol p.r.n. [...] get surgery. Chest xray was done at [facility] and it was negative for pneumonia. From the perspective of his COPD/respiratory fitness, patient is able to proceed with the Fem to Pop bypass procedure with Dr. Alaniz. Assessment & Plan (09/26/2021 2:25 PM LEAD NEURODIAGNOSTIC TECHNOLOGIST): Continue with Advair and albuterol p.r.n. Assessment & Plan (03/18/2021 1:03 PM CDT): Continue the Advair and prn albuterol Assessment & Plan (12/21/2020 9:38 AM CDT): Continue Advair and albuterol prn Assessment & Plan (10/23/2020 6:47 PM LEAD NEURODIAGNOSTIC TECHNOLOGIST): Dr. Miranda Advair and prn Albuterol Continue smoking cessation Assessment & Plan (03/14/2020 7:25 PM CDT): Continue Advair and prn albuterol. Await recommendations from Dr. Simpson Assessment & Plan (02/02/2020 4:37 PM CDT): This is a significant, separately identifiable problem that was evaluated and managed on the same day as the wellness exam Continue Advair and albuterol. Refer to Pulmonary at [place] due to persistent COPD sxs/cough. Has never had official PFTs/etc Assessment & Plan (11/24/2019 10:43 PM CDT): Continue with current regimen. Await covid results. Continue quarantine until results are available. Assessment & Plan (09/26/2019 8:53 AM LEAD NEURODIAGNOSTIC TECHNOLOGIST): Stable with the Advair and abuterol prn. Call if required more rescue. May use Mucinex prn for increased mucous production but call if beocomes consistently yellow or green Assessment & Plan (09/22/2019 9:08 PM LEAD NEURODIAGNOSTIC TECHNOLOGIST): COPD vs bronchitis. See Bronchitis for plan Stop smoking Assessment & Plan (09/15/2019 4:14 PM LEAD NEURODIAGNOSTIC TECHNOLOGIST): COPD exacerbation vs pneumonia--- Recommend CXR. Check [...] 07/29/202303/24 Assessment & Plan (07/29/2023 9:22 PM LEAD NEURODIAGNOSTIC TECHNOLOGIST): Check urine culture to rule out infection. If negative may consider adding tamsulosin as he also notes a little hesitancy Prostate cancer screening 07/29/2023 Assessment & Plan (07/29/2023 9:22 PM LEAD NEURODIAGNOSTIC TECHNOLOGIST): Check PSA BMI 20.0-20.9, adult 01/03/2023 Assessment & Plan (11/14/2023 2:08 PM CDT): Weight/BMI is in healthy range. Continue healthy lifestyle to maintain. Assessment & Plan (07/18/2023 9:54 AM LEAD NEURODIAGNOSTIC TECHNOLOGIST): Weight/BMI is in healthy range. Continue healthy [...] maintain. Assessment & Plan (10/17/2022 7:32 AM LEAD NEURODIAGNOSTIC TECHNOLOGIST): Weight/BMI is in healthy range. Continue healthy lifestyle to maintain. Annual physical exam 10/17/2022 Assessment & Plan (10/17/2022 8:42 AM LEAD NEURODIAGNOSTIC TECHNOLOGIST): Encouraged healthy lifestyle, good nutrition and exercise. Encouraged Calcium and Vitamin D and weight bearing exercise for bone health. Reviewed immunizations Reviewed age appropirate screenings. Rest pain of lower extremity due to atherosclerosis 09/05/2022 10/17/2022 Overview (09/05/2022): Added automatically from request for surgery [id number] Medicare annual wellness visit, subsequent 06/14/2022 10/17/2022 [...] 06/14/2022 Assessment & Plan (09/26/2021 2:29 PM LEAD NEURODIAGNOSTIC TECHNOLOGIST): See torticollis Need for immunization against influenza 09/26/2021 06/14/2022 Assessment & Plan (09/26/2021 2:29 PM LEAD NEURODIAGNOSTIC TECHNOLOGIST): FLU updated in office today Foot callus 09/26/2021 03/24/2024 Assessment & Plan (09/26/2021 2:31 PM LEAD NEURODIAGNOSTIC TECHNOLOGIST): This is a significant, separately identifiable problem [...] 06/14/20 Assessment & Plan (09/02/2021 4:22 PM LEAD NEURODIAGNOSTIC TECHNOLOGIST): Weight/BMI is in healthy range. Continue healthy lifestyle to maintain. BMI 26.0-26.9,adult 09/02/2021 09/02/19 BMI 25.0-25.9,adult 04/12/2021 09/02/19 Assessment & Plan (04/12/2021 1:51 PM CDT): Weight/BMI is in healthy range. Continue healthy lifestyle to maintain. Torticollis 04/12/2021 06/14/2022 Assessment & Plan (09/26/2021 2:28 PM LEAD NEURODIAGNOSTIC TECHNOLOGIST): This is a significant, separately identifiable problem [...] PT. Order was given, he will consider ([facility]). He is to followup if sxs [...] complication, without long-term current use of insulin ([facility]) 10/23/2020 10/17/2022 Assessment & Plan (02/27/2022 9:34 PM CDT): Stressed importance of continued A1c control to minimize the care home effects of diabetes. Bring accuchecks to [...] noted. Assessment & Plan (09/26/2021 2:27 PM LEAD NEURODIAGNOSTIC TECHNOLOGIST): Stressed importance of continued A1c control to minimize the care home effects of diabetes. Bring accuchecks to office when instructed to do so. Check A1c about every 3-6 months. Take medication as prescribed. Get annual eye exam. Encouraged DIANELYS/Statin if able to tolerate. Encouraged weight control and encouraged diabetic diet and exercise. 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 Bring accuchecks to office when instructed to do so. Check A1c about every 3-6 months. Take medication as prescribed. Get annual eye exam. Encouraged DIANELYS/Statin if able to tolerate. Encouraged weight control and encouraged diabetic diet and exercise. Continue jardiance and metformin Fatigue 10/23/2020 03/24/2024 Assessment & Plan (07/29/2023 9:21 PM LEAD NEURODIAGNOSTIC TECHNOLOGIST): Probably multifactorial. Check labs and followup to re-evaluate Assessment & Plan (10/17/2022 8:40 AM LEAD NEURODIAGNOSTIC TECHNOLOGIST): Probably multifactorial. Check labs and followup to re-evaluate Assessment & Plan (06/14/2022 5:07 PM CDT): Probably multifactorial. Check labs and followup to re-evaluate Assessment & Plan (02/27/2022 9:34 PM CDT): Probably multifactorial. Check labs and followup to re-evaluate Assessment & Plan (09/26/2021 2:27 PM LEAD NEURODIAGNOSTIC TECHNOLOGIST): Probably multifactorial. Check labs and followup to re-evaluate Decreased hearing 10/23/2020 03/24/2024 Assessment & Plan (10/23/2020 6:52 PM LEAD NEURODIAGNOSTIC TECHNOLOGIST): This is a significant, separately identifiable problem that was evaluated and managed on the same day as the wellness exam Will send to ENT/Audiology for hearing tests to determine cause and treatment plan. 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 Thinks changes started then. BMI 27.0-27.9,adult 10/22/2020 12/22/19 Assessment & Plan (10/22/2020 8:20 AM LEAD NEURODIAGNOSTIC TECHNOLOGIST): Weight/BMI is in healthy range. Continue healthy lifestyle to maintain. Annual physical exam 10/21/2020 Assessment & Plan (09/26/2021 2:26 PM LEAD NEURODIAGNOSTIC TECHNOLOGIST): Encouraged healthy lifestyle, good nutrition and exercise. Encouraged Calcium and Vitamin D and weight bearing exercise for bone health. Reviewed immunizations Reviewed age appropirate screenings. Assessment & Plan (10/21/2020 9:20 PM LEAD NEURODIAGNOSTIC TECHNOLOGIST): Encouraged healthy lifestyle, good nutrition and exercise. Encouraged Calcium and Vitamin D and weight bearing exercise for bone health. Reviewed immunizations Reviewed age appropirate screenings. Exudative age-related macula r degeneration of both eyes with active choroidal neovascularization 10/21/2020 04/14/2025 Assessment & Plan (10/17/2022 8:40 AM LEAD NEURODIAGNOSTIC TECHNOLOGIST): Strongly encouraged follow-up with Ophthalmology. He has put this on the back burner due to his other chronic medical concerns. Assessment & Plan (06/14/2022 5:07 PM CDT): Encourage patient follow-up with his senior cost estimator. He has been hesitant to think about treatment as they may include injections in the eye and he has been adamant about not doing that. Reviewed again the risk of not doing treatment progression to visual changes and possible blindness. He verbalizes understanding will consider Assessment & Plan (09/26/2021 2:27 PM LEAD NEURODIAGNOSTIC TECHNOLOGIST): Encouraged to continue per Ophthalmology. He voices understanding that by foregoing treatment this could lead to progressive loss of sight. Assessment & Plan (03/18/2021 1:00 PM CDT): Stressed the importance of continued follow-up with the senior cost estimator. Reviewed that macular degeneration will continue to progress to the point of blindness and that treatment/intervention is needed to change this course or at least try to slow it down. Patient voiced understanding and states at this point he is not interested in treatment Assessment & Plan (10/23/2020 6:47 PM LEAD NEURODIAGNOSTIC TECHNOLOGIST): Encouraged to Continue per [facility] as [...] 09/26/2019 Assessment & Plan (09/22/2019 9:08 PM LEAD NEURODIAGNOSTIC TECHNOLOGIST): Bronchitis vs COPD. Flu is negative. Amoxil and Prednisone 60mg x 5 days. Tessalon for cough Start Advair. Albuterol prn Flu-like symptoms 09/22/2019 09/26/2019 Assessment & Plan (09/22/2019 9:15 PM LEAD NEURODIAGNOSTIC TECHNOLOGIST): Negative flu. See bronchitis Other fatigue 09/15/2019 09/26/2019 Assessment & Plan (09/15/2019 4:15 PM LEAD NEURODIAGNOSTIC TECHNOLOGIST): Probably multifactorial. Check labs and followup to re-evaluate Cough 09/15/2019 10/17/2022 Assessment & Plan (05/03/2022 8:57 PM CDT): See COPD Assessment & Plan (09/26/2019 8:53 AM LEAD NEURODIAGNOSTIC TECHNOLOGIST): Improving. Assessment & Plan (09/22/2019 9:08 PM LEAD NEURODIAGNOSTIC TECHNOLOGIST): See bronchitis Assessment & Plan (09/15/2019 4:14 PM LEAD NEURODIAGNOSTIC TECHNOLOGIST): See copd BMI 26.0-26.9,adult 09/10/2019 01/21/20 20 Assessment & Plan (11/24/2019 10:44 PM CDT): Weight/BMI is in healthy range. Continue healthy lifestyle to maintain. Assessment & Plan (09/26/2019 8:52 AM LEAD NEURODIAGNOSTIC TECHNOLOGIST): Weight/BMI is in healthy range. Continue healthy lifestyle to maintain. Assessment & Plan (09/10/2019 2:15 PM LEAD NEURODIAGNOSTIC TECHNOLOGIST): Weight/BMI is in healthy range. Continue healthy [...] of continued A1c control to minimize the care home effects of diabetes. Bring accuchecks to office when instructed to do so. Check A1c about every 3-6 months. Take medication as prescribed. Get annual eye exam. Encouraged DIANEYLS/Statin if able to tolerate. Encouraged weight control and encouraged diabetic diet and exercise. Diabetes is now well controlled with an A1c of 7.3. Still encourage patient to get labs done to check for his other values. Continue the Jardiance and metformin and follow up in 3-4 months to reassess. Assessment & Plan (10/23/2020 6:50 PM LEAD NEURODIAGNOSTIC TECHNOLOGIST): This is a significant, separately identifiable problem that was evaluated and managed on the same day as the wellness exam Stressed importance of continued A1c control to minimize the care home effects of diabetes. 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 Bring accuchecks to office when instructed to do so. Check A1c about every 3-6 months. Take medication as prescribed. Get annual eye exam. Encouraged DIANELYS/Statin if able to tolerate. Encouraged weight control and encouraged diabetic diet and exercise. Assessment & Plan (09/26/2019 8:52 AM LEAD NEURODIAGNOSTIC TECHNOLOGIST): Stressed importance of continued A1c control to minimize the care home effects of diabetes. Bring accuchecks to office when instructed to do so. Check A1c about every 3-6 months. Take medication as prescribed. Get annual eye exam. Encouraged DIANELYS/Statin if able to tolerate. Encouraged weight control and encouraged diabetic diet and exercise. Continue Metformin Assessment & Plan (06/07/2019 2:17 PM CDT): Stressed importance of continued A1c control to minimize the care home effects of diabetes. Bring accuchecks to [...] statin Assessment & Plan (09/26/2021 2:26 PM LEAD NEURODIAGNOSTIC TECHNOLOGIST): Stressed importance of continued A1c control to minimize the care home effects of diabetes. Bring accuchecks to [...] atorvastatin Assessment & Plan (10/21/2020 9:20 PM LEAD NEURODIAGNOSTIC TECHNOLOGIST): Encouraged patient to follow fat/low chol diet [...] 09/10/19 Assessment & Plan (07/25/2019 9:30 PM LEAD NEURODIAGNOSTIC TECHNOLOGIST): Weight/BMI is in healthy range. Continue healthy [...] losartan Assessment & Plan (09/26/2021 2:26 PM LEAD NEURODIAGNOSTIC TECHNOLOGIST): Bp is stable/in acceptable range for any co-morbidities. Encouraged to limit sodium intake and exercise for weight control. Continue losartan 25 Assessment & Plan (03/18/2021 12:59 PM CDT): Bp is stable/in acceptable range for any co-morbidities. Encouraged to limit sodium intake and exercise for weight control. Continue losartan Assessment & Plan (10/23/2020 6:53 PM LEAD NEURODIAGNOSTIC TECHNOLOGIST): Systolic is elevated by diastolic is low. [...] of continued A1c control to minimize the care home effects of diabetes. 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 Bring accuchecks to office [...] prior. Assessment & Plan (09/26/2019 8:52 AM LEAD NEURODIAGNOSTIC TECHNOLOGIST): Bp is stable/in acceptable range for any [...]
--- OUTSIDE RECORDS SUMMARY | 2025-05-12 14:26 | XMS_ITS | Clinical Summary ---
Author Organization [facility] Address [address] [place] [address] Care Team Providers Care Gandy Dancer Name Role Phone Unavailable Primary Care Provider [...]
--- OUTSIDE RECORDS SUMMARY | 2025-05-12 14:26 | XMS_ITS | Clinical Summary ---
Author Organization [facility] [address] [facility] Address [address] [place] [address] Care Team Providers Care Floral Designer Salesperson Name Role Phone Isis Boo Primary Care Provider [phone] Angel Hernandez MD Unavailable Gabino Paez MD Unavailable [phone] Boo Alaniz MD Unavailable Gorge JUAREZ MD, Jim Bright Unavailable [phone] Brooks Pennington MD Unavailable [phone] Allergies No known active allergies Medications [...] 08/07/2024 Assessment & Plan (08/17/2024 1:42 AM INSPECTOR BALANCE WHEEL MOTION): Patient has noticed a hoarseness to his [...] 08/07/2024 Assessment & Plan (08/17/2024 1:43 AM INSPECTOR BALANCE WHEEL MOTION): Patient has noticed a hoarseness to his [...] maintain. Assessment & Plan (08/17/2024 1:40 AM INSPECTOR BALANCE WHEEL MOTION): Weight/BMI is in healthy range. Continue healthy lifestyle to maintain. Assessment & Plan (06/25/2024 8:13 AM INSPECTOR BALANCE WHEEL MOTION): Weight/BMI is in healthy range. Continue healthy lifestyle to maintain. Fatigue 06/25/2024 Assessment & Plan (06/25/2024 6:41 PM INSPECTOR BALANCE WHEEL MOTION): Probably multifactorial. Check labs and followup to re-evaluate Medicare annual wellness visit, subsequent 07/29 Assessment & Plan (06/25/2024 6:38 PM INSPECTOR BALANCE WHEEL MOTION): Encouraged healthy lifestyle, good nutrition and exercise. [...] chart Assessment & Plan (07/29/2023 9:21 PM INSPECTOR BALANCE WHEEL MOTION): Encouraged healthy lifestyle, good nutrition and exercise. Encouraged Calcium and Vitamin D and weight bearing exercise for bone health. Reviewed immunizations Reviewed age appropirate screenings. History of left above knee amputation 10/17/2022 Overview (10/17/2022): 08/2022 Dr. Alaniz Assessment & Plan (11/10/2024 11:36 PM CDT): Status post dfari-uld-jfgu amputation on the left by Dr. Alaniz. Continue Plavix and aspirin and statin. States he [facility] help [facility] to fit more comfortably. Assessment & Plan (06/25/2024 6:38 PM INSPECTOR BALANCE WHEEL MOTION): Status post cfkfm-eog-bwfw amputation on the left by Dr. Alaniz. Continue Plavix and aspirin and statin. States he is not happy with prosthesis in his more happy utilizing his crutches to get around Assessment & Plan (03/24/2024 10:38 PM CDT): Status post gmdzc-jhf-oeze amputation due to peripheral vascular disease. Continue with statin, Plavix and aspirin. Assessment & Plan (07/29/2023 9:21 PM INSPECTOR BALANCE WHEEL MOTION): Status post above-knee amputation. Continue per vascular, [...] his essence referral for him to contact [facility] to get started. If he has problems he is to contact Dr. Alaniz's office. Seems to verbalize understanding of the plan Assessment & Plan (10/17/2022 8:43 AM INSPECTOR BALANCE WHEEL MOTION): Status post left above-knee amputation by Dr. [...] 10/17/2022 Assessment & Plan (06/25/2024 6:38 PM INSPECTOR BALANCE WHEEL MOTION): Phantom pain has subsided without any additional [...] monitor Assessment & Plan (10/17/2022 8:43 AM INSPECTOR BALANCE WHEEL MOTION): Status post left above-knee amputation by Dr. [...] 07/18/2022 Assessment & Plan (06/25/2024 6:37 PM INSPECTOR BALANCE WHEEL MOTION): Patient is on statin aspirin Plavix. Assessment & Plan (09/06/2022 8:48 AM INSPECTOR BALANCE WHEEL MOTION): Impression: Patient is status post left femoral [...] has non-reconstructible vascular disease therefore a left zpbxm-bbw-mrzq amputation was recommended. Risks of the procedure communicate with the patient to include bleeding, infection, injury, further surgery, and . Patient understands these risks and wishes to proceed. [place] were removed from left groin and left medial calf. Assessment & Plan (07/18/2022 1:58 PM INSPECTOR BALANCE WHEEL MOTION): Impression: Acute onset worsening claudication following recent [...] 05/05/2022 Assessment & Plan (06/25/2024 6:37 PM INSPECTOR BALANCE WHEEL MOTION): Patient with PVD. Continue with the Plavix and aspirin. Continue with the Lipitor 80 Assessment & Plan (03/24/2024 10:36 PM CDT): Patient has peripheral vascular disease. Continue to follow with vascular. He has already had lower leg amputation due to the peripheral vascular disease Assessment & Plan (10/17/2022 8:42 AM INSPECTOR BALANCE WHEEL MOTION): Continue per vascular surgery. He is on Plavix. Still strongly encouraged smoking cessation Assessment & Plan (10/06/2022 11:43 AM INSPECTOR BALANCE WHEEL MOTION): Status post left above knee amputation. Healed. [...] to regular hobbies, community activities, and resume tip stretcher and activities of daily living. Patient is [...] time. Assessment & Plan (08/16/2022 4:20 PM INSPECTOR BALANCE WHEEL MOTION): Impression: Known thrombosed left fem-pop bypass diagnosis [...] 80 Assessment & Plan (06/25/2024 6:38 PM INSPECTOR BALANCE WHEEL MOTION): Encouraged patient to follow low fat/low chol diet like the Mediterranean diet. Increase good fats in the diet. Increase exercise. Monitor labs as needed. Continue Lipitor 80 Assessment & Plan (03/24/2024 10:36 PM CDT): Stressed importance of continued A1c control to minimize the usp effects of diabetes. Bring accuchecks to office [...] 10 Assessment & Plan (07/29/2023 9:21 PM INSPECTOR BALANCE WHEEL MOTION): Encouraged patient to follow low fat/low chol [...] 80 Assessment & Plan (10/17/2022 8:41 AM INSPECTOR BALANCE WHEEL MOTION): Encouraged patient to follow low fat/low chol [...] 25 Assessment & Plan (06/25/2024 6:42 PM INSPECTOR BALANCE WHEEL MOTION): This is a significant, separately identifiable problem that was evaluated and managed on the same day as the wellness exam Bp is stable/in acceptable range for any co-morbidities. Encouraged to limit sodium intake and exercise for weight control. Continue losartan 25 Stressed importance of continued A1c control to minimize the intermodal customer service effects of diabetes. Bring accuchecks to office [...] his Farxiga including [facility] the [facility] versus [place] and me assistance versus him pain for it as he states he did get a little bit of extra money. Advised I will go ahead and prescribe it and if he needs assistance we would be glad to help him with a.c. and knee he would just need to bring in the correct paperwork. Encouraged him to talk with his [facility] senior sales representative to see if he could [...] 25 Assessment & Plan (07/29/2023 9:20 PM INSPECTOR BALANCE WHEEL MOTION): Bp is stable/in acceptable range for any co-morbidities. Encouraged to limit sodium intake and exercise for weight control. Stressed importance of continued A1c control to minimize the intermodal customer service effects of diabetes. Bring accuchecks to office [...] 25 Assessment & Plan (10/17/2022 8:41 AM INSPECTOR BALANCE WHEEL MOTION): Bp is stable/in acceptable range for any co-morbidities. Encouraged to limit sodium intake and exercise for weight control. Continue losartan 25 Assessment & Plan (08/16/2022 4:22 PM INSPECTOR BALANCE WHEEL MOTION): Impression: Stable chronic hypertension. Plan: Medications reviewed and recommend continuing daily antihypertensive regimen as directed by patient's primary care physician. Assessment & Plan (06/14/2022 5:07 PM CDT): Bp is stable/in acceptable range for any co-morbidities. Encouraged to limit sodium intake and exercise for weight control. 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 Bring accuchecks to office when instructed to do so. Check A1c about every 3-6 months. Take medication as prescribed. Get annual eye exam. Encouraged DIANELYS/Statin if able to tolerate. Encouraged weight control and encouraged diabetic diet and exercise. Patient has peripheral artery disease as well as peripheral arterial disease. Assessment & Plan (07/29/2023 9:21 PM INSPECTOR BALANCE WHEEL MOTION): Peripheral artery disease in the setting of diabetes that has resulted in dctkl-eok-vlkv amputation of the left leg. Strongly encouraged medical management as instructed. Assessment & Plan (01/03/2023 9:22 PM CDT): Stressed importance of continued A1c control to minimize the intermodal customer service effects of diabetes. Bring accuchecks to office [...] amputation. Assessment & Plan (10/17/2022 8:42 AM INSPECTOR BALANCE WHEEL MOTION): Stressed importance of continued A1c control to minimize the usp effects of diabetes. Bring accuchecks to office [...] of continued A1c control to minimize the usp effects of diabetes. Bring accuchecks to office [...] 12/21/2020 Assessment & Plan (10/17/2022 8:41 AM INSPECTOR BALANCE WHEEL MOTION): Stressed importance of continued A1c control to minimize the usp effects of diabetes. Bring accuchecks to office [...] 02/02/2020 Assessment & Plan (09/29/2021 12:34 PM INSPECTOR BALANCE WHEEL MOTION): Xray R shoulder today - he is taking to [facility]. Will notify him of results as [...] 07/25/2019 Assessment & Plan (07/25/2019 3:08 PM INSPECTOR BALANCE WHEEL MOTION): Infection vs pain from thick large nail growing into the skin. Start keflex. Has followup scheduled with Dr. Fraga next week. Await her recommendations. Laryngopharyngeal reflux (LPR) 06/07/2019 Assessment & Plan (06/25/2024 6:31 PM INSPECTOR BALANCE WHEEL MOTION): Continue PPI p.r.n. Assessment & Plan (03/24/2024 10:38 PM CDT): Continue pantoprazole p.r.n. Assessment & Plan (07/29/2023 9:19 PM INSPECTOR BALANCE WHEEL MOTION): Reviewed with patient if his reflux symptoms are controlled he can just use the pantoprazole p.r.n.. Assessment & Plan (10/17/2022 8:39 AM INSPECTOR BALANCE WHEEL MOTION): Continue PPI p.r.n. Assessment & Plan (06/14/2022 5:06 PM CDT): Continue PPI p.r.n. Assessment & Plan (09/26/2021 2:26 PM INSPECTOR BALANCE WHEEL MOTION): Continue PPI Assessment & Plan (03/18/2021 1:01 PM CDT): Continue ppi Assessment & Plan (10/21/2020 9:20 PM INSPECTOR BALANCE WHEEL MOTION): Continue PPI Assessment & Plan (03/14/2020 7:27 PM CDT): Continue Protonix Assessment & Plan (02/02/2020 4:30 PM CDT): Continue PPI Assessment & Plan (06/07/2019 2:12 PM CDT): On Protonix bid. No active bleeding Stop smoking. Avoid alcohol. Avoid NSAIDs. Onychomycosis 06/07/2019 Assessment & Plan (02/02/2020 4:31 PM CDT): Continue per steel wool machine operator Assessment & Plan (06/07/2019 2:16 PM CDT): This is a significant, separately identifiable problem that was evaluated and managed on the same day as the wellness exam Has been on Lamisil in the past without success. Refer to Co F[facility] for further treatment and assistance with cutting [...] past. Assessment & Plan (08/17/2024 1:40 AM INSPECTOR BALANCE WHEEL MOTION): Encouraged smoking cessation. Discussed 3 minutes. Reviewed options for assistance with cessation. Reviewed usp sequela associated with smoking. Pt declines assistance at this time but may contact the office at anytime for further help as they desire. Assessment & Plan (06/25/2024 6:32 PM INSPECTOR BALANCE WHEEL MOTION): This is a significant, separately identifiable problem [...] Reviewed options for assistance with cessation. Reviewed usp sequela associated with smoking. Pt declines assistance at this time but may contact the office at anytime for further help as they desire. Assessment & Plan (10/17/2022 8:40 AM INSPECTOR BALANCE WHEEL MOTION): Encouraged smoking cessation. Discussed 3 minutes. Reviewed options for assistance with cessation. Reviewed usp sequela associated with smoking. Pt declines assistance at this time but may contact the office at anytime for further help as they desire. Assessment & Plan (06/14/2022 5:06 PM CDT): Patient states he stop smoking. Assessment & Plan (10/21/2020 9:23 PM INSPECTOR BALANCE WHEEL MOTION): Quit 09/2019 Due for LDCT after 08/01/2020 Assessment & Plan (02/02/2020 4:34 PM CDT): Quit 09/2019 Assessment & Plan (11/24/2019 10:44 PM CDT): Smoke free for a few weeks. Continue with effort Assessment & Plan (09/26/2019 8:46 AM INSPECTOR BALANCE WHEEL MOTION): Quit smoking 09/12 on his own. 2 week cig free Encouraged to continue Assessment & Plan (09/22/2019 9:13 PM INSPECTOR BALANCE WHEEL MOTION): .Encouraged smoking cessation. Discussed 3 minutes. Reviewed options for assistance with cessation. Reviewed usp sequela associated with smoking. Pt declines assistance at this time but may contact the office at anytime for further help as they desire. Assessment & Plan (09/15/2019 4:15 PM INSPECTOR BALANCE WHEEL MOTION): Encouraged smoking cessation. Discussed 3 minutes. Reviewed options for assistance with cessation. Reviewed usp sequela associated with smoking. Pt declines assistance at this time but may contact the office at anytime for further help as they desire. Assessment & Plan (07/25/2019 9:30 PM INSPECTOR BALANCE WHEEL MOTION): Encouraged smoking cessation. Discussed 3 minutes. Reviewed options for assistance with cessation. Reviewed usp sequela associated with smoking. Pt declines assistance at this time but may contact the office at anytime for further help as they desire. Assessment & Plan (06/07/2019 2:26 PM CDT): Encouraged smoking cessation. Discussed 3 minutes. Reviewed options for assistance with cessation. Reviewed intermodal customer service sequela associated with smoking. Pt declines assistance [...] 06/07/2019 Assessment & Plan (10/17/2022 8:40 AM INSPECTOR BALANCE WHEEL MOTION): Persistent smoker's cough. Encouraged cessation has albuterol p.r.n. Assessment & Plan (10/23/2020 6:47 PM INSPECTOR BALANCE WHEEL MOTION): Treat COPD Continue with smoking cessation Assessment & Plan (03/14/2020 7:26 PM CDT): Quit smoking 08/2019 Assessment & Plan (02/02/2020 4:28 PM CDT): See COPD Assessment & Plan (11/24/2019 10:42 PM CDT): Pt has stopped smoking. Continue to monitor Assessment & Plan (09/26/2019 8:54 AM INSPECTOR BALANCE WHEEL MOTION): Improving. Continue tob cessation. Assessment & Plan (09/15/2019 4:14 PM INSPECTOR BALANCE WHEEL MOTION): Stop smoking Assessment & Plan (06/07/2019 2:10 PM CDT): Encouraged smoking cessation. Duodenal ulcer 06/05/2019 Assessment & Plan (06/05/2019 7:35 PM CDT): 04/2019 EGD - Dr. Hawley Acute gastric ulcer without hemorrhage or perfor ation 03/01/2019 Assessment & Plan (10/23/2020 6:47 PM INSPECTOR BALANCE WHEEL MOTION): Continue PPI. Avoid NSAIDs Assessment & Plan (06/07/2019 2:11 PM CDT): On Protonix bid. No active bleeding Stop smoking. Avoid alcohol. Avoid NSAIDs. Alcohol dependence in remission 02/07/2018 Assessment & Plan (06/25/2024 6:30 PM INSPECTOR BALANCE WHEEL MOTION): Patient states he has decreased alcohol immensely. Still encourage complete cessation Assessment & Plan (03/24/2024 10:38 PM CDT): Patient with history of alcohol dependence. He states he still drinks few times a week. Assessment & Plan (10/17/2022 8:37 AM INSPECTOR BALANCE WHEEL MOTION): Patient continues to remain alcohol free. Encouraged to continue Assessment & Plan (06/14/2022 5:06 PM CDT): Patient states he no longer drinks alcohol. Assessment & Plan (09/26/2021 2:25 PM INSPECTOR BALANCE WHEEL MOTION): Patient states he is still not drinking. Continue with cessation. Assessment & Plan (03/18/2021 1:01 PM CDT): Continue alcohol cessation Assessment & Plan (10/21/2020 9:19 PM INSPECTOR BALANCE WHEEL MOTION): Remains off alcohol Assessment & Plan (03/14/2020 [...] 11/2024 Assessment & Plan (06/25/2024 6:31 PM INSPECTOR BALANCE WHEEL MOTION): Encouraged complete smoking cessation. Continue management with Dr. Choi continue Anoro and albuterol. Imaging with CT is managed by Dr. Choi Assessment & Plan (03/24/2024 10:38 PM CDT): Patient with long-term smoking history. Has known COPD. On Anoro and albuterol. 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 Choi Assessment & Plan (07/29/2023 9:21 PM INSPECTOR BALANCE WHEEL MOTION): Continue in RO. Continue to follow with Dr. Riggs. Encouraged follow-up appointment Assessment & Plan (10/17/2022 8:39 AM INSPECTOR BALANCE WHEEL MOTION): Encouraged smoking cessation. 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 Riggs hydropress operator. Using daily Anaro and albuterol p.r.n. [...] get surgery. Chest xray was done at [facility] and it was negative for pneumonia. From the perspective of his COPD/respiratory fitness, patient is able to proceed with the Fem to Pop bypass procedure with Dr. Alaniz. Assessment & Plan (09/26/2021 2:25 PM INSPECTOR BALANCE WHEEL MOTION): Continue with Advair and albuterol p.r.n. Assessment & Plan (03/18/2021 1:03 PM CDT): Continue the Advair and prn albuterol Assessment & Plan (12/21/2020 9:38 AM CDT): Continue Advair and albuterol prn Assessment & Plan (10/23/2020 6:47 PM INSPECTOR BALANCE WHEEL MOTION): Dr. Miranda Advair and prn Albuterol Continue smoking cessation Assessment & Plan (03/14/2020 7:25 PM CDT): Continue Advair and prn albuterol. Await recommendations from Dr. Simpson Assessment & Plan (02/02/2020 4:37 PM CDT): This is a significant, separately identifiable problem that was evaluated and managed on the same day as the wellness exam Continue Advair and albuterol. Refer to Pulmonary at [place] due to persistent COPD sxs/cough. Has never had official PFTs/etc Assessment & Plan (11/24/2019 10:43 PM CDT): Continue with current regimen. Await covid results. Continue quarantine until results are available. Assessment & Plan (09/26/2019 8:53 AM INSPECTOR BALANCE WHEEL MOTION): Stable with the Advair and abuterol prn. Call if required more rescue. May use Mucinex prn for increased mucous production but call if beocomes consistently yellow or green Assessment & Plan (09/22/2019 9:08 PM INSPECTOR BALANCE WHEEL MOTION): COPD vs bronchitis. See Bronchitis for plan Stop smoking Assessment & Plan (09/15/2019 4:14 PM INSPECTOR BALANCE WHEEL MOTION): COPD exacerbation vs pneumonia--- Recommend CXR. Check [...] 07/29/202303/24 Assessment & Plan (07/29/2023 9:22 PM INSPECTOR BALANCE WHEEL MOTION): Check urine culture to rule out infection. If negative may consider adding tamsulosin as he also notes a little hesitancy Prostate cancer screening 07/29/2023 Assessment & Plan (07/29/2023 9:22 PM INSPECTOR BALANCE WHEEL MOTION): Check PSA BMI 20.0-20.9, adult 01/03/2023 024 Assessment & Plan (11/14/2023 2:08 PM CDT): Weight/BMI is in healthy range. Continue healthy lifestyle to maintain. Assessment & Plan (07/18/2023 9:54 AM INSPECTOR BALANCE WHEEL MOTION): Weight/BMI is in healthy range. Continue healthy [...] maintain. Assessment & Plan (10/17/2022 7:32 AM INSPECTOR BALANCE WHEEL MOTION): Weight/BMI is in healthy range. Continue healthy lifestyle to maintain. Annual physical exam 10/17/2022 024 Assessment & Plan (10/17/2022 8:42 AM INSPECTOR BALANCE WHEEL MOTION): Encouraged healthy lifestyle, good nutrition and exercise. Encouraged Calcium and Vitamin D and weight bearing exercise for bone health. Reviewed immunizations Reviewed age appropirate screenings. Rest pain of lower extremity due to atherosclerosis 09/05/2022 10/17/2022 Overview (09/05/2022): Added automatically from request for surgery [id number] Medicare annual wellness visit, subsequent 06/14/2022 10/17/2022 [...] 06/14/2022 Assessment & Plan (09/26/2021 2:29 PM INSPECTOR BALANCE WHEEL MOTION): See torticollis Need for immunization against influenza 09/26/2021 06/14/2022 Assessment & Plan (09/26/2021 2:29 PM INSPECTOR BALANCE WHEEL MOTION): FLU updated in office today Foot callus 09/26/2021 03/24/2024 Assessment & Plan (09/26/2021 2:31 PM INSPECTOR BALANCE WHEEL MOTION): This is a significant, separately identifiable problem [...] 06/14/20 Assessment & Plan (09/02/2021 4:22 PM INSPECTOR BALANCE WHEEL MOTION): Weight/BMI is in healthy range. Continue healthy lifestyle to maintain. BMI 26.0-26.9,adult 09/02/2021 09/02/19 BMI 25.0-25.9,adult 04/12/2021 09/02/19 Assessment & Plan (04/12/2021 1:51 PM CDT): Weight/BMI is in healthy range. Continue healthy lifestyle to maintain. Torticollis 04/12/2021 06/14/2022 Assessment & Plan (09/26/2021 2:28 PM INSPECTOR BALANCE WHEEL MOTION): This is a significant, separately identifiable problem [...] PT. Order was given, he will consider ([facility]). He is to followup if sxs worsen [...] complication, without long-term current use of insulin ([facility]) 10/23/2020 10/17/2022 Assessment & Plan (02/27/2022 9:34 PM CDT): Stressed importance of continued A1c control to minimize the usp effects of diabetes. Bring accuchecks to office [...] noted. Assessment & Plan (09/26/2021 2:27 PM INSPECTOR BALANCE WHEEL MOTION): Stressed importance of continued A1c control to minimize the usp effects of diabetes. Bring accuchecks to office when instructed to do so. Check A1c about every 3-6 months. Take medication as prescribed. Get annual eye exam. Encouraged DIANELYS/Statin if able to tolerate. Encouraged weight control and encouraged diabetic diet and exercise. Await labs to determine control Assessment & Plan (03/18/2021 1:00 PM CDT): Stressed importance of continued A1c control to minimize the usp effects of diabetes. Bring accuchecks to office when instructed to do so. Check A1c about every 3-6 months. Take medication as prescribed. Get annual eye exam. Encouraged DIANELYS/Statin if able to tolerate. Encouraged weight control and encouraged diabetic diet and exercise. Continue jardiance and metformin Fatigue 10/23/2020 03/24/2024 Assessment & Plan (07/29/2023 9:21 PM INSPECTOR BALANCE WHEEL MOTION): Probably multifactorial. Check labs and followup to re-evaluate Assessment & Plan (10/17/2022 8:40 AM INSPECTOR BALANCE WHEEL MOTION): Probably multifactorial. Check labs and followup to re-evaluate Assessment & Plan (06/14/2022 5:07 PM CDT): Probably multifactorial. Check labs and followup to re-evaluate Assessment & Plan (02/27/2022 9:34 PM CDT): Probably multifactorial. Check labs and followup to re-evaluate Assessment & Plan (09/26/2021 2:27 PM INSPECTOR BALANCE WHEEL MOTION): Probably multifactorial. Check labs and followup to re-evaluate Decreased hearing 10/23/2020 03/24/2024 Assessment & Plan (10/23/2020 6:52 PM INSPECTOR BALANCE WHEEL MOTION): This is a significant, separately identifiable problem that was evaluated and managed on the same day as the wellness exam Will send to ENT/Audiology for hearing tests to determine cause and treatment plan. 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 Thinks changes started then. BMI 27.0-27.9,adult 10/22/2020 12/22/19 Assessment & Plan (10/22/2020 8:20 AM INSPECTOR BALANCE WHEEL MOTION): Weight/BMI is in healthy range. Continue healthy lifestyle to maintain. Annual physical exam 10/21/2020 Assessment & Plan (09/26/2021 2:26 PM INSPECTOR BALANCE WHEEL MOTION): Encouraged healthy lifestyle, good nutrition and exercise. Encouraged Calcium and Vitamin D and weight bearing exercise for bone health. Reviewed immunizations Reviewed age appropirate screenings. Assessment & Plan (10/21/2020 9:20 PM INSPECTOR BALANCE WHEEL MOTION): Encouraged healthy lifestyle, good nutrition and exercise. Encouraged Calcium and Vitamin D and weight bearing exercise for bone health. Reviewed immunizations Reviewed age appropirate screenings. Exudative age-related macula r degeneration of both eyes with active choroidal neovascularization 10/21/2020 04/14/2025 Assessment & Plan (10/17/2022 8:40 AM INSPECTOR BALANCE WHEEL MOTION): Strongly encouraged follow-up with Ophthalmology. He has put this on the back burner due to his other chronic medical concerns. Assessment & Plan (06/14/2022 5:07 PM CDT): Encourage patient follow-up with his silk folder. He has been hesitant to think about treatment as they may include injections in the eye and he has been adamant about not doing that. Reviewed again the risk of not doing treatment progression to visual changes and possible blindness. He verbalizes understanding will consider Assessment & Plan (09/26/2021 2:27 PM INSPECTOR BALANCE WHEEL MOTION): Encouraged to continue per Ophthalmology. He voices understanding that by foregoing treatment this could lead to progressive loss of sight. Assessment & Plan (03/18/2021 1:00 PM CDT): Stressed the importance of continued follow-up with the silk folder. Reviewed that macular degeneration will continue to progress to the point of blindness and that treatment/intervention is needed to change this course or at least try to slow it down. Patient voiced understanding and states at this point he is not interested in treatment Assessment & Plan (10/23/2020 6:47 PM INSPECTOR BALANCE WHEEL MOTION): Encouraged to Continue per [facility] as [...] 09/26/2019 Assessment & Plan (09/22/2019 9:08 PM INSPECTOR BALANCE WHEEL MOTION): Bronchitis vs COPD. Flu is negative. Amoxil and Prednisone 60mg x 5 days. Tessalon for cough Start Advair. Albuterol prn Flu-like symptoms 09/22/2019 09/26/2019 Assessment & Plan (09/22/2019 9:15 PM INSPECTOR BALANCE WHEEL MOTION): Negative flu. See bronchitis Other fatigue 09/15/2019 09/26/2019 Assessment & Plan (09/15/2019 4:15 PM INSPECTOR BALANCE WHEEL MOTION): Probably multifactorial. Check labs and followup to re-evaluate Cough 09/15/2019 10/17/2022 Assessment & Plan (05/03/2022 8:57 PM CDT): See COPD Assessment & Plan (09/26/2019 8:53 AM INSPECTOR BALANCE WHEEL MOTION): Improving. Assessment & Plan (09/22/2019 9:08 PM INSPECTOR BALANCE WHEEL MOTION): See bronchitis Assessment & Plan (09/15/2019 4:14 PM INSPECTOR BALANCE WHEEL MOTION): See copd BMI 26.0-26.9,adult 09/10/2019 01/21/20 20 Assessment & Plan (11/24/2019 10:44 PM CDT): Weight/BMI is in healthy range. Continue healthy lifestyle to maintain. Assessment & Plan (09/26/2019 8:52 AM INSPECTOR BALANCE WHEEL MOTION): Weight/BMI is in healthy range. Continue healthy lifestyle to maintain. Assessment & Plan (09/10/2019 2:15 PM INSPECTOR BALANCE WHEEL MOTION): Weight/BMI is in healthy range. Continue healthy [...] of continued A1c control to minimize the usp effects of diabetes. Bring accuchecks to office [...] reassess. Assessment & Plan (10/23/2020 6:50 PM INSPECTOR BALANCE WHEEL MOTION): This is a significant, separately identifiable problem that was evaluated and managed on the same day as the wellness exam Stressed importance of continued A1c control to minimize the usp effects of diabetes. Bring accuchecks to office [...] of continued A1c control to minimize the usp effects of diabetes. Bring accuchecks to office [...] of continued A1c control to minimize the intermodal customer service effects of diabetes. Bring accuchecks to office when instructed to do so. Check A1c about every 3-6 months. Take medication as prescribed. Get annual eye exam. Encouraged DIANELYS/Statin if able to tolerate. Encouraged weight control and encouraged diabetic diet and exercise. Assessment & Plan (09/26/2019 8:52 AM INSPECTOR BALANCE WHEEL MOTION): Stressed importance of continued A1c control to minimize the usp effects of diabetes. Bring accuchecks to office when instructed to do so. Check A1c about every 3-6 months. Take medication as prescribed. Get annual eye exam. Encouraged DIANELYS/Statin if able to tolerate. Encouraged weight control and encouraged diabetic diet and exercise. Continue Metformin Assessment & Plan (06/07/2019 2:17 PM CDT): Stressed importance of continued A1c control to minimize the intermodal customer service effects of diabetes. Bring accuchecks to office [...] statin Assessment & Plan (09/26/2021 2:26 PM INSPECTOR BALANCE WHEEL MOTION): Stressed importance of continued A1c control to minimize the intermodal customer service effects of diabetes. Bring accuchecks to office [...] atorvastatin Assessment & Plan (10/21/2020 9:20 PM INSPECTOR BALANCE WHEEL MOTION): Encouraged patient to follow fat/low chol diet [...] 09/10/19 Assessment & Plan (07/25/2019 9:30 PM INSPECTOR BALANCE WHEEL MOTION): Weight/BMI is in healthy range. Continue healthy [...] losartan Assessment & Plan (09/26/2021 2:26 PM INSPECTOR BALANCE WHEEL MOTION): Bp is stable/in acceptable range for any co-morbidities. Encouraged to limit sodium intake and exercise for weight control. Continue losartan 25 Assessment & Plan (03/18/2021 12:59 PM CDT): Bp is stable/in acceptable range for any co-morbidities. Encouraged to limit sodium intake and exercise for weight control. Continue losartan Assessment & Plan (10/23/2020 6:53 PM INSPECTOR BALANCE WHEEL MOTION): Systolic is elevated by diastolic is low. [...] of continued A1c control to minimize the intermodal customer service effects of diabetes. Bring accuchecks to office when instructed to do so. Check A1c about every 3-6 months. Take medication as prescribed. Get annual eye exam. Encouraged DIANELYS/Statin if able to tolerate. Encouraged weight control and encouraged diabetic diet and exercise. Restart insulin to get better control. Assessment & Plan (02/02/2020 4:28 PM CDT): Stressed importance of continued A1c control to minimize the intermodal customer service effects of diabetes. Bring accuchecks to office [...] of continued A1c control to minimize the usp effects of diabetes. Bring accuchecks to office [...] prior. Assessment & Plan (09/26/2019 8:52 AM INSPECTOR BALANCE WHEEL MOTION): Bp is stable/in acceptable range for any [...] Type Department Care Team Description 05/07/2025 Telephone [facility] [id number] [place] [address] Isis Boo PA Medical Question/Miscellane ous 04/30/2025 11:30 AM CDT Office Visit [place] [address] [place] [address] Isis Boo PA Weight loss (Primary Dx); Colon cancer screening; BMI 20.0-20.9, adult; Hyperlipidemia associated with type 2 diabetes mellitus (HCC) 04/17/2025 Orders Only [address] [place] [phone] ProviderCarla MD 04/09/2025 10:30 AM CDT Office Visit [facility] Medical Office Building 2 Radiation Oncology [address] [place] [id number] Brooks Pennington MD Right vocal cord cancer (HCC) (Primary Dx) 04/01/2025 8:00 AM CDT Office Visit [address] [place] [phone] Isis Boo PA BMI 20.0-20.9, adult (Primary Dx); Prostate cancer screening; Diabetes mellitus type 2 with peripheral artery disease (HCC); Fatigue, unspecified type; Hyperlipidemia associated with type 2 diabetes mellitus (HCC); 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); 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); Alcohol dependence in remission (HCC); Stage 2 chronic kidney disease 03/27/2025 Nurse Triage [address] [place] [phone] Isis Boo PA 03/17/2025 1:00 PM CDT Treatment [facility] [address] [place] [address] 03/12/2025 Telephone [facility] [address] [place] [address] Isis Boo PA 03/11/2025 Telephone [facility] [address] [place] [address] Isis Boo PA Med Refill 02/20/2025 Telephone [place] [address] [place] [address] Isis Boo PA Medical Question/Miscellane ous 02/17/2025 10:45 AM CDT Treatment [facility] Medical Office Building 2 Radiation Oncology [address] [place] [address] Brooks Pennington MD 02/17/2025 Completion of Therapy [facility] Office Building 2 Radiation Oncology [address] [place] [phone] Brooks Pennington MD 02/17/2025 Orders Only RAD ONC TREATMENTS Miscellaneous, Not In File 02/14/2025 10:45 AM CDT Treatment [facility] Office Building 2 Radiation Oncology [address] [place] [address] 02/14/2025 OTV [facility] Office Building 2 Radiation Oncology [address] [place] [id number] Brooks Pennington MD 02/14/2025 Orders Only RAD ONC TREATMENTS Miscellaneous, Not In File 02/13/2025 11:00 AM CDT Clinical Support 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); Diabetes mellitus type 2 with peripheral artery disease (HCC) 02/13/2025 10:45 AM CDT Treatment [facility] Office Building [address] Radiation Oncology [address] [place] [id number] 02/13/2025 Orders Only RAD ONC TREATMENTS Miscellaneous, Not In File 02/12/2025 10:45 AM CDT Treatment [facility] Office Building 2 Radiation Oncology [address] [place] [address] 02/12/2025 Orders Only RAD ONC TREATMENTS Miscellaneous, Not In File 02/10/2025 10:45 AM CDT Treatment [facility] Office Building [address] Radiation Oncology [address] [place] [address] 02/10/2025 Orders Only RAD ONC TREATMENTS Miscellaneous, [...] materials from doctor or pharmacy Never 10/18/2022 [facility] Utilities Answer Date Recorded In the past 12 months has e [employer], gas, oil, or water [employer] threatened to shut off services in your [...] often do you attend chur ch or confucianist services? Never 05/18/2023 Do you belong to any clubs o r organizations such as baptism groups, unions, fraternal or athletic groups, or [...] place to sleep or slept in a retirement (including now)? No 05/18/2023 AUDIT-C Answer Date [...] on file Legal Sex Male 5:57 PM INSPECTOR BALANCE WHEEL MOTION Gender Identity Not on file Sexual Orientation [...] 03/18/2021, 05/21 Medical Devices Implanted Type Area Precipitation Equipment Tender Device Identifier Shelf Expiration Date Model / Serial / Lot [employer] 6mm 80cm 60cm Removable Ring Stretch Thin Wall Graft [id number] - [id number] - [id number] Implanted:Qty: 1 on 05/05/2022 by Boo Alaniz MD at [facility] Left: Femur [employer] 09/19/2025 [id number] / [id number] / [employer] Hemashield 6x2in 2 Velour Knitted Impregnated Nonsealed Tapered [id number] - [id number] Implanted:Qty: 1 on 05/05/2022 by Boo Alaniz MD at [facility] Left: Femur [employer] 06/20/2026 [id number] / / [id number] Procedures Procedure Name Priority Date/Time Associated Diagnosis [...] URINE ORDERABLES Final Result Performing Organization Address [facility] Co de Phone Number EXTERNAL LAB * (ABNORMAL) Hemoglobin A1c (09/30/2024) SCRIBED Hemoglobin A1c 7.2(A) 5.7 - 6.5 % EXTERNAL LAB Blood 09/30/2024 Isis HOFFMANN LAB BLOOD ORDERABLES Final Result Performing Organization Address [facility] de Phone Number EXTERNAL LAB * (ABNORMAL) Lipid panel (09/30/2024) SCRIBED Cholesterol, Total 196 0 - 200 EXTERNAL LAB SCRIBED HDL 38(A) 40 - 60 EXTERNAL LAB SCRIBED LDL EXTERNAL LAB Comment:Pending SCRIBED Triglycerides 104 0 - 150 EXTERNAL LAB Blood 09/30/2024 Isis HOFFMANN LAB BLOOD ORDERABLES Edite d Result - Final Performing Organization Address [facility] de Phone Number EXTERNAL LAB * [...] Most Recently Relevant to Health Maintenance Insurance [facility] ADVANTAGE CHOICE PPO [facility] [employer] Advance Directives For more information, please contact: [phone] * Full Code (Latest Code Status on [...] 12:44 PM 04/13/2022 5:50 PM Care Teams Floral Designer Salesperson Relationship Specialty Start Date End Date Isis Boo PA [address] [facility] [address] [place] [address] PCP - General Internal Medicine 06/06/19 Angel Hernandez MD [address] [facility] [address] [place] [address] Consulting Physician Cardiology 04/29/22 Gabino Paez MD [address] [place] [address] Consulting Physician Pulmonary Disease 05/03/22 Boo Alaniz MD [address] [place] [address] Consulting Physician Vascular Surgery 09/15/22 Jim Pennington II, MD [address] [place] [address] Surgeon Otolaryngology 11/27/24 [place] [address] [place] [id number] Radiation Oncologist Radiation Oncology 12/10/24
[2025-05-12 15:01] LABS: Add Urine Microscopic? YES; Appearance Urine Clear (Clear); Glucose Urine UA 3+ mg/dL (Negative); Leukocyte Esterase Ur Negative LEU/UL (Negative); Need Manual Microscopic Reviewed; Nitrate Urine Negative (Negative); Non Pathogenic Casts >20; Specific Grav Ur 1.025 (1.001-1.035)
== END 2025-05-12 16:13 | disposition home or self-care (01) ==
PROVIDERS: Physician Assistant; Emergency Provider Emergency Medicine; PCP Physician Assistant
DX: E11.65 Type 2 diabetes mellitus with hyperglycemia (principal); Z79.84 Long term (current) use of oral hypoglycemic drugs; T38.3X6A Underdosing of insulin and oral hypoglycemic [antidiabetic] drugs, initial encounter; Z91.138 Patient's unintentional underdosing of medication regimen for other reason; M19.90 Unspecified osteoarthritis, unspecified site; K21.9 Gastro-esophageal reflux disease without esophagitis; J44.9 Chronic obstructive pulmonary disease, unspecified; E78.5 Hyperlipidemia, unspecified; I10 Essential (primary) hypertension
CPT/HCPCS: 36415; 80053; 81001; 82948; 83036; 83735; 84100; 85025; 99283